=== PATIENT | female | born 1960 | race African-American/Black ===

== ENCOUNTER 2017-01-22 10:51 | Inpatient (IN) | payer OTHER ==
[~2017-01-22] VITALS: Ht 170.2 cm; Wt 64.5 kg
[2017-01-22] MEDS ORDERED: ASPIRIN 81 MG TAB PO STA (10:57)
--- NOTE | 2017-01-22 11:18 | ERA ---
ER Documentation Chief Complaint Date/Time DATE: 01/22/17 TIME: 10:58 Chief Complaint HPI This is a very pleasant 56-year-old female with a known history of end-stage renal disease on hemodialysis every Saturday. The patient indicates that yesterday evening she developed a chest pressure that did not radiate to the neck arm back or jaw. This lasted for several hours but did resolve. She went to her dialysis just prior to arrival and 2 minutes into the dialysis had recurrence of sharp shooting left substernal chest pain that at this time radiated to the left arm. It was 9 out of 10 in intensity. Dialysis was immediately stopped and EMS was called. When EMS arrived they stated that the patient was on 2 L nasal cannula and hypoxic at 70%. She was not complaining of any difficulty breathing. She did have improvement of her oxygen saturation to 94% and placed on a nonrebreather. They administered 162 mg of aspirin as well as sublingual nitroglycerin 3 sprays. The patient stated her pain improved to 7 out of 10 in intensity. Her bindery machine setter is Dr. Holden. ROS All systems reviewed and are negative except as per history of present illness. Medications Home Meds Unable to Obtain Active Prescriptions or Reported Meds Allergies Allergies: Coded Allergies: ibuprofen (Verified Allergy, Unknown, 01/22/17) Physical Exam Vitals Vital Signs Date Time Temp Pulse Resp B/P Pulse Ox O2 Delivery O2 Flow Rate FiO2 01/22/17 12:07 89 23 159/95 92 Mask 8.0 01/22/17 12:01 88 20 95 Non Rebreather Mask 15.0 01/22/17 12:01 15.0 01/22/17 10:56 98.8 88 22 149/86 92 Physical Exam Constitutional:Well-developed. Well-nourished. Patient in mild respiratory distress HEENT:Normocephalic. Atraumatic.Pupils were equal round reactive to light. Moist mucous membranes.No tonsillar exudates. Neck: No nuchal rigidity. No lymphadenopathy. No posterior cervical spine tenderness or step-offs. Respiratory: Not using accessory muscles of respiration. Decreased breath sounds throughout the left lung base. Slight wheeze on the right side. No subcutaneous emphysema. No stridor Cardiovascular: Regular rate regular rhythm.No murmurs. No rubs were appreciated.S1, S2 normal. Distal pulses are palpable 2+ bilaterally. GI: Abdomen was soft. Nontender. Non Distended. No pulsatile abdominal masses or bruits. No rebound. No guarding. Bowel sounds were present and normal. Muscle skeletal: Full range of motion of both the upper and lower extremities bilaterally.Normal muscle tone.No assymetrical calf tenderness or swelling. Skin: No petechia, no purpura. No lesions on the palms or the soles of the feet. No maculopapular rash. Right tunneled chest wall catheter in place clean dry and intact NEURO: Patient was alert, awake, orientated x3.No facial droop. Gait observed and normal with no ataxia.Speech had regular rate and rhythm. No focal neurological deficits. Result Diagram: 01/22/17 1130 01/22/17 1130 Results 24 hrs Laboratory Tests Test 01/22/17 11:30 White Blood Count 7.410^3/ul Red Blood Count 3.2610^6/ul Hemoglobin 9.3g/dl Hematocrit 29.0% Mean Corpuscular Volume 89.0fl Mean Corpuscular Hemoglobin 28.5pg Mean Corpuscular Hemoglobin Concent 32.1g/dl Red Cell Distribution Width 18.0% Platelet Count 66476^3/UL Mean Platelet Volume 9.8fl Neutrophils % 73.5% Lymphocytes % 15.8% Monocytes % 5.0% Eosinophils % 4.7% Basophils % 0.7% Nucleated Red Blood Cells % 0.0/100WBC Neutrophils # 5.510^3/ul Lymphocytes # 1.210^3/ul Monocytes # 0.410^3/ul Eosinophils # 0.410^3/ul Basophils # 0.110^3/ul Nucleated Red Blood Cells # 0.010^3/ul Prothrombin Time 13.7Sec Prothrombin Time Ratio 1.1 INR International Normalized Ratio 1.05 Activated Partial Thromboplast Time > 180.0Sec Sodium Level 139mmol/L Potassium Level 5.0mmol/L Chloride Level 101mmol/L Carbon Dioxide Level 26mmol/L Anion Gap 17 Blood Urea Nitrogen 36mg/dl Creatinine 3.64mg/dl Glucose Level 96mg/dl Calcium Level 9.0mg/dl Total Bilirubin 0.0mg/dl Direct Bilirubin 0.00mg/dl Indirect Bilirubin 0.0mg/dl Aspartate Amino Transf (AST/SGOT) 21IU/L Alanine Aminotransferase (ALT/SGPT) 19IU/L Alkaline Phosphatase 119IU/L B-Type Natriuretic Peptide 071204EX/ML Total Protein 6.6g/dl Albumin 2.7g/dl Globulin 3.90g/dl Albumin/Globulin Ratio 0.69 Current Medications Medications (Trade) Dose Ordered Sig/Kerri Route PRN Reason Start Time Stop Time Status Last Admin Dose Admin Aspirin (Aspirin) 162 mg ONCE STAT PO 01/22/17 10:57 01/22/17 10:59 DC 01/22/17 10:57 Albuterol (Proventil 0.5% (Neb)) 10 mg ONCE STAT INH 01/22/17 11:45 01/22/17 11:47 DC 01/22/17 11:57 Ipratropium [place] (Atrovent 0.02% (Neb)) 1 mg ONCE STAT INH 01/22/17 11:45 01/22/17 11:47 DC 01/22/17 11:57 Morphine Sulfate (morphine) 2 mg ONCE STAT IV 01/22/17 11:46 01/22/17 11:47 DC 01/22/17 12:03 Ondansetron HCl (Zofran Inj) 4 mg ONCE STAT IV 01/22/17 11:46 01/22/17 11:47 DC 01/22/17 12:03 Procedures/MDM The patient presented to the emergency department with chest pain. My clinical evaluation and workup was to distinguish minor causes of chest pain from acute life threatening conditions such as myocardial infarction, pulmonary embolism, aortic dissection, esophageal rupture, cardiac tamponade. The patient was placed on a company laborer and continuous pulse oximetry. IV access established by nursing staff. 12 Lead EKG tracing ordered and reviewed by myself showed: Normal sinus rhythm of 92 bpm and no arrhythmia. [place] interval normal. QRS duration normal. RSR prime pattern in lead V1 V2 with an incomplete right bundle branch block and right ventricular hypertrophy No ST segment elevation No ST segment depression. No changes consistent with acute ischemia. I obtained a 1 view chest radiograph which indicated the following reviewed by both myself and the radiologist: 1. Central vascular congestion and suggested pulmonary edema. Recommend correlation with CHF/fluid overload. 2. Large left pleural effusion with near complete collapse of the left lung and moderate right pleural effusion with adjacent atelectasis. I spoke with Dr. Holden who stated he will kindly admit the patient to the telemetry service. I have placed a call to the radiologist to undergo an emergent thoracentesis under ultrasound guidance given the severity of the patient's symptoms. Blood cultures were obtained. The patient had been given nebulizer treatments of albuterol and Atrovent as well as nitroglycerin. She did receive aspirin already in route by EMS for her chest pain. This did not improve her discomfort and therefore she was given intravenous morphine. I did feel the patient's chest discomfort was more likely related to her pleural effusion versus myocardial infarction however the patient will receive serial 12-lead EKG tracings and cardiac set of enzymes Critical Care: Time: 35 minutes Treatments/Evaluations: Close monitoring and treatment of unstable vital signs, cardiorespiratory, and neurologic status, while maintaining tight balance of fluid, respiratory, and cardiac interventions. Time does not include performing any of the above billable procedures. Departure Diagnosis: Primary Impression: Chest pain Qualified Code: R07.9 - Chest pain, unspecified type Additional Impressions: Pleural effusion on left CHF exacerbation Qualified Code: I50.43 - Acute on chronic combined systolic and diastolic congestive heart failure Condition: Serious LINDA HI Jan 22, 2017 11:15
[2017-01-22 11:36] LABS: ADD SCAN DIFF NO
[2017-01-22] MEDS ORDERED: ALBUTEROL 0.5% (NEB) 2.5 MG/0.5 ML AMP INH STA (11:45)
[2017-01-22] MEDS ORDERED: IPRATROPIUM (NEB) 0.5 MG/2.5 ML AMP INH STA (11:45)
[2017-01-22] MEDS ORDERED: morphine 2 MG INJ IV STA (11:46)
[2017-01-22] MEDS ORDERED: ONDANSETRON 4 MG INJ IV STA ×2 (11:46→14:41)
[2017-01-22 11:49] LABS: BASOPHIL # 0.1 10^3/ul (0.0-0.1); BASOPHILS % 0.7 % (0.0-2.0); EOSINOPHILS # 0.4 10^3/ul (0.0-0.5); EOSINOPHILS % 4.7 % (0.0-7.0); HEMOGLOBIN 9.3 g/dl (12.0-16.0); LYMPHOCYTES # 1.2 10^3/ul (0.8-2.9); LYMPHOCYTES % 15.8 % (15.0-51.0); MEAN CORPUSCULAR HEMOGLOBIN 28.5 pg (29.0-33.0); MEAN CORPUSCULAR HGB CONC 32.1 g/dl (32.0-37.0); MEAN PLATELET VOLUME 9.8 fl (7.4-10.4); MONOCYTE # 0.4 10^3/ul (0.3-0.9); NEUTROPHIL # 5.5 10^3/ul (1.6-7.5); NEUTROPHILS % 73.5 % (39.0-77.0); PLATELET COUNT 294 10^3/UL (140-415); RED BLOOD COUNT 3.26 10^6/ul (4.20-5.40); WHITE BLOOD COUNT 7.4 10^3/ul (4.8-10.8)
[2017-01-22 12:03] LABS: INR 1.05; PROTIME 13.7 Sec (12.2-14.2); PT RATIO 1.1
[2017-01-22 12:06] LABS: ALBUMIN 2.7 g/dl (3.3-4.9); ALBUMIN/GLOBULIN RATIO 0.69; CREATININE 3.64 mg/dl (0.44-1.00); TOTAL PROTEIN 6.6 g/dl (6.1-8.1)
--- NOTE | 2017-01-22 12:11 | RADRPT ---
PROCEDURE: Chest Radiograph. CLINICAL INDICATION: Chest pain TECHNIQUE: Single frontal chest radiograph. COMPARISON: None available FINDINGS: A right chest wall tunneled hemodialysis catheters in place. Heart size is poorly evaluated. There is moderate central vascular congestion. Interstitial opacities are nonspecific but likely represe nt pulmonary edema . There is a large left pleural effusion with near complete collapse of the left lung. There is a moderate right pleural effusion. The bones are intact. IMPRESSION: 1. Central vascular congestion and suggested pulmonary edema. Recommend correlation with CHF/fluid overload. 2. Large left pleural effusion with near complete collapse of the left lung and moderate right pleu ral effusion with adjacent atelectasis. RPTAT: KK .Miki Harrison MD, MD Date Time Electronically viewed and signed by .Miki Harrison MD, MD on 01/22/2017 12:11 .B/
[2017-01-22 12:49] LABS: PARTIAL THROMBOPLASTIN TIME > 180.0 Sec (25.0-35.0)
[2017-01-22] MEDS ORDERED: ONDANSETRON 4 MG INJ IV PRN (13:00)
[2017-01-22] MEDS ORDERED: ACETAMINOPHEN 325 MG TAB PO PRN (13:00)
[2017-01-22] MEDS ORDERED: LIDOCAINE 1% (MPF) 5 ML VIAL ONE (13:57)
--- NOTE | 2017-01-22 14:12 | RADRPT ---
PROCEDURE: Chest Radiograph. CLINICAL INDICATION: Post thoracentesis TECHNIQUE: Single frontal chest radiograph. COMPARISON: Chest radiograph 01/22/2017 FINDINGS: The patient is rotated. Heart size is poorly evaluated. A right chest wall tunneled hemodialysis c atheter remains in place. There is decreased left pleural fluid with persistent small to moderate l eft pleural effusion and adjacent atelectasis. There is no pneumothorax . There is a stable modera te right pleural effusion. The bones are intact. IMPRESSION: 1. Decreased left pleural effusion and improved aeration of the left lung without evidence of pneum othorax post thoracentesis. 2. Otherwise stable radiographic appearance of the chest compared to 11:30 a.m. RPTAT: KK .Miki Harrison MD, MD Date Time Electronically viewed and signed by .Miki Harrison MD, MD on 01/22/2017 14:12 .B/
[2017-01-22] MEDS ORDERED: HYDROmorphONE 1 MG/ML SYG IV STA (14:41)
--- NOTE | 2017-01-22 16:50 | CONS ---
Date/Time of Note Date/Time of Note DATE: 01/22/17 TIME: 16:45 Assessment/Plan Assessment/Plan Chief Complaint/Hosp Course Assessment 1. Chest discomfort concerning for acute coronary syndrome. Serial enzymes and echocardiogram cardiology consult 2. Hypoxemic respiratory failure secondary to volume overload with pleural effusion status post thoracentesis. Await pleural fluid studies. 3. End-stage renal failure on hemodialysis. Continue hemodialysis with volume removal. 4. Essential hypertension Plan Hemodialysis with volume removal Repeat chest x-ray to assess volume status may require repeat thoracentesis Aspiration precautions Cardiac consultation ACS protocol Problems: Consultation Date/Type/Reason Admit Date/Time Date of Consultation: Jan 22, 2017 Type of Consultation: Pulmonary Reason for Consultation Respiratory failure Hx of Present Illness 56-year-old lady with a history of end-stage renal failure on hemodialysis presents with several day history of increasing orthopnea PND in addition she presented with central chest discomfort this morning with no radiation no hemoptysis or hematemesis. Chest pain got worse today radiating to left arm and neck with hemodialysis. Hemodialysis. Patient was brought to the emergency room for further evaluation here she required aspirin nitroglycerin chest x-ray demonstrated a large left pleural effusion. She underwent thoracentesis with significant radiographic improvement. Past Medical History End-stage renal failure on hemodialysis Hypertension Social History Smoking Status: Never smoker Exam/Review of Systems Vital Signs Vitals Vital Signs Date Time Temp Pulse Resp B/P Pulse Ox O2 Delivery O2 Flow Rate FiO2 01/22/17 14:55 86 18 151/86 92 Nasal Cannula 5.0 01/22/17 10:56 98.8 Exam GENERAL: Well-nourished well-developed lady comfortable at rest no acute distress VITAL SIGNS: per chart NECK: Supple. No JVD or lymphadenopathy. CARDIAC EXAM: S1, S2. No added sounds or murmurs. CHEST: Diminished air entry bilaterally ABDOMEN: Soft, nontender. No guarding or rebound. EXTREMITIES: No cyanosis, clubbing or edema. NEUROLOGIC: Generalized weakness. No focal deficits. Results Chest x-ray bilateral pleural effusions improved aeration in the left lung following thoracentesis Result Diagram: 01/22/17 1130 01/22/17 1130 Results 24 hrs Laboratory Tests Test 01/22/17 11:30 White Blood Count 7.4 Red Blood Count 3.26 L Hemoglobin 9.3 L Hematocrit 29.0 L Mean Corpuscular Volume 89.0 Mean Corpuscular Hemoglobin 28.5 L Mean Corpuscular Hemoglobin Concent 32.1 Red Cell Distribution Width 18.0 H Platelet Count 294 Mean Platelet Volume 9.8 Neutrophils % 73.5 Lymphocytes % 15.8 Monocytes % 5.0 Eosinophils % 4.7 Basophils % 0.7 Nucleated Red Blood Cells % 0.0 Neutrophils # 5.5 Lymphocytes # 1.2 Monocytes # 0.4 Eosinophils # 0.4 Basophils # 0.1 Nucleated Red Blood Cells # 0.0 Prothrombin Time 13.7 Prothrombin Time Ratio 1.1 INR International Normalized Ratio 1.05 Activated Partial Thromboplast Time > 180.0 *H Sodium Level 139 Potassium Level 5.0 Chloride Level 101 Carbon Dioxide Level 26 Anion Gap 17 H Blood Urea Nitrogen 36 H Creatinine 3.64 H Glucose Level 96 Calcium Level 9.0 Total Bilirubin 0.0 L Direct Bilirubin 0.00 Indirect Bilirubin 0.0 Aspartate Amino Transf (AST/SGOT) 21 Alanine Aminotransferase (ALT/SGPT) 19 Alkaline Phosphatase 119 B-Type Natriuretic Peptide 141368 H Total Protein 6.6 Albumin 2.7 L Globulin 3.90 H Albumin/Globulin Ratio 0.69 ESTEFANI MAXWELL MD, [facility] Jan 22, 2017 16:50
--- NOTE | 2017-01-22 17:06 | RADRPT ---
PROCEDURE: US guided left thoracentesis. CLINICAL INDICATION: Shortness of breath. Left pleural effusion. TECHNIQUE: Prior to the procedure, informed consent was obtained. The risks, benefits, and alternatives were e xplained to the patient or the patient's family, including but not limited to bleeding, infection, p ain, visceral or vascular damage, shock, pneumothorax, chest tube placement, air embolism, and . The patient or the patient's family understood the risks and the alternatives and wished to proce ed with the study. Informed written consent was obtained. A procedural pause was performed. The patient's name, date of , and procedure to be performed were verified. Ultrasound of the left hemithorax was performed in the axial and sagittal planes. A left pleural eff usion is noted. Utilizing ultrasound guidance, optimal location for entry to the pleural cavity was ascertained. The overlying skin was prepped and draped in the usual sterile fashion. Approximately 10 ml of 1% Xylocaine was injected locally for pain control. Using ultrasound guidance, a 5-Uzbek Yueh catheter was introduced into the left pleural space without difficulty. Fluid was aspirated. COMPARISON: None. FINDINGS: Initial ultrasound demonstrates fluid in the left pleural space. Approximately 1.7 liters of serous fluid was aspirated and sent to the laboratory. IMPRESSION: 1. Satisfactory ultrasound-guided left thoracentesis. RPTAT: QQ .Mohamud Nam MD, Date Time Electronically viewed and signed by .Mohamud Nam MD, on 01/22/2017 17:06 .R/
[2017-01-22] MEDS ORDERED: BISACODYL (EC) 5 MG TAB PO PRN (21:00)
[2017-01-22] MEDS ORDERED: NACL 0.9% 3 ML SYG IV SCH (21:00)
[2017-01-22] MEDS ORDERED: ACETAMINOPHEN 650 MG SUPP PR PRN (21:00)
[2017-01-22] MEDS: HYDROmorphONE 1 MG/ML SYG IV PRN (21:03)
--- NOTE | 2017-01-22 22:59 | HP ---
Date/Time of Note Date/Time of Note DATE: 01/22/17 TIME: 22:54 Assessment/Plan VTE Prophylaxis VTE Prophylaxis Intervention: other Lines/Catheters IV Catheter Type (from Nrsg): Saline Lock Assessment/Plan Chief Complaint/Hosp Course esrd pleural effusion anemia r/o ihd ashd plan per cpoe Problems: HPI/ROS Admit Date/Time Admit Date/Time s/p sob and cp w hd hx esrd ROS Constitutional: No chills, No febrile, No nausea ENT: no complaints Respiratory: shortness of breath (+) Cardiovascular: no complaints, No lightheadedness Gastrointestinal: no complaints Genitourinary: no complaints Musculoskeletal: no complaints Skin: no complaints Neurologic: no complaints, other (weakness) Endocrine: no complaints Lymphatic: no complaints Psychological: no complaints PMH/Family/Social Past Medical History Medical History: coronary artery disease, high cholesterol, renal disease Family History Significant Family History: lung disease, renal disease Social History Alcohol Use: none Smoking Status: Never smoker Drug Use: none Exam/Review of Systems Vital Signs Vitals Vital Signs Date Time Temp Pulse Resp B/P Pulse Ox O2 Delivery O2 Flow Rate FiO2 01/22/17 22:29 92 16 139/81 93 Nasal Cannula 5.0 01/22/17 10:56 98.8 Exam Constitutional: alert, oriented Psych: no complaints Head: normocephalic Eyes: nl conjunctiva ENMT: nl external ears & nose Neck: non-tender, supple Respiratory: diminished breath sounds Cardiovascular: regular rate and rhythm Gastrointestinal: nl liver, spleen, non-tender, soft Musculoskeletal: nl extremities to inspection Extremities: normal pulses Neurological: OIL AND G[employer] PRINCIPAL II-XII intact Labs Result Diagram: 01/22/17 1130 01/22/17 1130 Medications Medications Current Medications Hydromorphone HCl (Dilaudid) 1 mg Q4H PRN IV PAIN Last administered on t 21:03; Admin Dose 1 MG; Start 01/22/17 at 19:30 Acetaminophen (Tylenol Tab) 650 mg Q6H PRN PO PAIN LEVEL 1-3 OR FEVER; Start at 21:00 Acetaminophen (Tylenol Supp) 650 mg Q6H PRN [place] PAIN LEVEL 1-3 OR FEVER; Start 01/22/17 at 21:00 Docusate Sodium (Colace) 100 mg Q12H PRN PO CONSTIPATION; Start 01/22/17 at 21: 00 Bisacodyl (Dulcolax) 5 mg DAILY PRN PO CONSTIPATION; Start 01/22/17 at 21:00 Pantoprazole (Protonix Tab) 40 mg DAILY@06 PO ; Start 01/23/17 at 06:00 Enoxaparin Sodium (Lovenox) 30 mg DAILY SC ; Start 01/23/17 at 09:00 SHAN ARRINGTON MD Jan 22, 2017 22:59
[2017-01-22] MEDS ORDERED: ALBUTEROL/IPRATROPIUM (NEB) 3 ML AMP HHN PRN (23:00)
[2017-01-23] VITALS (35 sets, daily range): BP systolic 137–185; BP diastolic 57–100; PULSE 86–112; RESP 9–24; Ht 170.2 cm; Wt 64.5 kg
[2017-01-23] MEDS: HYDROmorphONE 1 MG/ML SYG IV PRN ×6 (01:37→22:21)
[2017-01-23 02:48] LABS: AADO2 Arterial 209.4 mmHg (7.0-24.0); Allen Test ACCEPTAB; Arterial COHb 0.3 % (0.0-3.0); Arterial Fraction of Oxyhgb 78.6 % (93.0-99.0); Arterial HCO3 27.8 mmol/L (22.0-26.0); Arterial MetHb 0.3 % (0.0-1.5); Arterial Total Hemglobin 10.5 g/dl (12.0-18.0); MODE MASK - SIMPLE
[2017-01-23] MEDS: PANTOPRAZOLE (EC) 40 MG TAB PO SCH (06:00)
[2017-01-23] MEDS ORDERED: DIPHENHYDRAMINE 50 MG INJ IV ONE (07:30)
[2017-01-23] MEDS: ENOXAPARIN 30 MG/0.3 ML SYG SC SCH (08:50)
--- NOTE | 2017-01-23 09:26 | RADRPT ---
PROCEDURE: XR Chest. CLINICAL INDICATION: Congestive heart failure TECHNIQUE: Single frontal chest x-ray. COMPARISON: 01/22/2017 FINDINGS: There is a right sided tunneled dialysis catheter in place. Hilar vascular congestion with perihila r edema and small bilateral pleural effusions is unchanged. . Bibasilar atelectasis unchanged.. Ca rdiomediastinal silhouette is unchanged.. The osseous structures are intact. There is no evidence o f pneumothorax. IMPRESSION: Right sided tunneled dialysis catheter in place. Hilar congestion, perihilar edema and small bilateral pleural effusions are stable.. RPTAT: EE .Marcus Olivares MD, MD Date Time Electronically viewed and signed by .Marcus Olivares MD, MD on 01/23/2017 09:26 .L/
[2017-01-23 09:48] LABS: Allen Test ACCEPTAB; Arterial Base Excess 10.2 mmol/L (-3.0-3); Arterial COHb 0.3 % (0.0-3.0); Arterial Fraction of Oxyhgb 92.6 % (93.0-99.0); Arterial HCO3 35.6 mmol/L (22.0-26.0); Arterial MetHb 0.3 % (0.0-1.5); Arterial Total Hemglobin 10.8 g/dl (12.0-18.0); MODE MASK - NRB
--- NOTE | 2017-01-23 11:11 | CONS ---
Date/Time of Note Date/Time of Note DATE: 01/23/17 TIME: 11:09 Consult Date/Type/Reason Admit Date/Time Jan 22, 2017 at 12:58 Initial Consult Date 01/22/17 Type of Consultation: Pulmonary Subjective Patient awake alert and oriented this morning on nonrebreather O2, status post hemodialysis. Objective Vital Signs Date Time Temp Pulse Resp B/P Pulse Ox O2 Delivery O2 Flow Rate FiO2 01/23/17 11:00 95 9 150/88 100 Non Rebreather 15.0 01/23/17 07:00 97.8 Intake and Output 01/22/17 01/22/17 01/23/17 15:00 23:00 07:00 Intake Total 300 ml Output Total 4000 ml Balance -3700 ml Exam GENERAL: Chronically ill-appearing lady comfortable at rest no acute distress VITAL SIGNS: per chart NECK: Supple. No JVD or lymphadenopathy. CARDIAC EXAM: S1, S2. No added sounds or murmurs. CHEST: Diminished air entry bilaterally ABDOMEN: Soft, nontender. No guarding or rebound. EXTREMITIES: No cyanosis, clubbing or edema. NEUROLOGIC: Generalized weakness. No focal deficits. Results/Medications Result Diagram: 01/22/17 1130 01/22/17 1130 Results 24 hrs Chest x-ray demonstrates pulmonary edema Laboratory Tests Test 01/22/17 11:30 01/23/17 02:19 01/23/17 08:00 White Blood Count 7.4 Red Blood Count 3.26 L Hemoglobin 9.3 L Hematocrit 29.0 L Mean Corpuscular Volume 89.0 Mean Corpuscular Hemoglobin 28.5 L Mean Corpuscular Hemoglobin Concent 32.1 Red Cell Distribution Width 18.0 H Platelet Count 294 Mean Platelet Volume 9.8 Neutrophils % 73.5 Lymphocytes % 15.8 Monocytes % 5.0 Eosinophils % 4.7 Basophils % 0.7 Nucleated Red Blood Cells % 0.0 Neutrophils # 5.5 Lymphocytes # 1.2 Monocytes # 0.4 Eosinophils # 0.4 Basophils # 0.1 Nucleated Red Blood Cells # 0.0 Prothrombin Time 13.7 Prothrombin Time Ratio 1.1 INR International Normalized Ratio 1.05 Activated Partial Thromboplast Time > 180.0 *H Sodium Level 139 Potassium Level 5.0 Chloride Level 101 Carbon Dioxide Level 26 Anion Gap 17 H Blood Urea Nitrogen 36 H Creatinine 3.64 H Glucose Level 96 Calcium Level 9.0 Total Bilirubin 0.0 L Direct Bilirubin 0.00 Indirect Bilirubin 0.0 Aspartate Amino Transf (AST/SGOT) 21 Alanine Aminotransferase (ALT/SGPT) 19 Alkaline Phosphatase 119 B-Type Natriuretic Peptide 315012 H Total Protein 6.6 Albumin 2.7 L Globulin 3.90 H Albumin/Globulin Ratio 0.69 Blood Gas Specimen Source Blood arterial Blood arterial Arterial Blood Date Drawn 01/23/2017 2:40:02 AM 01/23/2017 9:35:05 AM Arterial Blood pH (Temp corrected) 7.316 L 7.453 H Arterial Blood pCO2 (Temp correct) 55.8 H 52.0 H Arterial Blood pO2 (Temp corrected) 48.0 *L 65.0 L Arterial Blood HCO3 27.8 H 35.6 H Arterial Blood Base Excess 1.0 10.2 H Arterial Blood Oxygen Saturation 79.1 L 93.2 L Cristóbal Test ACCEPTAB ACCEPTAB Arterial Blood Gas Puncture Site UAL Right Radial Arterial Blood Carboxyhemoglobin 0.3 0.3 Arterial Blood Methemoglobin 0.3 0.3 Blood Gas A-a O2 Differential 209.4 H 596.0 H Oxyhemoglobin Percent 78.6 L 92.6 L Total Hemoglobin 10.5 L 10.8 L Blood Gas Temperature 37.0 37.0 Blood Gas Modality MASK - SIMPLE MASK - NRB FiO2 45.0 100.0 Blood Gas Critical Value Read Back ROHIT DE LA CRUZ Blood Gas Notified Whom LIZETH JLD Blood Gas Notified Time 01/23/2017 2:46:10 AM 01/23/2017 9:47:51 AM Medications Current Medications Hydromorphone HCl (Dilaudid) 1 mg Q4H PRN IV PAIN Last administered on t 09:50; Admin Dose 1 MG; Start 01/22/17 at 19:30 Acetaminophen (Tylenol Tab) 650 mg Q6H PRN PO PAIN LEVEL 1-3 OR FEVER; Start at 21:00 Acetaminophen (Tylenol Supp) 650 mg Q6H PRN [place] PAIN LEVEL 1-3 OR FEVER; Start 01/22/17 at 21:00 Docusate Sodium (Colace) 100 mg Q12H PRN PO CONSTIPATION; Start 01/22/17 at 21: 00 Bisacodyl (Dulcolax) 5 mg DAILY PRN PO CONSTIPATION; Start 01/22/17 at 21:00 Pantoprazole (Protonix Tab) 40 mg DAILY@06 PO ; Start 01/23/17 at 06:00 Enoxaparin Sodium (Lovenox) 30 mg DAILY SC ; Start 01/23/17 at 09:00 Assessment/Plan Chief Complaint/Hosp Course Assessment 1. Chest discomfort concerning for acute coronary syndrome. Continue cardiac recommendations 2. Hypoxemic respiratory failure secondary to volume overload with pleural effusion status post thoracentesis. Await pleural fluid studies. 3. End-stage renal failure on hemodialysis. Continue hemodialysis with volume removal. 4. Essential hypertension Plan Hemodialysis with volume removal, may require daily hemodialysis with several days Repeat chest x-ray shows no pleural effusions but ongoing interstitial edema Aspiration precautions Cardiac recommendations regarding chest pain. May require cardiac cath. Critical care time 40 minutes. Problems: ESTEFANI MAXWELL MD, [facility] Jan 23, 2017 11:10
--- NOTE | 2017-01-23 22:37 | PN ---
Date/Time of Note Date/Time of Note DATE: 01/23/17 TIME: 22:36 Assessment/Plan VTE Prophylaxis VTE Prophylaxis Intervention: other Lines/Catheters IV Catheter Type (from Nrsg): Central Line Central line still needed: Yes Urinary Cath still in place: No Reason Cath still needed: other (indicate) Assessment/Plan Chief Complaint/Hosp Course esrd pleural effusion anemia r/o ihd ashd plan per pulmonary hd Problems: Subjective 24 Hr Interval Summary Respiratory: shortness of breath (+) Cardiovascular: no complaints Exam/Review of Systems Vital Signs Vitals Vital Signs Date Time Temp Pulse Resp B/P Pulse Ox O2 Delivery O2 Flow Rate FiO2 01/23/17 21:00 103 14 174/99 92 High Flow 01/23/17 20:00 98.4 01/23/17 19:30 80 01/23/17 12:00 15.0 Intake and Output 01/22/17 01/22/17 01/23/17 15:00 23:00 07:00 Intake Total 300 ml Output Total 4000 ml Balance -3700 ml Exam Respiratory: diminished breath sounds Cardiovascular: regular rate and rhythm Gastrointestinal: soft Results Result Diagram: 01/22/17 1130 01/22/17 1130 Results 24 hrs Laboratory Tests Test 01/23/17 02:19 01/23/17 08:00 Blood Gas Specimen Source Blood arterial Blood arterial Arterial Blood Date Drawn 01/23/2017 2:40:02 AM 01/23/2017 9:35:05 AM Arterial Blood pH (Temp corrected) 7.316 L 7.453 H Arterial Blood pCO2 (Temp correct) 55.8 H 52.0 H Arterial Blood pO2 (Temp corrected) 48.0 *L 65.0 L Arterial Blood HCO3 27.8 H 35.6 H Arterial Blood Base Excess 1.0 10.2 H Arterial Blood Oxygen Saturation 79.1 L 93.2 L Cristóbal Test ACCEPTAB ACCEPTAB Arterial Blood Gas Puncture Site UAL Right Radial Arterial Blood Carboxyhemoglobin 0.3 0.3 Arterial Blood Methemoglobin 0.3 0.3 Blood Gas A-a O2 Differential 209.4 H 596.0 H Oxyhemoglobin Percent 78.6 L 92.6 L Total Hemoglobin 10.5 L 10.8 L Blood Gas Temperature 37.0 37.0 Blood Gas Modality MASK - SIMPLE MASK - NRB FiO2 45.0 100.0 Blood Gas Critical Value Read Back RN DE LA CRUZ Blood Gas Notified Whom LIZETH JLD Blood Gas Notified Time 01/23/2017 2:46:10 AM 01/23/2017 9:47:51 AM Medications Medications Current Medications Hydromorphone HCl (Dilaudid) 1 mg Q4H PRN IV PAIN Last administered on t 22:21; Admin Dose 1 MG; Start 01/22/17 at 19:30 Acetaminophen (Tylenol Tab) 650 mg Q6H PRN PO PAIN LEVEL 1-3 OR FEVER; Start at 21:00 Acetaminophen (Tylenol Supp) 650 mg Q6H PRN [place] PAIN LEVEL 1-3 OR FEVER; Start 01/22/17 at 21:00 Docusate Sodium (Colace) 100 mg Q12H PRN PO CONSTIPATION; Start 01/22/17 at 21: 00 Bisacodyl (Dulcolax) 5 mg DAILY PRN PO CONSTIPATION; Start 01/22/17 at 21:00 Pantoprazole (Protonix Tab) 40 mg DAILY@06 PO ; Start 01/23/17 at 06:00 Enoxaparin Sodium (Lovenox) 30 mg DAILY SC ; Start 01/23/17 at 09:00 SHAN ARRINGTON MD Jan 23, 2017 22:37
[2017-01-24] VITALS (23 sets, daily range): BP systolic 121–185; BP diastolic 73–120; PULSE 88–108; RESP 9–22
[2017-01-24] MEDS: HYDROmorphONE 1 MG/ML SYG IV PRN ×6 (02:17→20:48)
[2017-01-24 05:25] LABS: ADD SCAN DIFF NO
[2017-01-24 05:37] LABS: BASOPHILS % 0.5 % (0.0-2.0); EOSINOPHILS # 0.3 10^3/ul (0.0-0.5); EOSINOPHILS % 4.4 % (0.0-7.0); HEMATOCRIT 29.6 % (37.0-47.0); HEMOGLOBIN 9.2 g/dl (12.0-16.0); LYMPHOCYTES # 0.9 10^3/ul (0.8-2.9); LYMPHOCYTES % 15.2 % (15.0-51.0); MEAN CORPUSCULAR HEMOGLOBIN 27.9 pg (29.0-33.0); MEAN CORPUSCULAR HGB CONC 31.1 g/dl (32.0-37.0); MEAN CORPUSCULAR VOLUME 89.7 fl (82.0-101.0); MEAN PLATELET VOLUME 10.2 fl (7.4-10.4); MONOCYTE # 0.5 10^3/ul (0.3-0.9); MONOCYTES % 8.5 % (0.0-11.0); NEUTROPHIL # 4.4 10^3/ul (1.6-7.5); NEUTROPHILS % 71.1 % (39.0-77.0); PLATELET COUNT 250 10^3/UL (140-415); RED CELL DISTRIBUTION WIDTH 17.5 % (11.5-14.5); WHITE BLOOD COUNT 6.1 10^3/ul (4.8-10.8)
[2017-01-24] MEDS: PANTOPRAZOLE (EC) 40 MG TAB PO SCH (05:53)
[2017-01-24 06:02] LABS: CALCIUM 7.5 mg/dl (8.4-10.2); CREATININE 3.43 mg/dl (0.44-1.00); MAGNESIUM 2.2 mg/dl (1.7-2.5); PHOSPHORUS 4.8 mg/dl (2.5-4.9); POTASSIUM 3.9 mmol/L (3.5-5.1)
[2017-01-24] MEDS: ENOXAPARIN 30 MG/0.3 ML SYG SC SCH (08:13)
--- NOTE | 2017-01-24 10:44 | CONS ---
Date/Time of Note Date/Time of Note DATE: 01/24/17 TIME: 10:42 Consult Date/Type/Reason Admit Date/Time Jan 22, 2017 at 12:58 Initial Consult Date 01/22/17 Type of Consultation: Pulmonary Subjective Still on high flow O2, somewhat better today. Continues at 15 L and 60% FiO2. Awake alert and oriented. Objective Vital Signs Date Time Temp Pulse Resp B/P Pulse Ox O2 Delivery O2 Flow Rate FiO2 01/24/17 10:00 102 15 167/96 92 High Flow 01/24/17 04:30 98.4 01/24/17 04:28 60 01/23/17 12:00 15.0 Intake and Output 01/23/17 01/23/17 01/24/17 15:00 23:00 07:00 Intake Total 320 ml 400 ml 100 ml Output Total 0 ml 0 ml Balance 320 ml 400 ml 100 ml Exam GENERAL: Chronically ill-appearing lady comfortable at rest no acute distress VITAL SIGNS: per chart NECK: Supple. No JVD or lymphadenopathy. CARDIAC EXAM: S1, S2. No added sounds or murmurs. CHEST: Diminished air entry bilaterally ABDOMEN: Soft, nontender. No guarding or rebound. EXTREMITIES: No cyanosis, clubbing or edema. NEUROLOGIC: Generalized weakness. No focal deficits. Results/Medications Result Diagram: 01/24/17 0505 01/24/17 0505 Results 24 hrs Chest x-ray Extensive bilateral infiltrates and effusions Laboratory Tests Test 01/24/17 05:05 01/24/17 05:08 White Blood Count 6.1 Red Blood Count 3.30 L Hemoglobin 9.2 L Hematocrit 29.6 L Mean Corpuscular Volume 89.7 Mean Corpuscular Hemoglobin 27.9 L Mean Corpuscular Hemoglobin Concent 31.1 L Red Cell Distribution Width 17.5 H Platelet Count 250 Mean Platelet Volume 10.2 Neutrophils % 71.1 Lymphocytes % 15.2 Monocytes % 8.5 Eosinophils % 4.4 Basophils % 0.5 Nucleated Red Blood Cells % 0.0 Neutrophils # 4.4 Lymphocytes # 0.9 Monocytes # 0.5 Eosinophils # 0.3 Basophils # 0.0 Nucleated Red Blood Cells # 0.0 Sodium Level 137 Potassium Level 3.9 Chloride Level 94 L Carbon Dioxide Level 32 H Anion Gap 15 Blood Urea Nitrogen 27 H Creatinine 3.43 H Glucose Level 87 Calcium Level 7.5 L Phosphorus Level 4.8 Magnesium Level 2.2 Bedside Glucose 164 Medications Current Medications Hydromorphone HCl (Dilaudid) 1 mg Q4H PRN IV PAIN Last administered on 09:58; Admin Dose 1 MG; Start 01/22/17 at 19:30 Acetaminophen (Tylenol Tab) 650 mg Q6H PRN PO PAIN LEVEL 1-3 OR FEVER; Start at 21:00 Acetaminophen (Tylenol Supp) 650 mg Q6H PRN [place] PAIN LEVEL 1-3 OR FEVER; Start 01/22/17 at 21:00 Docusate Sodium (Colace) 100 mg Q12H PRN PO CONSTIPATION; Start 01/22/17 at 21: 00 Bisacodyl (Dulcolax) 5 mg DAILY PRN PO CONSTIPATION; Start 01/22/17 at 21:00 Pantoprazole (Protonix Tab) 40 mg DAILY@06 PO Last administered on 01/24/17 05 :53; Admin Dose 40 MG; Start 01/23/17 at 06:00 Enoxaparin Sodium (Lovenox) 30 mg DAILY SC ; Start 01/23/17 at 09:00 Assessment/Plan Chief Complaint/Hosp Course Assessment 1. Chest discomfort concerning for acute coronary syndrome. Continue cardiac recommendations 2. Hypoxemic respiratory failure secondary to volume overload with pleural effusion status post thoracentesis. Will need repeat thoracentesis will order left lumbar this time. 3. End-stage renal failure on hemodialysis. Continue hemodialysis with volume removal. 4. Essential hypertension Plan Hemodialysis with volume removal, may require daily hemodialysis with several days Repeat chest x-ray shows no pleural effusions but ongoing interstitial edema left lung thoracentesis Aspiration precautions Cardiac recommendations regarding chest pain. May require cardiac cath when stable. Critical care time 40 minutes. Problems: ESTEFANI MAXWELL MD, [facility] Jan 24, 2017 10:43
--- NOTE | 2017-01-24 10:45 | RADRPT ---
PROCEDURE: XR Chest. CLINICAL INDICATION: There is heart failure. Pneumonia. TECHNIQUE: Single frontal chest x-ray. COMPARISON: 01/23/2017 FINDINGS: There is a right sided tunneled dialysis catheter in place unchanged. . Cardiomegaly with hilar con gestion, perihilar edema and pleural effusions slightly worsened consistent with increasing congesti ve heart failure.. .. The osseous structures are intact. IMPRESSION: Cardiomegaly with increased hilar congestion, perihilar edema and small bilateral pleural effusions consistent with increasing congestive heart failure. May Right sided tunneled dialysis catheter in place.. RPTAT: RR .Marcus Olivares MD, MD Date Time Electronically viewed and signed by .Marcus Olivares MD, on 01/24/2017 10:45 .L/
[2017-01-24] MEDS: hydrALAzine 20 MG INJ IV PRN (13:05)
[2017-01-24] MEDS: METOPROLOL 25 MG TAB PO SCH (20:33)
[2017-01-24] MEDS: BENAZEPRIL 10 MG TAB PO SCH (20:33)
--- NOTE | 2017-01-24 20:55 | RADRPT ---
Echocardiogram Report Patient Name: SABRINA JARRETT Gender: Female Date: 1960 Study Date: 24-Jan-2017 [place]: Jessica Penaloza BRANDO Location: [facility] Ref. Physician: HUA LAUREN Quality: Good Procedures: Transthoracic echocardiogram with complete 2D, M-Mode, and doppler examination. Indications: Congestive Heart Failure. 2D/M Mode Doppler Measurement Value Normal Ranges Measurement Value Normal Ranges LVIDd 2D 4.1 3.5 - 5.6 cm AV Peak Xiang 1.5 m/sec LVIDs 2D 2.4 2.1 - 4.1 cm AV Peak PG 9.0 mmHg FS 2D 41.6 % AI Peak PG 70.0 mmHg LVPWd 2D 1.2 0.6 - 1.1 cm AI Peak Xiang 4.2 m/sec IVSd 2D 1.3 0.6 - 1.1 cm AI PHT 554.0 msec IVS/LVPW 2D 1.1 LVOT Peak Xiang 1.2 m/sec AoR Diam 2D 3.0 2.0 - 3.7 cm LVOT Peak PG 6.0 mmHg LA/Ao 2D 1 0 - 1 MV E Peak Xiang 0.7 m/sec EDV 2D 66.9 cm3 MV A Peak Xiang 0.9 m/sec ESV 2D 13.3 cm3 MV E/A 0.8 LA Dimen 2D 3.3 2.3 - 4.0 cm MV Decel Time 116 msec MV E/A 0.8 TR Peak Xiang 3.3 m/sec TR Peak PG 43.0 mmHg RVSP 58.0 mmHg Findings Left Ventricle: Lower limits of normal systolic function. Normal left ventricular cavity size. Mild concentric left ventricular hypertrophy. Ejection fraction is visually estimated at 50 %. Tissue Doppler/Mitral Doppler indices are consistent with impaired relaxation (Stage I diastolic dysfunction). Right Ventricle: Mild enlargement of right ventricle. Mild right ventricular hypokinesis. Left Atrium: The left atrium is normal in size. Right Atrium: The right atrium is normal in size. Linear artifact in right atrium suggestive of catheter, pacer lead, or ICD lead. Mitral Valve: Mitral valve leaflets appear mildly thickened. Mild mitral annular calcification. Mild mitral valve regurgitation. Aortic Valve: Aortic cusps appear mildly calcified. Trace to mild aortic valve regurgitation. Tricuspid Valve: Normal appearance of the tricuspid valve. Estimated peak PA systolic pressure 58 mmHg. There is mild to moderate tricuspid regurgitation. Pulmonic Valve: Normal pulmonic valve appearance. Pericardium: Normal pericardium with no significant pericardial effusion. Pleural effusion seen. Aorta: Normal aortic root. IVC: Dilated IVC without respiratory collapse consistent with elevated right atrial pressure. Conclusions 1.Lower limits of normal systolic function. Normal left ventricular cavity size. Mild concentric left ventricular hypertrophy. Ejection fraction is visually estimated at 50 %. Tissue Doppler/Mitral Doppler indices are consistent with impaired relaxation (Stage I diastolic dysfunction). 2.Mild enlargement of right ventricle. Mild right ventricular hypokinesis. 3.The right atrium is normal in size. Linear artifact in right atrium suggestive of catheter, pacer lead, or ICD lead. 4.Mitral valve leaflets appear mildly thickened. Mild mitral annular calcification. Trace mitral regurgitation. 5.Aortic cusps appear mildly calcified. Trace to mild aortic valve regurgitation. 6.Normal appearance of the tricuspid valve. Estimated peak PA systolic pressure 58 mmHg. There is mild to moderate tricuspid regurgitation. Electronically Signed By: Hua Lauren 24-Jan-2017 20:54:34 -0700 Patient Name: SABRINA JARRETT Study Date: 24-Jan-2017 [id number]
[2017-01-24 21:16] LABS: CREATINE KINASE 51 IU/L (23-200)
[2017-01-24 21:28] LABS: CK-MB 1.96 ng/ml (0.0-2.4)
[2017-01-24 21:30] LABS: TROPONIN-I < 0.012 ng/ml (0.00-0.12)
--- NOTE | 2017-01-24 22:52 | PN ---
Date/Time of Note Date/Time of Note DATE: 01/24/17 TIME: 22:50 Assessment/Plan VTE Prophylaxis VTE Prophylaxis Intervention: other Lines/Catheters IV [facility]from [facility] Saline Lock Urinary Cath still in place: No Assessment/Plan Chief Complaint/Hosp Course esrd pleural effusion anemia r/o ihd ashd plan per pulmonary hd Problems: Subjective 24 Hr Interval Summary Respiratory: shortness of breath (BETTER) Cardiovascular: no complaints Gastrointestinal: no complaints Genitourinary: no complaints Exam/Review of Systems Vital Signs Vitals Vital Signs Date Time Temp Pulse Resp B/P Pulse Ox O2 Delivery O2 Flow Rate FiO2 01/24/17 21:20 96 50 01/24/17 21:01 95 01/24/17 20:00 98.0 20 151/92 01/24/17 19:00 High Flow 01/23/17 12:00 15.0 Intake and Output 01/23/17 01/23/17 01/24/17 15:00 23:00 07:00 Intake Total 320 ml 400 ml 100 ml Output Total 0 ml 0 ml Balance 320 ml 400 ml 100 ml Exam Respiratory: clear to auscultation Cardiovascular: regular rate and rhythm Gastrointestinal: soft Results Result Diagram: 01/24/17 0505 01/24/17 0505 Results 24 hrs Laboratory Tests Test 01/24/17 05:05 01/24/17 05:08 01/24/17 20:30 White Blood Count 6.1 Red Blood Count 3.30 L Hemoglobin 9.2 L Hematocrit 29.6 L Mean Corpuscular Volume 89.7 Mean Corpuscular Hemoglobin 27.9 L Mean Corpuscular Hemoglobin Concent 31.1 L Red Cell Distribution Width 17.5 H Platelet Count 250 Mean Platelet Volume 10.2 Neutrophils % 71.1 Lymphocytes % 15.2 Monocytes % 8.5 Eosinophils % 4.4 Basophils % 0.5 Nucleated Red Blood Cells % 0.0 Neutrophils # 4.4 Lymphocytes # 0.9 Monocytes # 0.5 Eosinophils # 0.3 Basophils # 0.0 Nucleated Red Blood Cells # 0.0 Sodium Level 137 Potassium Level 3.9 Chloride Level 94 L Carbon Dioxide Level 32 H Anion Gap 15 Blood Urea Nitrogen 27 H Creatinine 3.43 H Glucose Level 87 Calcium Level 7.5 L Phosphorus Level 4.8 Magnesium Level 2.2 Bedside Glucose 164 Creatine Kinase 51 Creatine Kinase Index 3.8 Creatinine Kinase MB (Mass) 1.96 Troponin I < 0.012 Medications Medications Current Medications Hydromorphone HCl (Dilaudid) 1 mg Q4H PRN IV PAIN Last administered on 20:48; Admin Dose 1 MG; Start 01/22/17 at 19:30 Acetaminophen (Tylenol Tab) 650 mg Q6H PRN PO PAIN LEVEL 1-3 OR FEVER; Start at 21:00 Acetaminophen (Tylenol Supp) 650 mg Q6H PRN [place] PAIN LEVEL 1-3 OR FEVER; Start 01/22/17 at 21:00 Docusate Sodium (Colace) 100 mg Q12H PRN PO CONSTIPATION; Start 01/22/17 at 21: 00 Bisacodyl (Dulcolax) 5 mg DAILY PRN PO CONSTIPATION; Start 01/22/17 at 21:00 Pantoprazole (Protonix Tab) 40 mg DAILY@06 PO Last administered on 01/24/17 05 :53; Admin Dose 40 MG; Start 01/23/17 at 06:00 Enoxaparin Sodium (Lovenox) 30 mg DAILY SC ; Start 01/23/17 at 09:00 Hydralazine HCl (Apresoline) 10 mg Q6 PRN IV sbp >160 Last administered on 01/24 13:05; Admin Dose 10 MG; Start 01/24/17 at 12:00 Metoprolol Tartrate (Lopressor) 25 mg BID PO Last administered on 01/24/17 20: 33; Admin Dose 25 MG; Start 01/24/17 at 21:00 Benazepril HCl (Lotensin) 10 mg BID PO Last administered on 01/24/17 20:33; Admin Dose 10 MG; Start 01/24/17 at 21:00 SHAN ARRINGTON MD Jan 24, 2017 22:51
--- NOTE | 2017-01-24 22:57 | PN ---
Date/Time of Note Date/Time of Note DATE: 01/24/17 TIME: 22:56 Assessment/Plan VTE Prophylaxis VTE Prophylaxis Intervention: other Lines/Catheters IV [facility]from [facility] Saline Lock Urinary Cath still in place: No Assessment/Plan Chief Complaint/Hosp Course esrd pleural effusion anemia r/o ihd ashd plan per pulmonary hd Problems: Subjective 24 Hr Interval Summary ENT: no complaints Respiratory: no complaints Cardiovascular: no complaints Gastrointestinal: no complaints Exam/Review of Systems Vital Signs Vitals Vital Signs Date Time Temp Pulse Resp B/P Pulse Ox O2 Delivery O2 Flow Rate FiO2 01/24/17 21:20 96 50 01/24/17 21:01 95 01/24/17 20:00 98.0 20 151/92 01/24/17 19:00 High Flow 01/23/17 12:00 15.0 Intake and Output 01/23/17 01/23/17 01/24/17 15:00 23:00 07:00 Intake Total 320 ml 400 ml 100 ml Output Total 0 ml 0 ml Balance 320 ml 400 ml 100 ml Results Result Diagram: 01/24/17 0505 01/24/17 0505 Results 24 hrs Laboratory Tests Test 01/24/17 05:05 01/24/17 05:08 01/24/17 20:30 White Blood Count 6.1 Red Blood Count 3.30 L Hemoglobin 9.2 L Hematocrit 29.6 L Mean Corpuscular Volume 89.7 Mean Corpuscular Hemoglobin 27.9 L Mean Corpuscular Hemoglobin Concent 31.1 L Red Cell Distribution Width 17.5 H Platelet Count 250 Mean Platelet Volume 10.2 Neutrophils % 71.1 Lymphocytes % 15.2 Monocytes % 8.5 Eosinophils % 4.4 Basophils % 0.5 Nucleated Red Blood Cells % 0.0 Neutrophils # 4.4 Lymphocytes # 0.9 Monocytes # 0.5 Eosinophils # 0.3 Basophils # 0.0 Nucleated Red Blood Cells # 0.0 Sodium Level 137 Potassium Level 3.9 Chloride Level 94 L Carbon Dioxide Level 32 H Anion Gap 15 Blood Urea Nitrogen 27 H Creatinine 3.43 H Glucose Level 87 Calcium Level 7.5 L Phosphorus Level 4.8 Magnesium Level 2.2 Bedside Glucose 164 Creatine Kinase 51 Creatine Kinase Index 3.8 Creatinine Kinase MB (Mass) 1.96 Troponin I < 0.012 Medications Medications Current Medications Hydromorphone HCl (Dilaudid) 1 mg Q4H PRN IV PAIN Last administered on 20:48; Admin Dose 1 MG; Start 01/22/17 at 19:30 Acetaminophen (Tylenol Tab) 650 mg Q6H PRN PO PAIN LEVEL 1-3 OR FEVER; Start at 21:00 Acetaminophen (Tylenol Supp) 650 mg Q6H PRN [place] PAIN LEVEL 1-3 OR FEVER; Start 01/22/17 at 21:00 Docusate Sodium (Colace) 100 mg Q12H PRN PO CONSTIPATION; Start 01/22/17 at 21: 00 Bisacodyl (Dulcolax) 5 mg DAILY PRN PO CONSTIPATION; Start 01/22/17 at 21:00 Pantoprazole (Protonix Tab) 40 mg DAILY@06 PO Last administered on 01/24/17 05 :53; Admin Dose 40 MG; Start 01/23/17 at 06:00 Enoxaparin Sodium (Lovenox) 30 mg DAILY SC ; Start 01/23/17 at 09:00 Hydralazine HCl (Apresoline) 10 mg Q6 PRN IV sbp >160 Last administered on 01/24 13:05; Admin Dose 10 MG; Start 01/24/17 at 12:00 Metoprolol Tartrate (Lopressor) 25 mg BID PO Last administered on 01/24/17 20: 33; Admin Dose 25 MG; Start 01/24/17 at 21:00 Benazepril HCl (Lotensin) 10 mg BID PO Last administered on 01/24/17 20:33; Admin Dose 10 MG; Start 01/24/17 at 21:00 SHAN ARRINGTON MD Jan 24, 2017 22:57
[2017-01-25] VITALS (20 sets, daily range): BP systolic 118–168; BP diastolic 8–94; PULSE 76–103; RESP 15–20
[2017-01-25] MEDS: hydrALAzine 20 MG INJ IV PRN (00:27)
[2017-01-25] MEDS: HYDROmorphONE 1 MG/ML SYG IV PRN ×6 (00:27→20:10)
[2017-01-25 01:50] LABS: CREATINE KINASE 57 IU/L (23-200)
[2017-01-25 02:05] LABS: CK-MB 1.98 ng/ml (0.0-2.4)
[2017-01-25 02:07] LABS: TROPONIN-I < 0.012 ng/ml (0.00-0.12)
[2017-01-25] MEDS: PANTOPRAZOLE (EC) 40 MG TAB PO SCH (06:24)
[2017-01-25 07:26] LABS: ADD SCAN DIFF NO
[2017-01-25 07:31] LABS: BASOPHILS % 0.4 % (0.0-2.0); EOSINOPHILS # 0.3 10^3/ul (0.0-0.5); EOSINOPHILS % 4.9 % (0.0-7.0); HEMATOCRIT 28.9 % (37.0-47.0); HEMOGLOBIN 9.2 g/dl (12.0-16.0); LYMPHOCYTES # 0.8 10^3/ul (0.8-2.9); LYMPHOCYTES % 16.2 % (15.0-51.0); MEAN CORPUSCULAR HEMOGLOBIN 28.2 pg (29.0-33.0); MEAN CORPUSCULAR HGB CONC 31.8 g/dl (32.0-37.0); MEAN CORPUSCULAR VOLUME 88.7 fl (82.0-101.0); MEAN PLATELET VOLUME 9.8 fl (7.4-10.4); MONOCYTE # 0.5 10^3/ul (0.3-0.9); MONOCYTES % 8.8 % (0.0-11.0); NEUTROPHIL # 3.6 10^3/ul (1.6-7.5); NEUTROPHILS % 69.5 % (39.0-77.0); PLATELET COUNT 289 10^3/UL (140-415); RED BLOOD COUNT 3.26 10^6/ul (4.20-5.40); RED CELL DISTRIBUTION WIDTH 17.2 % (11.5-14.5); WHITE BLOOD COUNT 5.1 10^3/ul (4.8-10.8)
[2017-01-25 07:52] LABS: AADO2 Arterial 241.2 mmHg (7.0-24.0); Allen Test ACCEPTAB; Arterial Base Excess 6.2 mmol/L (-3.0-3); Arterial COHb 0.3 % (0.0-3.0); Arterial Fraction of Oxyhgb 89.7 % (93.0-99.0); Arterial HCO3 31.4 mmol/L (22.0-26.0); Arterial MetHb 0.3 % (0.0-1.5); Arterial Total Hemglobin 10.2 g/dl (12.0-18.0); MODE HFNC
[2017-01-25 08:00] LABS: CALCIUM 7.9 mg/dl (8.4-10.2); CHOL/HDL RATIO 2.8 RATIO; CREATININE 3.94 mg/dl (0.44-1.00); MAGNESIUM 2.2 mg/dl (1.7-2.5); PHOSPHORUS 5.6 mg/dl (2.5-4.9); POTASSIUM 4.5 mmol/L (3.5-5.1)
[2017-01-25] MEDS: METOPROLOL 25 MG TAB PO SCH (08:04)
[2017-01-25] MEDS: BENAZEPRIL 10 MG TAB PO SCH ×2 (08:04→20:09)
[2017-01-25] MEDS: ENOXAPARIN 30 MG/0.3 ML SYG SC SCH (08:04)
[2017-01-25 08:14] LABS: CREATINE KINASE 52 IU/L (23-200)
[2017-01-25 08:25] LABS: CK-MB 1.92 ng/ml (0.0-2.4)
[2017-01-25 08:28] LABS: TROPONIN-I < 0.012 ng/ml (0.00-0.12)
--- NOTE | 2017-01-25 11:43 | PN ---
Date/Time of Note Date/Time of Note DATE: 01/25/17 TIME: 11:42 Assessment/Plan VTE Prophylaxis VTE Prophylaxis Intervention: SCD's Lines/Catheters IV C[facility]ter Type (from [facility]): Peripheral IV Urinary Cath still in place: No Assessment/Plan Chief Complaint/Hosp Course 1. esrd 2. pleural effusion 3. anemia 4. r/o ihd 5. ashd 6. Hypertension Problems: Assessment/Plan 1. Better HTN control 2. Continue HD Subjective 24 Hr Interval Summary Constitutional: no complaints Cardiovascular: no complaints Exam/Review of Systems Vital Signs Vitals Vital Signs Date Time Temp Pulse Resp B/P Pulse Ox O2 Delivery O2 Flow Rate FiO2 01/25/17 08:33 83 01/25/17 08:13 97 50 01/25/17 07:27 97.5 18 168/94 01/24/17 20:00 Nasal Cannula 01/23/17 12:00 15.0 Intake and Output 01/24/17 01/24/17 01/25/17 15:00 23:00 07:00 Intake Total 320 ml 200 ml 240 ml Output Total 0 ml 0 ml 0 ml Balance 320 ml 200 ml 240 ml Exam Head: normocephalic Eyes: nl conjunctiva Respiratory: diminished breath sounds Cardiovascular: regular rate and rhythm Results Result Diagram: 01/25/17 0659 01/25/17 0656 Results 24 hrs Laboratory Tests Test 01/24/17 20:30 01/25/17 01:01 01/25/17 06:56 01/25/17 06:59 Creatine Kinase 51 57 52 Creatine Kinase Index 3.8 3.5 3.7 Creatinine Kinase MB (Mass) 1.96 1.98 1.92 Troponin I < 0.012 < 0.012 < 0.012 Sodium Level 135 Potassium Level 4.5 Chloride Level 90 L Carbon Dioxide Level 31 Anion Gap 19 H Blood Urea Nitrogen 35 H Creatinine 3.94 H Glucose Level 88 Calcium Level 7.9 L Phosphorus Level 5.6 H Magnesium Level 2.2 Triglycerides Level 111 Cholesterol Level 163 LDL Cholesterol, Calculated 84 HDL Cholesterol 57 Cholesterol/HDL Ratio 2.8 White Blood Count 5.1 Red Blood Count 3.26 L Hemoglobin 9.2 L Hematocrit 28.9 L Mean Corpuscular Volume 88.7 Mean Corpuscular Hemoglobin 28.2 L Mean Corpuscular Hemoglobin Concent 31.8 L Red Cell Distribution Width 17.2 H Platelet Count 289 Mean Platelet Volume 9.8 Neutrophils % 69.5 Lymphocytes % 16.2 Monocytes % 8.8 Eosinophils % 4.9 Basophils % 0.4 Neutrophils # 3.6 Lymphocytes # 0.8 Monocytes # 0.5 Eosinophils # 0.3 Basophils # 0.0 Nucleated Red Blood Cells # 0.0 Test 01/25/17 07:00 Blood Gas Specimen Source Blood arterial Arterial Blood Date Drawn 01/25/2017 7:40:37 AM Arterial Blood pH (Temp corrected) 7.427 Arterial Blood pCO2 (Temp correct) 48.8 H Arterial Blood pO2 (Temp corrected) 60.4 L Arterial Blood HCO3 31.4 H Arterial Blood Base Excess 6.2 H Arterial Blood Oxygen Saturation 90.2 L Cristóbal Test ACCEPTAB Arterial Blood Gas Puncture Site Right Radial Arterial Blood Carboxyhemoglobin 0.3 Arterial Blood Methemoglobin 0.3 Blood Gas A-a O2 Differential 241.2 H Oxyhemoglobin Percent 89.7 L Total Hemoglobin 10.2 L Blood Gas Temperature 37.0 Blood Gas Modality HFNC FiO2 50.0 Blood Gas Notified Whom JLD Blood Gas Notified Time 01/25/2017 7:52:13 AM Medications Medications Current Medications Hydromorphone HCl (Dilaudid) 1 mg Q4H PRN IV PAIN Last administered on 08:01; Admin Dose 1 MG; Start 01/22/17 at 19:30 Acetaminophen (Tylenol Tab) 650 mg Q6H PRN PO PAIN LEVEL 1-3 OR FEVER; Start at 21:00 Acetaminophen (Tylenol Supp) 650 mg Q6H PRN [place] PAIN LEVEL 1-3 OR FEVER; Start 01/22/17 at 21:00 Docusate Sodium (Colace) 100 mg Q12H PRN PO CONSTIPATION; Start 01/22/17 at 21: 00 Bisacodyl (Dulcolax) 5 mg DAILY PRN PO CONSTIPATION; Start 01/22/17 at 21:00 Pantoprazole (Protonix Tab) 40 mg DAILY@06 PO Last administered on 01/25/17 06 :24; Admin Dose 40 MG; Start 01/23/17 at 06:00 Enoxaparin Sodium (Lovenox) 30 mg DAILY SC ; Start 01/23/17 at 09:00 Hydralazine HCl (Apresoline) 10 mg Q6 PRN IV sbp >160 Last administered on 01/25 00:27; Admin Dose 10 MG; Start 01/24/17 at 12:00 Metoprolol Tartrate (Lopressor) 25 mg BID PO Last administered on 01/24/17 20: 33; Admin Dose 25 MG; Start 01/24/17 at 21:00 Benazepril HCl (Lotensin) 10 mg BID PO Last administered on 01/24/17 20:33; Admin Dose 10 MG; Start 01/24/17 at 21:00 LUIS LOPEZ Jan 25, 2017 11:43
--- NOTE | 2017-01-25 14:25 | RADRPT ---
PROCEDURE: XR Chest. CLINICAL INDICATION: pna chf TECHNIQUE: PA and Lateral views of the chest were obtained. COMPARISON: Chest x-ray 01/24/2070 FINDINGS: Right-sided dialysis catheter is stable position. The cardiac silhouette remains enlarged. There is decreased pulmonary vascular congestion and decreased interstitial edema as compared to vipin or study. There is slightly improved aeration at the right lung base. Residual opacity at the right lung base represent small partially layering pleural effusion, atelectasis, and / or consolidation. A small moderate left pleural effusion persists. No pneumothorax is identified. There are degenerate changes of the visualized spine. IMPRESSION: 1. Cardiomegaly with interval decrease in pulmonary vascular congestion and interstitial edema as co mpared to prior study. 2. Interval slight improvement in aeration of the right lung base with residual hilar possibly repr esenting small partially layering pleural effusion, atelectasis, and/or consolidation. 3. Stable small moderate left pleural effusion with adjacent atelectasis. RPTAT: PP Physician Jed Date Time Electronically viewed and signed by Physician Jed on 01/25/2017 14:24 STEPH/
--- NOTE | 2017-01-25 15:55 | CONS ---
Date/Time of Note Date/Time of Note DATE: 01/25/17 TIME: 15:48 Assessment/Plan Assessment/Plan Chief Complaint/Hosp Course IMP: 1. CHF-diastolic acute on chronic 2. Chest pain 3.HTN 4.[place] 5.ESRD on HD 6. Pleural effusion Recc: -Tele -serial ecg's -Continue benazepril/BB -Thoracentesis as patient hemanth comply -HD for volume removal Problems: Consultation Date/Type/Reason Admit Date/Time Jan 22, 2017 at 12:58 Initial Consult Date 01/22/17 Type of Consultation: cardiology Reason for Consultation CHF/HTN Referring Provider: SHAN ARRINGTON MD Exam/Review of Systems Vital Signs Vitals Vital Signs Date Time Temp Pulse Resp B/P Pulse Ox O2 Delivery O2 Flow Rate FiO2 01/25/17 14:18 96 50 01/25/17 12:28 98.0 83 18 153/78 01/24/17 20:00 Nasal Cannula 01/23/17 12:00 15.0 Intake and Output 01/24/17 01/24/17 01/25/17 15:00 23:00 07:00 Intake Total 320 ml 200 ml 240 ml Output Total 0 ml 0 ml 0 ml Balance 320 ml 200 ml 240 ml Exam Review of Systems: CONSTITUTIONAL: No fevers, chills. PULMONARY: No sob CARDIOVASCULAR: No chest pain/palpitations GASTROINTESTINAL: No nausea/vomiting. GENITOURINARY: No hematuria/dysuria. MUSCULOSKELETAL: No myagias/arthalgias. PSYCHIATRIC: The patient denies depression. NEUROLOGIC: lethargic Constitutional: alert Psych: no complaints Head: normocephalic ENMT: mucosa pink and moist Neck: jvd (9 cm water), supple Respiratory: diminished breath sounds Cardiovascular: regular rate and rhythm Gastrointestinal: non-tender, soft Musculoskeletal: muscle tone (normal) Extremities: edema Neurological: other (none) Results Result Diagram: 01/25/17 0659 01/25/17 0656 Results 24 hrs Laboratory Tests Test 01/24/17 20:30 01/25/17 01:01 01/25/17 06:56 01/25/17 06:59 Creatine Kinase 51 57 52 Creatine Kinase Index 3.8 3.5 3.7 Creatinine Kinase MB (Mass) 1.96 1.98 1.92 Troponin I < 0.012 < 0.012 < 0.012 Sodium Level 135 Potassium Level 4.5 Chloride Level 90 L Carbon Dioxide Level 31 Anion Gap 19 H Blood Urea Nitrogen 35 H Creatinine 3.94 H Glucose Level 88 Calcium Level 7.9 L Phosphorus Level 5.6 H Magnesium Level 2.2 Triglycerides Level 111 Cholesterol Level 163 LDL Cholesterol, Calculated 84 HDL Cholesterol 57 Cholesterol/HDL Ratio 2.8 White Blood Count 5.1 Red Blood Count 3.26 L Hemoglobin 9.2 L Hematocrit 28.9 L Mean Corpuscular Volume 88.7 Mean Corpuscular Hemoglobin 28.2 L Mean Corpuscular Hemoglobin Concent 31.8 L Red Cell Distribution Width 17.2 H Platelet Count 289 Mean Platelet Volume 9.8 Neutrophils % 69.5 Lymphocytes % 16.2 Monocytes % 8.8 Eosinophils % 4.9 Basophils % 0.4 Neutrophils # 3.6 Lymphocytes # 0.8 Monocytes # 0.5 Eosinophils # 0.3 Basophils # 0.0 Nucleated Red Blood Cells # 0.0 Test 01/25/17 07:00 Blood Gas Specimen Source Blood arterial Arterial Blood Date Drawn 01/25/2017 7:40:37 AM Arterial Blood pH (Temp corrected) 7.427 Arterial Blood pCO2 (Temp correct) 48.8 H Arterial Blood pO2 (Temp corrected) 60.4 L Arterial Blood HCO3 31.4 H Arterial Blood Base Excess 6.2 H Arterial Blood Oxygen Saturation 90.2 L Cristóbal Test ACCEPTAB Arterial Blood Gas Puncture Site Right Radial Arterial Blood Carboxyhemoglobin 0.3 Arterial Blood Methemoglobin 0.3 Blood Gas A-a O2 Differential 241.2 H Oxyhemoglobin Percent 89.7 L Total Hemoglobin 10.2 L Blood Gas Temperature 37.0 Blood Gas Modality HFNC FiO2 50.0 Blood Gas Notified Whom JLD Blood Gas Notified Time 01/25/2017 7:52:13 AM Medications Medications Current Medications Hydromorphone HCl (Dilaudid) 1 mg Q4H PRN IV PAIN Last administered on t 15:45; Admin Dose 1 MG; Start 01/22/17 at 19:30 Acetaminophen (Tylenol Tab) 650 mg Q6H PRN PO PAIN LEVEL 1-3 OR FEVER; Start at 21:00 Acetaminophen (Tylenol Supp) 650 mg Q6H PRN [place] PAIN LEVEL 1-3 OR FEVER; Start 01/22/17 at 21:00 Docusate Sodium (Colace) 100 mg Q12H PRN PO CONSTIPATION; Start 01/22/17 at 21: 00 Bisacodyl (Dulcolax) 5 mg DAILY PRN PO CONSTIPATION; Start 01/22/17 at 21:00 Pantoprazole (Protonix Tab) 40 mg DAILY@06 PO Last administered on 01/25/17 06 :24; Admin Dose 40 MG; Start 01/23/17 at 06:00 Enoxaparin Sodium (Lovenox) 30 mg DAILY SC ; Start 01/23/17 at 09:00 Hydralazine HCl (Apresoline) 10 mg Q6 PRN IV sbp >160 Last administered on 01/25 00:27; Admin Dose 10 MG; Start 01/24/17 at 12:00 Benazepril HCl (Lotensin) 10 mg BID PO Last administered on 01/24/17 20:33; Admin Dose 10 MG; Start 01/24/17 at 21:00 Metoprolol Tartrate (Lopressor) 50 mg BID PO ; Start 01/25/17 at 21:00 HUA SANTIAGO Jan 25, 2017 15:55
[2017-01-25] MEDS ORDERED: HYDROmorphONE 1 MG/ML SYG IV STA (17:15)
--- NOTE | 2017-01-25 17:34 | CONS ---
Date/Time of Note Date/Time of Note DATE: 01/25/17 TIME: 17:33 Consult Date/Type/Reason Admit Date/Time Jan 22, 2017 at 12:58 Initial Consult Date 01/22/17 Type of Consultation: cardiology Ordering Provider: SHAN ARRINGTON MD Subjective Patient continues high flow O2 now at 50% Objective Vital Signs Date Time Temp Pulse Resp B/P Pulse Ox O2 Delivery O2 Flow Rate FiO2 01/25/17 17:10 97 50 01/25/17 16:52 92 01/25/17 15:54 98.0 18 119/54 01/24/17 20:00 Nasal Cannula 01/23/17 12:00 15.0 Intake and Output 01/24/17 01/24/17 01/25/17 14:59 22:59 06:59 Intake Total 320 ml 200 ml 240 ml Output Total 0 ml 0 ml 0 ml Balance 320 ml 200 ml 240 ml Exam GENERAL: Elderly lady comfortable at rest no acute distress VITAL SIGNS: per chart NECK: Supple. No JVD or lymphadenopathy. CARDIAC EXAM: S1, S2. No added sounds or murmurs. CHEST: Diminished air entry bilaterally ABDOMEN: Soft, nontender. No guarding or rebound. EXTREMITIES: No cyanosis, clubbing or edema. NEUROLOGIC: Generalized weakness. No focal deficits. Results/Medications Result Diagram: 01/25/17 0659 01/25/17 0656 Results 24 hrs Chest x-ray IMPRESSION: 1. Cardiomegaly with interval decrease in pulmonary vascular congestion and interstitial edema as compared to prior study. 2. Interval slight improvement in aeration of the right lung base with residual hilar possibly representing small partially layering pleural effusion, atelectasis, and/or consolidation. 3. Stable small moderate left pleural effusion with adjacent atelectasis. Laboratory Tests Test 01/24/17 20:30 01/25/17 01:01 01/25/17 06:56 01/25/17 06:59 Creatine Kinase 51 57 52 Creatine Kinase Index 3.8 3.5 3.7 Creatinine Kinase MB (Mass) 1.96 1.98 1.92 Troponin I < 0.012 < 0.012 < 0.012 Sodium Level 135 Potassium Level 4.5 Chloride Level 90 L Carbon Dioxide Level 31 Anion Gap 19 H Blood Urea Nitrogen 35 H Creatinine 3.94 H Glucose Level 88 Calcium Level 7.9 L Phosphorus Level 5.6 H Magnesium Level 2.2 Triglycerides Level 111 Cholesterol Level 163 LDL Cholesterol, Calculated 84 HDL Cholesterol 57 Cholesterol/HDL Ratio 2.8 White Blood Count 5.1 Red Blood Count 3.26 L Hemoglobin 9.2 L Hematocrit 28.9 L Mean Corpuscular Volume 88.7 Mean Corpuscular Hemoglobin 28.2 L Mean Corpuscular Hemoglobin Concent 31.8 L Red Cell Distribution Width 17.2 H Platelet Count 289 Mean Platelet Volume 9.8 Neutrophils % 69.5 Lymphocytes % 16.2 Monocytes % 8.8 Eosinophils % 4.9 Basophils % 0.4 Neutrophils # 3.6 Lymphocytes # 0.8 Monocytes # 0.5 Eosinophils # 0.3 Basophils # 0.0 Nucleated Red Blood Cells # 0.0 Test 01/25/17 07:00 Blood Gas Specimen Source Blood arterial Arterial Blood Date Drawn 01/25/2017 7:40:37 AM Arterial Blood pH (Temp corrected) 7.427 Arterial Blood pCO2 (Temp correct) 48.8 H Arterial Blood pO2 (Temp corrected) 60.4 L Arterial Blood HCO3 31.4 H Arterial Blood Base Excess 6.2 H Arterial Blood Oxygen Saturation 90.2 L Cristóbal Test ACCEPTAB Arterial Blood Gas Puncture Site Right Radial Arterial Blood Carboxyhemoglobin 0.3 Arterial Blood Methemoglobin 0.3 Blood Gas A-a O2 Differential 241.2 H Oxyhemoglobin Percent 89.7 L Total Hemoglobin 10.2 L Blood Gas Temperature 37.0 Blood Gas Modality HFNC FiO2 50.0 Blood Gas Notified Whom JLD Blood Gas Notified Time 01/25/2017 7:52:13 AM Medications Current Medications Hydromorphone HCl (Dilaudid) 1 mg Q4H PRN IV PAIN Last administered on t 15:45; Admin Dose 1 MG; Start 01/22/17 at 19:30 Acetaminophen (Tylenol Tab) 650 mg Q6H PRN PO PAIN LEVEL 1-3 OR FEVER; Start at 21:00 Acetaminophen (Tylenol Supp) 650 mg Q6H PRN [place] PAIN LEVEL 1-3 OR FEVER; Start 01/22/17 at 21:00 Docusate Sodium (Colace) 100 mg Q12H PRN PO CONSTIPATION; Start 01/22/17 at 21: 00 Bisacodyl (Dulcolax) 5 mg DAILY PRN PO CONSTIPATION; Start 01/22/17 at 21:00 Pantoprazole (Protonix Tab) 40 mg DAILY@06 PO Last administered on 01/25/17 06 :24; Admin Dose 40 MG; Start 01/23/17 at 06:00 Enoxaparin Sodium (Lovenox) 30 mg DAILY SC ; Start 01/23/17 at 09:00 Hydralazine HCl (Apresoline) 10 mg Q6 PRN IV sbp >160 Last administered on 01/25 00:27; Admin Dose 10 MG; Start 01/24/17 at 12:00 Benazepril HCl (Lotensin) 10 mg BID PO Last administered on 01/24/17 20:33; Admin Dose 10 MG; Start 01/24/17 at 21:00 Metoprolol Tartrate (Lopressor) 50 mg BID PO ; Start 01/25/17 at 21:00 Assessment/Plan Chief Complaint/Hosp Course Assessment 1. Chest discomfort concerning for acute coronary syndrome. Continue cardiac recommendations 2. Hypoxemic respiratory failure secondary to volume overload with pleural effusion status post thoracentesis. Will need repeat thoracentesis will order left lumbar this time. 3. End-stage renal failure on hemodialysis. Continue hemodialysis with volume removal. 4. Essential hypertension Plan Hemodialysis with volume removal, Repeat chest x-ray shows small left pleural effusion I would hold off on thoracentesis for now Aspiration precautions Cardiac recommendations regarding chest pain. Problems: ESTEFANI MAXWELL MD, [facility] Jan 25, 2017 17:34
--- NOTE | 2017-01-25 19:07 | RADRPT ---
Vent Rate: 82 bpm RR Interval: 0 msec SC Interval: 154 msec QRS Duration: 100 msec QT Interval: 416 msec QTC Interval: 486 msec P-R-T [place]: 62 - 0 - 43 degrees Normal sinus rhythm Indeterminate axis T wave abnormality, consider anterior ischemia Prolonged QT Abnormal ECG Electronically Signed By: Jaylon Lauren [id number]
[2017-01-25] MEDS: METOPROLOL 50 MG TAB PO SCH (20:09)
[2017-01-26] VITALS (13 sets, daily range): BP systolic 127–162; BP diastolic 56–89; PULSE 75–86; RESP 16–19
[2017-01-26] MEDS: HYDROmorphONE 1 MG/ML SYG IV PRN ×6 (00:09→21:14)
[2017-01-26] MEDS: PANTOPRAZOLE (EC) 40 MG TAB PO SCH (05:17)
[2017-01-26] MEDS: DOCUSATE SODIUM 100 MG CAP PO PRN ×2 (05:26→20:39)
[2017-01-26 07:33] LABS: BASOPHILS % 0.8 % (0.0-2.0); EOSINOPHILS # 0.2 10^3/ul (0.0-0.5); EOSINOPHILS % 3.7 % (0.0-7.0); HEMOGLOBIN 9.4 g/dl (12.0-16.0); LYMPHOCYTES # 0.7 10^3/ul (0.8-2.9); MEAN CORPUSCULAR HGB CONC 31.3 g/dl (32.0-37.0); MEAN CORPUSCULAR VOLUME 89.3 fl (82.0-101.0); MEAN PLATELET VOLUME 10.3 fl (7.4-10.4); MONOCYTE # 0.5 10^3/ul (0.3-0.9); MONOCYTES % 9.3 % (0.0-11.0); NEUTROPHIL # 3.5 10^3/ul (1.6-7.5); PLATELET COUNT 315 10^3/UL (140-415); RED BLOOD COUNT 3.36 10^6/ul (4.20-5.40); RED CELL DISTRIBUTION WIDTH 17.2 % (11.5-14.5); WHITE BLOOD COUNT 4.9 10^3/ul (4.8-10.8)
[2017-01-26 07:56] LABS: CALCIUM 7.6 mg/dl (8.4-10.2); CREATININE 3.24 mg/dl (0.44-1.00); POTASSIUM 4.1 mmol/L (3.5-5.1)
[2017-01-26] MEDS: BENAZEPRIL 10 MG TAB PO SCH ×2 (09:18→20:37)
[2017-01-26] MEDS: METOPROLOL 50 MG TAB PO SCH ×2 (09:18→20:36)
[2017-01-26] MEDS: ENOXAPARIN 30 MG/0.3 ML SYG SC SCH (09:42)
--- NOTE | 2017-01-26 11:12 | CONS ---
Date/Time of Note Date/Time of Note DATE: 01/26/17 TIME: 11:11 Assessment/Plan Assessment/Plan Additional Assessment/Plan Assessment recommendations; 1. Patient admitted with pulmonary edema and bilateral pleural effusions with clinical improvement. 2. End-stage renal disease, on hemodialysis. 3. Hypoxemia with interval improvement. Still maintained on high flow nasal cannula. 4. History of hypertension. Continue current treatment. Patient responding well to current treatment regimen. Consultation Date/Type/Reason Admit Date/Time Jan 22, 2017 at 12:58 Initial Consult Date 01/22/17 Type of Consultation: Pulmonary Referring Provider: SHAN ARRINGTON MD 24 HR Interval Summary Free Text/Dictation Patient condition is stable. Still complains of mild shortness of breath off and on. Denies any chest pain, wheezing, sputum production. General exam; middle-aged woman, awake alert currently in no distress. Exam/Review of Systems Vital Signs Vitals Vital Signs Date Time Temp Pulse Resp B/P Pulse Ox O2 Delivery O2 Flow Rate FiO2 01/26/17 10:59 98.2 88 16 140/81 97 01/26/17 05:28 30 01/25/17 20:00 Nasal Cannula 01/23/17 12:00 15.0 Intake and Output 01/25/17 01/25/17 01/26/17 15:00 23:00 07:00 Intake Total 1020 ml 400 ml Output Total 4300 ml Balance -3280 ml 400 ml Exam HEENT exam; supple neck, positive JVD. No lymphadenopathy. Midline trachea. No thyromegaly. Patient is edentulous and wears dentures. Chest exam; diminished breath on lung bases bilaterally. Upper lobes are clear to auscultation. S1-S2 audible, no murmurs. Regular rhythm. Abdomen exam; soft, nontender. No organomegaly. Bowel sounds audible. Extremity exam; no peripheral edema. No clubbing. Pulses 1+ bilaterally. 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 Results Result Diagram: 01/26/17 0623 01/26/17 0623 Results 24 hrs Laboratory Tests Test 01/26/17 06:23 White Blood Count 4.9 Red Blood Count 3.36 L Hemoglobin 9.4 L Hematocrit 30.0 L Mean Corpuscular Volume 89.3 Mean Corpuscular Hemoglobin 28.0 L Mean Corpuscular Hemoglobin Concent 31.3 L Red Cell Distribution Width 17.2 H Platelet Count 315 Mean Platelet Volume 10.3 Neutrophils % 71.0 Lymphocytes % 15.0 Monocytes % 9.3 Eosinophils % 3.7 Basophils % 0.8 Nucleated Red Blood Cells % 0.0 Neutrophils # 3.5 Lymphocytes # 0.7 L Monocytes # 0.5 Eosinophils # 0.2 Basophils # 0.0 Nucleated Red Blood Cells # 0.0 Sodium Level 135 Potassium Level 4.1 Chloride Level 94 L Carbon Dioxide Level 30 Anion Gap 15 Blood Urea Nitrogen 19 # Creatinine 3.24 H Glucose Level 93 Calcium Level 7.6 L Medications Medications Current Medications Hydromorphone HCl (Dilaudid) 1 mg Q4H PRN IV PAIN Last administered on 09:45; Admin Dose 1 MG; Start 01/22/17 at 19:30 Acetaminophen (Tylenol Tab) 650 mg Q6H PRN PO PAIN LEVEL 1-3 OR FEVER; Start at 21:00 Acetaminophen (Tylenol Supp) 650 mg Q6H PRN [place] PAIN LEVEL 1-3 OR FEVER; Start 01/22/17 at 21:00 Docusate Sodium (Colace) 100 mg Q12H PRN PO CONSTIPATION Last administered on 05:26; Admin Dose 100 MG; Start 01/22/17 at 21:00 Bisacodyl (Dulcolax) 5 mg DAILY PRN PO CONSTIPATION; Start 01/22/17 at 21:00 Pantoprazole (Protonix Tab) 40 mg DAILY@06 PO Last administered on 01/26/17 05 :17; Admin Dose 40 MG; Start 01/23/17 at 06:00 Enoxaparin Sodium (Lovenox) 30 mg DAILY SC Last administered on 01/26/17 09:42 ; Admin Dose 30 MG; Start 01/23/17 at 09:00 Hydralazine HCl (Apresoline) 10 mg Q6 PRN IV sbp >160 Last administered on 01/25 00:27; Admin Dose 10 MG; Start 01/24/17 at 12:00 Benazepril HCl (Lotensin) 10 mg BID PO Last administered on 01/26/17 09:18; Admin Dose 10 MG; Start 01/24/17 at 21:00 Metoprolol Tartrate (Lopressor) 50 mg BID PO Last administered on 01/26/17 09: 18; Admin Dose 50 MG; Start 01/25/17 at 21:00 KAYE CASSIDY Jan 26, 2017 11:12
--- NOTE | 2017-01-26 12:54 | PN ---
Date/Time of Note Date/Time of Note DATE: 01/26/17 TIME: 12:53 Assessment/Plan VTE Prophylaxis VTE Prophylaxis Intervention: SCD's Lines/Catheters IV [facility] Saline Lock Urinary Cath still in place: No Assessment/Plan Chief Complaint/Hosp Course 1. esrd 2. pleural effusion 3. anemia 4. r/o ihd 5. ashd 6. Hypertension Problems: Assessment/Plan 1. continue HD Subjective 24 Hr Interval Summary Constitutional: improved, no complaints Musculoskeletal: back pain Exam/Review of Systems Vital Signs Vitals Vital Signs Date Time Temp Pulse Resp B/P Pulse Ox O2 Delivery O2 Flow Rate FiO2 01/26/17 12:36 85 01/26/17 11:01 Nasal Cannula 01/26/17 10:59 98.2 16 140/81 97 01/26/17 05:28 30 01/23/17 12:00 15.0 Intake and Output 01/25/17 01/25/17 01/26/17 15:00 23:00 07:00 Intake Total 1020 ml 400 ml Output Total 4300 ml Balance -3280 ml 400 ml Exam Constitutional: alert, oriented Respiratory: diminished breath sounds Cardiovascular: regular rate and rhythm Gastrointestinal: soft Results Result Diagram: 01/26/17 0623 01/26/17 0623 Results 24 hrs Laboratory Tests Test 01/26/17 06:23 White Blood Count 4.9 Red Blood Count 3.36 L Hemoglobin 9.4 L Hematocrit 30.0 L Mean Corpuscular Volume 89.3 Mean Corpuscular Hemoglobin 28.0 L Mean Corpuscular Hemoglobin Concent 31.3 L Red Cell Distribution Width 17.2 H Platelet Count 315 Mean Platelet Volume 10.3 Neutrophils % 71.0 Lymphocytes % 15.0 Monocytes % 9.3 Eosinophils % 3.7 Basophils % 0.8 Nucleated Red Blood Cells % 0.0 Neutrophils # 3.5 Lymphocytes # 0.7 L Monocytes # 0.5 Eosinophils # 0.2 Basophils # 0.0 Nucleated Red Blood Cells # 0.0 Sodium Level 135 Potassium Level 4.1 Chloride Level 94 L Carbon Dioxide Level 30 Anion Gap 15 Blood Urea Nitrogen 19 # Creatinine 3.24 H Glucose Level 93 Calcium Level 7.6 L Medications Medications Current Medications Hydromorphone HCl (Dilaudid) 1 mg Q4H PRN IV PAIN Last administered on t 09:45; Admin Dose 1 MG; Start 01/22/17 at 19:30 Acetaminophen (Tylenol Tab) 650 mg Q6H PRN PO PAIN LEVEL 1-3 OR FEVER; Start at 21:00 Acetaminophen (Tylenol Supp) 650 mg Q6H PRN [place] PAIN LEVEL 1-3 OR FEVER; Start 01/22/17 at 21:00 Docusate Sodium (Colace) 100 mg Q12H PRN PO CONSTIPATION Last administered on 05:26; Admin Dose 100 MG; Start 01/22/17 at 21:00 Bisacodyl (Dulcolax) 5 mg DAILY PRN PO CONSTIPATION; Start 01/22/17 at 21:00 Pantoprazole (Protonix Tab) 40 mg DAILY@06 PO Last administered on 01/26/17 05 :17; Admin Dose 40 MG; Start 01/23/17 at 06:00 Enoxaparin Sodium (Lovenox) 30 mg DAILY SC Last administered on 01/26/17 09:42 ; Admin Dose 30 MG; Start 01/23/17 at 09:00 Hydralazine HCl (Apresoline) 10 mg Q6 PRN IV sbp >160 Last administered on 01/25 00:27; Admin Dose 10 MG; Start 01/24/17 at 12:00 Benazepril HCl (Lotensin) 10 mg BID PO Last administered on 01/26/17 09:18; Admin Dose 10 MG; Start 01/24/17 at 21:00 Metoprolol Tartrate (Lopressor) 50 mg BID PO Last administered on 01/26/17 09: 18; Admin Dose 50 MG; Start 01/25/17 at 21:00 LUIS LOPEZ Jan 26, 2017 12:54
--- NOTE | 2017-01-26 17:19 | CONS ---
Date/Time of Note Date/Time of Note DATE: 01/26/17 TIME: 17:16 Assessment/Plan Assessment/Plan Additional Assessment/Plan Atypical Chest pain CHF HTN ESRD on HD Pleural effusion Heart failure clinically compensated Continue benazepril Continue metoprolol HD for volume removal Continue GI and DVT Prophylaxis Consultation Date/Type/Reason Admit Date/Time Jan 22, 2017 at 12:58 Constitutional: improved, no complaints ENT: no complaints Respiratory: no complaints Cardiovascular: no complaints Gastrointestinal: no complaints Genitourinary: no complaints Musculoskeletal: back pain Skin: no complaints Neurologic: no complaints, other (weakness) Lymphatic: no complaints Psychological: no complaints Past Medical History Medical History: coronary artery disease, high cholesterol, renal disease Social History Alcohol Use: none Smoking Status: Never smoker Drug Use: none Exam/Review of Systems Vital Signs Vitals Vital Signs Date Time Temp Pulse Resp B/P Pulse Ox O2 Delivery O2 Flow Rate FiO2 01/26/17 16:37 84 01/26/17 15:12 98.2 16 137/82 96 01/26/17 14:50 30 01/26/17 11:01 Nasal Cannula 01/23/17 12:00 15.0 Intake and Output 01/25/17 01/25/17 01/26/17 15:00 23:00 07:00 Intake Total 1020 ml 400 ml Output Total 4300 ml Balance -3280 ml 400 ml Exam Head: atraumatic, normocephalic Neck: non-tender, supple Respiratory: clear to auscultation Cardiovascular: regular rate and rhythm Gastrointestinal: nl liver, spleen, non-tender, soft Extremities: normal pulses Results Result Diagram: 01/26/17 0623 01/26/17 0623 Results 24 hrs Laboratory Tests Test 01/26/17 06:23 White Blood Count 4.9 Red Blood Count 3.36 L Hemoglobin 9.4 L Hematocrit 30.0 L Mean Corpuscular Volume 89.3 Mean Corpuscular Hemoglobin 28.0 L Mean Corpuscular Hemoglobin Concent 31.3 L Red Cell Distribution Width 17.2 H Platelet Count 315 Mean Platelet Volume 10.3 Neutrophils % 71.0 Lymphocytes % 15.0 Monocytes % 9.3 Eosinophils % 3.7 Basophils % 0.8 Nucleated Red Blood Cells % 0.0 Neutrophils # 3.5 Lymphocytes # 0.7 L Monocytes # 0.5 Eosinophils # 0.2 Basophils # 0.0 Nucleated Red Blood Cells # 0.0 Sodium Level 135 Potassium Level 4.1 Chloride Level 94 L Carbon Dioxide Level 30 Anion Gap 15 Blood Urea Nitrogen 19 # Creatinine 3.24 H Glucose Level 93 Calcium Level 7.6 L Medications Medications Current Medications Hydromorphone HCl (Dilaudid) 1 mg Q4H PRN IV PAIN Last administered on 17:10; Admin Dose 1 MG; Start 01/22/17 at 19:30 Acetaminophen (Tylenol Tab) 650 mg Q6H PRN PO PAIN LEVEL 1-3 OR FEVER; Start at 21:00 Acetaminophen (Tylenol Supp) 650 mg Q6H PRN [place] PAIN LEVEL 1-3 OR FEVER; Start 01/22/17 at 21:00 Docusate Sodium (Colace) 100 mg Q12H PRN PO CONSTIPATION Last administered on 05:26; Admin Dose 100 MG; Start 01/22/17 at 21:00 Bisacodyl (Dulcolax) 5 mg DAILY PRN PO CONSTIPATION; Start 01/22/17 at 21:00 Pantoprazole (Protonix Tab) 40 mg DAILY@06 PO Last administered on 01/26/17 05 :17; Admin Dose 40 MG; Start 01/23/17 at 06:00 Enoxaparin Sodium (Lovenox) 30 mg DAILY SC Last administered on 01/26/17 09:42 ; Admin Dose 30 MG; Start 01/23/17 at 09:00 Hydralazine HCl (Apresoline) 10 mg Q6 PRN IV sbp >160 Last administered on 01/25 00:27; Admin Dose 10 MG; Start 01/24/17 at 12:00 Benazepril HCl (Lotensin) 10 mg BID PO Last administered on 01/26/17 09:18; Admin Dose 10 MG; Start 01/24/17 at 21:00 Metoprolol Tartrate (Lopressor) 50 mg BID PO Last administered on 01/26/17 09: 18; Admin Dose 50 MG; Start 01/25/17 at 21:00 FANNY REYNOLDS M.D. Jan 26, 2017 17:18
[2017-01-26] MEDS ORDERED: LIDOCAINE 1% (MPF) 5 ML VIAL ONE (18:55)
--- NOTE | 2017-01-26 19:00 | RADRPT ---
PROCEDURE: US guided left thoracentesis. CLINICAL INDICATION: Shortness of breath. Left pleural effusion. TECHNIQUE: Prior to the procedure, informed consent was obtained. The risks, benefits, and alternatives were e xplained to the patient or the patient's family, including but not limited to bleeding, infection, p ain, visceral or vascular damage, shock, pneumothorax, chest tube placement, air embolism, and . The patient or the patient's family understood the risks and the alternatives and wished to proce ed with the study. Informed written consent was obtained. A procedural pause was performed. The patient's name, date of , and procedure to be performed were verified. Ultrasound of the left hemithorax was performed in the axial and sagittal planes. A left pleural eff usion is noted. Utilizing ultrasound guidance, optimal location for entry to the pleural cavity was ascertained. The overlying skin was prepped and draped in the usual sterile fashion. Approximately 10 ml of 1% Xylocaine was injected locally for pain control. Using ultrasound guidance, a 5-[place] Yueh catheter was introduced into the left pleural space without difficulty. Fluid was aspirated. COMPARISON: 01/22/2017. FINDINGS: Initial ultrasound demonstrates fluid in the left pleural space. The fluid has multiple loculations . Approximately 0.425 liters of serous fluid was aspirated and sent to the laboratory. IMPRESSION: 1. Satisfactory ultrasound-guided left thoracentesis. 2. Multiloculated left pleural effusion. RPTAT: QQ .Mohamud Nam MD, Date Time Electronically viewed and signed by .Mohamud Nam MD, on 01/26/2017 19:00 .R/
--- NOTE | 2017-01-26 19:06 | RADRPT ---
PROCEDURE: XR Chest. CLINICAL INDICATION: Shortness of breath. Post left thoracentesis. TECHNIQUE: Single frontal view. COMPARISON: 01/25/2017. FINDINGS: The tunneled right internal jugular vein dialysis catheter remains in satisfactory position. There are small bilateral pleural effusions, improved. Atelectasis at the lung bases is also improved. The heart size is normal. There is no pneumothorax. IMPRESSION: 1. Smaller bilateral pleural effusions and improved appearance of the lung bases. 2. No pneumothorax following left thoracentesis. RPTAT: QQ .Mohamud Nam MD, MD Date Time Electronically viewed and signed by .Mohamud Nam MD, MD on 01/26/2017 19:05 .R/
[2017-01-27] VITALS (21 sets, daily range): BP systolic 98–175; BP diastolic 56–102; PULSE 74–92; RESP 16–20
[2017-01-27 02:32] LABS: FLUID GLUCOSE 96 mg/dl; FLUID TYPE PLEURAL FLUID
[2017-01-27 02:58] LABS: FLD CLARITY HAZY; FLD COLOR RED; FLD TYPE PLEURAL; FLD WBC 1471 /cmm
[2017-01-27 02:59] LABS: FLD MN% 91.6 %; FLD PMN% 8.4 %; FLD RBC 18000 /uL
[2017-01-27 03:00] LABS: FLD MN % (M) 69 %; FLD OTHER CELLS 17 %; FLD PMN % (M) 14 %
[2017-01-27 03:51] LABS: FLUID TOTAL PROTEIN 3.4 g/dl; FLUID TYPE THORACENTESIS FLUID
[2017-01-27] MEDS: hydrALAzine 20 MG INJ IV PRN (04:04)
[2017-01-27] MEDS: HYDROmorphONE 1 MG/ML SYG IV PRN ×6 (04:04→23:29)
[2017-01-27] MEDS: PANTOPRAZOLE (EC) 40 MG TAB PO SCH (05:03)
[2017-01-27 07:06] LABS: BASOPHILS % 0.7 % (0.0-2.0); EOSINOPHILS # 0.3 10^3/ul (0.0-0.5); EOSINOPHILS % 4.7 % (0.0-7.0); HEMATOCRIT 27.2 % (37.0-47.0); HEMOGLOBIN 8.6 g/dl (12.0-16.0); LYMPHOCYTES # 0.7 10^3/ul (0.8-2.9); LYMPHOCYTES % 12.6 % (15.0-51.0); MEAN CORPUSCULAR HEMOGLOBIN 27.5 pg (29.0-33.0); MEAN CORPUSCULAR HGB CONC 31.6 g/dl (32.0-37.0); MEAN CORPUSCULAR VOLUME 86.9 fl (82.0-101.0); MEAN PLATELET VOLUME 9.7 fl (7.4-10.4); MONOCYTE # 0.7 10^3/ul (0.3-0.9); MONOCYTES % 11.6 % (0.0-11.0); PLATELET COUNT 313 10^3/UL (140-415); RED BLOOD COUNT 3.13 10^6/ul (4.20-5.40); RED CELL DISTRIBUTION WIDTH 16.8 % (11.5-14.5); WHITE BLOOD COUNT 5.7 10^3/ul (4.8-10.8)
[2017-01-27 07:38] LABS: CALCIUM 7.3 mg/dl (8.4-10.2); CREATININE 3.78 mg/dl (0.44-1.00); POTASSIUM 4.5 mmol/L (3.5-5.1)
[2017-01-27] MEDS: BENAZEPRIL 10 MG TAB PO SCH ×2 (09:02→20:43)
[2017-01-27] MEDS: METOPROLOL 50 MG TAB PO SCH ×2 (09:04→20:43)
[2017-01-27] MEDS: ENOXAPARIN 30 MG/0.3 ML SYG SC SCH (09:08)
[2017-01-27] MEDS ORDERED: HEPARIN 1000 UNITS/ML 10 ML INJ CATHETER ONE (12:00)
--- NOTE | 2017-01-27 12:26 | PN ---
Date/Time of Note Date/Time of Note DATE: 01/27/17 TIME: 12:25 Assessment/Plan VTE Prophylaxis VTE Prophylaxis Intervention: SCD's Lines/Catheters IV Catheter Type (from [facility]): [place] [facility] Urinary Cath still in place: No Assessment/Plan Chief Complaint/Hosp Course 1. esrd 2. pleural effusion 3. anemia 4. r/o ihd 5. ashd 6. Hypertension, controlled 7. Hyponatremia Problems: Assessment/Plan 1. continue HD Subjective 24 Hr Interval Summary Constitutional: no complaints Exam/Review of Systems Vital Signs Vitals Vital Signs Date Time Temp Pulse Resp B/P Pulse Ox O2 Delivery O2 Flow Rate FiO2 01/27/17 12:23 80 01/27/17 11:22 98.2 16 117/71 100 01/27/17 08:01 Nasal Cannula 01/27/17 05:00 30 01/23/17 12:00 15.0 Intake and Output 01/26/17 01/26/17 01/27/17 15:00 23:00 07:00 Intake Total 720 ml 390 ml Output Total 2 ml Balance 718 ml 390 ml Exam Constitutional: alert, oriented ENMT: nl external ears & nose Neck: supple Respiratory: diminished breath sounds Results Result Diagram: 01/27/17 0640 01/27/17 0640 Results 24 hrs Laboratory Tests Test 01/26/17 18:20 01/27/17 06:40 Body Fluid Type PLEURAL FLUID Body Fluid Volume 450.0 Body Fluid Color RED Body Fluid Appearance HAZY Body Fluid WBC 1471 Body Fluid RBC (Auto) 79302 Body Fluid Polynuclear WBCs 14 Body Fluid Polynuclear WBCs (%) 8.4 Body Fluid Mononuclear WBCs 69 Body Fluid Mononuclear Cells % Auto 91.6 Body Fluid Other Cells 17 Body Fluid Glucose 96 Body Fluid Total Protein 3.4 Body Fluid Lactate Dehydrogenase White Blood Count 5.7 Red Blood Count 3.13 L Hemoglobin 8.6 L Hematocrit 27.2 L Mean Corpuscular Volume 86.9 Mean Corpuscular Hemoglobin 27.5 L Mean Corpuscular Hemoglobin Concent 31.6 L Red Cell Distribution Width 16.8 H Platelet Count 313 Mean Platelet Volume 9.7 Neutrophils % 70.0 Lymphocytes % 12.6 L Monocytes % 11.6 H Eosinophils % 4.7 Basophils % 0.7 Nucleated Red Blood Cells % 0.0 Neutrophils # 4.0 Lymphocytes # 0.7 L Monocytes # 0.7 Eosinophils # 0.3 Basophils # 0.0 Nucleated Red Blood Cells # 0.0 Sodium Level 129 L Potassium Level 4.5 Chloride Level 89 L Carbon Dioxide Level 27 Anion Gap 18 H Blood Urea Nitrogen 30 #H Creatinine 3.78 H Glucose Level 101 Calcium Level 7.3 L Medications Medications Current Medications Hydromorphone HCl (Dilaudid) 1 mg Q4H PRN IV PAIN Last administered on 09:10; Admin Dose 1 MG; Start 01/22/17 at 19:30 Acetaminophen (Tylenol Tab) 650 mg Q6H PRN PO PAIN LEVEL 1-3 OR FEVER; Start at 21:00 Acetaminophen (Tylenol Supp) 650 mg Q6H PRN [place] PAIN LEVEL 1-3 OR FEVER; Start 01/22/17 at 21:00 Docusate Sodium (Colace) 100 mg Q12H PRN PO CONSTIPATION Last administered on 20:39; Admin Dose 100 MG; Start 01/22/17 at 21:00 Bisacodyl (Dulcolax) 5 mg DAILY PRN PO CONSTIPATION; Start 01/22/17 at 21:00 Pantoprazole (Protonix Tab) 40 mg DAILY@06 PO Last administered on 01/27/17 05 :03; Admin Dose 40 MG; Start 01/23/17 at 06:00 Enoxaparin Sodium (Lovenox) 30 mg DAILY SC Last administered on 01/27/17 09:08 ; Admin Dose 30 MG; Start 01/23/17 at 09:00 Hydralazine HCl (Apresoline) 10 mg Q6 PRN IV sbp >160 Last administered on 01/27 04:04; Admin Dose 10 MG; Start 01/24/17 at 12:00 Benazepril HCl (Lotensin) 10 mg BID PO Last administered on 01/27/17 09:02; Admin Dose 10 MG; Start 01/24/17 at 21:00 Metoprolol Tartrate (Lopressor) 50 mg BID PO Last administered on 01/27/17 09: 04; Admin Dose 50 MG; Start 01/25/17 at 21:00 LUIS LOPEZ Jan 27, 2017 12:26
--- NOTE | 2017-01-27 15:21 | CONS ---
Date/Time of Note Date/Time of Note DATE: 01/27/17 TIME: 15:20 Assessment/Plan Assessment/Plan Additional Assessment/Plan Atypical Chest pain CHF HTN ESRD on HD Pleural effusion Heart failure clinically compensated Continue benazepril Continue metoprolol HD as scheduled Continue GI and DVT Prophylaxis Consultation Date/Type/Reason Admit Date/Time Jan 22, 2017 at 12:58 Initial Consult Date 01/22/17 Type of Consultation: Pulmonary Referring Provider: SHAN ARRINGTON MD Exam/Review of Systems Vital Signs Vitals Vital Signs Date Time Temp Pulse Resp B/P Pulse Ox O2 Delivery O2 Flow Rate FiO2 01/27/17 15:04 98.2 80 16 105/61 97 01/27/17 08:01 Nasal Cannula 01/27/17 05:00 30 01/23/17 12:00 15.0 Intake and Output 01/26/17 01/26/17 01/27/17 15:00 23:00 07:00 Intake Total 720 ml 390 ml Output Total 2 ml Balance 718 ml 390 ml Exam Head: atraumatic, normocephalic Neck: non-tender, supple Respiratory: clear to auscultation Cardiovascular: regular rate and rhythm Gastrointestinal: nl liver, spleen, non-tender, soft Extremities: normal pulses Results Result Diagram: 01/27/17 0640 01/27/17 0640 Results 24 hrs Laboratory Tests Test 01/26/17 18:20 01/27/17 06:40 Body Fluid Type PLEURAL FLUID Body Fluid Volume 450.0 Body Fluid Color RED Body Fluid Appearance HAZY Body Fluid WBC 1471 Body Fluid RBC (Auto) 49537 Body Fluid Polynuclear WBCs 14 Body Fluid Polynuclear WBCs (%) 8.4 Body Fluid Mononuclear WBCs 69 Body Fluid Mononuclear Cells % Auto 91.6 Body Fluid Other Cells 17 Body Fluid Glucose 96 Body Fluid Total Protein 3.4 Body Fluid Lactate Dehydrogenase White Blood Count 5.7 Red Blood Count 3.13 L Hemoglobin 8.6 L Hematocrit 27.2 L Mean Corpuscular Volume 86.9 Mean Corpuscular Hemoglobin 27.5 L Mean Corpuscular Hemoglobin Concent 31.6 L Red Cell Distribution Width 16.8 H Platelet Count 313 Mean Platelet Volume 9.7 Neutrophils % 70.0 Lymphocytes % 12.6 L Monocytes % 11.6 H Eosinophils % 4.7 Basophils % 0.7 Nucleated Red Blood Cells % 0.0 Neutrophils # 4.0 Lymphocytes # 0.7 L Monocytes # 0.7 Eosinophils # 0.3 Basophils # 0.0 Nucleated Red Blood Cells # 0.0 Sodium Level 129 L Potassium Level 4.5 Chloride Level 89 L Carbon Dioxide Level 27 Anion Gap 18 H Blood Urea Nitrogen 30 #H Creatinine 3.78 H Glucose Level 101 Calcium Level 7.3 L Medications Medications Current Medications Hydromorphone HCl (Dilaudid) 1 mg Q4H PRN IV PAIN Last administered on 13:47; Admin Dose 1 MG; Start 01/22/17 at 19:30 Acetaminophen (Tylenol Tab) 650 mg Q6H PRN PO PAIN LEVEL 1-3 OR FEVER; Start at 21:00 Acetaminophen (Tylenol Supp) 650 mg Q6H PRN [place] PAIN LEVEL 1-3 OR FEVER; Start 01/22/17 at 21:00 Docusate Sodium (Colace) 100 mg Q12H PRN PO CONSTIPATION Last administered on 20:39; Admin Dose 100 MG; Start 01/22/17 at 21:00 Bisacodyl (Dulcolax) 5 mg DAILY PRN PO CONSTIPATION; Start 01/22/17 at 21:00 Pantoprazole (Protonix Tab) 40 mg DAILY@06 PO Last administered on 01/27/17 05 :03; Admin Dose 40 MG; Start 01/23/17 at 06:00 Enoxaparin Sodium (Lovenox) 30 mg DAILY SC Last administered on 01/27/17 09:08 ; Admin Dose 30 MG; Start 01/23/17 at 09:00 Hydralazine HCl (Apresoline) 10 mg Q6 PRN IV sbp >160 Last administered on 01/27 04:04; Admin Dose 10 MG; Start 01/24/17 at 12:00 Benazepril HCl (Lotensin) 10 mg BID PO Last administered on 01/27/17 09:02; Admin Dose 10 MG; Start 01/24/17 at 21:00 Metoprolol Tartrate (Lopressor) 50 mg BID PO Last administered on 01/27/17 09: 04; Admin Dose 50 MG; Start 01/25/17 at 21:00 FANNY REYNOLDS M.D. Jan 27, 2017 15:21
--- NOTE | 2017-01-27 16:54 | RADRPT ---
PROCEDURE: XR Abdomen. CLINICAL INDICATION: Abdominal pain TECHNIQUE: Two views of the abdomen are available for review. COMPARISON: CT abdomen and pelvis 01/12/2017 from [facility]. FINDINGS: There is a nonspecific, nonobstructive bowel gas pattern. Scattered stool is seen throughout the le ft colon. Scattered areas of relative increased density are seen along the left colon, which likely reflect diverticula. On the prior CT, contrast material is seen within multiple diverticula, which to correspond to the is abnormality seen on the plain film. These extend into the left pelvis. There is no gross evidence of free air on this supine radiograph. Multiple phleboliths are identifi ed. No definite renal calculi are seen on this plain film radiograph. Mild degenerative changes of the lumbar spine are evident. Left lower lobe consolidation and pleural fluid is evident but incom pletely evaluated. IMPRESSION: 1. No evidence of bowel obstruction. 2. There are numerous scattered diverticula of the descending and sigmoid colon. Many of these dive rticula contain hyperdense material, likely related to prior barium studies. RPTAT: HJAH .Alexia Lyles MD, MD Date Time Electronically viewed and signed by .Alexia Lyles MD, MD on 01/27/2017 16:54 .H/
[2017-01-27] MEDS: ACETAMINOPHEN 325 MG TAB PO PRN ×2 (17:38→21:21)
[2017-01-27] MEDS ORDERED: LOPERAMIDE 2 MG CAP PO ONE (21:30)
[2017-01-27] MEDS: ZOLPIDEM 5 MG TAB PO PRN (23:17)
[2017-01-28] VITALS (11 sets, daily range): BP systolic 127–205; BP diastolic 78–114; PULSE 76–90; RESP 16–20
[2017-01-28] MEDS: HYDROmorphONE 1 MG/ML SYG IV PRN ×4 (03:06→16:36)
[2017-01-28] MEDS: PANTOPRAZOLE (EC) 40 MG TAB PO SCH (05:33)
[2017-01-28] MEDS: METOPROLOL 50 MG TAB PO SCH (08:14)
[2017-01-28] MEDS: BENAZEPRIL 10 MG TAB PO SCH (08:14)
[2017-01-28 08:17] LABS: BASOPHILS % 0.4 % (0.0-2.0); EOSINOPHILS # 0.3 10^3/ul (0.0-0.5); EOSINOPHILS % 5.6 % (0.0-7.0); HEMATOCRIT 28.1 % (37.0-47.0); LYMPHOCYTES # 0.7 10^3/ul (0.8-2.9); LYMPHOCYTES % 14.6 % (15.0-51.0); MEAN CORPUSCULAR HEMOGLOBIN 28.2 pg (29.0-33.0); MEAN CORPUSCULAR VOLUME 88.1 fl (82.0-101.0); MEAN PLATELET VOLUME 9.8 fl (7.4-10.4); MONOCYTE # 0.6 10^3/ul (0.3-0.9); MONOCYTES % 12.2 % (0.0-11.0); NEUTROPHIL # 3.4 10^3/ul (1.6-7.5); PLATELET COUNT 327 10^3/UL (140-415); RED BLOOD COUNT 3.19 10^6/ul (4.20-5.40); RED CELL DISTRIBUTION WIDTH 16.5 % (11.5-14.5)
[2017-01-28] MEDS: ENOXAPARIN 30 MG/0.3 ML SYG SC SCH (08:26)
[2017-01-28 08:36] LABS: CALCIUM 7.7 mg/dl (8.4-10.2); CREATININE 3.33 mg/dl (0.44-1.00); POTASSIUM 3.8 mmol/L (3.5-5.1)
--- NOTE | 2017-01-28 12:23 | CONS ---
Date/Time of Note Date/Time of Note DATE: 01/28/17 TIME: 12:21 Assessment/Plan Assessment/Plan Chief Complaint/Hosp Course IMP: 1. CHF-diastolic acute on chronic 2. Chest pain 3.HTN 4.[place] 5.ESRD on HD 6. Pleural effusion s/p thoracentesis Recc: -Tele -serial ecg's -Continue benazepril/BB -HD for volume removal Problems: Consultation Date/Type/Reason Admit Date/Time Jan 22, 2017 at 12:58 Initial Consult Date 01/22/17 Type of Consultation: cardiology Reason for Consultation CHF Referring Provider: SHAN ARRINGTON MD Exam/Review of Systems Vital Signs Vitals Vital Signs Date Time Temp Pulse Resp B/P Pulse Ox O2 Delivery O2 Flow Rate FiO2 01/28/17 12:17 82 01/28/17 11:32 99 4.0 01/28/17 11:02 98.5 16 165/91 01/28/17 09:20 30 01/28/17 07:50 Nasal Cannula Intake and Output 01/27/17 01/27/17 01/28/17 15:00 23:00 07:00 Intake Total 400 ml 820 ml 240 ml Output Total 2900 ml Balance -2500 ml 820 ml 240 ml Exam Review of Systems: CONSTITUTIONAL: No fevers, chills. PULMONARY: No sob CARDIOVASCULAR: No chest pain/palpitations GASTROINTESTINAL: c/o abd pain GENITOURINARY: No hematuria/dysuria. MUSCULOSKELETAL: No myagias/arthalgias. PSYCHIATRIC: The patient denies depression. NEUROLOGIC: No weakness Constitutional: alert Psych: no complaints Head: normocephalic ENMT: mucosa pink and moist Neck: jvd (9 cm water), supple Respiratory: diminished breath sounds (at bases/B) Cardiovascular: regular rate and rhythm Gastrointestinal: soft, tender Extremities: edema (none) Neurological: other (No focal deficits) Results Result Diagram: 01/28/1728 01/28/1728 Results 24 hrs Laboratory Tests Test 01/28/17 07:28 White Blood Count 5.0 Red Blood Count 3.19 L Hemoglobin 9.0 L Hematocrit 28.1 L Mean Corpuscular Volume 88.1 Mean Corpuscular Hemoglobin 28.2 L Mean Corpuscular Hemoglobin Concent 32.0 Red Cell Distribution Width 16.5 H Platelet Count 327 Mean Platelet Volume 9.8 Neutrophils % 67.0 Lymphocytes % 14.6 L Monocytes % 12.2 H Eosinophils % 5.6 Basophils % 0.4 Nucleated Red Blood Cells % 0.0 Neutrophils # 3.4 Lymphocytes # 0.7 L Monocytes # 0.6 Eosinophils # 0.3 Basophils # 0.0 Nucleated Red Blood Cells # 0.0 Sodium Level 137 Potassium Level 3.8 Chloride Level 99 # Carbon Dioxide Level 30 Anion Gap 12 Blood Urea Nitrogen 22 H Creatinine 3.33 H Glucose Level 144 # Calcium Level 7.7 L Medications Medications Current Medications Hydromorphone HCl (Dilaudid) 1 mg Q4H PRN IV PAIN Last administered on 12:12; Admin Dose 1 MG; Start 01/22/17 at 19:30 Acetaminophen (Tylenol Tab) 650 mg Q6H PRN PO PAIN LEVEL 1-3 OR FEVER Last administered on 01/27/17 21:21; Admin Dose 650 MG; Start 01/22/17 at 21:00 Acetaminophen (Tylenol Supp) 650 mg Q6H PRN [place] PAIN LEVEL 1-3 OR FEVER; Start 01/22/17 at 21:00 Docusate Sodium (Colace) 100 mg Q12H PRN PO CONSTIPATION Last administered on 20:39; Admin Dose 100 MG; Start 01/22/17 at 21:00 Bisacodyl (Dulcolax) 5 mg DAILY PRN PO CONSTIPATION; Start 01/22/17 at 21:00 Pantoprazole (Protonix Tab) 40 mg DAILY@06 PO Last administered on 01/28/17 05 :33; Admin Dose 40 MG; Start 01/23/17 at 06:00 Enoxaparin Sodium (Lovenox) 30 mg DAILY SC Last administered on 01/28/17 08:26 ; Admin Dose 30 MG; Start 01/23/17 at 09:00 Hydralazine HCl (Apresoline) 10 mg Q6 PRN IV sbp >160 Last administered on 01/27 04:04; Admin Dose 10 MG; Start 01/24/17 at 12:00 Benazepril HCl (Lotensin) 10 mg BID PO Last administered on 01/28/17 08:14; Admin Dose 10 MG; Start 01/24/17 at 21:00 Metoprolol Tartrate (Lopressor) 50 mg BID PO Last administered on 01/28/17 08: 14; Admin Dose 50 MG; Start 01/25/17 at 21:00 Zolpidem Tartrate (Ambien) 5 mg HS PRN PO INSOMNIA Last administered on 23:17; Admin Dose 5 MG; Start 01/27/17 at 23:30 Hydromorphone HCl (Dilaudid) 2 mg Q4H PRN PO PAIN; Start 01/28/17 at 12:30 HUA SANTIAGO Jan 28, 2017 12:23
[2017-01-28] MEDS ORDERED: HYDROmorphONE 4 MG TAB PO PRN (12:30)
--- NOTE | 2017-01-28 15:37 | CONS ---
Date/Time of Note Date/Time of Note DATE: 01/28/17 TIME: 15:37 Consult Date/Type/Reason Admit Date/Time Jan 22, 2017 at 12:58 Initial Consult Date 01/22/17 Type of Consultation: cardiology Ordering Provider: SHAN ARRINGTON MD Objective Vital Signs Date Time Temp Pulse Resp B/P Pulse Ox O2 Delivery O2 Flow Rate FiO2 01/28/17 12:17 82 01/28/17 11:32 99 4.0 01/28/17 11:02 98.5 16 165/91 01/28/17 09:20 30 01/28/17 07:50 Nasal Cannula Intake and Output 01/27/17 01/27/17 01/28/17 15:00 23:00 07:00 Intake Total 400 ml 820 ml 240 ml Output Total 2900 ml Balance -2500 ml 820 ml 240 ml Results/Medications Result Diagram: 01/28/1728 01/28/17 0728 Results 24 hrs Laboratory Tests Test 01/28/17 07:28 White Blood Count 5.0 Red Blood Count 3.19 L Hemoglobin 9.0 L Hematocrit 28.1 L Mean Corpuscular Volume 88.1 Mean Corpuscular Hemoglobin 28.2 L Mean Corpuscular Hemoglobin Concent 32.0 Red Cell Distribution Width 16.5 H Platelet Count 327 Mean Platelet Volume 9.8 Neutrophils % 67.0 Lymphocytes % 14.6 L Monocytes % 12.2 H Eosinophils % 5.6 Basophils % 0.4 Nucleated Red Blood Cells % 0.0 Neutrophils # 3.4 Lymphocytes # 0.7 L Monocytes # 0.6 Eosinophils # 0.3 Basophils # 0.0 Nucleated Red Blood Cells # 0.0 Sodium Level 137 Potassium Level 3.8 Chloride Level 99 # Carbon Dioxide Level 30 Anion Gap 12 Blood Urea Nitrogen 22 H Creatinine 3.33 H Glucose Level 144 # Calcium Level 7.7 L Medications Current Medications Hydromorphone HCl (Dilaudid) 1 mg Q4H PRN IV PAIN Last administered on 12:12; Admin Dose 1 MG; Start 01/22/17 at 19:30 Acetaminophen (Tylenol Tab) 650 mg Q6H PRN PO PAIN LEVEL 1-3 OR FEVER Last administered on 01/27/17 21:21; Admin Dose 650 MG; Start 01/22/17 at 21:00 Acetaminophen (Tylenol Supp) 650 mg Q6H PRN [place] PAIN LEVEL 1-3 OR FEVER; Start 01/22/17 at 21:00 Docusate Sodium (Colace) 100 mg Q12H PRN PO CONSTIPATION Last administered on 20:39; Admin Dose 100 MG; Start 01/22/17 at 21:00 Bisacodyl (Dulcolax) 5 mg DAILY PRN PO CONSTIPATION; Start 01/22/17 at 21:00 Pantoprazole (Protonix Tab) 40 mg DAILY@06 PO Last administered on 01/28/17 05 :33; Admin Dose 40 MG; Start 01/23/17 at 06:00 Enoxaparin Sodium (Lovenox) 30 mg DAILY SC Last administered on 01/28/17 08:26 ; Admin Dose 30 MG; Start 01/23/17 at 09:00 Hydralazine HCl (Apresoline) 10 mg Q6 PRN IV sbp >160 Last administered on 01/27 04:04; Admin Dose 10 MG; Start 01/24/17 at 12:00 Benazepril HCl (Lotensin) 10 mg BID PO Last administered on 01/28/17 08:14; Admin Dose 10 MG; Start 01/24/17 at 21:00 Metoprolol Tartrate (Lopressor) 50 mg BID PO Last administered on 01/28/17 08: 14; Admin Dose 50 MG; Start 01/25/17 at 21:00 Zolpidem Tartrate (Ambien) 5 mg HS PRN PO INSOMNIA Last administered on 23:17; Admin Dose 5 MG; Start 01/27/17 at 23:30 Hydromorphone HCl (Dilaudid) 2 mg Q4H PRN PO PAIN; Start 01/28/17 at 12:30 Assessment/Plan Chief Complaint/Hosp Course Patient doing okay this morning awake alert and oriented. Continues high flow O2 at 10 L/min and 30% FiO2. Denies any chest pain or shortness of breath. On examination GENERAL: VITAL SIGNS: per chart NECK: Supple. No JVD or lymphadenopathy. CARDIAC EXAM: S1, S2. No added sounds or murmurs. CHEST: clear bilaterally, No added sounds, rales or wheezes ABDOMEN: Soft, nontender. No guarding or rebound. EXTREMITIES: No cyanosis, clubbing or edema. NEUROLOGIC: Generalized weakness. No focal deficits. Labs white count 5.0 hemoglobin 9.0 platelets of 327 BUN 22 creatinine 3.33 Chest x-ray IMPRESSION: 1. Smaller bilateral pleural effusions and improved appearance of the lung bases. 2. No pneumothorax following left thoracentesis. Assessment 1. Acute coronary syndrome. 2. Hypoxemic respiratory failure secondary to volume overload status post thoracentesis. 3. End-stage renal failure on hemodialysis. 4. Essential hypertension Recommendations 1. Continue hemodialysis with volume removal 2. Decrease FiO2 placed on nasal cannula 3. Continue physical therapy encourage out of bed 4. Continue cardiac recommendations re-ACS Problems: ESTEFANI MAXWELL [facility], [facility] Jan 28, 2017 15:37
[2017-01-28] MEDS: hydrALAzine 20 MG INJ IV PRN (16:42)
[2017-01-28] MEDS: HYDROmorphONE 2 MG TAB PO PRN (18:56)
--- NOTE | 2017-01-28 19:12 | PN ---
Date/Time of Note Date/Time of Note DATE: 01/28/17 TIME: 19:11 Assessment/Plan VTE Prophylaxis VTE Prophylaxis Intervention: other Lines/Catheters IV Catheter Type (from Nrsg): Peripheral IV Urinary Cath still in place: No Assessment/Plan Chief Complaint/Hosp Course esrd pleural effusion anemia ABD PAIN HTN ashd plan per GI hd PAIN MEDS Problems: Subjective 24 Hr Interval Summary Subjective hx not possible: other (ABD PAIN DR JAY CALLED) Exam/Review of Systems Vital Signs Vitals Vital Signs Date Time Temp Pulse Resp B/P Pulse Ox O2 Delivery O2 Flow Rate FiO2 01/28/17 18:26 4.0 01/28/17 16:31 79 01/28/17 16:31 98.2 16 205/114 97 01/28/17 09:20 30 01/28/17 07:50 Nasal Cannula Intake and Output 01/27/17 01/27/17 01/28/17 15:00 23:00 07:00 Intake Total 400 ml 820 ml 240 ml Output Total 2900 ml Balance -2500 ml 820 ml 240 ml Exam Respiratory: clear to auscultation Cardiovascular: regular rate and rhythm Gastrointestinal: bowel sounds (+), soft Results Result Diagram: 01/28/17 0728 01/28/17 0728 Results 24 hrs Laboratory Tests Test 01/28/17 07:28 White Blood Count 5.0 Red Blood Count 3.19 L Hemoglobin 9.0 L Hematocrit 28.1 L Mean Corpuscular Volume 88.1 Mean Corpuscular Hemoglobin 28.2 L Mean Corpuscular Hemoglobin Concent 32.0 Red Cell Distribution Width 16.5 H Platelet Count 327 Mean Platelet Volume 9.8 Neutrophils % 67.0 Lymphocytes % 14.6 L Monocytes % 12.2 H Eosinophils % 5.6 Basophils % 0.4 Nucleated Red Blood Cells % 0.0 Neutrophils # 3.4 Lymphocytes # 0.7 L Monocytes # 0.6 Eosinophils # 0.3 Basophils # 0.0 Nucleated Red Blood Cells # 0.0 Sodium Level 137 Potassium Level 3.8 Chloride Level 99 # Carbon Dioxide Level 30 Anion Gap 12 Blood Urea Nitrogen 22 H Creatinine 3.33 H Glucose Level 144 # Calcium Level 7.7 L Medications Medications Current Medications Hydromorphone HCl (Dilaudid) 1 mg Q4H PRN IV PAIN Last administered on t 16:36; Admin Dose 1 MG; Start 7/18/17 at 19:30 Acetaminophen (Tylenol Tab) 650 mg Q6H PRN PO PAIN LEVEL 1-3 OR FEVER Last administered on 01/27/17 21:21; Admin Dose 650 MG; Start 01/22/17 at 21:00 Acetaminophen (Tylenol Supp) 650 mg Q6H PRN [place] PAIN LEVEL 1-3 OR FEVER; Start 01/22/17 at 21:00 Docusate Sodium (Colace) 100 mg Q12H PRN PO CONSTIPATION Last administered on 20:39; Admin Dose 100 MG; Start 01/22/17 at 21:00 Bisacodyl (Dulcolax) 5 mg DAILY PRN PO CONSTIPATION; Start 01/22/17 at 21:00 Pantoprazole (Protonix Tab) 40 mg DAILY@06 PO Last administered on 01/28/17 05 :33; Admin Dose 40 MG; Start 01/23/17 at 06:00 Enoxaparin Sodium (Lovenox) 30 mg DAILY SC Last administered on 01/28/17 08:26 ; Admin Dose 30 MG; Start 01/23/17 at 09:00 Hydralazine HCl (Apresoline) 10 mg Q6 PRN IV sbp >160 Last administered on 01/28 16:42; Admin Dose 10 MG; Start 01/24/17 at 12:00 Benazepril HCl (Lotensin) 10 mg BID PO Last administered on 01/28/17 08:14; Admin Dose 10 MG; Start 01/24/17 at 21:00 Metoprolol Tartrate (Lopressor) 50 mg BID PO Last administered on 01/28/17 08: 14; Admin Dose 50 MG; Start 01/25/17 at 21:00 Zolpidem Tartrate (Ambien) 5 mg HS PRN PO INSOMNIA Last administered on 23:17; Admin Dose 5 MG; Start 01/27/17 at 23:30 Hydromorphone HCl (Dilaudid) 2 mg Q4H PRN PO PAIN Last administered on 18:56; Admin Dose 2 MG; Start 01/28/17 at 12:30 SHAN ARRINGTON MD Jan 28, 2017 19:12
[2017-01-28] MEDS ORDERED: BARIUM SULF 2% 450 ML BTL (BERRY SMOOTHIE) PO ONE ×2 (19:30→20:00)
[2017-01-29] VITALS (20 sets, daily range): BP systolic 116–177; BP diastolic 68–99; PULSE 67–86; RESP 16–20
[2017-01-29] MEDS: ACETAMINOPHEN 325 MG TAB PO PRN (01:41)
[2017-01-29] MEDS: BENAZEPRIL 10 MG TAB PO SCH ×3 (01:46→21:11)
[2017-01-29] MEDS: METOPROLOL 50 MG TAB PO SCH ×3 (01:48→21:09)
[2017-01-29] MEDS: HYDROmorphONE 1 MG/ML SYG IV PRN ×4 (01:49→17:44)
[2017-01-29] MEDS: HYDROmorphONE 2 MG TAB PO PRN ×3 (04:12→21:07)
[2017-01-29] MEDS: PANTOPRAZOLE (EC) 40 MG TAB PO SCH (05:03)
[2017-01-29 07:53] LABS: BASOPHILS % 0.6 % (0.0-2.0); EOSINOPHILS # 0.3 10^3/ul (0.0-0.5); EOSINOPHILS % 5.8 % (0.0-7.0); HEMATOCRIT 28.7 % (37.0-47.0); HEMOGLOBIN 9.1 g/dl (12.0-16.0); LYMPHOCYTES # 0.8 10^3/ul (0.8-2.9); LYMPHOCYTES % 16.1 % (15.0-51.0); MEAN CORPUSCULAR HEMOGLOBIN 27.8 pg (29.0-33.0); MEAN CORPUSCULAR HGB CONC 31.7 g/dl (32.0-37.0); MEAN CORPUSCULAR VOLUME 87.8 fl (82.0-101.0); MEAN PLATELET VOLUME 9.8 fl (7.4-10.4); MONOCYTE # 0.5 10^3/ul (0.3-0.9); NEUTROPHIL # 3.5 10^3/ul (1.6-7.5); NEUTROPHILS % 67.3 % (39.0-77.0); PLATELET COUNT 353 10^3/UL (140-415); RED BLOOD COUNT 3.27 10^6/ul (4.20-5.40); RED CELL DISTRIBUTION WIDTH 16.5 % (11.5-14.5); WHITE BLOOD COUNT 5.2 10^3/ul (4.8-10.8)
[2017-01-29] MEDS: ENOXAPARIN 30 MG/0.3 ML SYG SC SCH (08:25)
[2017-01-29 08:33] LABS: ALBUMIN 2.6 g/dl (3.3-4.9); ALBUMIN/GLOBULIN RATIO 0.74; CALCIUM 8.1 mg/dl (8.4-10.2); CREATININE 4.09 mg/dl (0.44-1.00); POTASSIUM 4.1 mmol/L (3.5-5.1); TOTAL PROTEIN 6.1 g/dl (6.1-8.1)
--- NOTE | 2017-01-29 11:33 | CONS ---
Date/Time of Note Date/Time of Note DATE: 01/29/17 TIME: 11:32 Consult Date/Type/Reason Admit Date/Time Jan 22, 2017 at 12:58 Initial Consult Date 01/22/17 Type of Consultation: cardiology Ordering Provider: SHAN ARRINGTON MD Objective Vital Signs Date Time Temp Pulse Resp B/P Pulse Ox O2 Delivery O2 Flow Rate FiO2 01/29/17 11:25 98.3 72 18 177/94 100 01/29/17 06:25 4.0 01/29/17 01:00 Nasal Cannula 01/28/17 09:20 30 Intake and Output 01/28/17 01/28/17 01/29/17 14:59 22:59 06:59 Intake Total 1080 ml 300 ml Balance 1080 ml 300 ml Results/Medications Result Diagram: 01/29/17 0642 01/29/17 0642 Results 24 hrs Laboratory Tests Test 01/29/17 06:42 White Blood Count 5.2 Red Blood Count 3.27 L Hemoglobin 9.1 L Hematocrit 28.7 L Mean Corpuscular Volume 87.8 Mean Corpuscular Hemoglobin 27.8 L Mean Corpuscular Hemoglobin Concent 31.7 L Red Cell Distribution Width 16.5 H Platelet Count 353 Mean Platelet Volume 9.8 Neutrophils % 67.3 Lymphocytes % 16.1 Monocytes % 10.0 Eosinophils % 5.8 Basophils % 0.6 Nucleated Red Blood Cells % 0.0 Neutrophils # 3.5 Lymphocytes # 0.8 Monocytes # 0.5 Eosinophils # 0.3 Basophils # 0.0 Nucleated Red Blood Cells # 0.0 Sodium Level 133 L Potassium Level 4.1 Chloride Level 96 L Carbon Dioxide Level 27 Anion Gap 14 Blood Urea Nitrogen 24 H Creatinine 4.09 H Glucose Level 103 # Calcium Level 8.1 L Total Bilirubin 0.0 L Direct Bilirubin 0.00 Indirect Bilirubin 0.0 Aspartate Amino Transf (AST/SGOT) 15 Alanine Aminotransferase (ALT/SGPT) 20 Alkaline Phosphatase 100 Total Protein 6.1 Albumin 2.6 L Globulin 3.50 H Albumin/Globulin Ratio 0.74 Medications Current Medications Hydromorphone HCl (Dilaudid) 1 mg Q4H PRN IV PAIN Last administered on t 08:09; Admin Dose 1 MG; Start 01/22/17 at 19:30 Acetaminophen (Tylenol Tab) 650 mg Q6H PRN PO PAIN LEVEL 1-3 OR FEVER Last administered on 01/29/17 01:41; Admin Dose 650 MG; Start 01/22/17 at 21:00 Acetaminophen (Tylenol Supp) 650 mg Q6H PRN [place] PAIN LEVEL 1-3 OR FEVER; Start 01/22/17 at 21:00 Docusate Sodium (Colace) 100 mg Q12H PRN PO CONSTIPATION Last administered on 20:39; Admin Dose 100 MG; Start 01/22/17 at 21:00 Bisacodyl (Dulcolax) 5 mg DAILY PRN PO CONSTIPATION; Start 01/22/17 at 21:00 Pantoprazole (Protonix Tab) 40 mg DAILY@06 PO Last administered on 01/28/17 05 :33; Admin Dose 40 MG; Start 01/23/17 at 06:00 Enoxaparin Sodium (Lovenox) 30 mg DAILY SC Last administered on 01/29/17 08:25 ; Admin Dose 30 MG; Start 01/23/17 at 09:00 Hydralazine HCl (Apresoline) 10 mg Q6 PRN IV sbp >160 Last administered on 01/28 16:42; Admin Dose 10 MG; Start 01/24/17 at 12:00 Benazepril HCl (Lotensin) 10 mg BID PO Last administered on 01/29/17 01:46; Admin Dose 10 MG; Start 01/24/17 at 21:00 Metoprolol Tartrate (Lopressor) 50 mg BID PO Last administered on 01/29/17 01: 48; Admin Dose 50 MG; Start 01/25/17 at 21:00 Zolpidem Tartrate (Ambien) 5 mg HS PRN PO INSOMNIA Last administered on 23:17; Admin Dose 5 MG; Start 01/27/17 at 23:30 Hydromorphone HCl (Dilaudid) 2 mg Q4H PRN PO PAIN Last administered on 04:12; Admin Dose 2 MG; Start 01/28/17 at 12:30 Assessment/Plan Chief Complaint/Hosp Course Comfortable this morning. Off high flow O2 on 6 L nasal cannula. On examination GENERAL: VITAL SIGNS: per chart NECK: Supple. No JVD or lymphadenopathy. CARDIAC EXAM: S1, S2. No added sounds or murmurs. CHEST: clear bilaterally, No added sounds, rales or wheezes ABDOMEN: Soft, nontender. No guarding or rebound. EXTREMITIES: No cyanosis, clubbing or edema. NEUROLOGIC: Generalized weakness. No focal deficits. Labs noted. Chest x-ray IMPRESSION: 1. Smaller bilateral pleural effusions and improved appearance of the lung bases. 2. No pneumothorax following left thoracentesis. Assessment 1. Acute coronary syndrome. 2. Hypoxemic respiratory failure secondary to volume overload status post thoracentesis. 3. End-stage renal failure on hemodialysis. 4. Essential hypertension Recommendations 1. Continue hemodialysis with volume removal 2. Decrease FiO2 placed on nasal cannula 3. Continue physical therapy encourage out of bed PT evaluation. 4. Continue cardiac recommendations re-ACS Problems: ESTEFANI MAXWELL MD, [facility] Jan 29, 2017 11:33
--- NOTE | 2017-01-29 15:30 | CONS ---
Date/Time of Note Date/Time of Note DATE: 01/29/17 TIME: 15:27 Assessment/Plan Assessment/Plan Chief Complaint/Hosp Course IMP: 1. CHF-diastolic acute on chronic 2. Chest pain-negative trop x 3. NO onging chest pain 3.HTN 4.[place] 5.ESRD on HD 6. Pleural effusion s/p thoracentesis Recc: -Tele -serial ecg's -Continue benazepril/BB which were held today -HD for volume removal Problems: Consultation Date/Type/Reason Admit Date/Time Jan 22, 2017 at 12:58 Initial Consult Date 01/22/17 Type of Consultation: cardiology Reason for Consultation CHF Referring Provider: SHAN ARRINGTON MD Exam/Review of Systems Vital Signs Vitals Vital Signs Date Time Temp Pulse Resp B/P Pulse Ox O2 Delivery O2 Flow Rate FiO2 01/29/17 13:03 72 01/29/17 11:25 98.3 18 177/94 100 01/29/17 06:25 4.0 01/29/17 01:00 Nasal Cannula 01/28/17 09:20 30 Intake and Output 01/28/17 01/28/17 01/29/17 15:00 23:00 07:00 Intake Total 1080 ml 300 ml Balance 1080 ml 300 ml Exam Review of Systems: CONSTITUTIONAL: No fevers, chills. PULMONARY: No sob CARDIOVASCULAR: No chest pain/palpitations GASTROINTESTINAL: No nausea/vomiting. GENITOURINARY: No hematuria/dysuria. MUSCULOSKELETAL: No myagias/arthalgias. PSYCHIATRIC: The patient denies depression. NEUROLOGIC: No weakness Constitutional: alert Psych: no complaints Head: normocephalic ENMT: mucosa pink and moist Neck: jvd (9 cm water), supple Respiratory: diminished breath sounds Cardiovascular: regular rate and rhythm Gastrointestinal: soft Musculoskeletal: muscle tone Extremities: edema (none) Neurological: other (no focal defiocits) Results Result Diagram: 01/29/17 0642 01/29/17 0642 Results 24 hrs Laboratory Tests Test 01/29/17 06:42 White Blood Count 5.2 Red Blood Count 3.27 L Hemoglobin 9.1 L Hematocrit 28.7 L Mean Corpuscular Volume 87.8 Mean Corpuscular Hemoglobin 27.8 L Mean Corpuscular Hemoglobin Concent 31.7 L Red Cell Distribution Width 16.5 H Platelet Count 353 Mean Platelet Volume 9.8 Neutrophils % 67.3 Lymphocytes % 16.1 Monocytes % 10.0 Eosinophils % 5.8 Basophils % 0.6 Nucleated Red Blood Cells % 0.0 Neutrophils # 3.5 Lymphocytes # 0.8 Monocytes # 0.5 Eosinophils # 0.3 Basophils # 0.0 Nucleated Red Blood Cells # 0.0 Sodium Level 133 L Potassium Level 4.1 Chloride Level 96 L Carbon Dioxide Level 27 Anion Gap 14 Blood Urea Nitrogen 24 H Creatinine 4.09 H Glucose Level 103 # Calcium Level 8.1 L Total Bilirubin 0.0 L Direct Bilirubin 0.00 Indirect Bilirubin 0.0 Aspartate Amino Transf (AST/SGOT) 15 Alanine Aminotransferase (ALT/SGPT) 20 Alkaline Phosphatase 100 Total Protein 6.1 Albumin 2.6 L Globulin 3.50 H Albumin/Globulin Ratio 0.74 Medications Medications Current Medications Hydromorphone HCl (Dilaudid) 1 mg Q4H PRN IV PAIN Last administered on 12:44; Admin Dose 1 MG; Start 01/22/17 at 19:30 Acetaminophen (Tylenol Tab) 650 mg Q6H PRN PO PAIN LEVEL 1-3 OR FEVER Last administered on 01/29/17 01:41; Admin Dose 650 MG; Start 01/22/17 at 21:00 Acetaminophen (Tylenol Supp) 650 mg Q6H PRN [place] PAIN LEVEL 1-3 OR FEVER; Start 01/22/17 at 21:00 Docusate Sodium (Colace) 100 mg Q12H PRN PO CONSTIPATION Last administered on 20:39; Admin Dose 100 MG; Start 01/22/17 at 21:00 Bisacodyl (Dulcolax) 5 mg DAILY PRN PO CONSTIPATION; Start 01/22/17 at 21:00 Pantoprazole (Protonix Tab) 40 mg DAILY@06 PO Last administered on 01/28/17 05 :33; Admin Dose 40 MG; Start 01/23/17 at 06:00 Enoxaparin Sodium (Lovenox) 30 mg DAILY SC Last administered on 01/29/17 08:25 ; Admin Dose 30 MG; Start 01/23/17 at 09:00 Hydralazine HCl (Apresoline) 10 mg Q6 PRN IV sbp >160 Last administered on 01/28 16:42; Admin Dose 10 MG; Start 01/24/17 at 12:00 Benazepril HCl (Lotensin) 10 mg BID PO Last administered on 01/29/17 01:46; Admin Dose 10 MG; Start 01/24/17 at 21:00 Metoprolol Tartrate (Lopressor) 50 mg BID PO Last administered on 01/29/17 01: 48; Admin Dose 50 MG; Start 01/25/17 at 21:00 Zolpidem Tartrate (Ambien) 5 mg HS PRN PO INSOMNIA Last administered on 23:17; Admin Dose 5 MG; Start 01/27/17 at 23:30 Hydromorphone HCl (Dilaudid) 2 mg Q4H PRN PO PAIN Last administered on 14:33; Admin Dose 2 MG; Start 01/28/17 at 12:30 HUA SANTIAGO Jan 29, 2017 15:30
[2017-01-29] MEDS ORDERED: hydrALAzine 20 MG INJ IV PRN (16:00)
--- NOTE | 2017-01-29 16:05 | RADRPT ---
PROCEDURE: CT Abdomen and Pelvis without contrast. CLINICAL INDICATION: Abdominal pain and pleural effusion. TECHNIQUE: Multiple contiguous axial CT images of the abdomen and pelvis were obtained without the administration of intravenous contrast. Oral contrast was administered. Coronal and sagittal recons tructions were also performed. CTDIvol (mGy): 5.18; Total Exam DLP (mGy-cm): 312.16. One or more of the following dose reduction techniques were utilized: - Automated exposure control. - Adjustment of the mA and/or kV according to patient size. - Use of iterative reconstruction technique. COMPARISON: Abdominal x-ray 01/27/2017. FINDINGS: Limited imaging of the lower thorax demonstrates mild cardiac enlargement with small bilateral pleur al effusions. Emphysematous changes are seen within the aerated portions of the lungs. Atelectasis throughout the left lower lobe is present. This is seen to a lesser degree within the right lower l obe. A small irregular nodule measuring 9-10 mm is observed within the right lower lobe. The liver and spleen are homogeneous in density. The gallbladder, pancreas and adrenal glands are u nremarkable. The kidneys are symmetric in size. There are no nephroureteral stones. There is no hydronephrosis o r abnormal perinephric inflammation. The abdominal aorta is normal in caliber. Atherosclerotic calcification is present. There is no per iaortic / retroperitoneal lymphadenopathy. The stomach and small intestines are unremarkable. Diffuse diverticulosis is observed. The appendi x is not visualized. There are no focal inflammatory changes of the mesentery. There is no mesente farrah lymphadenopathy. There is no ascites. The bladder, uterus and adnexa are unremarkable. There is no free pelvic fluid. There is no pelvic sidewall or inguinal lymphadenopathy. Degenerative changes of the lower lumbar spine are observed. Mild diffuse subcutaneous edema is obs erved. IMPRESSION: Cardiomegaly with small bilateral pleural effusions. Atelectasis throughout the left lower lobe. This is seen to a lesser degree within the right lower lobe. Emphysematous changes of the aerated portions of the lungs. A small irregular nodule is seen within the right lower lobe. This nodule is not seen on prior cross-sectional imaging and may have been o bscured by atelectasis and pleural effusion, which are present on many of the past examinations. Rec ommend follow up with dedicated CT chest in 3-6 months. Diffuse diverticulosis. No evidence of diverticulitis. RPTAT: HLST .Ceci Waller MD, Date Time Electronically viewed and signed by .Ceci Waller MD, on 01/29/2017 16:05 .T/
[2017-01-29] MEDS: DIPHENHYDRAMINE 25 MG CAP PO PRN (17:43)
--- NOTE | 2017-01-29 17:59 | PDOCDIS ---
Discharge Instructions CONDITION Patient Condition: Stable HOME CARE INSTRUCTIONS: Special Diet: renal ACTIVITY: Activity Restrictions: Slowly Increase Activity FOLLOW UP/APPOINTMENTS Follow-up Plan F/U PCP AT [facility] SHAN ARRINGTON MD Jan 29, 2017 17:59
--- NOTE | 2017-01-29 18:00 | PDOCDIS ---
Discharge Instructions CONDITION Patient Condition: Stable HOME CARE INSTRUCTIONS: Special Diet: renal ACTIVITY: Activity Restrictions: Slowly Increase Activity FOLLOW UP/APPOINTMENTS Follow-up Plan F/P PCP AT SNF SEE DR ARRINGTON 2 WKSHAN SIDDIQUI MD Jan 29, 2017 18:00
[2017-01-29] MEDS ORDERED: METO-429 PO (18:02)
[2017-01-29] MEDS ORDERED: BENA10TA48 PO (18:02)
[2017-01-29] MEDS ORDERED: DOCU-216 PO (18:02)
[2017-01-29] MEDS ORDERED: IPRA3AMP HHN (18:02)
[2017-01-29] MEDS ORDERED: HYDR2TAB36 PO (18:02)
[2017-01-29] MEDS ORDERED: ENOX30DI8 SC (18:02)
[2017-01-29] MEDS ORDERED: ACET325T40 PO (18:02)
[2017-01-29] MEDS ORDERED: BISA5TAB6 PO (18:02)
[2017-01-29] MEDS ORDERED: PANT40TA4 PO (18:02)
[2017-01-29] MEDS ORDERED: ZOLP5TAB PO (18:02)
--- NOTE | 2017-01-29 18:05 | PN ---
Date/Time of Note Date/Time of Note DATE: 01/29/17 TIME: 18:04 Assessment/Plan VTE Prophylaxis VTE Prophylaxis Intervention: other Lines/Catheters IV Catheter Type (from Nrsg): Peripheral IV Urinary Cath still in place: No Assessment/Plan Chief Complaint/Hosp Course esrd pleural effusion anemia ABD PAIN BETTER HTN ashd plan per GI hd PAIN MEDS\ SNF Problems: Subjective 24 Hr Interval Summary Subjective hx not possible: other (ABD PAIN BETTER) Exam/Review of Systems Vital Signs Vitals Vital Signs Date Time Temp Pulse Resp B/P Pulse Ox O2 Delivery O2 Flow Rate FiO2 01/29/17 17:35 83 01/29/17 15:43 98.5 18 164/96 95 01/29/17 08:15 4.0 01/29/17 01:00 Nasal Cannula 01/28/17 09:20 30 Intake and Output 01/28/17 01/28/17 01/29/17 15:00 23:00 07:00 Intake Total 1080 ml 300 ml Balance 1080 ml 300 ml Exam Neck: supple Respiratory: clear to auscultation Cardiovascular: regular rate and rhythm Gastrointestinal: soft Genitourinary - Female: nl adnexae, nl external genitalia Results Result Diagram: 01/29/17 0642 01/29/17 0642 Results 24 hrs Laboratory Tests Test 01/29/17 06:42 White Blood Count 5.2 Red Blood Count 3.27 L Hemoglobin 9.1 L Hematocrit 28.7 L Mean Corpuscular Volume 87.8 Mean Corpuscular Hemoglobin 27.8 L Mean Corpuscular Hemoglobin Concent 31.7 L Red Cell Distribution Width 16.5 H Platelet Count 353 Mean Platelet Volume 9.8 Neutrophils % 67.3 Lymphocytes % 16.1 Monocytes % 10.0 Eosinophils % 5.8 Basophils % 0.6 Nucleated Red Blood Cells % 0.0 Neutrophils # 3.5 Lymphocytes # 0.8 Monocytes # 0.5 Eosinophils # 0.3 Basophils # 0.0 Nucleated Red Blood Cells # 0.0 Sodium Level 133 L Potassium Level 4.1 Chloride Level 96 L Carbon Dioxide Level 27 Anion Gap 14 Blood Urea Nitrogen 24 H Creatinine 4.09 H Glucose Level 103 # Calcium Level 8.1 L Total Bilirubin 0.0 L Direct Bilirubin 0.00 Indirect Bilirubin 0.0 Aspartate Amino Transf (AST/SGOT) 15 Alanine Aminotransferase (ALT/SGPT) 20 Alkaline Phosphatase 100 Total Protein 6.1 Albumin 2.6 L Globulin 3.50 H Albumin/Globulin Ratio 0.74 Medications Medications Current Medications Hydromorphone HCl (Dilaudid) 1 mg Q4H PRN IV PAIN Last administered on 17:44; Admin Dose 1 MG; Start 01/22/17 at 19:30 Acetaminophen (Tylenol Tab) 650 mg Q6H PRN PO PAIN LEVEL 1-3 OR FEVER Last administered on 01/29/17 01:41; Admin Dose 650 MG; Start 01/22/17 at 21:00 Acetaminophen (Tylenol Supp) 650 mg Q6H PRN [place] PAIN LEVEL 1-3 OR FEVER; Start 01/22/17 at 21:00 Docusate Sodium (Colace) 100 mg Q12H PRN PO CONSTIPATION Last administered on 20:39; Admin Dose 100 MG; Start 01/22/17 at 21:00 Bisacodyl (Dulcolax) 5 mg DAILY PRN PO CONSTIPATION; Start 01/22/17 at 21:00 Pantoprazole (Protonix Tab) 40 mg DAILY@06 PO Last administered on 01/28/17 05 :33; Admin Dose 40 MG; Start 01/23/17 at 06:00 Enoxaparin Sodium (Lovenox) 30 mg DAILY SC Last administered on 01/29/17 08:25 ; Admin Dose 30 MG; Start 01/23/17 at 09:00 Benazepril HCl (Lotensin) 10 mg BID PO Last administered on 01/29/17 01:46; Admin Dose 10 MG; Start 01/24/17 at 21:00 Metoprolol Tartrate (Lopressor) 50 mg BID PO Last administered on 01/29/17 01: 48; Admin Dose 50 MG; Start 01/25/17 at 21:00 Zolpidem Tartrate (Ambien) 5 mg HS PRN PO INSOMNIA Last administered on 23:17; Admin Dose 5 MG; Start 01/27/17 at 23:30 Hydromorphone HCl (Dilaudid) 2 mg Q4H PRN PO PAIN Last administered on 14:33; Admin Dose 2 MG; Start 01/28/17 at 12:30 Hydralazine HCl (Apresoline) 10 mg Q4H PRN IV SBP>170; Start 01/29/17 at 16:00 Diphenhydramine HCl (Benadryl) 25 mg Q6H PRN PO ITCHING Last administered on t 17:43; Admin Dose 25 MG; Start 01/29/17 at 17:30 SHAN ARRINGTON MD Jan 29, 2017 18:05
[2017-01-30] VITALS (12 sets, daily range): BP systolic 124–203; BP diastolic 76–102; PULSE 70–87; RESP 18–20
[2017-01-30] MEDS: HYDROmorphONE 1 MG/ML SYG IV PRN ×3 (00:23→09:21)
[2017-01-30] MEDS: PANTOPRAZOLE (EC) 40 MG TAB PO SCH (05:07)
[2017-01-30] MEDS: DIPHENHYDRAMINE 25 MG CAP PO PRN ×2 (05:10→17:59)
[2017-01-30 07:15] LABS: BASOPHILS % 0.8 % (0.0-2.0); EOSINOPHILS # 0.3 10^3/ul (0.0-0.5); EOSINOPHILS % 5.5 % (0.0-7.0); HEMATOCRIT 27.5 % (37.0-47.0); HEMOGLOBIN 8.6 g/dl (12.0-16.0); LYMPHOCYTES % 18.6 % (15.0-51.0); MEAN CORPUSCULAR HEMOGLOBIN 27.6 pg (29.0-33.0); MEAN CORPUSCULAR HGB CONC 31.3 g/dl (32.0-37.0); MEAN CORPUSCULAR VOLUME 88.1 fl (82.0-101.0); MEAN PLATELET VOLUME 9.3 fl (7.4-10.4); MONOCYTE # 0.5 10^3/ul (0.3-0.9); MONOCYTES % 10.4 % (0.0-11.0); NEUTROPHIL # 3.3 10^3/ul (1.6-7.5); NEUTROPHILS % 64.5 % (39.0-77.0); PLATELET COUNT 323 10^3/UL (140-415); RED BLOOD COUNT 3.12 10^6/ul (4.20-5.40); RED CELL DISTRIBUTION WIDTH 16.9 % (11.5-14.5); WHITE BLOOD COUNT 5.1 10^3/ul (4.8-10.8)
[2017-01-30 07:44] LABS: CALCIUM 7.9 mg/dl (8.4-10.2); CREATININE 3.25 mg/dl (0.44-1.00); MAGNESIUM 2.1 mg/dl (1.7-2.5); PHOSPHORUS 4.2 mg/dl (2.5-4.9)
--- NOTE | 2017-01-30 07:50 | RADRPT ---
PROCEDURE: XR Chest. CLINICAL INDICATION: pna chf TECHNIQUE: Single frontal view of the chest was obtained COMPARISON: Chest x-ray 01/26/2017 FINDINGS: The valve right-sided dialysis catheter remains in adequate position. The cardiac silhouette remains borderline large. There are atherosclerotic calcifications of the aortic arch. There is a small to moderate left pleural effusion, likely not significantly changed in size compare d to prior study of 01/26/2017. There is adjacent air space disease that may represent edema, atele ctasis and / or consolidation. The right lung remains relatively clear. There is slight increase in pulmonary vascular congestion. No pneumothorax is identified. The osseous structures, as visualized, are unremarkable. IMPRESSION: 1. Small moderate left pleural effusion , likely not significantly changed in size compared to prio r study of 01/26/2017. Adjacent left basilar opacities persist and represent edema, atelectasis, an d / or consolidation. 2. Borderline cardiomegaly. 3. Thoracic aortic atherosclerotic disease. RPTAT: PP Physician Jed Date Time Electronically viewed and signed by Physician Jed on 01/30/2017 07:50 STEPH/
[2017-01-30] MEDS: METOPROLOL 50 MG TAB PO SCH ×2 (09:05→21:06)
[2017-01-30] MEDS: BENAZEPRIL 10 MG TAB PO SCH (09:05)
[2017-01-30] MEDS: ENOXAPARIN 30 MG/0.3 ML SYG SC SCH (09:09)
[2017-01-30] MEDS: HYDROmorphONE 2 MG TAB PO PRN ×3 (11:56→21:32)
--- NOTE | 2017-01-30 12:53 | CONS ---
Date/Time of Note Date/Time of Note DATE: 01/30/17 TIME: 12:50 Assessment/Plan Assessment/Plan Chief Complaint/Hosp Course IMP: 1. CHF-diastolic acute on chronic 2. Chest pain-negative trop x 3. NO onging chest pain 3.HTN 4.[place] 5.ESRD on HD 6. Pleural effusion s/p thoracentesis Recc: -Tele -serial ecg's -Continue benazepril switch slight increase/BB which were held today -HD for volume removal -D/'C planning Problems: Consultation Date/Type/Reason Admit Date/Time Jan 22, 2017 at 12:58 Initial Consult Date 01/22/17 Type of Consultation: cardiology Reason for Consultation CHF Referring Provider: SHAN ARRINGTON MD Exam/Review of Systems Vital Signs Vitals Vital Signs Date Time Temp Pulse Resp B/P Pulse Ox O2 Delivery O2 Flow Rate FiO2 01/30/17 12:20 70 01/30/17 11:42 98.1 18 149/82 96 01/29/17 23:30 4.0 01/29/17 21:00 Nasal Cannula 01/28/17 09:20 30 Intake and Output 01/29/17 01/29/17 01/30/17 15:00 23:00 07:00 Intake Total 1050 ml 650 ml Output Total 3300 ml Balance -2250 ml 650 ml Exam Review of Systems: CONSTITUTIONAL: No fevers, chills. PULMONARY: mild sob CARDIOVASCULAR: No chest pain/palpitations GASTROINTESTINAL: No nausea/vomiting. GENITOURINARY: No hematuria/dysuria. MUSCULOSKELETAL: No myagias/arthalgias. PSYCHIATRIC: The patient denies depression. NEUROLOGIC: No weakness Constitutional: alert Psych: no complaints Head: normocephalic Neck: jvd, supple Respiratory: diminished breath sounds Gastrointestinal: non-tender, soft Musculoskeletal: muscle tone Extremities: normal pulses Neurological: other (No focal deficits) Results Result Diagram: 01/30/17 0652 01/30/17 0652 Results 24 hrs Laboratory Tests Test 01/30/17 06:52 White Blood Count 5.1 Red Blood Count 3.12 L Hemoglobin 8.6 L Hematocrit 27.5 L Mean Corpuscular Volume 88.1 Mean Corpuscular Hemoglobin 27.6 L Mean Corpuscular Hemoglobin Concent 31.3 L Red Cell Distribution Width 16.9 H Platelet Count 323 Mean Platelet Volume 9.3 Neutrophils % 64.5 Lymphocytes % 18.6 Monocytes % 10.4 Eosinophils % 5.5 Basophils % 0.8 Nucleated Red Blood Cells % 0.0 Neutrophils # 3.3 Lymphocytes # 1.0 Monocytes # 0.5 Eosinophils # 0.3 Basophils # 0.0 Nucleated Red Blood Cells # 0.0 Sodium Level 136 Potassium Level 4.0 Chloride Level 97 Carbon Dioxide Level 27 Anion Gap 16 Blood Urea Nitrogen 16 Creatinine 3.25 H Glucose Level 93 Calcium Level 7.9 L Phosphorus Level 4.2 Magnesium Level 2.1 Medications Medications Current Medications Hydromorphone HCl (Dilaudid) 1 mg Q4H PRN IV PAIN Last administered on 09:21; Admin Dose 1 MG; Start 01/22/17 at 19:30 Acetaminophen (Tylenol Tab) 650 mg Q6H PRN PO PAIN LEVEL 1-3 OR FEVER Last administered on 01/29/17 01:41; Admin Dose 650 MG; Start 01/22/17 at 21:00 Acetaminophen (Tylenol Supp) 650 mg Q6H PRN [place] PAIN LEVEL 1-3 OR FEVER; Start 01/22/17 at 21:00 Docusate Sodium (Colace) 100 mg Q12H PRN PO CONSTIPATION Last administered on 20:39; Admin Dose 100 MG; Start 01/22/17 at 21:00 Bisacodyl (Dulcolax) 5 mg DAILY PRN PO CONSTIPATION; Start 01/22/17 at 21:00 Pantoprazole (Protonix Tab) 40 mg DAILY@06 PO Last administered on 01/30/17 05 :07; Admin Dose 40 MG; Start 01/23/17 at 06:00 Enoxaparin Sodium (Lovenox) 30 mg DAILY SC Last administered on 01/30/17 09:09 ; Admin Dose 30 MG; Start 01/23/17 at 09:00 Benazepril HCl (Lotensin) 10 mg BID PO Last administered on 01/30/17 09:05; Admin Dose 10 MG; Start 01/24/17 at 21:00 Metoprolol Tartrate (Lopressor) 50 mg BID PO Last administered on 01/30/17 09: 05; Admin Dose 50 MG; Start 01/25/17 at 21:00 Zolpidem Tartrate (Ambien) 5 mg HS PRN PO INSOMNIA Last administered on 23:17; Admin Dose 5 MG; Start 01/27/17 at 23:30 Hydromorphone HCl (Dilaudid) 2 mg Q4H PRN PO PAIN Last administered on 11:56; Admin Dose 2 MG; Start 01/28/17 at 12:30 Hydralazine HCl (Apresoline) 10 mg Q4H PRN IV SBP>170; Start 01/29/17 at 16:00 Diphenhydramine HCl (Benadryl) 25 mg Q6H PRN PO ITCHING Last administered on 05:10; Admin Dose 25 MG; Start 01/29/17 at 17:30 HUA SANTIAGO Jan 30, 2017 12:53
--- NOTE | 2017-01-30 15:17 | CONS ---
Date/Time of Note Date/Time of Note DATE: 01/30/17 TIME: 15:16 Consult Date/Type/Reason Admit Date/Time Jan 22, 2017 at 12:58 Initial Consult Date 01/22/17 Type of Consultation: cardiology Ordering Provider: SHAN ARRINGTON MD Objective Vital Signs Date Time Temp Pulse Resp B/P Pulse Ox O2 Delivery O2 Flow Rate FiO2 01/30/17 14:00 Nasal Cannula 2.0 01/30/17 12:20 70 01/30/17 11:42 98.1 18 149/82 96 01/28/17 09:20 30 Intake and Output 01/29/17 01/29/17 01/30/17 15:00 23:00 07:00 Intake Total 1050 ml 650 ml Output Total 3300 ml Balance -2250 ml 650 ml Results/Medications Result Diagram: 01/30/17 0652 01/30/17 0652 Results 24 hrs Laboratory Tests Test 01/30/17 06:52 White Blood Count 5.1 Red Blood Count 3.12 L Hemoglobin 8.6 L Hematocrit 27.5 L Mean Corpuscular Volume 88.1 Mean Corpuscular Hemoglobin 27.6 L Mean Corpuscular Hemoglobin Concent 31.3 L Red Cell Distribution Width 16.9 H Platelet Count 323 Mean Platelet Volume 9.3 Neutrophils % 64.5 Lymphocytes % 18.6 Monocytes % 10.4 Eosinophils % 5.5 Basophils % 0.8 Nucleated Red Blood Cells % 0.0 Neutrophils # 3.3 Lymphocytes # 1.0 Monocytes # 0.5 Eosinophils # 0.3 Basophils # 0.0 Nucleated Red Blood Cells # 0.0 Sodium Level 136 Potassium Level 4.0 Chloride Level 97 Carbon Dioxide Level 27 Anion Gap 16 Blood Urea Nitrogen 16 Creatinine 3.25 H Glucose Level 93 Calcium Level 7.9 L Phosphorus Level 4.2 Magnesium Level 2.1 Medications Current Medications Hydromorphone HCl (Dilaudid) 1 mg Q4H PRN IV PAIN Last administered on 09:21; Admin Dose 1 MG; Start 01/22/17 at 19:30 Acetaminophen (Tylenol Tab) 650 mg Q6H PRN PO PAIN LEVEL 1-3 OR FEVER Last administered on 01/29/17 01:41; Admin Dose 650 MG; Start 01/22/17 at 21:00 Acetaminophen (Tylenol Supp) 650 mg Q6H PRN [place] PAIN LEVEL 1-3 OR FEVER; Start 01/22/17 at 21:00 Docusate Sodium (Colace) 100 mg Q12H PRN PO CONSTIPATION Last administered on 20:39; Admin Dose 100 MG; Start 01/22/17 at 21:00 Bisacodyl (Dulcolax) 5 mg DAILY PRN PO CONSTIPATION; Start 01/22/17 at 21:00 Pantoprazole (Protonix Tab) 40 mg DAILY@06 PO Last administered on 01/30/17 05 :07; Admin Dose 40 MG; Start 01/23/17 at 06:00 Enoxaparin Sodium (Lovenox) 30 mg DAILY SC Last administered on 01/30/17 09:09 ; Admin Dose 30 MG; Start 01/23/17 at 09:00 Metoprolol Tartrate (Lopressor) 50 mg BID PO Last administered on 01/30/17 09: 05; Admin Dose 50 MG; Start 01/25/17 at 21:00 Zolpidem Tartrate (Ambien) 5 mg HS PRN PO INSOMNIA Last administered on 23:17; Admin Dose 5 MG; Start 01/27/17 at 23:30 Hydromorphone HCl (Dilaudid) 2 mg Q4H PRN PO PAIN Last administered on 11:56; Admin Dose 2 MG; Start 01/28/17 at 12:30 Hydralazine HCl (Apresoline) 10 mg Q4H PRN IV SBP>170; Start 01/29/17 at 16:00 Diphenhydramine HCl (Benadryl) 25 mg Q6H PRN PO ITCHING Last administered on 05:10; Admin Dose 25 MG; Start 01/29/17 at 17:30 Benazepril HCl (Lotensin) 20 mg BID PO ; Start 01/30/17 at 21:00 Assessment/Plan Chief Complaint/Hosp Course Continues to improve down to 2 L nasal cannula On examination GENERAL: VITAL SIGNS: per chart NECK: Supple. No JVD or lymphadenopathy. CARDIAC EXAM: S1, S2. No added sounds or murmurs. CHEST: clear bilaterally, No added sounds, rales or wheezes ABDOMEN: Soft, nontender. No guarding or rebound. EXTREMITIES: No cyanosis, clubbing or edema. NEUROLOGIC: Generalized weakness. No focal deficits. Labs noted. Chest x-ray IMPRESSION: 1. Smaller bilateral pleural effusions and improved appearance of the lung bases. 2. No pneumothorax following left thoracentesis. Assessment 1. Acute coronary syndrome. 2. Hypoxemic respiratory failure secondary to volume overload status post thoracentesis. 3. End-stage renal failure on hemodialysis. 4. Essential hypertension Recommendations 1. Continue hemodialysis with volume removal 2. Decrease FiO2 placed on nasal cannula 3. Continue physical therapy encourage out of bed PT evaluation. 4. Continue cardiac recommendations re-ACS Consider discharge planning. Alternatively consider cristobal or acute rehab. Problems: ESTEFANI MAXWELL MD, [facility] Jan 30, 2017 15:17
--- NOTE | 2017-01-30 18:25 | CONS ---
Date/Time of Note Date/Time of Note DATE: 01/30/17 TIME: 18:22 Assessment/Plan Assessment/Plan Additional Assessment/Plan 1. Abdominal pain much better now 2. Constipation 3. Anemia most probably anemia of chronic disease 4. Pleural effusion 5. End-stage renal disease on dialysis 6. Hypertension 7. Chest pain resolved Plan Amities on a regular basis Avoid [place] Patient needs a colonoscopy as an outpatient Consultation Date/Type/Reason Admit Date/Time Jan 22, 2017 at 12:58 Reason for Consultation Abdominal pain and anemia Hx of Present Illness Patient is a 56-year-old female with a history of hypertension end-stage renal disease admitted for chest pain. Patient was evaluated by the bus inspector. He also had pleural effusion consult was called in for abdominal pain and anemia patient complains of abdominal pain for last few weeks ever since she was started on [place]. She also complains of constipation. Her pain has improved since the [place] was discontinued. No GI bleeding no nausea no vomiting. She has lost a significant weight and never had a colonoscopy. Constitutional: no complaints ENT: no complaints Respiratory: no complaints Cardiovascular: no complaints Gastrointestinal: no complaints Genitourinary: no complaints Musculoskeletal: back pain Skin: no complaints Neurologic: no complaints, other (weakness) Lymphatic: no complaints Psychological: no complaints Past Medical History Medical History: coronary artery disease, high cholesterol, renal disease Social History Alcohol Use: none Smoking Status: Never smoker Drug Use: none Exam/Review of Systems Vital Signs Vitals Vital Signs Date Time Temp Pulse Resp B/P Pulse Ox O2 Delivery O2 Flow Rate FiO2 01/30/17 18:03 4.0 36 01/30/17 14:00 Nasal Cannula 01/30/17 12:20 70 01/30/17 11:42 98.1 18 149/82 96 Intake and Output 01/29/17 01/29/17 01/30/17 15:00 23:00 07:00 Intake Total 1050 ml 650 ml Output Total 3300 ml Balance -2250 ml 650 ml Exam Constitutional: alert, oriented, well developed Psych: nl mood/affect, no complaints Head: atraumatic, normocephalic Eyes: EOMI, PERRL, nl conjunctiva, nl lids, nl sclera ENMT: nl external ears & nose, nl lips & teeth, nl nasal mucosa & septum Neck: non-tender, supple Respiratory: clear to auscultation, normal air movement Cardiovascular: nl pulses, regular rate and rhythm Gastrointestinal: nl liver, spleen, non-tender, soft Musculoskeletal: nl extremities to inspection, nl gait and stance Extremities: normal pulses Neurological: EX[employer] 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[employer]OR II-XII intact, nl mental status, nl speech, nl strength Skin: nl turgor, No rash or lesions Lymph: nl lymph nodes Results Result Diagram: 01/30/17 0652 01/30/17 0652 Results 24 hrs Laboratory Tests Test 01/30/17 06:52 White Blood Count 5.1 Red Blood Count 3.12 L Hemoglobin 8.6 L Hematocrit 27.5 L Mean Corpuscular Volume 88.1 Mean Corpuscular Hemoglobin 27.6 L Mean Corpuscular Hemoglobin Concent 31.3 L Red Cell Distribution Width 16.9 H Platelet Count 323 Mean Platelet Volume 9.3 Neutrophils % 64.5 Lymphocytes % 18.6 Monocytes % 10.4 Eosinophils % 5.5 Basophils % 0.8 Nucleated Red Blood Cells % 0.0 Neutrophils # 3.3 Lymphocytes # 1.0 Monocytes # 0.5 Eosinophils # 0.3 Basophils # 0.0 Nucleated Red Blood Cells # 0.0 Sodium Level 136 Potassium Level 4.0 Chloride Level 97 Carbon Dioxide Level 27 Anion Gap 16 Blood Urea Nitrogen 16 Creatinine 3.25 H Glucose Level 93 Calcium Level 7.9 L Phosphorus Level 4.2 Magnesium Level 2.1 Medications Medications Current Medications Hydromorphone HCl (Dilaudid) 1 mg Q4H PRN IV PAIN Last administered on 09:21; Admin Dose 1 MG; Start 01/22/17 at 19:30 Acetaminophen (Tylenol Tab) 650 mg Q6H PRN PO PAIN LEVEL 1-3 OR FEVER Last administered on 01/29/17 01:41; Admin Dose 650 MG; Start 01/22/17 at 21:00 Acetaminophen (Tylenol Supp) 650 mg Q6H PRN [place] PAIN LEVEL 1-3 OR FEVER; Start 01/22/17 at 21:00 Docusate Sodium (Colace) 100 mg Q12H PRN PO CONSTIPATION Last administered on 20:39; Admin Dose 100 MG; Start 01/22/17 at 21:00 Bisacodyl (Dulcolax) 5 mg DAILY PRN PO CONSTIPATION; Start 01/22/17 at 21:00 Pantoprazole (Protonix Tab) 40 mg DAILY@06 PO Last administered on 01/30/17 05 :07; Admin Dose 40 MG; Start 01/23/17 at 06:00 Enoxaparin Sodium (Lovenox) 30 mg DAILY SC Last administered on 01/30/17 09:09 ; Admin Dose 30 MG; Start 01/23/17 at 09:00 Metoprolol Tartrate (Lopressor) 50 mg BID PO Last administered on 01/30/17 09: 05; Admin Dose 50 MG; Start 01/25/17 at 21:00 Zolpidem Tartrate (Ambien) 5 mg HS PRN PO INSOMNIA Last administered on 23:17; Admin Dose 5 MG; Start 01/27/17 at 23:30 Hydromorphone HCl (Dilaudid) 2 mg Q4H PRN PO PAIN Last administered on 17:59; Admin Dose 2 MG; Start 01/28/17 at 12:30 Hydralazine HCl (Apresoline) 10 mg Q4H PRN IV SBP>170; Start 01/29/17 at 16:00 Diphenhydramine HCl (Benadryl) 25 mg Q6H PRN PO ITCHING Last administered on 17:59; Admin Dose 25 MG; Start 01/29/17 at 17:30 Benazepril HCl (Lotensin) 20 mg BID PO ; Start 01/30/17 at 21:00 ARIANA JAY MD Jan 30, 2017 18:25
[2017-01-30] MEDS: BENAZEPRIL 20 MG TAB PO SCH (19:45)
[2017-01-30] MEDS ORDERED: BENAZEPRIL 20 MG TAB PO SCH (21:00)
[2017-01-30] MEDS: LUBIPROSTONE 24 MCG CAP PO SCH (21:05)
--- NOTE | 2017-01-30 22:26 | PN ---
Date/Time of Note Date/Time of Note DATE: 01/30/17 TIME: 22:25 Assessment/Plan VTE Prophylaxis VTE Prophylaxis Intervention: other Lines/Catheters IV Catheter Type (from Nrsg): Peripheral IV Urinary Cath still in place: No Assessment/Plan Chief Complaint/Hosp Course esrd pleural effusion S/P THORACENTESIS anemia ABD PAIN BETTER HTN [facility] ashd plan per GI hd PAIN MEDS BP MEDS SNF Problems: Subjective 24 Hr Interval Summary Respiratory: no complaints Gastrointestinal: No pain Genitourinary: no complaints Exam/Review of Systems Vital Signs Vitals Vital Signs Date Time Temp Pulse Resp B/P Pulse Ox O2 Delivery O2 Flow Rate FiO2 01/30/17 22:08 194/83 01/30/17 20:37 87 01/30/17 20:00 98.3 19 95 01/30/17 18:03 4.0 36 01/30/17 14:00 Nasal Cannula Intake and Output 01/29/17 01/29/17 01/30/17 15:00 23:00 07:00 Intake Total 1050 ml 650 ml Output Total 3300 ml Balance -2250 ml 650 ml Exam Respiratory: clear to auscultation Cardiovascular: regular rate and rhythm Gastrointestinal: bowel sounds, soft Results Result Diagram: 01/30/17 0652 01/30/17 0652 Results 24 hrs Laboratory Tests Test 01/30/17 06:52 White Blood Count 5.1 Red Blood Count 3.12 L Hemoglobin 8.6 L Hematocrit 27.5 L Mean Corpuscular Volume 88.1 Mean Corpuscular Hemoglobin 27.6 L Mean Corpuscular Hemoglobin Concent 31.3 L Red Cell Distribution Width 16.9 H Platelet Count 323 Mean Platelet Volume 9.3 Neutrophils % 64.5 Lymphocytes % 18.6 Monocytes % 10.4 Eosinophils % 5.5 Basophils % 0.8 Nucleated Red Blood Cells % 0.0 Neutrophils # 3.3 Lymphocytes # 1.0 Monocytes # 0.5 Eosinophils # 0.3 Basophils # 0.0 Nucleated Red Blood Cells # 0.0 Sodium Level 136 Potassium Level 4.0 Chloride Level 97 Carbon Dioxide Level 27 Anion Gap 16 Blood Urea Nitrogen 16 Creatinine 3.25 H Glucose Level 93 Calcium Level 7.9 L Phosphorus Level 4.2 Magnesium Level 2.1 Medications Medications Current Medications Hydromorphone HCl (Dilaudid) 1 mg Q4H PRN IV PAIN Last administered on 09:21; Admin Dose 1 MG; Start 01/22/17 at 19:30 Acetaminophen (Tylenol Tab) 650 mg Q6H PRN PO PAIN LEVEL 1-3 OR FEVER Last administered on 01/29/17 01:41; Admin Dose 650 MG; Start 01/22/17 at 21:00 Acetaminophen (Tylenol Supp) 650 mg Q6H PRN [place] PAIN LEVEL 1-3 OR FEVER; Start 01/22/17 at 21:00 Docusate Sodium (Colace) 100 mg Q12H PRN PO CONSTIPATION Last administered on 20:39; Admin Dose 100 MG; Start 01/22/17 at 21:00 Bisacodyl (Dulcolax) 5 mg DAILY PRN PO CONSTIPATION; Start 01/22/17 at 21:00 Pantoprazole (Protonix Tab) 40 mg DAILY@06 PO Last administered on 01/30/17 05 :07; Admin Dose 40 MG; Start 01/23/17 at 06:00 Enoxaparin Sodium (Lovenox) 30 mg DAILY SC Last administered on 01/30/17 09:09 ; Admin Dose 30 MG; Start 01/23/17 at 09:00 Metoprolol Tartrate (Lopressor) 50 mg BID PO Last administered on 01/30/17 21: 06; Admin Dose 50 MG; Start 01/25/17 at 21:00 Zolpidem Tartrate (Ambien) 5 mg HS PRN PO INSOMNIA Last administered on 23:17; Admin Dose 5 MG; Start 01/27/17 at 23:30 Hydromorphone HCl (Dilaudid) 2 mg Q4H PRN PO PAIN Last administered on 21:32; Admin Dose 2 MG; Start 01/28/17 at 12:30 Hydralazine HCl (Apresoline) 10 mg Q4H PRN IV SBP>170; Start 01/29/17 at 16:00 Diphenhydramine HCl (Benadryl) 25 mg Q6H PRN PO ITCHING Last administered on 17:59; Admin Dose 25 MG; Start 01/29/17 at 17:30 Lubiprostone (Amitiza) 24 mcg BID PO Last administered on 01/30/17 21:05; Admin Dose 24 MCG; Start 01/30/17 at 21:00 Benazepril HCl (Lotensin) 20 mg BID PO Last administered on 01/30/17 19:45; Admin Dose 20 MG; Start 01/30/17 at 19:45 SHAN ARRINGTON MD Jan 30, 2017 22:26
[2017-01-30] MEDS: ZOLPIDEM 5 MG TAB PO PRN (23:08)
[2017-01-31] VITALS (18 sets, daily range): BP systolic 103–191; BP diastolic 53–100; PULSE 77–89; RESP 18–19
[2017-01-31] MEDS: PANTOPRAZOLE (EC) 40 MG TAB PO SCH (05:49)
[2017-01-31] MEDS: LUBIPROSTONE 24 MCG CAP PO SCH (10:22)
[2017-01-31] MEDS: HYDROmorphONE 1 MG/ML SYG IV PRN ×2 (10:27→14:46)
[2017-01-31] MEDS: ENOXAPARIN 30 MG/0.3 ML SYG SC SCH (10:34)
--- NOTE | 2017-01-31 11:17 | CONS ---
Date/Time of Note Date/Time of Note DATE: 01/31/17 TIME: 11:16 Consult Date/Type/Reason Admit Date/Time Jan 22, 2017 at 12:58 Initial Consult Date 01/22/17 Type of Consultation: Pulmonary Ordering Provider: SHAN ARRINGTON MD Subjective Slow recovery remains stable Objective Vital Signs Date Time Temp Pulse Resp B/P Pulse Ox O2 Delivery O2 Flow Rate FiO2 01/31/17 08:12 83 01/31/17 07:03 98.7 18 156/73 98 01/30/17 23:40 Nasal Cannula 2.0 01/30/17 18:03 36 Intake and Output 01/30/17 01/30/17 01/31/17 15:00 23:00 07:00 Intake Total 400 ml Balance 400 ml Exam GENERAL: Older than age appearing lady comfortable at rest VITAL SIGNS: per chart NECK: Supple. No JVD or lymphadenopathy. CARDIAC EXAM: S1, S2. No added sounds or murmurs. CHEST: Diminished air entry both lung vu. ABDOMEN: Soft, nontender. No guarding or rebound. EXTREMITIES: No cyanosis, clubbing or edema. NEUROLOGIC: Generalized weakness. No focal deficits. Results/Medications Result Diagram: 01/30/1752 01/30/17 0652 Medications Current Medications Hydromorphone HCl (Dilaudid) 1 mg Q4H PRN IV PAIN Last administered on 10:27; Admin Dose 1 MG; Start 01/22/17 at 19:30 Acetaminophen (Tylenol Tab) 650 mg Q6H PRN PO PAIN LEVEL 1-3 OR FEVER Last administered on 01/29/17 01:41; Admin Dose 650 MG; Start 01/22/17 at 21:00 Acetaminophen (Tylenol Supp) 650 mg Q6H PRN [place] PAIN LEVEL 1-3 OR FEVER; Start 01/22/17 at 21:00 Docusate Sodium (Colace) 100 mg Q12H PRN PO CONSTIPATION Last administered on 20:39; Admin Dose 100 MG; Start 01/22/17 at 21:00 Bisacodyl (Dulcolax) 5 mg DAILY PRN PO CONSTIPATION; Start 01/22/17 at 21:00 Pantoprazole (Protonix Tab) 40 mg DAILY@06 PO Last administered on 01/31/17 05 :49; Admin Dose 40 MG; Start 01/23/17 at 06:00 Enoxaparin Sodium (Lovenox) 30 mg DAILY SC Last administered on 01/31/17 10:34 ; Admin Dose 30 MG; Start 01/23/17 at 09:00 Metoprolol Tartrate (Lopressor) 50 mg BID PO Last administered on 01/30/17 21: 06; Admin Dose 50 MG; Start 01/25/17 at 21:00 Zolpidem Tartrate (Ambien) 5 mg HS PRN PO INSOMNIA Last administered on 23:08; Admin Dose 5 MG; Start 01/27/17 at 23:30 Hydromorphone HCl (Dilaudid) 2 mg Q4H PRN PO PAIN Last administered on 21:32; Admin Dose 2 MG; Start 01/28/17 at 12:30 Hydralazine HCl (Apresoline) 10 mg Q4H PRN IV SBP>170 Last administered on 01/31 04:40; Admin Dose 10 MG; Start 01/29/17 at 16:00 Diphenhydramine HCl (Benadryl) 25 mg Q6H PRN PO ITCHING Last administered on 17:59; Admin Dose 25 MG; Start 01/29/17 at 17:30 Lubiprostone (Amitiza) 24 mcg BID PO Last administered on 01/31/17 10:22; Admin Dose 24 MCG; Start 01/30/17 at 21:00 Benazepril HCl (Lotensin) 20 mg BID PO Last administered on 01/30/17 19:45; Admin Dose 20 MG; Start 01/30/17 at 19:45 Clonidine (Catapres) 0.1 mg TID PO Last administered on 01/30/17 23:05; Admin Dose 0.1 MG; Start 01/30/17 at 22:43 Assessment/Plan Chief Complaint/Hosp Course Remains stable this morning. On examination GENERAL: VITAL SIGNS: per chart NECK: Supple. No JVD or lymphadenopathy. CARDIAC EXAM: S1, S2. No added sounds or murmurs. CHEST: clear bilaterally, No added sounds, rales or wheezes ABDOMEN: Soft, nontender. No guarding or rebound. EXTREMITIES: No cyanosis, clubbing or edema. NEUROLOGIC: Generalized weakness. No focal deficits. Labs noted. Chest x-ray IMPRESSION: 1. Smaller bilateral pleural effusions and improved appearance of the lung bases. 2. No pneumothorax following left thoracentesis. Assessment 1. Acute coronary syndrome. 2. Hypoxemic respiratory failure secondary to volume overload status post thoracentesis. 3. End-stage renal failure on hemodialysis. 4. Essential hypertension Recommendations 1. Continue hemodialysis with volume removal 2. Decrease FiO2 placed on nasal cannula 3. Continue physical therapy encourage out of bed PT evaluation. 4. Continue cardiac recommendations re-ACS Discharge planning okay from pulmonary standpoint will likely need supplemental O2. Problems: ESTEFANI MAXWELL MD, [facility] Jan 31, 2017 11:17
--- NOTE | 2017-01-31 13:09 | CONS ---
Date/Time of Note Date/Time of Note DATE: 01/31/17 TIME: 13:08 Assessment/Plan Assessment/Plan Chief Complaint/Hosp Course IMP: 1. CHF-diastolic acute on chronic 2. Chest pain-negative trop x 3. NO onging chest pain 3.HTN 4.[place]achy[place] 5.ESRD on HD 6. Pleural effusion s/p thoracentesis Recc: -Tele -serial ecg's -Continue benazepril switch slight increase/BB which were held today -HD for volume removal -D/'C planning/SNF placement Problems: Consultation Date/Type/Reason Admit Date/Time Jan 22, 2017 at 12:58 Initial Consult Date 01/22/17 Type of Consultation: cardiology Reason for Consultation CHF Referring Provider: SHAN ARRINGTON MD Exam/Review of Systems Vital Signs Vitals Vital Signs Date Time Temp Pulse Resp B/P Pulse Ox O2 Delivery O2 Flow Rate FiO2 01/31/17 12:13 86 01/31/17 11:41 97.8 18 130/80 96 01/30/17 23:40 Nasal Cannula 2.0 01/30/17 18:03 36 Intake and Output 01/30/17 01/30/17 01/31/17 15:00 23:00 07:00 Intake Total 400 ml Balance 400 ml Exam Review of Systems: CONSTITUTIONAL: No fevers, chills. PULMONARY: No sob CARDIOVASCULAR: No chest pain/palpitations GASTROINTESTINAL: No nausea/vomiting. GENITOURINARY: No hematuria/dysuria. MUSCULOSKELETAL: No myagias/arthalgias. PSYCHIATRIC: The patient denies depression. NEUROLOGIC: No weakness Constitutional: alert Psych: no complaints Head: normocephalic ENMT: mucosa pink and moist Neck: jvd (9 cm water), supple Respiratory: diminished breath sounds Cardiovascular: regular rate and rhythm Gastrointestinal: non-tender, soft Musculoskeletal: muscle tone (normal) Extremities: edema (none) Neurological: other (No focal deficits) Results Result Diagram: 01/30/1752 01/30/1752 Medications Medications Current Medications Hydromorphone HCl (Dilaudid) 1 mg Q4H PRN IV PAIN Last administered on t 10:27; Admin Dose 1 MG; Start 01/22/17 at 19:30 Acetaminophen (Tylenol Tab) 650 mg Q6H PRN PO PAIN LEVEL 1-3 OR FEVER Last administered on 01/29/17 01:41; Admin Dose 650 MG; Start 01/22/17 at 21:00 Acetaminophen (Tylenol Supp) 650 mg Q6H PRN [place] PAIN LEVEL 1-3 OR FEVER; Start 01/22/17 at 21:00 Docusate Sodium (Colace) 100 mg Q12H PRN PO CONSTIPATION Last administered on 20:39; Admin Dose 100 MG; Start 01/22/17 at 21:00 Bisacodyl (Dulcolax) 5 mg DAILY PRN PO CONSTIPATION; Start 01/22/17 at 21:00 Pantoprazole (Protonix Tab) 40 mg DAILY@06 PO Last administered on 01/31/17 05 :49; Admin Dose 40 MG; Start 01/23/17 at 06:00 Enoxaparin Sodium (Lovenox) 30 mg DAILY SC Last administered on 01/31/17 10:34 ; Admin Dose 30 MG; Start 01/23/17 at 09:00 Metoprolol Tartrate (Lopressor) 50 mg BID PO Last administered on 01/30/17 21: 06; Admin Dose 50 MG; Start 01/25/17 at 21:00 Zolpidem Tartrate (Ambien) 5 mg HS PRN PO INSOMNIA Last administered on 23:08; Admin Dose 5 MG; Start 01/27/17 at 23:30 Hydromorphone HCl (Dilaudid) 2 mg Q4H PRN PO PAIN Last administered on 21:32; Admin Dose 2 MG; Start 01/28/17 at 12:30 Hydralazine HCl (Apresoline) 10 mg Q4H PRN IV SBP>170 Last administered on 01/31 04:40; Admin Dose 10 MG; Start 01/29/17 at 16:00 Diphenhydramine HCl (Benadryl) 25 mg Q6H PRN PO ITCHING Last administered on 17:59; Admin Dose 25 MG; Start 01/29/17 at 17:30 Lubiprostone (Amitiza) 24 mcg BID PO Last administered on 01/31/17 10:22; Admin Dose 24 MCG; Start 01/30/17 at 21:00 Benazepril HCl (Lotensin) 20 mg BID PO Last administered on 01/30/17 19:45; Admin Dose 20 MG; Start 01/30/17 at 19:45 Clonidine (Catapres) 0.1 mg TID PO Last administered on 01/30/17 23:05; Admin Dose 0.1 MG; Start 01/30/17 at 22:43 HUA SANTIAGO Jan 31, 2017 13:09
--- NOTE | 2017-02-03 07:46 | CONS ---
DATE OF ADMISSION: 01/22/2017 DATE OF CONSULTATION: 01/24/2017 REASON FOR CONSULTATION: Reported chest pain, assess for acute coronary syndrome, as well as shortness of breath/congestive heart failure. HISTORY OF PRESENT ILLNESS: Ms. Noyola is a 56-year-old female with a history of coronary artery disease, high cholesterol, renal disease, anemia, who presented with shortness of breath and reported chest pain, although the patient denies chest pain to me at this time. Upon arrival in the emergency department, temperature of 98.2, blood pressure 148/86, pulse 90, respiratory rate 14, satting 95 percent. Patient's labs reveal a white blood cell count of 7.4, hemoglobin 9.3, platelet count 294. Sodium 139, potassium 5.0, creatinine 3.34, BUN 36. BNP of 103,000. AST of 21, ALT 19. INR of 1.0. Patient underwent a chest x-ray, which revealed central vascular congestion to suggest pulmonary edema, large left pleural effusion with near complete collapse of the left lung and moderate right pleural effusion. Patient subsequently underwent a thoracentesis, minus 1.7 L from the left side with a follow-up chest x-ray revealing decreased left pleural effusion, improved aeration of the left lung without evidence of pneumothorax. Patient's electrocardiogram reveals normal sinus rhythm and a rate of 92 with right superior axis deviation, anteroseptal Q's, and anterolateral biphasic 2 abnormalities. Patient subsequently admitted to the ICU where she remains at this time. PAST MEDICAL HISTORY: As above in HPI. MEDICATION: Currently in the hospital: Lovenox 30 mg subcu daily, Protonix 40 mg IV daily, p.r.n. Tylenol, p.r.n. Colace, p.r.n. Dulcolax, p.r.n. Dilaudid, hydralazine 10 IV push q.6. ALLERGIES: IBUPROFEN. SOCIAL HISTORY: No tobacco, EtOH, or illicit drug use. FAMILY HISTORY: No history of sudden cardiac or early CAD. REVIEW OF SYSTEMS: As above in HPI. CONSTITUTIONAL: No fevers, chills. RESPIRATORY: Shortness of breath. CARDIOVASCULAR: No current chest pain. GASTROINTESTINAL: No vomiting. GENITOURINARY: End-stage renal disease. PSYCHIATRIC: No documented psych history. NEUROLOGIC: No documented history of CVA. ENDOCRINE: No documented history of thyroid disease or diabetes mellitus. PHYSICAL EXAMINATION: VITAL SIGNS: Temperature of 98, blood pressure 168/104, pulse 100, respiratory rate 16, satting 94 percent. GENERAL: Patient is alert, awake, no acute distress. NECK: JVP approximately 9 cm of water. LUNGS: Decreased breath sounds at the bases bilaterally. CARDIAC: Tachycardic, regular rhythm. Normal S1. Increased S2. 1/6 systolic murmur. Nondisplaced PMI. ABDOMEN: Positive bowel sounds. Soft. EXTREMITIES: No edema. 1+ pulses bilaterally posterior tibial. LABORATORY: As above in HPI with most recently from today. Sodium 137, potassium 4.9, creatinine 3.4, BUN of 27. White blood cell count 6.1, hemoglobin 9.2, platelet count of 250. ABG revealing a pH of 7.453, a PaO2 of 65, a pCO2 of 52. IMAGING STUDIES: As above in [facility] with a chest x-ray from today revealing cardiomegaly with increased hilar congestion, perihilar edema and small bilateral pleural effusions. IMPRESSION: 1. Congestive heart failure exacerbation, question systolic versus diastolic, likely acute on chronic. 2. Reported chest pain, currently resolved. 3. Shortness of breath, likely secondary to #1. 4. Hypertension, uncontrolled. 5. Tachycardic consistent with sinus tachycardia by EKG and tele. 6. End-stage renal disease, on hemodialysis. 7. Anemia. RECOMMENDATIONS: 1. At this time, would maintain patient on telemetry monitoring to follow rhythm and rates more closely. 2. Would continue to check serial EKGs to assess for any significant ongoing changes with EKG in the morning. EKG for any complaint of chest pain or change in rhythm. 3. Complete a rule out for myocardial infarction to ensure that the patient's EKG abnormalities are chronic in nature and not due to any recent acute coronary syndrome, such as acute myocardial infarction and lets send troponin q.6 x3 along with CK and CK-MB due to lack of adequate cardiac troponin secondary to renal failure. 4. We will initiate patient on antihypertensives with beta german and TATIANA inhibitor at this time. 5. Check a 2D echo to further assess patient's ejection fraction, wall motion or any major valve abnormalities. 6. Hemodialysis for volume removal. 7. Continue bronchodilator therapy. Thank you for allowing me to take part in the care of this patient. I will continue to follow very closely with you. Further recommendations will be made as the patient progresses though her inpatient hospital course. Dictated By: Nicki Mcdaniels /shawn/chucky /Document#: [id number] CC: Anuj Holden MD;*End*
== END 2017-01-31 18:29 | DRG 291 ==
LOC: E/R 10:51 → MS3 12:58 → ICU 01-23 00:03 → TEL 01-24 19:19
PROVIDERS: ADMIT Internal Medicine Nephrology; ATTEND Internal Medicine Nephrology
PROC: 0W9B3ZZ Drainage of Left Pleural Cavity, Percutaneous Approach (ICD-10-PCS; principal; 2017-01-22)
PROC: 5A1D60Z (ICD-10-PCS; 2017-01-23)
PROC: 0W9B3ZZ Drainage of Left Pleural Cavity, Percutaneous Approach (ICD-10-PCS; 2017-01-26)
DX: I13.2 Hypertensive heart and chronic kidney disease with heart failure and with stage 5 chronic kidney disease, or end stage renal disease (principal); I50.43 Acute on chronic combined systolic (congestive) and diastolic (congestive) heart failure; J96.91 Respiratory failure, unspecified with hypoxia; N18.6 End stage renal disease; J90 Pleural effusion, not elsewhere classified; Z99.2 Dependence on renal dialysis; D64.9 Anemia, unspecified; K59.00 Constipation, unspecified
CPT/HCPCS: 32555; 36415; 36600; 71010; 74000; 74176; 80048; 80053; 80061; 82550; 82553; 82803; 82945; 82962; 83615; 83690; 83735; 83880; 84100; 84157; 84484; 85025; 85610; 85730; 87040; 87045; 87070; 87075; 87081; 88104; 88305; 89051; 90935; 93005; 93306; 94644; 96374; 96375; 96376; 97110; 97116; 97163; 97530; J0360; J1170; J1200; J1644; J1650; J2270; J2405

== ENCOUNTER 2017-04-13 12:03 | Inpatient (IN) | payer OTHER ==
[~2017-04-13] VITALS: Ht 170.2 cm; Wt 58.8 kg
[~2017-04-13 12:03] MED LIST: ACET325T40 PO; BENA10TA48 PO; BISA5TAB6 PO; DOCU-216 PO; ENOX30DI8 SC; HYDR2TAB36 PO; IPRA3AMP HHN; METO-429 PO; PANT40TA4 PO; ZOLP5TAB PO
[2017-04-13] MEDS ORDERED: morphine 4 MG/ML VIAL IV STA (12:05)
[2017-04-13] MEDS ORDERED: ONDANSETRON 4 MG INJ IV STA (12:05)
[2017-04-13] MEDS ORDERED: SOD CHLORIDE 0.9% 250 ML IV STA (12:05)
[2017-04-13 12:42] LABS: BASOPHILS % 0.3 % (0.0-2.0); HEMATOCRIT 41.9 % (37.0-47.0); HEMOGLOBIN 12.9 g/dl (12.0-16.0); LYMPHOCYTES # 0.8 10^3/ul (0.8-2.9); MEAN CORPUSCULAR HEMOGLOBIN 26.6 pg (29.0-33.0); MEAN CORPUSCULAR HGB CONC 30.8 g/dl (32.0-37.0); MEAN CORPUSCULAR VOLUME 86.4 fl (82.0-101.0); MEAN PLATELET VOLUME 9.6 fl (7.4-10.4); MONOCYTE # 0.7 10^3/ul (0.3-0.9); MONOCYTES % 6.1 % (0.0-11.0); NEUTROPHIL # 9.4 10^3/ul (1.6-7.5); NEUTROPHILS % 86.4 % (39.0-77.0); PLATELET COUNT 287 10^3/UL (140-415); RED BLOOD COUNT 4.85 10^6/ul (4.20-5.40); RED CELL DISTRIBUTION WIDTH 18.6 % (11.5-14.5); WHITE BLOOD COUNT 10.9 10^3/ul (4.8-10.8)
[2017-04-13] MEDS ORDERED: BENA5TAB2 PO (12:59)
[2017-04-13] MEDS ORDERED: HYDR2TAB3 PO (13:00)
[2017-04-13] MEDS ORDERED: LABETALOL HCL 20MG INJ IV ONE ×2 (13:00→14:00)
[2017-04-13] MEDS ORDERED: METO5TAB58 PO (13:01)
--- NOTE | 2017-04-13 13:01 | ERA ---
ER Documentation Chief Complaint Date/Time DATE: 04/13/17 TIME: 12:57 Chief Complaint bibr co general weakness and body pain after 1 hour of dialysis HPI This is a 56-year-old female history of end-stage renal disease on dialysis who presents with multiple complaints including generalized body pain, abdominal pain during dialysis. The patient completed 1 hour. She notes several days of abdominal discomfort and nonbloody nonbilious emesis with 1-2 episodes of loose stool. However during dialysis this was worse. She also is describing chest pain that is pressure-like and nonradiating. She denies any headache. ROS All systems reviewed and are negative except as per history of present illness. Medications Home Meds Active Scripts Docusate Sodium (Dok) 100 Mg Capsule, 100 MG PO Q12H Y for CONSTIPATION for 14 Days, CAP Prov:SHAN ARRINGTON MD 01/29/17 Bisacodyl* (Bisacodyl*) 5 Mg Tablet.dr, 5 MG PO DAILY Y for CONSTIPATION for 28 Days Prov:SHAN ARRINGTON MD 01/29/17 Acetaminophen (MAPAP) 325 Mg Tablet, 650 MG PO Q6H Y for PAIN LEVEL 1-3 OR FEVER for 28 Days, TAB Prov:SHAN ARRINGTON MD 01/29/17 Ipratropium-Albuterol (Ipratropium-Albuterol) 0.5-3 Mg/3 Ml Ampul.neb, 3 ML HHN Q6H RESP THERAPY Y for SHORTNESS OF BREATH for 7 Days Prov:SHAN ARRINGTON MD 01/29/17 Reported Medications Fe Fumarate/John/FA/Bcomp,C (Nephron FA Tablet) 1 Each Tablet, 1 EACH PO DAILY, TAB 04/13/17 Calcium Carbonate ([id number]) 500 Mg Tablet, 500 MG PO DAILY, TAB 04/13/17 Mineral Oil* (Fleet* Mineral Oil Enema) 133 Ml Oil, 133 ML OK DAILY Y for CONSTIPATION, ENEMA 04/13/17 Magnesium Hydroxide* (Milk Of Magnesia*) 400 Mg/5 Ml Oral.susp, 30 ML PO Q24H Y for CONSTIPATION, ML 04/13/17 Albuterol Sulfate* (Albuterol Sulfate* Neb) 0.083%-3 Ml Neb, 2.5 MG NEB DAILY Y for WHEEZING AND SOB, #30 VIAL 04/13/17 Hydrocodone/Acetaminophen (Bird In Hand 5-325 Tablet) 1 Each Tablet, 1 EACH PO DAILY Y for SEVERE PAIN LEVEL 7-10, TAB 04/13/17 Cranberry Extract (Cranberry) 500 Mg Tablet, 500 MG PO DAILY, TAB 04/13/17 Pantoprazole* (Protonix*) 40 Mg Tablet.dr, 40 MG PO BID, TAB 04/13/17 Clonidine Hcl* (Clonidine Hcl*) 0.1 Mg Tab, 0.1 MG PO Q8, TAB 04/13/17 Hydralazine Hcl* (Hydralazine Hcl*) 25 Mg Tab, 25 MG PO Q8, #90 TAB 04/13/17 Diphenhydramine Hcl* (Benadryl*) 25 Mg Cap, 25 MG PO DAILY Y for ITCHING, CAP 04/13/17 Lubiprostone* (Amitiza*) 24 Mcg Capsule, 24 MCG PO BID, #60 CAP 04/13/17 Metoclopramide* (Reglan*) 5 Mg Tablet, 5 MG PO Q6H Y for NAUSEA AND OR VOMITING , TAB 04/13/17 Hydromorphone Hcl* (Hydromorphone Hcl*) 2 Mg Tablet, 2 MG PO Q6 Y for PAIN, TAB 04/13/17 Benazepril Hcl* (Benazepril Hcl*) 5 Mg Tablet, 5 MG PO BID, #60 TAB 04/13/17 Discontinued Scripts Pantoprazole* (Pantoprazole*) 40 Mg Tablet.dr, 40 MG PO DAILY@06 for 28 Days Prov:SHAN ARRINGTON MD 01/29/17 Zolpidem Tartrate (Ambien Eliseo) 5 Mg Tablet, 5 MG PO HS Y for INSOMNIA for 28 Days, TAB Prov:SHAN ARRINGTON MD 01/29/17 Hydromorphone Hcl* (Dilaudid*) 2 Mg Tablet, 2 MG PO Q4H Y for PAIN for 28 Days, TAB Prov:SHAN ARRINGTON MD 01/29/17 Metoprolol Tartrate* (Lopressor*) 50 Mg Tab, 50 MG PO BID for 28 Days, TAB Prov:SHAN ARRINGTON MD 01/29/17 Benazepril Hcl* (Benazepril Hcl*) 10 Mg Tablet, 10 MG PO BID for 30 Days, TAB Prov:SHAN ARRINGTON MD 01/29/17 Enoxaparin Sodium (Enoxaparin Sodium) 30 Mg/0.3 Ml Syringe, 30 MG SC DAILY for 10 Days Prov:SHAN ARRINGTON MD 01/29/17 Allergies Allergies: Coded Allergies: ibuprofen (Verified Allergy, Unknown, 01/22/17) PMhx/Soc History of Surgery: Yes (L ARM FISTULA, ABD PAIN) Anesthesia Reaction: No Hx Neurological Disorder: No Hx Respiratory Disorders: Yes (PLEURAL EFFUSION) Hx Cardiac Disorders: Yes (CAD, HLD) Hx Psychiatric Problems: No Hx Miscellaneous Medical Probl: Yes (ESRD,pleural effusion,anemia,ASHD) Hx Alcohol Use: No Hx Substance Use: No Hx Tobacco Use: No FmHx Family History: No diabetes Physical Exam Vitals Vital Signs Date Time Temp Pulse Resp B/P Pulse Ox O2 Delivery O2 Flow Rate FiO2 04/13/17 12:50 109 15 215/123 99 Nasal Cannula 04/13/17 12:06 97.8 113 18 189/102 96 Physical Exam General: Cachectic, dry heaving Head: Normocephalic, atraumatic. Eyes: Pupils equally reactive, EOM intact ENT: Slightly dry mucous membranes Neck: Supple, no lymphadenopathy Respiratory: Lungs clear bilaterally, no distress Cardiovascular: RRR, no murmurs, rubs, or gallops Abdominal: Soft, mild diffuse tenderness without rebound or guarding : Deferred MSK: No edema, no unilateral swelling, 5/5 strength Neurologic: Alert and oriented, moving all extremities, normal speech, no focal weakness, no cerebellar signs Skin: No rash Psych: Normal mood Result Diagram: 04/13/17 1230 04/13/17 1230 Results 24 hrs Laboratory Tests Test 04/13/17 12:30 White Blood Count 10.910^3/ul Red Blood Count 4.8510^6/ul Hemoglobin 12.9g/dl Hematocrit 41.9% Mean Corpuscular Volume 86.4fl Mean Corpuscular Hemoglobin 26.6pg Mean Corpuscular Hemoglobin Concent 30.8g/dl Red Cell Distribution Width 18.6% Platelet Count 36415^3/UL Mean Platelet Volume 9.6fl Neutrophils % 86.4% Lymphocytes % 7.0% Monocytes % 6.1% Eosinophils % 0.0% Basophils % 0.3% Nucleated Red Blood Cells % 0.0/100WBC Neutrophils # 9.410^3/ul Lymphocytes # 0.810^3/ul Monocytes # 0.710^3/ul Eosinophils # 0.010^3/ul Basophils # 0.010^3/ul Nucleated Red Blood Cells # 0.010^3/ul Prothrombin Time 17.8Sec Prothrombin Time Ratio 1.4 INR International Normalized Ratio 1.46 Activated Partial Thromboplast Time 199.5Sec Sodium Level 138mmol/L Potassium Level 3.6mmol/L Chloride Level 100mmol/L Carbon Dioxide Level 27mmol/L Anion Gap 15 Blood Urea Nitrogen 8mg/dl Creatinine 2.40mg/dl Glucose Level 86mg/dl Calcium Level 9.2mg/dl Total Bilirubin 0.3mg/dl Direct Bilirubin 0.00mg/dl Indirect Bilirubin 0.3mg/dl Aspartate Amino Transf (AST/SGOT) 18IU/L Alanine Aminotransferase (ALT/SGPT) 15IU/L Alkaline Phosphatase 303IU/L Troponin I < 0.012ng/ml Total Protein 7.9g/dl Albumin 3.0g/dl Globulin 4.90g/dl Albumin/Globulin Ratio 0.61 Lipase 86U/L Current Medications Medications (Trade) Dose Ordered Sig/Kerri Route PRN Reason Start Time Stop Time Status Last Admin Dose Admin Sodium Chloride (NS) 250 ml @ 250 mls/hr Q1H STAT IV 04/13/17 12:05 04/13/17 13:04 DC 04/13/17 12:27 Morphine Sulfate (morphine) 4 mg ONCE STAT IV 04/13/17 12:05 04/13/17 12:07 DC 04/13/17 12:27 Ondansetron HCl (Zofran Inj) 4 mg ONCE STAT IV 04/13/17 12:05 04/13/17 12:07 DC 04/13/17 12:27 Labetalol HCl (Labetalol) 10 mg ONCE ONCE IV 04/13/17 13:00 04/13/17 13:01 DC 04/13/17 12:56 Ondansetron HCl (Zofran Inj) 4 mg ER BRIDGE PRN IV NAUSEA AND/OR VOMITING 04/13/17 14:00 04/14/17 13:59 Acetaminophen (Tylenol Tab) 650 mg ER BRIDGE PRN PO MILD PAIN/FEVER 04/13/17 14:00 04/14/17 13:59 Aspirin (Aspirin) 162 mg ONCE ONCE PO 04/13/17 14:00 04/13/17 14:01 Labetalol HCl (Labetalol) 10 mg ONCE ONCE IV 04/13/17 14:00 04/13/17 14:01 Procedures/MDM EKG, MONITORS, & DIAGNOSTIC IMAGING: EKG: I reviewed and interpreted a 12-lead EKG. Rhythm: Normal sinus rhythm Ectopy: None Intervals: No abnormalities ST segments: No elevations or depressions T waves: No contiguous inversions Chest x-ray: I reviewed and interpreted a 1 view of the chest Mediastinum: No enlargement Cardiac silhouette: No cardiomegaly Airspace: Interstitial process consistent with pulmonary edema Bones: No evidence of fracture CT abdomen and pelvis IMPRESSION: Increased bilateral pleural effusions, small ascites, and diffuse anasarca. Remainder of examination is unchanged in comparison to 01/29/2017. RPTAT: EE LAB INTERPRETATION: No significant leukocytosis, negative troponin MEDICAL DECISION MAKING: The patient presents with multiple complaints including chest pain, nausea vomiting, abdominal pain. This was exacerbated with dialysis but has been present for approximately 24 hours. An extremely broad differential exists given the patient's age and complex medical history. The patient will benefit from cardiac evaluation, CT imaging of the abdomen and pelvis to rule out obstruction or acute intra-abdominal process. Inpatient hospitalization is almost certainly necessary. ER COURSE: Patient given pain control medication, anti-emetics. Additionally, the patient is significantly hypertensive and was given 10 mg of IV labetalol. The patient did require repeat dose of labetalol. Given the complex nature of her presentation inpatient hospitalization to rule out ACS would be appropriate. I kept the patient and/or family informed of laboratory and diagnostic imaging results throughout the emergency room course. DISPOSITION PLAN: Telemetry admission for chest pain CONSULTATION: Accepting care team and consultations: I discussed the current laboratory data, diagnostic imaging and emergency care provided. Admitting team: Dr. Brenna Arrington Admitting team indication: Insurance directed Departure Diagnosis: Primary Impression: End stage renal disease on dialysis Additional Impressions: Hypertensive urgency Chest pain Qualified Code: R07.9 - Chest pain, unspecified type Abdominal pain Qualified Code: R10.84 - Generalized abdominal pain Nausea and vomiting Qualified Code: R11.2 - Non-intractable vomiting with nausea, unspecified vomiting type Condition: Stable SANDOVAL JACINTO MD Apr 13, 2017 13:01
[2017-04-13 13:02] LABS: INR 1.46; PROTIME 17.8 Sec (12.2-14.2); PT RATIO 1.4
[2017-04-13] MEDS ORDERED: LUBI24CA7 PO (13:02)
[2017-04-13] MEDS ORDERED: BEN25 PO (13:03)
[2017-04-13] MEDS ORDERED: HYDR-3671 PO (13:03)
[2017-04-13] MEDS ORDERED: CLON-379 PO (13:04)
[2017-04-13] MEDS ORDERED: CRAN500T2 PO (13:05)
[2017-04-13] MEDS ORDERED: PANT40TA3 PO (13:05)
[2017-04-13] MEDS ORDERED: HYDR-906 PO (13:06)
[2017-04-13] MEDS ORDERED: ALBU2.5V3 NEB (13:06)
[2017-04-13 13:07] LABS: ALANINE AMINOTRANSFERASE 15 IU/L (13-69); ALBUMIN/GLOBULIN RATIO 0.61; ALKALINE PHOSPHATASE 303 IU/L (42-121); ANION GAP 15 (8-16); ASPARTATE AMINO TRANSFERASE 18 IU/L (15-46); BILIRUBIN,INDIRECT 0.3 mg/dl (0-1.1); BILIRUBIN,TOTAL 0.3 mg/dl (0.2-1.3); BLOOD UREA NITROGEN 8 mg/dl (7-20); CALCIUM 9.2 mg/dl (8.4-10.2); CARBON DIOXIDE 27 mmol/L (21-31); CHLORIDE 100 mmol/L (97-110); GLUCOSE 86 mg/dl (70-220); POTASSIUM 3.6 mmol/L (3.5-5.1); SODIUM 138 mmol/L (135-144); TOTAL PROTEIN 7.9 g/dl (6.1-8.1)
[2017-04-13] MEDS ORDERED: MAGN400O4 PO (13:07)
[2017-04-13] MEDS ORDERED: MINE133E23 PR (13:08)
[2017-04-13 13:09] LABS: PARTIAL THROMBOPLASTIN TIME 199.5 Sec (25.0-35.0)
--- NOTE | 2017-04-13 13:15 | RADRPT ---
PROCEDURE: XR Chest. CLINICAL INDICATION: Abdominal pain. TECHNIQUE: Single frontal view of the chest was obtained. COMPARISON: Chest x-ray 01/30/2017 06:36 a.m. FINDINGS: The right-sided dialysis catheter remains in stable position with its distal end at the level of the right atrium. There are degenerative osteophytes in the thoracic spine. The heart is enlarged. Th e cardiomediastinal silhouette and hilar structures are normal. The pulmonary vasculature is increas ed.. There is a left-sided aorta. There are perihilar and basilar mixed interstitial and alveolar i nfiltrates. There are bilateral pleural effusions. IMPRESSION: 1. Cardiomegaly with perihilar and basilar mixed interstitial and alveolar infiltrates associated wi th bilateral pleural effusions. Fluid overload or CHF might present this fashion. The pulmonary infi ltrates have worsened when compared to 01/30/2017. 2. Stable positioning of the right-sided dialysis catheter. RPTAT:AAJJ Physician Rafael Date Time Electronically viewed and signed by Physician Rafael on 04/13/2017 13:15 DAYAN/
[2017-04-13] MEDS ORDERED: CALC500T91 PO (13:24)
[2017-04-13] MEDS ORDERED: FE F1TAB7 PO (13:24)
[2017-04-13 13:27] LABS: TROPONIN-I < 0.012 ng/ml (0.00-0.12)
--- NOTE | 2017-04-13 13:28 | RADRPT ---
PROCEDURE: CT Abdomen and Pelvis without contrast. CLINICAL INDICATION: Abdominal Pain TECHNIQUE: Routine abdominopelvic CT was performed without intravenous contrast and reformatted in the axial, coronal, sagittal planes. Radiation dose: CTDIvol (mGy) = 11.5; total DLP(mGy-cm) = 619 One or more of the following radiation dose techniques were used: -Automated exposure control. -Adjust of the mA and/or kV according to patient size. -Use of iterative reconstruction technique. COMPARISON: CT 01/29/2017 FINDINGS: Limited imaging of the lower thorax demonstrates mild cardiac enlargement with increased right great er left bilateral pleural effusions with associated atelectasis and/or consolidation. There is significant increase in diffuse anasarca. The liver and spleen are homogeneous in density. The gallbladder, pancreas and adrenal glands are un remarkable. The kidneys are symmetric in size. There are no nephroureteral stones. There is no hydronephrosis or abnormal perinephric inflammation. The abdominal aorta is normal in caliber. Atherosclerotic calcification is present. There is no lilian aortic / retroperitoneal lymphadenopathy. The stomach and small intestines are unremarkable. Diffuse diverticulosis is observed. The appendix is not visualized. There are no focal inflammatory changes of the mesentery. There is no mesenteric lymphadenopathy. There is increased inflammation in the pelvis without ascites. The bladder, uterus and adnexa are unremarkable. There is small free pelvic fluid. There is no pelvi c sidewall or inguinal lymphadenopathy. Degenerative changes of the lower lumbar spine are observed. IMPRESSION: Increased bilateral pleural effusions, small ascites, and diffuse anasarca. Remainder of examination is unchanged in comparison to 01/29/2017. RPTAT: EE .Wil Camacho MD, MD Date Time Electronically viewed and signed by .Wil Camacho MD, MD on 04/13/2017 13:27 .C/
[2017-04-13] MEDS ORDERED: ASPIRIN 81 MG TAB PO ONE (14:00)
[2017-04-13] MEDS ORDERED: ONDANSETRON 4 MG INJ IV PRN (14:00)
[2017-04-13] MEDS ORDERED: ACETAMINOPHEN 325 MG TAB PO PRN ×2 (14:00→18:00)
[2017-04-13 16:00] VITALS: TEMP 98.3
[2017-04-13 17:00] VITALS: BP 207/105; PULSE 97; RESP 18
[2017-04-13] MEDS: hydrALAzine 20 MG INJ IV PRN (17:24)
[2017-04-13] MEDS ORDERED: HYDROmorphONE 1 MG/ML SYG IV PRN (17:30)
[2017-04-13 17:45] VITALS: Ht 170.2 cm; Wt 58.8 kg
[2017-04-13] MEDS ORDERED: MAGNESIUM HYDROXIDE 30ML CUP PO PRN (18:00)
[2017-04-13] MEDS ORDERED: HYDROmorphONE 4 MG TAB PO PRN (18:00)
[2017-04-13] MEDS ORDERED: ALBUTEROL 0.083% (NEB) 2.5 MG/3 ML AMP NEB PRN (18:00)
[2017-04-13] MEDS ORDERED: ALBUTEROL/IPRATROPIUM (NEB) 3 ML AMP HHN PRN ×2 (18:00→18:30)
[2017-04-13] MEDS ORDERED: DEXTROSE 5%-0.45% NACL 1,000 ML IV SCH (18:00)
[2017-04-13] MEDS ORDERED: MINERAL OIL 133 ML ENEMA PR PRN (18:00)
[2017-04-13] MEDS ORDERED: DOCUSATE SODIUM 100 MG CAP PO PRN (18:00)
--- NOTE | 2017-04-13 18:02 | QN ---
Documentation Comment [id number] SHAN ARRINGTON MD Apr 13, 2017 18:02
[2017-04-13] MEDS: SUCRALFATE 1 GM TAB PO SCH (18:29)
[2017-04-13 20:01] VITALS: PULSE 110
[2017-04-13 20:03] VITALS: BP 172/90; RESP 20
[2017-04-13] MEDS: ONDANSETRON 4 MG INJ IV PRN (20:10)
[2017-04-13] MEDS: DIPHENHYDRAMINE 25 MG CAP PO PRN (20:15)
[2017-04-13] MEDS: LISINOPRIL 20 MG TAB PO SCH (20:15)
[2017-04-13] MEDS: LUBIPROSTONE 24 MCG CAP PO SCH (20:16)
[2017-04-13] MEDS: METOPROLOL 100 MG TAB PO SCH (20:17)
[2017-04-13] MEDS: METOCLOPRAMIDE 5 MG TAB PO PRN (21:29)
[2017-04-13] MEDS: HYDROmorphONE 1 MG/ML SYG IV PRN (21:38)
[2017-04-14] VITALS (19 sets, daily range): BP systolic 122–178; BP diastolic 61–88; PULSE 80–110; RESP 16–20
[2017-04-14] MEDS: hydrALAzine 20 MG INJ IV PRN (00:18)
[2017-04-14] MEDS ORDERED: GUAIFENESIN/CODEINE 5ML CUP PO PRN (01:00)
[2017-04-14] MEDS: HYDROmorphONE 1 MG/ML SYG IV PRN ×4 (02:30→22:19)
[2017-04-14] MEDS: ONDANSETRON 4 MG INJ IV PRN ×3 (02:31→17:41)
[2017-04-14] MEDS ORDERED: PANTOPRAZOLE 40 MG INJ IV SCH (06:00)
[2017-04-14] MEDS: METOPROLOL 100 MG TAB PO SCH ×2 (09:00→22:18)
[2017-04-14] MEDS: LISINOPRIL 20 MG TAB PO SCH (09:00)
[2017-04-14] MEDS: ASPIRIN 81 MG TAB PO SCH (09:28)
[2017-04-14] MEDS: LUBIPROSTONE 24 MCG CAP PO SCH ×2 (09:28→22:18)
[2017-04-14] MEDS: CALCIUM CARBONATE 1.25 GM TAB PO SCH (09:28)
[2017-04-14] MEDS: SUCRALFATE 1 GM TAB PO SCH ×3 (09:28→17:29)
[2017-04-14 12:26] LABS: ABNORMAL IP MESSAGE 1; BASOPHILS % 0.1 % (0.0-2.0); HEMATOCRIT 35.6 % (37.0-47.0); HEMOGLOBIN 11.1 g/dl (12.0-16.0); LYMPHOCYTES # 0.3 10^3/ul (0.8-2.9); LYMPHOCYTES % 2.4 % (15.0-51.0); MEAN CORPUSCULAR HEMOGLOBIN 28.2 pg (29.0-33.0); MEAN CORPUSCULAR HGB CONC 31.2 g/dl (32.0-37.0); MEAN CORPUSCULAR VOLUME 90.4 fl (82.0-101.0); MEAN PLATELET VOLUME 9.4 fl (7.4-10.4); MONOCYTES % 6.9 % (0.0-11.0); NEUTROPHIL # 12.9 10^3/ul (1.6-7.5); NEUTROPHILS % 90.3 % (39.0-77.0); PLATELET COUNT 209 10^3/UL (140-415); RED BLOOD COUNT 3.94 10^6/ul (4.20-5.40); RED CELL DISTRIBUTION WIDTH 18.5 % (11.5-14.5); WHITE BLOOD COUNT 14.3 10^3/ul (4.8-10.8)
[2017-04-14 12:32] LABS: POSITIVE DIFF @See below
[2017-04-14 12:46] LABS: ALBUMIN 2.3 g/dl (3.3-4.9); ALBUMIN/GLOBULIN RATIO 0.63; BILIRUBIN,INDIRECT 0.1 mg/dl (0-1.1); BILIRUBIN,TOTAL 0.1 mg/dl (0.2-1.3); CALCIUM 7.9 mg/dl (8.4-10.2); CREATININE 2.32 mg/dl (0.44-1.00); POTASSIUM 3.5 mmol/L (3.5-5.1); TOTAL PROTEIN 5.9 g/dl (6.1-8.1)
--- NOTE | 2017-04-14 13:06 | PN ---
Date/Time of Note Date/Time of Note DATE: 04/14/17 TIME: 13:04 Assessment/Plan VTE Prophylaxis VTE Prophylaxis Intervention: anti-embolic stocking Lines/Catheters IV Catheter Type (from Nrsg): permacath Central line still needed: Yes Urinary Cath still in place: No Assessment/Plan Chief Complaint/Hosp Course 1. End stage renal disease on dialysis 2.Hypertensive urgency 3. Chest pain 4. Abdominal pain 5. bloody vomiting 5. CHF diastolic with radiological evidence: "Cardiomegaly with perihilar and basilar mixed interstitial and alveolar infiltrates associated with bilateral pleural effusions. Fluid overload or CHF might present this fashion. The pulmonary infiltrates have worsened when compared to 01/30/2017." 6. Bilateral pleural effusions, 7. Small ascites 8. Anasarca. 9. Sepsis 10. Anemia 11. Hypoalbuminemia Problems: Assessment/Plan 1. continue HD 2. continue Breathing treatment 3. US thoracentesis 4. start a/b 5. Dr Whyte for melena 6. Dr Lauren for CHF management, dr Dyson covers today, called Subjective 24 Hr Interval Summary Constitutional: requiring O2 Respiratory: shortness of breath Cardiovascular: chest pain Gastrointestinal: blood Skin: bruising Neurologic: no complaints Exam/Review of Systems Vital Signs Vitals Vital Signs Date Time Temp Pulse Resp B/P Pulse Ox O2 Delivery O2 Flow Rate FiO2 04/14/17 12:04 98.1 85 19 135/68 97 04/14/17 08:00 Nasal Cannula 2.0 Intake and Output 04/13/17 04/13/17 04/14/17 15:00 23:00 07:00 Intake Total 500 ml Output Total 3500 ml Balance -3000 ml Exam Constitutional: alert, oriented Eyes: nl conjunctiva ENMT: nl external ears & nose Neck: supple Respiratory: congested cough, crackles/rales, diminished breath sounds Cardiovascular: regular rate and rhythm Gastrointestinal: soft Neurological: DATA [employer] II-XII intact Results Result Diagram: 04/14/17 1215 04/14/17 1215 Results 24 hrs Laboratory Tests Test 04/14/17 01:22 04/14/17 12:15 Troponin I 0.024 < 0.012 White Blood Count 14.3 #H Red Blood Count 3.94 L Hemoglobin 11.1 L Hematocrit 35.6 L Mean Corpuscular Volume 90.4 Mean Corpuscular Hemoglobin 28.2 L Mean Corpuscular Hemoglobin Concent 31.2 L Red Cell Distribution Width 18.5 H Platelet Count 209 # Mean Platelet Volume 9.4 Neutrophils % 90.3 H Lymphocytes % 2.4 L Monocytes % 6.9 Eosinophils % 0.0 Basophils % 0.1 Nucleated Red Blood Cells % 0.0 Neutrophils # 12.9 H Lymphocytes # 0.3 L Monocytes # 1.0 H Eosinophils # 0.0 Basophils # 0.0 Nucleated Red Blood Cells # 0.0 Sodium Level 141 Potassium Level 3.5 Chloride Level 108 Carbon Dioxide Level 28 Anion Gap 9 # Blood Urea Nitrogen 8 Creatinine 2.32 H Glucose Level 206 # Calcium Level 7.9 L Total Bilirubin 0.1 L Direct Bilirubin 0.00 Indirect Bilirubin 0.1 Aspartate Amino Transf (AST/SGOT) 12 L Alanine Aminotransferase (ALT/SGPT) 21 Alkaline Phosphatase 208 H Total Protein 5.9 #L Albumin 2.3 L Globulin 3.60 H Albumin/Globulin Ratio 0.63 Medications Medications Current Medications Hydralazine HCl (Apresoline) 10 mg Q4H PRN IV HTN Last administered on 00:18; Admin Dose 10 MG; Start 04/13/17 at 17:30 Hydromorphone HCl (Dilaudid) 0.5 mg Q4H PRN IV PAIN Last administered on 09:36; Admin Dose 0.5 MG; Start 04/13/17 at 21:30 Pantoprazole (Protonix Iv) 40 mg DAILY@06 IV Last administered on 04/14/17 05: 49; Admin Dose 40 MG; Start 04/14/17 at 06:00 Ondansetron HCl 4 mg 4 mg Q4H PRN IV NAUSEA AND/OR VOMITING Last administered on 04/14/17 10:20; Admin Dose 4 MG; Start 04/13/17 at 18:00 Dextrose/Sodium Chloride (D5-1/2ns) 1,000 ml @ 30 mls/hr Q24H IV Last administered on 04/13/17 18:29; Admin Dose 30 MLS/HR; Start 04/13/17 at 18:00 Acetaminophen (Tylenol Tab) 650 mg Q6H PRN PO PAIN LEVEL 1-3 OR FEVER; Start 04/13/17 at 18:00 Albuterol (Proventil 0.083% (Neb)) 2.5 mg DAILY PRN NEB WHEEZING AND SOB; Start 04/13/17 at 18:00 Bisacodyl (Dulcolax) 5 mg DAILY PRN PO CONSTIPATION; Start 04/13/17 at 18:00 Calcium Carbonate (Oyster Shell Calcium) 1.25 gm DAILY PO Last administered on 04/14/17 09:28; Admin Dose 1.25 GM; Start 04/14/17 at 09:00 Clonidine (Catapres) 0.1 mg Q8 PO Last administered on 04/14/17 05:49; Admin Dose 0.1 MG; Start 04/13/17 at 22:00 Diphenhydramine HCl (Benadryl) 25 mg DAILY PRN PO ITCHING Last administered on 04/13/17 20:15; Admin Dose 25 MG; Start 04/13/17 at 18:00 Docusate Sodium (Colace) 100 mg Q12H PRN PO CONSTIPATION; Start 04/13/17 at 18: 00 Hydralazine HCl (Apresoline) 25 mg Q8 PO Last administered on 04/14/17 05:50; Admin Dose 25 MG; Start 04/13/17 at 22:00 Hydromorphone HCl (Dilaudid) 2 mg Q6 PRN PO PAIN; Start 04/13/17 at 18:00 Lubiprostone (Amitiza) 24 mcg BID PO Last administered on 04/14/17 09:28; Admin Dose 24 MCG; Start 04/13/17 at 21:00 Magnesium Hydroxide (Milk Of Mag) 30 ml Q24H PRN PO CONSTIPATION; Start at 18:00 Metoclopramide HCl (Reglan) 5 mg Q6H PRN PO NAUSEA AND/OR VOMITING Last administered on 04/13/17 21:29; Admin Dose 5 MG; Start 04/13/17 at 18:00 Mineral Oil (Fleet Mineral Oil Enema) 133 ml DAILY PRN [place] CONSTIPATION; Start 04/13/17 at 18:00 Aspirin (Aspirin) 81 mg DAILY PO Last administered on 04/14/17 09:28; Admin Dose 81 MG; Start 04/14/17 at 09:00 Lisinopril (Zestril) 40 mg DAILY PO Last administered on 04/13/17 20:15; Admin Dose 40 MG; Start 04/13/17 at 19:00 Metoprolol Tartrate (Lopressor) 100 mg BID PO Last administered on 04/13/17 20 :17; Admin Dose 100 MG; Start 04/13/17 at 21:00 Guaifenesin/ Codeine Phosphate (Robitussin Ac Liquid Cup) 5 ml BID PRN PO COUGH Last administered on 04/14/17 01:09; Admin Dose 5 ML; Start 04/14/17 at 01:00 LUIS LOPEZ Apr 14, 2017 13:05
[2017-04-14] MEDS ORDERED: PHYTONADIONE 10 MG/ML INJ SC ONE (14:00)
--- NOTE | 2017-04-14 14:46 | RADRPT ---
Echocardiogram Report Patient Name: SABRINA JARRETT Gender: Female Date: 1960 Study Date: 14-Apr-2017 Whiskey Filterer: Jay Jay Manzanares [facility] Location: [id number] Ref. Physician: REUBEN REYNOLDS Quality: Adequate Procedures: Transthoracic echocardiogram with complete 2D, M-Mode, and doppler examination. Indications: Congestive Heart Failure. 2D/M Mode Doppler Measurement Value Normal Ranges Measurement Value Normal Ranges LVIDd 2D 4.4 3.5 - 5.6 cm AV Peak Xiang 1.5 m/sec LVIDs 2D 2.8 2.1 - 4.1 cm AV Peak PG 9.0 mmHg FS 2D 34.9 % LVOT Peak Xiang 1.2 m/sec LVPWd 2D 1.3 0.6 - 1.1 cm LVOT Peak PG 5.0 mmHg IVSd 2D 1.3 0.6 - 1.1 cm MV E Peak Xiang 0.9 m/sec IVS/LVPW 2D 1.0 MV A Peak Xiang 0.8 m/sec AoR Diam 2D 2.4 2.0 - 3.7 cm MV E/A 1.1 LA/Ao 2D 1 0 - 1 MV Decel Time 141 msec EDV 2D 84.0 cm3 MV E/A 1.1 ESV 2D 23.1 cm3 TR Peak Xiang 2.5 m/sec LA Dimen 2D 3.3 2.3 - 4.0 cm TR Peak PG 24.0 mmHg RVSP 32.0 mmHg Findings Left Ventricle: Normal left ventricular systolic function. Normal left ventricular cavity size. Mild concentric left ventricular hypertrophy. Ejection fraction is visually estimated at 65 %. Tissue Doppler/Mitral Doppler indices are consistent with impaired relaxation (Stage I diastolic dysfunction). Right Ventricle: Normal right ventricular systolic function. Mild enlargement of right ventricle. Left Atrium: The left atrium is normal in size. Right Atrium: The right atrium is normal in size. Mitral Valve: Mild mitral leaflet calcification. Mild mitral annular calcification. Trace mitral regurgitation. Aortic Valve: Aortic sclerosis without stenosis. Mild aortic valve regurgitation. Tricuspid Valve: Normal appearance of the tricuspid valve. Estimated peak PA systolic pressure 32 mmHg. There is mild tricuspid regurgitation. Pulmonic Valve: Normal pulmonic valve appearance. There is mild pulmonic regurgitation. Pericardium: Normal pericardium with no significant pericardial effusion. Left pleural effusion seen. Aorta: Normal aortic root. IVC: Normal size and no respiratory collapse consistent with elevated right atrial pressure. Conclusions 1.Normal left ventricular systolic function. Normal left ventricular cavity size. Mild concentric left ventricular hypertrophy. Ejection fraction is visually estimated at 65 %. Tissue Doppler/Mitral Doppler indices are consistent with impaired relaxation (Stage I diastolic dysfunction). 2.Normal right ventricular systolic function. Mild enlargement of right ventricle. 3.The right atrium is normal in size. Thre is a catheter far deep in the right atrium almost near the tricuspid valve. 4.Mild mitral leaflet calcification. Mild mitral annular calcification. Trace mitral regurgitation. 5.Aortic sclerosis without stenosis. Mild aortic valve regurgitation. 6.Normal appearance of the tricuspid valve. Estimated peak PA systolic pressure 32 mmHg. There is mild tricuspid regurgitation. 7.Normal pericardium with no significant pericardial effusion. Left pleural effusion seen. Electronically Signed By: Reuben Reynolds 14-Apr-2017 14:44:59 -0700 Patient Name: SABRINA JARRETT Study Date: 14-Apr-2017 [id number]
--- NOTE | 2017-04-14 15:27 | CONS ---
Date/Time of Note Date/Time of Note DATE: 04/14/17 TIME: 15:22 Assessment/Plan Assessment/Plan Additional Assessment/Plan Atypical chest pain Hypertensive emergency resolved CHF Pleural effusion Hypertension ESRD on HD scheduled for thoracentesis Continue Metoprolol and Lisinopril Continue Hydralazine and clonidine Continue Antibiotics Consultation Date/Type/Reason Admit Date/Time Apr 13, 2017 at 13:36 Initial Consult Date Exam/Review of Systems Vital Signs Vitals Vital Signs Date Time Temp Pulse Resp B/P Pulse Ox O2 Delivery O2 Flow Rate FiO2 04/14/17 12:15 93 04/14/17 12:04 98.1 19 135/68 97 04/14/17 08:00 Nasal Cannula 2.0 Intake and Output 04/13/17 04/13/17 04/14/17 15:00 23:00 07:00 Intake Total 500 ml Output Total 3500 ml Balance -3000 ml Exam Constitutional: alert, oriented Head: atraumatic, normocephalic Neck: non-tender, supple Respiratory: diminished breath sounds Cardiovascular: regular rate and rhythm Gastrointestinal: nl liver, spleen, non-tender, soft Extremities: normal pulses Results Result Diagram: 04/14/17 1215 04/14/17 1215 Results 24 hrs Laboratory Tests Test 04/14/17 01:22 04/14/17 12:15 Troponin I 0.024 < 0.012 White Blood Count 14.3 #H Red Blood Count 3.94 L Hemoglobin 11.1 L Hematocrit 35.6 L Mean Corpuscular Volume 90.4 Mean Corpuscular Hemoglobin 28.2 L Mean Corpuscular Hemoglobin Concent 31.2 L Red Cell Distribution Width 18.5 H Platelet Count 209 # Mean Platelet Volume 9.4 Neutrophils % 90.3 H Lymphocytes % 2.4 L Monocytes % 6.9 Eosinophils % 0.0 Basophils % 0.1 Nucleated Red Blood Cells % 0.0 Neutrophils # 12.9 H Lymphocytes # 0.3 L Monocytes # 1.0 H Eosinophils # 0.0 Basophils # 0.0 Nucleated Red Blood Cells # 0.0 Sodium Level 141 Potassium Level 3.5 Chloride Level 108 Carbon Dioxide Level 28 Anion Gap 9 # Blood Urea Nitrogen 8 Creatinine 2.32 H Glucose Level 206 # Calcium Level 7.9 L Total Bilirubin 0.1 L Direct Bilirubin 0.00 Indirect Bilirubin 0.1 Aspartate Amino Transf (AST/SGOT) 12 L Alanine Aminotransferase (ALT/SGPT) 21 Alkaline Phosphatase 208 H Total Protein 5.9 #L Albumin 2.3 L Globulin 3.60 H Albumin/Globulin Ratio 0.63 Medications Medications Current Medications Hydralazine HCl (Apresoline) 10 mg Q4H PRN IV HTN Last administered on 00:18; Admin Dose 10 MG; Start 04/13/17 at 17:30 Hydromorphone HCl (Dilaudid) 0.5 mg Q4H PRN IV PAIN Last administered on 14:04; Admin Dose 0.5 MG; Start 04/13/17 at 21:30 Ondansetron HCl (Zofran Inj) 4 mg Q4H PRN IV NAUSEA AND/OR VOMITING Last administered on 04/14/17 10:20; Admin Dose 4 MG; Start 04/13/17 at 18:00 Acetaminophen (Tylenol Tab) 650 mg Q6H PRN PO PAIN LEVEL 1-3 OR FEVER; Start 04/13/17 at 18:00 Albuterol (Proventil 0.083% (Neb)) 2.5 mg DAILY PRN NEB WHEEZING AND SOB; Start 04/13/17 at 18:00 Bisacodyl (Dulcolax) 5 mg DAILY PRN PO CONSTIPATION; Start 04/13/17 at 18:00 Calcium Carbonate (Oyster Shell Calcium) 1.25 gm DAILY PO Last administered on 04/14/17 09:28; Admin Dose 1.25 GM; Start 04/14/17 at 09:00 Clonidine (Catapres) 0.1 mg Q8 PO Last administered on 04/14/17 05:49; Admin Dose 0.1 MG; Start 04/13/17 at 22:00 Diphenhydramine HCl (Benadryl) 25 mg DAILY PRN PO ITCHING Last administered on 04/13/17 20:15; Admin Dose 25 MG; Start 04/13/17 at 18:00 Docusate Sodium (Colace) 100 mg Q12H PRN PO CONSTIPATION; Start 04/13/17 at 18: 00 Hydralazine HCl (Apresoline) 25 mg Q8 PO Last administered on 04/14/17 14:11; Admin Dose 25 MG; Start 04/13/17 at 22:00 Hydromorphone HCl (Dilaudid) 2 mg Q6 PRN PO PAIN; Start 04/13/17 at 18:00 Lubiprostone (Amitiza) 24 mcg BID PO Last administered on 04/14/17 09:28; Admin Dose 24 MCG; Start 04/13/17 at 21:00 Magnesium Hydroxide (Milk Of Mag) 30 ml Q24H PRN PO CONSTIPATION; Start at 18:00 Metoclopramide HCl (Reglan) 5 mg Q6H PRN PO NAUSEA AND/OR VOMITING Last administered on 04/13/17 21:29; Admin Dose 5 MG; Start 04/13/17 at 18:00 Mineral Oil (Fleet Mineral Oil Enema) 133 ml DAILY PRN [place] CONSTIPATION; Start 04/13/17 at 18:00 Aspirin (Aspirin) 81 mg DAILY PO Last administered on 04/14/17 09:28; Admin Dose 81 MG; Start 04/14/17 at 09:00 Lisinopril (Zestril) 40 mg DAILY PO Last administered on 04/13/17 20:15; Admin Dose 40 MG; Start 04/13/17 at 19:00 Metoprolol Tartrate (Lopressor) 100 mg BID PO Last administered on 04/13/17 20 :17; Admin Dose 100 MG; Start 04/13/17 at 21:00 Guaifenesin/ Codeine Phosphate (Robitussin Ac Liquid Cup) 5 ml BID PRN PO COUGH Last administered on 04/14/17 01:09; Admin Dose 5 ML; Start 04/14/17 at 01:00 Pantoprazole 40 mg 40 mg BID@06,18 IV ; Start 04/14/17 at 18:00 Ceftriaxone Sodium (Rocephin) 50 ml @ 100 mls/hr Q24H IVPB ; Start 04/14/17 at 15:00 FANNY REYNOLDS M.D. Apr 14, 2017 15:27
[2017-04-14] MEDS ORDERED: LIDOCAINE 1% (MDV) 20 ML INJ ONE ×2 (16:01)
--- NOTE | 2017-04-14 16:50 | RADRPT ---
PROCEDURE: XR Chest. CLINICAL INDICATION: Post thoracentesis TECHNIQUE: Anterior chest x-ray. COMPARISON: 04/13/2017 FINDINGS: There is interval reduction in right pleural effusion. Small left pleural effusion, unchanged. Right dual lumen dialysis catheter, unchanged. Mild consolidation left lung base, unchanged. There is no evidence of pneumothorax. The cardiomediastinal silhouette is unremarkable. The soft tissues are normal. Osseous structures are unremarkable. IMPRESSION: 1. Post thoracentesis with decrease in right pleural effusion and without evidence of pneumothorax. 2. Small left pleural effusion, unchanged. 3. Bibasilar compressive atelectasis, improved on the right and unchanged on the left. RPTAT: QQ .Sanjeev Fierro MD, MD Date Time Electronically viewed and signed by .Sanjeev Feirro MD, on 04/14/2017 16:49 .M/
[2017-04-14 16:52] LABS: FLD MN% 54.2 %; FLD PMN% 45.8 %; FLD RBC 1 /uL; FLD WBC 227 /cmm
--- NOTE | 2017-04-14 17:03 | RADRPT ---
PROCEDURE: Ultrasound guided thoracentesis CLINICAL INDICATION: Pleural effusion TECHNIQUE: Multiple sonographic images were obtained through the patient's chest. A site in the wilner marie's right lower chest was selected and marked ink pen. The area was prepped and draped in the u sual sterile fashion. The skin and subcutaneous tissues were anesthetized with 15 cc of 1% lidocain e. A a 6-Bulgarian 10 cm long thoracentesis needle was advanced into the pleural space and the introduc er was connected to a vacuum drainage system. A total of 650 cc of clear yellow fluid was drained. The patient tolerated the procedure well. The specimen was sent for laboratory evaluation. COMPARISON: Radiograph dated 04/13/2017 FINDINGS: Anechoic fluid visualized in the chest cavity on ultrasound. IMPRESSION: 1. Successful ultrasound-guided thoracentesis without immediate complication. RPTAT: QQ .Sanjeev Fierro MD, Date Time Electronically viewed and signed by .Snajeev Fierro MD, on 04/14/2017 17:03 .M/
[2017-04-14 17:05] LABS: FLUID GLUCOSE 182 mg/dl
[2017-04-14 17:06] LABS: FLUID TOTAL PROTEIN < 2.0 g/dl; FLUID TYPE PLEURAL FLUID
[2017-04-14 17:23] LABS: FLD CLARITY SLIGHTLY CLOUDY; FLD COLOR YELLOW; FLD TYPE PLEURAL
[2017-04-14] MEDS: PANTOPRAZOLE 40 MG INJ IV SCH (17:29)
[2017-04-14] MEDS: CEFTRIAXONE 1 GM/50 ML (PMX) 50 ML IVPB SCH (17:29)
[2017-04-15] VITALS (14 sets, daily range): BP systolic 103–215; BP diastolic 57–98; PULSE 69–80; RESP 16–19
[2017-04-15] MEDS: PANTOPRAZOLE 40 MG INJ IV SCH ×2 (05:10→17:54)
[2017-04-15] MEDS: HYDROmorphONE 1 MG/ML SYG IV PRN ×4 (05:11→20:22)
--- NOTE | 2017-04-15 07:40 | HP ---
DATE OF ADMISSION: 04/13/2017 HISTORY OF PRESENT ILLNESS: The patient is a 56-year-old female who has a history of hypoxic respiratory failure, history of thoracentesis, history of anemia, history of blood transfusion, history of hypertension, history of ESRD, history of COPD, history of chronic pain, presented to this hospital from the dialysis center with complaints of short of breath, abdominal pain, poor p.o. intake. The patient has also leukocytosis, mild. Denies any fevers, chills or rigors. Also was complaining of chest pain, body ache, abdominal pain. The patient's EKG shows sinus tachycardia. LABORATORY DATA: Sodium 130, potassium 3.6. The patient had a CT scan of the abdomen that shows increasing bilateral pleural effusions, small ascites, diffuse anasarca. The patient has cardiomegaly with perihilar and basilar interstitial bilateral infiltrate. The patient is being admitted for further management. PAST MEDICAL HISTORY: ESRD, hypertension, history of anasarca, thoracentesis, anemia, weakness, bedridden state due to weakness. ALLERGY HISTORY: IBUPROFEN. SOCIAL HISTORY: Negative. FAMILY HISTORY: Negative. MEDICATION HISTORY: Patient is on: 1. Albuterol. 2. Benazepril. 3. Bisacodyl. 4. Calcium carbonate. 5. Clonidine. 6. Cranberry. 7. Diphenhydramine. 8. po iron. 9. Hydralazine. 10. Hydrocodone. 11. Amitiza. 12. Magnesium oxide. 13. Reglan. 14. Mineral oil. 15. Protonix. REVIEW OF SYSTEMS: HEENT: Unremarkable. RESPIRATORY: No shortness of breath. CARDIOVASCULAR: Complaining of earlier chest pain. ABDOMEN: Abdominal pain. EXTREMITIES: On and off edema. CENTRAL NERVOUS SYSTEM: Unremarkable. Generalized weakness. PHYSICAL EXAMINATION: GENERAL: The patient is awake, alert. VITAL SIGNS: Pulse 57, blood pressure 111/53, pulse 113_ 96./50 HEAD: Atraumatic, normocephalic. Pupils equal, reactive. NECK: Supple. LUNGS: Clear anteriorly. CARDIOVASCULAR: S1, S2 normal. Systolic murmur noted. ABDOMEN: Soft. Bowel sounds present. No palpable mass. EXTREMITIES: No cyanosis, clubbing. Edema positive. CENTRAL NERVOUS SYSTEM: The patient is awake, alert, no focal deficit. SKIN: The patient has surgical scar on the abdominal area noted. LABORATORY DATA: As mentioned above. IMPRESSION: 1. Chest pain. r/o infarction. 2. Abdominal pain. 3. Ascites. 4. Endstage renal disease. 5. Uncontrolled hypertension. 6. Leukocytosis. PLAN: Get this patient's renal diet. Continue IV fluid as tolerated. Cardiology consultation. Troponin will be sent. Home medications will be reviewed and continued. Dictated By: SHAN ANDREWS/TAMMY Conf#: [id number] DID#: [id number] MTDD
--- NOTE | 2017-04-15 07:52 | CONS ---
DATE OF ADMISSION: 04/13/2017 DATE OF CONSULTATION: 04/13/2017 Thank you, Dr. Anuj Holden, for involving me in consulting your patient. REASON FOR CONSULTATION: Chest pain. HISTORY OF PRESENT ILLNESS: The patient is a 56-year-old female who comes in with 3 day history of chest pain, abdominal pain. She also comes in with shortness of breath but denies any dizziness or syncope, denies orthopnea, PND. Denies palpitation. She complains of abdominal pain, nausea, vomit ing and fevers. PAST MEDICAL HISTORY: Significant for hypertension, diabetes, dyslipidemia, end-stage renal diseas e on hemodialysis. SOCIAL HISTORY: No smoking, alcohol, or recreational drugs. ALLERGIES: IBUPROFEN. CURRENT MEDICATIONS: 1. Amitiza. 2. Calcium carbonate. 3. Aspirin. 4. Protonix. 5. Carafate. 6. Clonidine. 7. Hydralazine. REVIEW OF SYSTEMS: Unremarkable except as mentioned in the HPI. PHYSICAL EXAMINATION: VITAL SIGNS: Temperature 98.3, heart rate of 100, blood pressure 169/____, 92 mmHg breathing at 20 and saturating 98% on room air. GENERAL: Patient awake, alert, oriented, no apparent distress. NECK: No JVD or carotid bruit. CARDIOVASCULAR: Tachycardic. No murmur, rub or gallop. LUNGS: Clear to auscultation. ABDOMEN: Tender, bowel sounds are present. EXTREMITIES: No pedal edema. DIAGNOSTIC DATA: A 12-lead EKG shows sinus tachycardia with a ventricular rate of 109 beats per min [place] with normal MT, normal QRS and prolonged QT intervals with nonspecific ST-T wave changes with pr emature ventricular contractions. Chest x-ray shows cardiomegaly with perihilar interstitial alveolar infiltrates with bilateral pleur al effusion and congestion. Abdominal and pelvic CT shows increase in bilateral pleural effusions, small ascites and diffuse anasarca. LABORATORY DATA: WBC 10.9, hemoglobin 12.9, hematocrit 41.9 with a platelet of 287. Sodium 138, po tassium 3.6, chloride 100, CO2 of 27, BUN 8, creatinine 2.4. ASSESSMENT AND PLAN: A 56-year-old female with: 1. Atypical chest pain. 2. Acute exacerbation of congestive heart failure. 3. Bilateral pleural effusion. 4. Pneumonia. 5. Hypertension. 6. Diabetes. 7. Dyslipidemia. 8. End-stage renal disease on hemodialysis. 9. Abnormal electrocardiogram with sinus tachycardia and incomplete right bundle branch block with PVCs. The patient is currently tachycardic, hypertensive. RECOMMENDATIONS: 1. Started on metoprolol 100 mg b.i.d. 2. Trend troponins, BMP, TSH. 3. Continue clonidine and hydralazine. 4. Started on lisinopril. 5. Chest ultrasound and thoracentesis if indicated. 6. Echocardiogram to assess for systolic function and to rule out for pulmonary arterial hypertensi on. 7. Recommend GI consult. Dictated By: FANNY REYNOLDS MD SR/NTS Conf#: [id number] DID#: [id number]
[2017-04-15] MEDS: SUCRALFATE 1 GM TAB PO SCH ×3 (08:55→17:54)
[2017-04-15] MEDS: LUBIPROSTONE 24 MCG CAP PO SCH ×2 (08:55→20:21)
[2017-04-15] MEDS: CALCIUM CARBONATE 1.25 GM TAB PO SCH (08:55)
[2017-04-15] MEDS: ASPIRIN 81 MG TAB PO SCH (08:55)
[2017-04-15] MEDS: METOPROLOL 100 MG TAB PO SCH ×2 (09:00→20:22)
[2017-04-15] MEDS: LISINOPRIL 20 MG TAB PO SCH (09:01)
[2017-04-15 09:31] LABS: CALCIUM 7.9 mg/dl (8.4-10.2); CREATININE 3.05 mg/dl (0.44-1.00); POTASSIUM 4.1 mmol/L (3.5-5.1)
--- NOTE | 2017-04-15 11:15 | CONS ---
DATE OF ADMISSION: 04/13/2017 DATE OF CONSULTATION: TYPE OF CONSULTATION: Gastrointestinal consultation follow up. HISTORY OF PRESENT ILLNESS: A 56-year-old female with end-stage renal disease, on dialysis; complai ns of body ache, abdominal pain confined to the epigastric area, nausea and vomiting. The patient al so had 1 to 2 episodes of loose bowel movements. No gross GI bleeding, no weight loss. She also co mplains of atypical chest pain. No fever, no chills. 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 REVIEW OF SYSTEM: Negative. HOME MEDICATIONS: All reviewed. ALLERGIES: IBUPROFEN. PAST MEDICAL HISTORY: Left arm fistula, pleural effusion, coronary artery disease, end-stage renal disease. FAMILY HISTORY: Nothing significant. PHYSICAL EXAMINATION: GENERAL: Alert, awake, not in distress, just did a thoracocentesis. ABDOMEN: Benign. LUNGS: Clear. EXTREMITIES: No edema. CENTRAL NERVOUS SYSTEM: Grossly within normal limits. LABORATORY DATA: Hematocrit is 35, stable. Creatinine is 2.3, alkaline phosphatase is elevated to 8. BNP is very high at 175,000. CT of the abdomen and pelvis shows pleural effusion, small ascites and anasarca. IMPRESSION: 1. Epigastric pain associated with nausea. 2. Atypical chest pain. 3. End-stage renal disease, on dialysis. 4. Pleural effusion, status post thoracocentesis. 5. Ascites. 6. Anasarca. 7. Anemia. 8. Hypoalbuminemia. PLAN: To continue present care. We have reviewed the 2D echo. The patient's EF was good, it was 65 %. There was no aortic stenosis. We will proceed with EGD. Discussed with the patient and has agr eed for the procedure. Dictated By: ARIANA FULLER/TAMMY Conf#: [id number] DID#: [id number]
[2017-04-15 11:38] LABS: BASOPHILS % 0.3 % (0.0-2.0); EOSINOPHILS % 0.1 % (0.0-7.0); HEMATOCRIT 30.5 % (37.0-47.0); HEMOGLOBIN 9.5 g/dl (12.0-16.0); LYMPHOCYTES # 0.7 10^3/ul (0.8-2.9); LYMPHOCYTES % 9.4 % (15.0-51.0); MEAN CORPUSCULAR HEMOGLOBIN 28.5 pg (29.0-33.0); MEAN CORPUSCULAR HGB CONC 31.1 g/dl (32.0-37.0); MEAN CORPUSCULAR VOLUME 91.6 fl (82.0-101.0); MEAN PLATELET VOLUME 9.5 fl (7.4-10.4); MONOCYTE # 0.7 10^3/ul (0.3-0.9); MONOCYTES % 8.9 % (0.0-11.0); NEUTROPHIL # 6.2 10^3/ul (1.6-7.5); PLATELET COUNT 176 10^3/UL (140-415); RED BLOOD COUNT 3.33 10^6/ul (4.20-5.40); RED CELL DISTRIBUTION WIDTH 18.1 % (11.5-14.5); WHITE BLOOD COUNT 7.6 10^3/ul (4.8-10.8)
[2017-04-15] MEDS: CEFTRIAXONE 1 GM/50 ML (PMX) 50 ML IVPB SCH (16:00)
--- NOTE | 2017-04-15 16:46 | CONS ---
Date/Time of Note Date/Time of Note DATE: 04/15/17 TIME: 16:46 Assessment/Plan Assessment/Plan Additional Assessment/Plan IMPRESSION: 1. Epigastric pain associated with nausea. 2. Atypical chest pain. 3. End-stage renal disease, on dialysis. 4. Pleural effusion, status post thoracocentesis. 5. Ascites. 6. Anasarca. 7. Anemia. 8. Hypoalbuminemia. PLAN: To continue present care. We have reviewed the 2D echo. The patient's EF was good, it was 65%. There was no aortic stenosis. We will proceed with EGD. Discussed with the patient and has agreed for the procedure. Patient is scheduled for EGD tomorrow Consultation Date/Type/Reason Admit Date/Time Apr 13, 2017 at 13:36 Initial Consult Date 24 HR Interval Summary Free Text/Dictation Nausea and epigastric pain Exam/Review of Systems Vital Signs Vitals Vital Signs Date Time Temp Pulse Resp B/P Pulse Ox O2 Delivery O2 Flow Rate FiO2 04/15/17 15:59 97.5 70 17 104/57 98 04/15/17 08:00 Nasal Cannula 2.0 Intake and Output 04/14/17 04/14/17 04/15/17 15:00 23:00 07:00 Intake Total 630 ml 300 ml Balance 630 ml 300 ml Exam Constitutional: alert, oriented, well developed Psych: nl mood/affect, no complaints Head: atraumatic, normocephalic Eyes: EOMI, PERRL, nl conjunctiva, nl lids, nl sclera ENMT: nl external ears & nose, nl lips & teeth, nl nasal mucosa & septum Neck: non-tender, supple Respiratory: clear to auscultation, normal air movement Cardiovascular: nl pulses, regular rate and rhythm Gastrointestinal: nl liver, spleen, non-tender, soft Musculoskeletal: nl extremities to inspection, nl gait and stance Extremities: normal pulses 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, nl mental status, nl speech, nl strength Skin: nl turgor, No rash or lesions Lymph: nl lymph nodes Results Result Diagram: 04/15/17 1114 04/15/17 0828 Results 24 hrs Laboratory Tests Test 04/14/17 19:13 04/15/17 08:28 04/15/17 11:14 Troponin I < 0.012 Sodium Level 138 Potassium Level 4.1 Chloride Level 108 Carbon Dioxide Level 27 Anion Gap 7 L Blood Urea Nitrogen 12 Creatinine 3.05 H Glucose Level 133 # Calcium Level 7.9 L White Blood Count 7.6 # Red Blood Count 3.33 L Hemoglobin 9.5 L Hematocrit 30.5 L Mean Corpuscular Volume 91.6 Mean Corpuscular Hemoglobin 28.5 L Mean Corpuscular Hemoglobin Concent 31.1 L Red Cell Distribution Width 18.1 H Platelet Count 176 Mean Platelet Volume 9.5 Neutrophils % 81.0 H Lymphocytes % 9.4 L Monocytes % 8.9 Eosinophils % 0.1 Basophils % 0.3 Nucleated Red Blood Cells % 0.0 Neutrophils # 6.2 Lymphocytes # 0.7 L Monocytes # 0.7 Eosinophils # 0.0 Basophils # 0.0 Nucleated Red Blood Cells # 0.0 Medications Medications Current Medications Hydralazine HCl (Apresoline) 10 mg Q4H PRN IV HTN Last administered on 00:18; Admin Dose 10 MG; Start 04/13/17 at 17:30 Hydromorphone HCl (Dilaudid) 0.5 mg Q4H PRN IV PAIN Last administered on 14:20; Admin Dose 0.5 MG; Start 04/13/17 at 21:30 Ondansetron HCl (Zofran Inj) 4 mg Q4H PRN IV NAUSEA AND/OR VOMITING Last administered on 04/14/17 17:41; Admin Dose 4 MG; Start 04/13/17 at 18:00 Acetaminophen (Tylenol Tab) 650 mg Q6H PRN PO PAIN LEVEL 1-3 OR FEVER; Start 04/13/17 at 18:00 Albuterol (Proventil 0.083% (Neb)) 2.5 mg DAILY PRN NEB WHEEZING AND SOB; Start 04/13/17 at 18:00 Bisacodyl (Dulcolax) 5 mg DAILY PRN PO CONSTIPATION; Start 04/13/17 at 18:00 Calcium Carbonate (Oyster Shell Calcium) 1.25 gm DAILY PO Last administered on 04/15/17 08:55; Admin Dose 1.25 GM; Start 04/14/17 at 09:00 Clonidine (Catapres) 0.1 mg Q8 PO Last administered on 04/15/17 15:59; Admin Dose 0.1 MG; Start 04/13/17 at 22:00 Diphenhydramine HCl (Benadryl) 25 mg DAILY PRN PO ITCHING Last administered on 04/13/17 20:15; Admin Dose 25 MG; Start 04/13/17 at 18:00 Docusate Sodium (Colace) 100 mg Q12H PRN PO CONSTIPATION; Start 04/13/17 at 18: 00 Hydralazine HCl (Apresoline) 25 mg Q8 PO Last administered on 04/15/17 14:20; Admin Dose 25 MG; Start 04/13/17 at 22:00 Hydromorphone HCl (Dilaudid) 2 mg Q6 PRN PO PAIN; Start 04/13/17 at 18:00 Lubiprostone (Amitiza) 24 mcg BID PO Last administered on 04/15/17 08:55; Admin Dose 24 MCG; Start 04/13/17 at 21:00 Magnesium Hydroxide (Milk Of Mag) 30 ml Q24H PRN PO CONSTIPATION; Start at 18:00 Metoclopramide HCl (Reglan) 5 mg Q6H PRN PO NAUSEA AND/OR VOMITING Last administered on 04/13/17 21:29; Admin Dose 5 MG; Start 04/13/17 at 18:00 Mineral Oil (Fleet Mineral Oil Enema) 133 ml DAILY PRN [place] CONSTIPATION; Start 04/13/17 at 18:00 Aspirin (Aspirin) 81 mg DAILY PO Last administered on 04/15/17 08:55; Admin Dose 81 MG; Start 04/14/17 at 09:00 Lisinopril (Zestril) 40 mg DAILY PO Last administered on 04/15/17 09:01; Admin Dose 40 MG; Start 04/13/17 at 19:00 Metoprolol Tartrate (Lopressor) 100 mg BID PO Last administered on 04/15/17 09 :00; Admin Dose 100 MG; Start 04/13/17 at 21:00 Guaifenesin/ Codeine Phosphate (Robitussin Ac Liquid Cup) 5 ml BID PRN PO COUGH Last administered on 04/14/17 01:09; Admin Dose 5 ML; Start 04/14/17 at 01:00 Pantoprazole 40 mg 40 mg BID@06,18 IV Last administered on 10/9/17at 05:10; Admin Dose 40 MG; Start 04/14/17 at 18:00 Ceftriaxone Sodium (Rocephin) 50 ml @ 100 mls/hr Q24H IVPB Last administered on 04/15/17t 16:00; Admin Dose 100 MLS/HR; Start 04/14/17 at 15:00 ARIANA JAY MD Apr 15, 2017 16:46
--- NOTE | 2017-04-15 20:41 | CONS ---
Date/Time of Note Date/Time of Note DATE: 04/15/17 TIME: 20:36 Assessment/Plan Assessment/Plan Chief Complaint/Hosp Course ASSESSMENT AND PLAN: A 56-year-old female with: 1. Atypical chest pain.-with swallowing. Negative trop x 3/NL EF by echo tis admit 2. Acute exacerbation of congestive heart failure. 3. Bilateral pleural effusion. 4. Pneumonia. 5. Hypertension-well controlled 6. Diabetes. 7. Dyslipidemia. 8. End-stage renal disease on hemodialysis. 9. Abnormal electrocardiogram with sinus tachycardia and incomplete right bundle branch block with PVCs. 10. Abd pain Recc: -Tele -continue hydralazine/zestril/metoprolol/clonidine -Continue asa -HD for volume removal -Continue abx's and f/u cx data -pain control -Pnding endoscopy Problems: Consultation Date/Type/Reason Admit Date/Time Apr 13, 2017 at 13:36 Initial Consult Date 04/13/2017 Type of Consultation: cardiology Reason for Consultation chest pain Referring Provider: SHAN ARRINGTON Exam/Review of Systems Vital Signs Vitals Vital Signs Date Time Temp Pulse Resp B/P Pulse Ox O2 Delivery O2 Flow Rate FiO2 04/15/17 20:03 71 04/15/17 19:46 98.2 19 134/76 100 04/15/17 08:00 Nasal Cannula 2.0 Intake and Output 04/14/17 04/14/17 04/15/17 15:00 23:00 07:00 Intake Total 630 ml 300 ml Balance 630 ml 300 ml Exam Review of Systems: CONSTITUTIONAL: No fevers, chills. PULMONARY: No sob CARDIOVASCULAR: C/O chest pain with swallowing GASTROINTESTINAL: c/o abd pain GENITOURINARY: No hematuria/dysuria. MUSCULOSKELETAL: No myagias/arthalgias. PSYCHIATRIC: The patient denies depression. NEUROLOGIC: No weakness Constitutional: alert Psych: no complaints Head: normocephalic ENMT: mucosa pink and moist Neck: jvd (8-9 cm water), supple Respiratory: clear to auscultation Cardiovascular: regular rate and rhythm Gastrointestinal: non-tender (generalized), soft Musculoskeletal: muscle weakness (generalized) Extremities: edema (none) Neurological: other (No focal deficits) Results Result Diagram: 04/15/17 1114 04/15/17 0828 Results 24 hrs Laboratory Tests Test 04/15/17 08:28 04/15/17 11:14 Sodium Level 138 Potassium Level 4.1 Chloride Level 108 Carbon Dioxide Level 27 Anion Gap 7 L Blood Urea Nitrogen 12 Creatinine 3.05 H Glucose Level 133 # Calcium Level 7.9 L White Blood Count 7.6 # Red Blood Count 3.33 L Hemoglobin 9.5 L Hematocrit 30.5 L Mean Corpuscular Volume 91.6 Mean Corpuscular Hemoglobin 28.5 L Mean Corpuscular Hemoglobin Concent 31.1 L Red Cell Distribution Width 18.1 H Platelet Count 176 Mean Platelet Volume 9.5 Neutrophils % 81.0 H Lymphocytes % 9.4 L Monocytes % 8.9 Eosinophils % 0.1 Basophils % 0.3 Nucleated Red Blood Cells % 0.0 Neutrophils # 6.2 Lymphocytes # 0.7 L Monocytes # 0.7 Eosinophils # 0.0 Basophils # 0.0 Nucleated Red Blood Cells # 0.0 Medications Medications Current Medications Hydralazine HCl (Apresoline) 10 mg Q4H PRN IV HTN Last administered on 00:18; Admin Dose 10 MG; Start 04/13/17 at 17:30 Hydromorphone HCl (Dilaudid) 0.5 mg Q4H PRN IV PAIN Last administered on 20:22; Admin Dose 0.5 MG; Start 04/13/17 at 21:30 Ondansetron HCl (Zofran Inj) 4 mg Q4H PRN IV NAUSEA AND/OR VOMITING Last administered on 04/14/17 17:41; Admin Dose 4 MG; Start 04/13/17 at 18:00 Acetaminophen (Tylenol Tab) 650 mg Q6H PRN PO PAIN LEVEL 1-3 OR FEVER; Start 04/13/17 at 18:00 Albuterol (Proventil 0.083% (Neb)) 2.5 mg DAILY PRN NEB WHEEZING AND SOB; Start 04/13/17 at 18:00 Bisacodyl (Dulcolax) 5 mg DAILY PRN PO CONSTIPATION; Start 04/13/17 at 18:00 Calcium Carbonate (Oyster Shell Calcium) 1.25 gm DAILY PO Last administered on 04/15/17 08:55; Admin Dose 1.25 GM; Start 04/14/17 at 09:00 Clonidine (Catapres) 0.1 mg Q8 PO Last administered on 04/15/17 20:21; Admin Dose 0.1 MG; Start 04/13/17 at 22:00 Diphenhydramine HCl (Benadryl) 25 mg DAILY PRN PO ITCHING Last administered on 04/13/17 20:15; Admin Dose 25 MG; Start 04/13/17 at 18:00 Docusate Sodium (Colace) 100 mg Q12H PRN PO CONSTIPATION; Start 04/13/17 at 18: 00 Hydralazine HCl (Apresoline) 25 mg Q8 PO Last administered on 04/15/17 20:21; Admin Dose 25 MG; Start 04/13/17 at 22:00 Hydromorphone HCl (Dilaudid) 2 mg Q6 PRN PO PAIN; Start 04/13/17 at 18:00 Lubiprostone (Amitiza) 24 mcg BID PO Last administered on 04/15/17 20:21; Admin Dose 24 MCG; Start 04/13/17 at 21:00 Magnesium Hydroxide (Milk Of Mag) 30 ml Q24H PRN PO CONSTIPATION; Start at 18:00 Metoclopramide HCl (Reglan) 5 mg Q6H PRN PO NAUSEA AND/OR VOMITING Last administered on 04/13/17 21:29; Admin Dose 5 MG; Start 04/13/17 at 18:00 Mineral Oil (Fleet Mineral Oil Enema) 133 ml DAILY PRN [place] CONSTIPATION; Start 04/13/17 at 18:00 Aspirin (Aspirin) 81 mg DAILY PO Last administered on 04/15/17 08:55; Admin Dose 81 MG; Start 04/14/17 at 09:00 Lisinopril (Zestril) 40 mg DAILY PO Last administered on 04/15/17 09:01; Admin Dose 40 MG; Start 04/13/17 at 19:00 Metoprolol Tartrate (Lopressor) 100 mg BID PO Last administered on 04/15/17 20 :22; Admin Dose 100 MG; Start 04/13/17 at 21:00 Guaifenesin/ Codeine Phosphate (Robitussin Ac Liquid Cup) 5 ml BID PRN PO COUGH Last administered on 04/14/17 01:09; Admin Dose 5 ML; Start 04/14/17 at 01:00 Pantoprazole 40 mg 40 mg BID@06,18 IV Last administered on 04/15/17 17:54; Admin Dose 40 MG; Start 04/14/17 at 18:00 Ceftriaxone Sodium (Rocephin) 50 ml @ 100 mls/hr Q24H IVPB Last administered on 04/15/17 16:00; Admin Dose 100 MLS/HR; Start 04/14/17 at 15:00 HUA SANTIAGO Apr 15, 2017 20:41
--- NOTE | 2017-04-15 20:48 | PN ---
Date/Time of Note Date/Time of Note DATE: 04/15/17 TIME: 20:47 Assessment/Plan VTE Prophylaxis VTE Prophylaxis Intervention: other Lines/Catheters IV Catheter Type (from Nrsg): Permacath Urinary Cath still in place: No Assessment/Plan Chief Complaint/Hosp Course ESRD HTN ABD PAIN PLEURAL EFFUSION PUL EDEMA PLAN PER GI HD Problems: Subjective 24 Hr Interval Summary Cardiovascular: no complaints Gastrointestinal: pain (+) Exam/Review of Systems Vital Signs Vitals Vital Signs Date Time Temp Pulse Resp B/P Pulse Ox O2 Delivery O2 Flow Rate FiO2 04/15/17 20:03 71 04/15/17 19:46 98.2 19 134/76 100 04/15/17 08:00 Nasal Cannula 2.0 Intake and Output 04/14/17 04/14/17 04/15/17 15:00 23:00 07:00 Intake Total 630 ml 300 ml Balance 630 ml 300 ml Exam Neck: supple Respiratory: diminished breath sounds Cardiovascular: regular rate and rhythm Gastrointestinal: bowel sounds (+), nl liver, spleen, non-tender, soft Extremities: No edema Results Result Diagram: 04/15/17 1114 04/15/17 0828 Results 24 hrs Laboratory Tests Test 04/15/17 08:28 04/15/17 11:14 Sodium Level 138 Potassium Level 4.1 Chloride Level 108 Carbon Dioxide Level 27 Anion Gap 7 L Blood Urea Nitrogen 12 Creatinine 3.05 H Glucose Level 133 # Calcium Level 7.9 L White Blood Count 7.6 # Red Blood Count 3.33 L Hemoglobin 9.5 L Hematocrit 30.5 L Mean Corpuscular Volume 91.6 Mean Corpuscular Hemoglobin 28.5 L Mean Corpuscular Hemoglobin Concent 31.1 L Red Cell Distribution Width 18.1 H Platelet Count 176 Mean Platelet Volume 9.5 Neutrophils % 81.0 H Lymphocytes % 9.4 L Monocytes % 8.9 Eosinophils % 0.1 Basophils % 0.3 Nucleated Red Blood Cells % 0.0 Neutrophils # 6.2 Lymphocytes # 0.7 L Monocytes # 0.7 Eosinophils # 0.0 Basophils # 0.0 Nucleated Red Blood Cells # 0.0 Medications Medications Current Medications Hydralazine HCl (Apresoline) 10 mg Q4H PRN IV HTN Last administered on t 00:18; Admin Dose 10 MG; Start 04/13/17 at 17:30 Hydromorphone HCl (Dilaudid) 0.5 mg Q4H PRN IV PAIN Last administered on 20:22; Admin Dose 0.5 MG; Start 04/13/17 at 21:30 Ondansetron HCl (Zofran Inj) 4 mg Q4H PRN IV NAUSEA AND/OR VOMITING Last administered on 04/14/17 17:41; Admin Dose 4 MG; Start 04/13/17 at 18:00 Acetaminophen (Tylenol Tab) 650 mg Q6H PRN PO PAIN LEVEL 1-3 OR FEVER; Start 04/13/17 at 18:00 Albuterol (Proventil 0.083% (Neb)) 2.5 mg DAILY PRN NEB WHEEZING AND SOB; Start 04/13/17 at 18:00 Bisacodyl (Dulcolax) 5 mg DAILY PRN PO CONSTIPATION; Start 04/13/17 at 18:00 Calcium Carbonate (Oyster Shell Calcium) 1.25 gm DAILY PO Last administered on 04/15/17 08:55; Admin Dose 1.25 GM; Start 04/14/17 at 09:00 Clonidine (Catapres) 0.1 mg Q8 PO Last administered on 04/15/17 20:21; Admin Dose 0.1 MG; Start 04/13/17 at 22:00 Diphenhydramine HCl (Benadryl) 25 mg DAILY PRN PO ITCHING Last administered on 04/13/17 20:15; Admin Dose 25 MG; Start 04/13/17 at 18:00 Docusate Sodium (Colace) 100 mg Q12H PRN PO CONSTIPATION; Start 04/13/17 at 18: 00 Hydralazine HCl (Apresoline) 25 mg Q8 PO Last administered on 04/15/17 20:21; Admin Dose 25 MG; Start 04/13/17 at 22:00 Hydromorphone HCl (Dilaudid) 2 mg Q6 PRN PO PAIN; Start 04/13/17 at 18:00 Lubiprostone (Amitiza) 24 mcg BID PO Last administered on 04/15/17 20:21; Admin Dose 24 MCG; Start 04/13/17 at 21:00 Magnesium Hydroxide (Milk Of Mag) 30 ml Q24H PRN PO CONSTIPATION; Start at 18:00 Metoclopramide HCl (Reglan) 5 mg Q6H PRN PO NAUSEA AND/OR VOMITING Last administered on 04/13/17 21:29; Admin Dose 5 MG; Start 04/13/17 at 18:00 Mineral Oil (Fleet Mineral Oil Enema) 133 ml DAILY PRN [place] CONSTIPATION; Start 04/13/17 at 18:00 Aspirin (Aspirin) 81 mg DAILY PO Last administered on 04/15/17 08:55; Admin Dose 81 MG; Start 04/14/17 at 09:00 Lisinopril (Zestril) 40 mg DAILY PO Last administered on 04/15/17 09:01; Admin Dose 40 MG; Start 04/13/17 at 19:00 Metoprolol Tartrate (Lopressor) 100 mg BID PO Last administered on 04/15/17 20 :22; Admin Dose 100 MG; Start 04/13/17 at 21:00 Guaifenesin/ Codeine Phosphate (Robitussin Ac Liquid Cup) 5 ml BID PRN PO COUGH Last administered on 04/14/17 01:09; Admin Dose 5 ML; Start 04/14/17 at 01:00 Pantoprazole 40 mg 40 mg BID@06,18 IV Last administered on 04/15/17 17:54; Admin Dose 40 MG; Start 04/14/17 at 18:00 Ceftriaxone Sodium (Rocephin) 50 ml @ 100 mls/hr Q24H IVPB Last administered on 04/15/17 16:00; Admin Dose 100 MLS/HR; Start 04/14/17 at 15:00 SHAN ARRINGTON MD Apr 15, 2017 20:48
[2017-04-16] VITALS (29 sets, daily range): BP systolic 100–126; BP diastolic 53–82; PULSE 62–171; RESP 12–24
[2017-04-16] MEDS: HYDROmorphONE 1 MG/ML SYG IV PRN ×4 (01:02→17:37)
[2017-04-16] MEDS: PANTOPRAZOLE 40 MG INJ IV SCH ×2 (06:06→17:38)
[2017-04-16] MEDS: SUCRALFATE 1 GM TAB PO SCH ×3 (07:30→17:38)
[2017-04-16] MEDS ORDERED: PROPOFOL 40 ML ONE (09:34)
[2017-04-16] MEDS ORDERED: LIDOCAINE 100 MG SYRINGE ONE (09:34)
[2017-04-16] MEDS ORDERED: FENTAnyl 50 MCG/ML VIAL ONE (09:35)
--- NOTE | 2017-04-16 09:51 | OPPN ---
Date/Time of Note Date/Time of Note DATE: 04/16/17 TIME: 09:49 Proc Note GI Procedure Date 04/16/17 Pre-procedure Diagnosis Sick pain nausea vomiting anemia and weight loss Post-procedure Diagnosis Extensive esophageal ulceration Gastroparesis Procedure Performed: Endoscopy Surgeon see signature line Hot Dip Plating Supervisor none Anesthesia Type: MAC Tourniquet Time none EBL none Transfusion required none Biopsy 1: 2 duodenal biopsy, 3 gastric biopsy Grafts/Implants none Tubes/Drains none Complication(s) none Pt Condition post procedure: stable Disposition: PACU Indications: persistent vomiting Operative\Procedure Findings EGD with a biopsy Procedure Description See dictated report ARIANA JAY MD Apr 16, 2017 09:51
--- NOTE | 2017-04-16 10:25 | CONS ---
Date/Time of Note Date/Time of Note DATE: 04/16/17 TIME: 10:24 Assessment/Plan Assessment/Plan Additional Assessment/Plan In GI lab, will follow post procedure Consultation Date/Type/Reason Admit Date/Time Apr 13, 2017 at 13:36 Initial Consult Date Type of Consultation: cardiology Referring Provider: SHAN ARRINGTON MD Exam/Review of Systems Vital Signs Vitals Vital Signs Date Time Temp Pulse Resp B/P Pulse Ox O2 Delivery O2 Flow Rate FiO2 04/16/17 10: 66 12 119/70 99 Room Air 04/16/17 10:05 98.0 2.0 Intake and Output 04/15/17 04/15/17 04/16/17 15:00 23:00 07:00 Intake Total 950 ml 300 ml Balance 950 ml 300 ml Results Result Diagram: 04/15/17 1114 04/15/17 0828 Results 24 hrs Laboratory Tests Test 04/15/17 11:14 White Blood Count 7.6 # Red Blood Count 3.33 L Hemoglobin 9.5 L Hematocrit 30.5 L Mean Corpuscular Volume 91.6 Mean Corpuscular Hemoglobin 28.5 L Mean Corpuscular Hemoglobin Concent 31.1 L Red Cell Distribution Width 18.1 H Platelet Count 176 Mean Platelet Volume 9.5 Neutrophils % 81.0 H Lymphocytes % 9.4 L Monocytes % 8.9 Eosinophils % 0.1 Basophils % 0.3 Nucleated Red Blood Cells % 0.0 Neutrophils # 6.2 Lymphocytes # 0.7 L Monocytes # 0.7 Eosinophils # 0.0 Basophils # 0.0 Nucleated Red Blood Cells # 0.0 Medications Medications Current Medications Hydralazine HCl (Apresoline) 10 mg Q4H PRN IV HTN Last administered on 00:18; Admin Dose 10 MG; Start 04/13/17 at 17:30 Hydromorphone HCl (Dilaudid) 0.5 mg Q4H PRN IV PAIN Last administered on 08:25; Admin Dose 0.5 MG; Start 04/13/17 at 21:30 Ondansetron HCl (Zofran Inj) 4 mg Q4H PRN IV NAUSEA AND/OR VOMITING Last administered on 04/14/17 17:41; Admin Dose 4 MG; Start 04/13/17 at 18:00 Acetaminophen (Tylenol Tab) 650 mg Q6H PRN PO PAIN LEVEL 1-3 OR FEVER; Start 04/13/17 at 18:00 Albuterol (Proventil 0.083% (Neb)) 2.5 mg DAILY PRN NEB WHEEZING AND SOB; Start 04/13/17 at 18:00 Bisacodyl (Dulcolax) 5 mg DAILY PRN PO CONSTIPATION; Start 04/13/17 at 18:00 Calcium Carbonate (Oyster Shell Calcium) 1.25 gm DAILY PO Last administered on 04/15/17 08:55; Admin Dose 1.25 GM; Start 04/14/17 at 09:00 Clonidine (Catapres) 0.1 mg Q8 PO Last administered on 04/16/17 06:07; Admin Dose 0.1 MG; Start 04/13/17 at 22:00 Diphenhydramine HCl (Benadryl) 25 mg DAILY PRN PO ITCHING Last administered on 04/13/17 20:15; Admin Dose 25 MG; Start 04/13/17 at 18:00 Docusate Sodium (Colace) 100 mg Q12H PRN PO CONSTIPATION; Start 04/13/17 at 18: 00 Hydralazine HCl (Apresoline) 25 mg Q8 PO Last administered on 04/16/17 06:07 ; Admin Dose 25 MG; Start 04/13/17 at 22:00 Hydromorphone HCl (Dilaudid) 2 mg Q6 PRN PO PAIN; Start 04/13/17 at 18:00 Lubiprostone (Amitiza) 24 mcg BID PO Last administered on 04/15/17 20:21; Admin Dose 24 MCG; Start 04/13/17 at 21:00 Magnesium Hydroxide (Milk Of Mag) 30 ml Q24H PRN PO CONSTIPATION; Start at 18:00 Metoclopramide HCl (Reglan) 5 mg Q6H PRN PO NAUSEA AND/OR VOMITING Last administered on 04/13/17 21:29; Admin Dose 5 MG; Start 04/13/17 at 18:00 Mineral Oil (Fleet Mineral Oil Enema) 133 ml DAILY PRN [place] CONSTIPATION; Start 04/13/17 at 18:00 Aspirin (Aspirin) 81 mg DAILY PO Last administered on 04/15/17 08:55; Admin Dose 81 MG; Start 04/14/17 at 09:00 Lisinopril (Zestril) 40 mg DAILY PO Last administered on 04/15/17 09:01; Admin Dose 40 MG; Start 04/13/17 at 19:00 Metoprolol Tartrate (Lopressor) 100 mg BID PO Last administered on 04/15/17 20 :22; Admin Dose 100 MG; Start 04/13/17 at 21:00 Guaifenesin/ Codeine Phosphate (Robitussin Ac Liquid Cup) 5 ml BID PRN PO COUGH Last administered on 04/14/17 01:09; Admin Dose 5 ML; Start 04/14/17 at 01:00 Pantoprazole 40 mg 40 mg BID@06,18 IV Last administered on 04/16/17 06:06; Admin Dose 40 MG; Start 04/14/17 at 18:00 Ceftriaxone Sodium (Rocephin) 50 ml @ 100 mls/hr Q24H IVPB Last administered on 04/15/17 16:00; Admin Dose 100 MLS/HR; Start 04/14/17 at 15:00 Metoclopramide HCl (Reglan) 5 mg Q6 IV ; Start 04/16/17 at 12:00 ISELA HORN MD Apr 16, 2017 10:25
[2017-04-16] MEDS ORDERED: OXYCODONE/ACETAMINOPHEN (5/325) 1 TAB PO PRN (11:00)
[2017-04-16] MEDS ORDERED: FENTAnyl 25 MCG IV PRN (11:00)
[2017-04-16] MEDS: METOCLOPRAMIDE 10 MG INJ IV SCH ×3 (11:24→23:47)
[2017-04-16] MEDS: ASPIRIN 81 MG TAB PO SCH (11:25)
[2017-04-16] MEDS: METOPROLOL 100 MG TAB PO SCH ×2 (11:26→21:00)
[2017-04-16] MEDS: LUBIPROSTONE 24 MCG CAP PO SCH ×2 (11:26→21:00)
[2017-04-16] MEDS: LISINOPRIL 20 MG TAB PO SCH (11:27)
[2017-04-16] MEDS: CALCIUM CARBONATE 1.25 GM TAB PO SCH (11:27)
[2017-04-16] MEDS: DIPHENHYDRAMINE 25 MG CAP PO PRN (12:48)
[2017-04-16] MEDS: CEFTRIAXONE 1 GM/50 ML (PMX) 50 ML IVPB SCH (15:40)
[2017-04-16] MEDS: METOCLOPRAMIDE 5 MG TAB PO PRN (17:38)
--- NOTE | 2017-04-16 18:34 | PN ---
Date/Time of Note Date/Time of Note DATE: 04/16/17 TIME: 18:34 Assessment/Plan VTE Prophylaxis VTE Prophylaxis Intervention: other Lines/Catheters IV Catheter Type (from Nrsg): Saline Lock Urinary Cath still in place: No Assessment/Plan Chief Complaint/Hosp Course ESRD HTN ABD PAIN PLEURAL EFFUSION S/P THORACENTESIS S/P EGD PUD PUL EDEMA PLAN PER GI HD Problems: Subjective 24 Hr Interval Summary Subjective hx not possible: other (S/P EGD PUD) Exam/Review of Systems Vital Signs Vitals Vital Signs Date Time Temp Pulse Resp B/P Pulse Ox O2 Delivery O2 Flow Rate FiO2 04/16/17 16:15 98 2.0 04/16/17 16:11 73 04/16/17 15:41 98.0 18 109/63 04/16/17 11:34 Room Air Intake and Output 04/15/17 04/15/17 04/16/17 15:00 23:00 07:00 Intake Total 950 ml 300 ml Balance 950 ml 300 ml Exam Neck: supple Respiratory: clear to auscultation Cardiovascular: regular rate and rhythm Gastrointestinal: soft Musculoskeletal: nl extremities to inspection Extremities: normal pulses Results Result Diagram: 04/15/17 1114 04/15/17 0828 Medications Medications Current Medications Hydralazine HCl (Apresoline) 10 mg Q4H PRN IV HTN Last administered on 00:18; Admin Dose 10 MG; Start 04/13/17 at 17:30 Hydromorphone HCl (Dilaudid) 0.5 mg Q4H PRN IV PAIN Last administered on 17:37; Admin Dose 0.5 MG; Start 04/13/17 at 21:30 Ondansetron HCl (Zofran Inj) 4 mg Q4H PRN IV NAUSEA AND/OR VOMITING Last administered on 04/14/17 17:41; Admin Dose 4 MG; Start 04/13/17 at 18:00 Acetaminophen (Tylenol Tab) 650 mg Q6H PRN PO PAIN LEVEL 1-3 OR FEVER; Start 04/13/17 at 18:00 Albuterol (Proventil 0.083% (Neb)) 2.5 mg DAILY PRN NEB WHEEZING AND SOB; Start 04/13/17 at 18:00 Bisacodyl (Dulcolax) 5 mg DAILY PRN PO CONSTIPATION; Start 04/13/17 at 18:00 Calcium Carbonate (Oyster Shell Calcium) 1.25 gm DAILY PO Last administered on 04/16/17 11:27; Admin Dose 1.25 GM; Start 04/14/17 at 09:00 Clonidine (Catapres) 0.1 mg Q8 PO Last administered on 04/16/17 06:07; Admin Dose 0.1 MG; Start 04/13/17 at 22:00 Diphenhydramine HCl (Benadryl) 25 mg DAILY PRN PO ITCHING Last administered on 04/16/17 12:48; Admin Dose 25 MG; Start 04/13/17 at 18:00 Docusate Sodium (Colace) 100 mg Q12H PRN PO CONSTIPATION; Start 04/13/17 at 18: 00 Hydralazine HCl (Apresoline) 25 mg Q8 PO Last administered on 04/16/17 06:07 ; Admin Dose 25 MG; Start 04/13/17 at 22:00 Hydromorphone HCl (Dilaudid) 2 mg Q6 PRN PO PAIN; Start 04/13/17 at 18:00 Lubiprostone (Amitiza) 24 mcg BID PO Last administered on 04/16/17 11:26; Admin Dose 24 MCG; Start 04/13/17 at 21:00 Magnesium Hydroxide (Milk Of Mag) 30 ml Q24H PRN PO CONSTIPATION; Start at 18:00 Metoclopramide HCl (Reglan) 5 mg Q6H PRN PO NAUSEA AND/OR VOMITING Last administered on 04/16/17 17:38; Admin Dose 5 MG; Start 04/13/17 at 18:00 Mineral Oil (Fleet Mineral Oil Enema) 133 ml DAILY PRN [place] CONSTIPATION; Start 04/13/17 at 18:00 Aspirin (Aspirin) 81 mg DAILY PO Last administered on 04/16/17 11:25; Admin Dose 81 MG; Start 04/14/17 at 09:00 Lisinopril (Zestril) 40 mg DAILY PO Last administered on 04/16/17 11:27; Admin Dose 40 MG; Start 04/13/17 at 19:00 Metoprolol Tartrate (Lopressor) 100 mg BID PO Last administered on 04/16/17 11:26; Admin Dose 100 MG; Start 04/13/17 at 21:00 Guaifenesin/ Codeine Phosphate (Robitussin Ac Liquid Cup) 5 ml BID PRN PO COUGH Last administered on 04/14/17 01:09; Admin Dose 5 ML; Start 04/14/17 at 01:00 Pantoprazole 40 mg 40 mg BID@06,18 IV Last administered on 04/16/17 17:38; Admin Dose 40 MG; Start 04/14/17 at 18:00 Ceftriaxone Sodium (Rocephin) 50 ml @ 100 mls/hr Q24H IVPB Last administered on 04/16/17 15:40; Admin Dose 100 MLS/HR; Start 04/14/17 at 15:00 Metoclopramide HCl (Reglan) 5 mg Q6 IV Last administered on 04/16/17 17:38; Admin Dose 5 MG; Start 04/16/17 at 12:00 SHAN ARRINGTON MD Apr 16, 2017 18:34
[2017-04-16 23:25] LABS: CALCIUM 8.1 mg/dl (8.4-10.2); CREATININE 3.17 mg/dl (0.44-1.00); MAGNESIUM 2.2 mg/dl (1.7-2.5); POTASSIUM 3.1 mmol/L (3.5-5.1)
[2017-04-17] VITALS (15 sets, daily range): BP systolic 83–128; BP diastolic 44–78; PULSE 72–78; RESP 18–20
[2017-04-17] MEDS ORDERED: POTASSIUM CHLORIDE 50 ML IVPB ONE
--- NOTE | 2017-04-17 04:47 | GILP ---
DATE OF PROCEDURE: PROCEDURE: EGD with biopsy. INDICATION: A 56-year-old female on dialysis complains of epigastric pain, nausea, vomiting and sig nificant weight loss. The patient is also anemic. The purpose of this procedure is to evaluate the upper GI tract and find out the cause of her symptoms. The risk of the procedure, related and unre lated complications, anesthetic risks, alternatives discussed and informed consent was obtained. DESCRIPTION OF PROCEDURE: The patient was brought to the GI lab, sedated by after obtaini ng sedation, scope was passed with much ease into esophagus which showed extensive esophageal ulcera tion involving the entire length of the distal third and mid portion of the esophagus. Stomach muco sa revealed chronic gastritis. The patient also had gastroparesis. Duodenum, first and second part showed flattening of the villi. Biopsies obtained from the bulb to rule out celiac disease. Scope was retroverted in the stomach. Undigested food particle was identified in the fundal area. Scope was straightened out and removed with good patient tolerance. IMPRESSION 1. Extensive circumferential esophageal ulceration involving the distal and the mid portion of the esophagus, [place] class D. 2. Gastroparesis. 3. Chronic gastritis. 4. Rule out celiac disease. 5. Ampulla was normal. PLAN: At this point is to review the histopathology, continue Protonix 40 mg b.i.d. We will add Re glan to the present regimen. Dictated By: ARIANA FULLER/NTS Conf#: [id number] DID#: [id number] CC: MARGA MARIE MD;*EndCC*
[2017-04-17] MEDS: METOCLOPRAMIDE 10 MG INJ IV SCH ×3 (06:17→17:52)
[2017-04-17] MEDS: PANTOPRAZOLE 40 MG INJ IV SCH ×2 (06:17→17:51)
[2017-04-17] MEDS: SUCRALFATE 1 GM TAB PO SCH ×3 (08:19→17:52)
[2017-04-17] MEDS: CALCIUM CARBONATE 1.25 GM TAB PO SCH (08:21)
[2017-04-17] MEDS: ASPIRIN 81 MG TAB PO SCH (08:21)
[2017-04-17] MEDS: LUBIPROSTONE 24 MCG CAP PO SCH ×2 (08:21→21:39)
[2017-04-17] MEDS: LISINOPRIL 20 MG TAB PO SCH (08:23)
[2017-04-17] MEDS: METOPROLOL 100 MG TAB PO SCH ×2 (08:24→21:40)
[2017-04-17] MEDS: HYDROmorphONE 1 MG/ML SYG IV PRN ×3 (12:25→21:45)
[2017-04-17] MEDS ORDERED: POTASSIUM CHLORIDE 20 MEQ in SOD CHLORIDE 0.9% 100 ML IVPB ONE (13:00)
[2017-04-17] MEDS: CEFTRIAXONE 1 GM/50 ML (PMX) 50 ML IVPB SCH (14:16)
--- NOTE | 2017-04-17 17:39 | CONS ---
Date/Time of Note Date/Time of Note DATE: 04/17/17 TIME: 17:38 Assessment/Plan Assessment/Plan Additional Assessment/Plan IMPRESSION: 1. Epigastric pain associated with nausea. 2. Atypical chest pain. 3. End-stage renal disease, on dialysis. 4. Pleural effusion, status post thoracocentesis. 5. Ascites. 6. Anasarca. 7. Anemia. 8. Hypoalbuminemia 9. Extensive esophageal ulceration Plan Continue double dose of PPI for a few weeks Carafate suspension Reglan on a needed basis Consultation Date/Type/Reason Admit Date/Time Apr 13, 2017 at 13:36 Type of Consultation: cardiology Referring Provider: SHAN ARRINGTON MD 24 HR Interval Summary Constitutional: improved Exam/Review of Systems Vital Signs Vitals Vital Signs Date Time Temp Pulse Resp B/P Pulse Ox O2 Delivery O2 Flow Rate FiO2 04/17/17 16:10 73 04/17/17 15:57 97.9 20 128/78 97 04/17/17 09:00 Nasal Cannula 04/16/17 20:00 2.0 Intake and Output 04/16/17 04/16/17 04/17/17 15:00 23:00 07:00 Intake Total 500 ml 950 ml 300 ml Output Total 3000 ml 0 ml Balance -2500 ml 950 ml 300 ml Exam Constitutional: alert, oriented, well developed Psych: nl mood/affect, no complaints Head: atraumatic, normocephalic Eyes: EOMI, PERRL, nl conjunctiva, nl lids, nl sclera ENMT: nl external ears & nose, nl lips & teeth, nl nasal mucosa & septum Neck: non-tender, supple Respiratory: clear to auscultation, normal air movement Cardiovascular: nl pulses, regular rate and rhythm Gastrointestinal: nl liver, spleen, non-tender, soft Musculoskeletal: nl extremities to inspection, nl gait and stance Extremities: normal pulses 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, nl mental status, nl speech, nl strength Skin: nl turgor, No rash or lesions Lymph: nl lymph nodes Results Result Diagram: 04/15/17 1114 04/16/17 0547 Results 24 hrs Laboratory Tests Test 04/16/17 22:39 Sodium Level 134 L Potassium Level 3.1 L Chloride Level 103 Carbon Dioxide Level 28 Anion Gap 6 L Blood Urea Nitrogen 13 Creatinine 3.17 H Glucose Level 200 Calcium Level 8.1 L Magnesium Level 2.2 Medications Medications Current Medications Hydralazine HCl (Apresoline) 10 mg Q4H PRN IV HTN Last administered on 00:18; Admin Dose 10 MG; Start 04/13/17 at 17:30 Hydromorphone HCl (Dilaudid) 0.5 mg Q4H PRN IV PAIN Last administered on 12:25; Admin Dose 0.5 MG; Start 04/13/17 at 21:30 Ondansetron HCl (Zofran Inj) 4 mg Q4H PRN IV NAUSEA AND/OR VOMITING Last administered on 04/14/17 17:41; Admin Dose 4 MG; Start 04/13/17 at 18:00 Acetaminophen (Tylenol Tab) 650 mg Q6H PRN PO PAIN LEVEL 1-3 OR FEVER; Start 04/13/17 at 18:00 Albuterol (Proventil 0.083% (Neb)) 2.5 mg DAILY PRN NEB WHEEZING AND SOB; Start 04/13/17 at 18:00 Bisacodyl (Dulcolax) 5 mg DAILY PRN PO CONSTIPATION; Start 04/13/17 at 18:00 Calcium Carbonate (Oyster Shell Calcium) 1.25 gm DAILY PO Last administered on 04/17/17 08:21; Admin Dose 1.25 GM; Start 04/14/17 at 09:00 Clonidine (Catapres) 0.1 mg Q8 PO Last administered on 04/17/17 14:16; Admin Dose 0.1 MG; Start 04/13/17 at 22:00 Diphenhydramine HCl (Benadryl) 25 mg DAILY PRN PO ITCHING Last administered on 04/16/17 12:48; Admin Dose 25 MG; Start 04/13/17 at 18:00 Docusate Sodium (Colace) 100 mg Q12H PRN PO CONSTIPATION; Start 04/13/17 at 18: 00 Hydralazine HCl (Apresoline) 25 mg Q8 PO Last administered on 04/17/17 14:17 ; Admin Dose 25 MG; Start 04/13/17 at 22:00 Hydromorphone HCl (Dilaudid) 2 mg Q6 PRN PO PAIN; Start 04/13/17 at 18:00 Lubiprostone (Amitiza) 24 mcg BID PO Last administered on 04/17/17 08:21; Admin Dose 24 MCG; Start 04/13/17 at 21:00 Magnesium Hydroxide (Milk Of Mag) 30 ml Q24H PRN PO CONSTIPATION; Start at 18:00 Metoclopramide HCl (Reglan) 5 mg Q6H PRN PO NAUSEA AND/OR VOMITING Last administered on 04/16/17 17:38; Admin Dose 5 MG; Start 04/13/17 at 18:00 Mineral Oil (Fleet Mineral Oil Enema) 133 ml DAILY PRN [place] CONSTIPATION; Start 04/13/17 at 18:00 Aspirin (Aspirin) 81 mg DAILY PO Last administered on 04/17/17 08:21; Admin Dose 81 MG; Start 04/14/17 at 09:00 Lisinopril (Zestril) 40 mg DAILY PO Last administered on 04/17/17 08:23; Admin Dose 40 MG; Start 04/13/17 at 19:00 Metoprolol Tartrate (Lopressor) 100 mg BID PO Last administered on 04/17/17 08:24; Admin Dose 100 MG; Start 04/13/17 at 21:00 Guaifenesin/ Codeine Phosphate (Robitussin Ac Liquid Cup) 5 ml BID PRN PO COUGH Last administered on 04/14/17 01:09; Admin Dose 5 ML; Start 04/14/17 at 01:00 Pantoprazole 40 mg 40 mg BID@06,18 IV Last administered on 04/17/17 06:17; Admin Dose 40 MG; Start 04/14/17 at 18:00 Ceftriaxone Sodium (Rocephin) 50 ml @ 100 mls/hr Q24H IVPB Last administered on 04/17/17 14:16; Admin Dose 100 MLS/HR; Start 04/14/17 at 15:00 Metoclopramide HCl (Reglan) 5 mg Q6 IV Last administered on 04/17/17 12:24; Admin Dose 5 MG; Start 04/16/17 at 12:00 Tramadol HCl (Ultram) 50 mg Q6H PRN PO PAIN; Start 04/16/17 at 22:30 ARIANA JAY MD Apr 17, 2017 17:39
--- NOTE | 2017-04-17 18:38 | CONS ---
Date/Time of Note Date/Time of Note DATE: 04/17/17 TIME: 18:36 Assessment/Plan Assessment/Plan Chief Complaint/Hosp Course ASSESSMENT AND PLAN: A 56-year-old female with: 1. Atypical chest pain.-with swallowing. Negative trop x 3/NL EF by echo tis admit 2. Acute exacerbation of congestive heart failure. 3. Bilateral pleural effusion. 4. Pneumonia. 5. Hypertension-well controlled 6. Diabetes. 7. Dyslipidemia. 8. End-stage renal disease on hemodialysis. 9. Abnormal electrocardiogram with sinus tachycardia and incomplete right bundle branch block with PVCs. 10. Abd pain- now s/p endoscopy revealinhg esophgeal ulceration Recc: -Tele -continue hydralazine/zestril/metoprolol/clonidine -Hold asa given esophageal ulcer -HD for volume removal -Continue abx's and f/u cx data -pain control -Continue PPI Problems: Consultation Date/Type/Reason Admit Date/Time Apr 13, 2017 at 13:36 Initial Consult Date 04/13/2017 Type of Consultation: cardiology Reason for Consultation chest pain Referring Provider: SHAN ARRINGTON MD Exam/Review of Systems Vital Signs Vitals Vital Signs Date Time Temp Pulse Resp B/P Pulse Ox O2 Delivery O2 Flow Rate FiO2 04/17/17 16:10 73 04/17/17 15:57 97.9 20 128/78 97 04/17/17 09:00 Nasal Cannula 04/16/17 20:00 2.0 Intake and Output 04/16/17 04/16/17 04/17/17 14:59 22:59 06:59 Intake Total 500 ml 950 ml 300 ml Output Total 3000 ml 0 ml Balance -2500 ml 950 ml 300 ml Exam Review of Systems: CONSTITUTIONAL: No fevers, chills. PULMONARY: No sob CARDIOVASCULAR: No chest pain/palpitations GASTROINTESTINAL: No nausea/vomiting. GENITOURINARY: No hematuria/dysuria. MUSCULOSKELETAL: No myagias/arthalgias. PSYCHIATRIC: The patient denies depression. NEUROLOGIC: No weakness Constitutional: alert Psych: no complaints Head: normocephalic ENMT: mucosa pink and moist Neck: jvd (9 cm water), supple Respiratory: diminished breath sounds (at bases/B) Cardiovascular: regular rate and rhythm Gastrointestinal: non-tender, soft Musculoskeletal: muscle tone (normal) Extremities: edema (none) Neurological: other (No focal deficits) Results Result Diagram: 04/15/17 1114 04/16/17 2239 Results 24 hrs Laboratory Tests Test 04/16/17 22:39 Sodium Level 134 L Potassium Level 3.1 L Chloride Level 103 Carbon Dioxide Level 28 Anion Gap 6 L Blood Urea Nitrogen 13 Creatinine 3.17 H Glucose Level 200 Calcium Level 8.1 L Magnesium Level 2.2 Medications Medications Current Medications Hydralazine HCl (Apresoline) 10 mg Q4H PRN IV HTN Last administered on 00:18; Admin Dose 10 MG; Start 04/13/17 at 17:30 Hydromorphone HCl (Dilaudid) 0.5 mg Q4H PRN IV PAIN Last administered on 17:51; Admin Dose 0.5 MG; Start 04/13/17 at 21:30 Ondansetron HCl (Zofran Inj) 4 mg Q4H PRN IV NAUSEA AND/OR VOMITING Last administered on 04/14/17 17:41; Admin Dose 4 MG; Start 04/13/17 at 18:00 Acetaminophen (Tylenol Tab) 650 mg Q6H PRN PO PAIN LEVEL 1-3 OR FEVER; Start 04/13/17 at 18:00 Albuterol (Proventil 0.083% (Neb)) 2.5 mg DAILY PRN NEB WHEEZING AND SOB; Start 04/13/17 at 18:00 Bisacodyl (Dulcolax) 5 mg DAILY PRN PO CONSTIPATION; Start 04/13/17 at 18:00 Calcium Carbonate (Oyster Shell Calcium) 1.25 gm DAILY PO Last administered on 04/17/17 08:21; Admin Dose 1.25 GM; Start 04/14/17 at 09:00 Clonidine (Catapres) 0.1 mg Q8 PO Last administered on 04/17/17 14:16; Admin Dose 0.1 MG; Start 04/13/17 at 22:00 Diphenhydramine HCl (Benadryl) 25 mg DAILY PRN PO ITCHING Last administered on 04/16/17 12:48; Admin Dose 25 MG; Start 04/13/17 at 18:00 Docusate Sodium (Colace) 100 mg Q12H PRN PO CONSTIPATION; Start 10/7/17 at 18: 00 Hydralazine HCl (Apresoline) 25 mg Q8 PO Last administered on 04/17/17 14:17 ; Admin Dose 25 MG; Start 04/13/17 at 22:00 Hydromorphone HCl (Dilaudid) 2 mg Q6 PRN PO PAIN; Start 04/13/17 at 18:00 Lubiprostone (Amitiza) 24 mcg BID PO Last administered on 04/17/17 08:21; Admin Dose 24 MCG; Start 04/13/17 at 21:00 Magnesium Hydroxide (Milk Of Mag) 30 ml Q24H PRN PO CONSTIPATION; Start at 18:00 Metoclopramide HCl (Reglan) 5 mg Q6H PRN PO NAUSEA AND/OR VOMITING Last administered on 04/16/17 17:38; Admin Dose 5 MG; Start 04/13/17 at 18:00 Mineral Oil (Fleet Mineral Oil Enema) 133 ml DAILY PRN [place] CONSTIPATION; Start 04/13/17 at 18:00 Aspirin (Aspirin) 81 mg DAILY PO Last administered on 04/17/17 08:21; Admin Dose 81 MG; Start 04/14/17 at 09:00 Lisinopril (Zestril) 40 mg DAILY PO Last administered on 04/17/17 08:23; Admin Dose 40 MG; Start 04/13/17 at 19:00 Metoprolol Tartrate (Lopressor) 100 mg BID PO Last administered on 04/17/17 08:24; Admin Dose 100 MG; Start 04/13/17 at 21:00 Guaifenesin/ Codeine Phosphate (Robitussin Ac Liquid Cup) 5 ml BID PRN PO COUGH Last administered on 04/14/17 01:09; Admin Dose 5 ML; Start 04/14/17 at 01:00 Pantoprazole 40 mg 40 mg BID@06,18 IV Last administered on 04/17/17 17:51; Admin Dose 40 MG; Start 04/14/17 at 18:00 Ceftriaxone Sodium (Rocephin) 50 ml @ 100 mls/hr Q24H IVPB Last administered on 04/17/17 14:16; Admin Dose 100 MLS/HR; Start 04/14/17 at 15:00 Metoclopramide HCl (Reglan) 5 mg Q6 IV Last administered on 10/11/17at 17:52; Admin Dose 5 MG; Start 04/16/17 at 12:00 Tramadol HCl (Ultram) 50 mg Q6H PRN PO PAIN; Start 04/16/17 at 22:30 HUA SANTIAGO Apr 17, 2017 18:38
--- NOTE | 2017-04-17 20:53 | PN ---
Date/Time of Note Date/Time of Note DATE: 04/17/17 TIME: 20:52 Assessment/Plan VTE Prophylaxis VTE Prophylaxis Intervention: other Lines/Catheters IV Catheter Type (from Nrsg): Permacath Urinary Cath still in place: No Assessment/Plan Chief Complaint/Hosp Course ESRD HTN ABD PAIN PLEURAL EFFUSION S/P THORACENTESIS S/P EGD PUD PUL EDEMA HYPOKALEMIA PLAN PER GI HD LABS Problems: Subjective 24 Hr Interval Summary Respiratory: shortness of breath (BETTER) Cardiovascular: no complaints Gastrointestinal: decreased appetite Exam/Review of Systems Vital Signs Vitals Vital Signs Date Time Temp Pulse Resp B/P Pulse Ox O2 Delivery O2 Flow Rate FiO2 04/17/17 20:00 75 04/17/17 19:16 97.6 19 101/63 95 04/17/17 09:00 Nasal Cannula 04/16/17 20:00 2.0 Intake and Output 04/16/17 04/16/17 04/17/17 15:00 23:00 07:00 Intake Total 500 ml 950 ml 300 ml Output Total 3000 ml 0 ml Balance -2500 ml 950 ml 300 ml Exam Neck: supple Respiratory: diminished breath sounds Cardiovascular: regular rate and rhythm Gastrointestinal: bowel sounds, soft Extremities: No edema Results Result Diagram: 04/15/17 1114 04/16/17 5299 Results 24 hrs Laboratory Tests Test 04/16/17 22:39 Sodium Level 134 L Potassium Level 3.1 L Chloride Level 103 Carbon Dioxide Level 28 Anion Gap 6 L Blood Urea Nitrogen 13 Creatinine 3.17 H Glucose Level 200 Calcium Level 8.1 L Magnesium Level 2.2 Medications Medications Current Medications Hydralazine HCl (Apresoline) 10 mg Q4H PRN IV HTN Last administered on 00:18; Admin Dose 10 MG; Start 04/13/17 at 17:30 Hydromorphone HCl (Dilaudid) 0.5 mg Q4H PRN IV PAIN Last administered on 17:51; Admin Dose 0.5 MG; Start 04/13/17 at 21:30 Ondansetron HCl (Zofran Inj) 4 mg Q4H PRN IV NAUSEA AND/OR VOMITING Last administered on 04/14/17 17:41; Admin Dose 4 MG; Start 04/13/17 at 18:00 Acetaminophen (Tylenol Tab) 650 mg Q6H PRN PO PAIN LEVEL 1-3 OR FEVER; Start 04/13/17 at 18:00 Albuterol (Proventil 0.083% (Neb)) 2.5 mg DAILY PRN NEB WHEEZING AND SOB; Start 04/13/17 at 18:00 Bisacodyl (Dulcolax) 5 mg DAILY PRN PO CONSTIPATION; Start 04/13/17 at 18:00 Calcium Carbonate (Oyster Shell Calcium) 1.25 gm DAILY PO Last administered on 04/17/17 08:21; Admin Dose 1.25 GM; Start 04/14/17 at 09:00 Clonidine (Catapres) 0.1 mg Q8 PO Last administered on 04/17/17 14:16; Admin Dose 0.1 MG; Start 04/13/17 at 22:00 Diphenhydramine HCl (Benadryl) 25 mg DAILY PRN PO ITCHING Last administered on 04/16/17 12:48; Admin Dose 25 MG; Start 04/13/17 at 18:00 Docusate Sodium (Colace) 100 mg Q12H PRN PO CONSTIPATION; Start 04/13/17 at 18: 00 Hydralazine HCl (Apresoline) 25 mg Q8 PO Last administered on 04/17/17 14:17 ; Admin Dose 25 MG; Start 04/13/17 at 22:00 Hydromorphone HCl (Dilaudid) 2 mg Q6 PRN PO PAIN; Start 04/13/17 at 18:00 Lubiprostone (Amitiza) 24 mcg BID PO Last administered on 04/17/17 08:21; Admin Dose 24 MCG; Start 04/13/17 at 21:00 Magnesium Hydroxide (Milk Of Mag) 30 ml Q24H PRN PO CONSTIPATION; Start at 18:00 Metoclopramide HCl (Reglan) 5 mg Q6H PRN PO NAUSEA AND/OR VOMITING Last administered on 04/16/17 17:38; Admin Dose 5 MG; Start 04/13/17 at 18:00 Mineral Oil (Fleet Mineral Oil Enema) 133 ml DAILY PRN [place] CONSTIPATION; Start 04/13/17 at 18:00 Aspirin (Aspirin) 81 mg DAILY PO Last administered on 04/17/17 08:21; Admin Dose 81 MG; Start 04/14/17 at 09:00; Status Future Hold Lisinopril (Zestril) 40 mg DAILY PO Last administered on 04/17/17 08:23; Admin Dose 40 MG; Start 04/13/17 at 19:00 Metoprolol Tartrate (Lopressor) 100 mg BID PO Last administered on 04/17/17 08:24; Admin Dose 100 MG; Start 04/13/17 at 21:00 Guaifenesin/ Codeine Phosphate 5 ml 5 ml BID PRN PO COUGH Last administered on 04/14/17 01:09; Admin Dose 5 ML; Start 04/14/17 at 01:00 Ceftriaxone Sodium (Rocephin) 50 ml @ 100 mls/hr Q24H IVPB Last administered on 04/17/17 14:16; Admin Dose 100 MLS/HR; Start 04/14/17 at 15:00 Metoclopramide HCl (Reglan) 5 mg Q6 IV Last administered on 04/17/17 17:52; Admin Dose 5 MG; Start 04/16/17 at 12:00 Tramadol HCl (Ultram) 50 mg Q6H PRN PO PAIN; Start 04/16/17 at 22:30 Pantoprazole (Protonix Tab) 40 mg BID@06,18 PO ; Start 04/18/17 at 06:00 SHAN ARRINGTON MD Apr 17, 2017 20:53
[2017-04-18] VITALS (17 sets, daily range): BP systolic 108–151; BP diastolic 62–80; PULSE 71–81; RESP 19–20
[2017-04-18] MEDS: METOCLOPRAMIDE 10 MG INJ IV SCH ×5 (01:03→21:22)
[2017-04-18] MEDS: HYDROmorphONE 1 MG/ML SYG IV PRN ×3 (01:05→10:25)
[2017-04-18] MEDS: PANTOPRAZOLE (EC) 40 MG TAB PO SCH ×2 (05:33→17:16)
[2017-04-18] MEDS: CALCIUM CARBONATE 1.25 GM TAB PO SCH (08:51)
[2017-04-18] MEDS: LUBIPROSTONE 24 MCG CAP PO SCH ×2 (08:51→21:12)
[2017-04-18] MEDS: SUCRALFATE 1 GM TAB PO SCH ×3 (08:51→17:16)
[2017-04-18] MEDS: LISINOPRIL 20 MG TAB PO SCH (08:51)
[2017-04-18] MEDS: METOPROLOL 100 MG TAB PO SCH (08:51)
[2017-04-18] MEDS: DIPHENHYDRAMINE 25 MG CAP PO PRN (08:56)
[2017-04-18 09:12] LABS: ALBUMIN 1.7 g/dl (3.3-4.9); ALBUMIN/GLOBULIN RATIO 0.54; CREATININE 3.76 mg/dl (0.44-1.00); POTASSIUM 3.3 mmol/L (3.5-5.1); TOTAL PROTEIN 4.8 g/dl (6.1-8.1)
--- NOTE | 2017-04-18 10:20 | CONS ---
Date/Time of Note Date/Time of Note DATE: 04/18/17 TIME: 10:19 Assessment/Plan Assessment/Plan Additional Assessment/Plan IMPRESSION: 1. Epigastric pain associated with nausea. 2. Atypical chest pain. 3. End-stage renal disease, on dialysis. 4. Pleural effusion, status post thoracocentesis. 5. Ascites. 6. Anasarca. 7. Anemia. 8. Hypoalbuminemia. 9. Extensive esophageal ulceration, negative for celiac sprue and H. pylori infection Plan Continue PPI Continue Carafate and Reglan High-protein diet Reassured the patient Consultation Date/Type/Reason Admit Date/Time Apr 13, 2017 at 13:36 Type of Consultation: cardiology Referring Provider: SHAN ARRINGTON MD 24 HR Interval Summary Free Text/Dictation Patient's complains of heartburn and retrosternal chest discomfort Exam/Review of Systems Vital Signs Vitals Vital Signs Date Time Temp Pulse Resp B/P Pulse Ox O2 Delivery O2 Flow Rate FiO2 04/18/17 08:06 98.2 72 20 147/80 100 04/17/17 09:00 Nasal Cannula 04/16/17 20:00 2.0 Intake and Output 04/17/17 04/17/17 04/18/17 15:00 23:00 07:00 Intake Total 960 ml Balance 960 ml Exam Constitutional: alert, oriented, well developed Psych: nl mood/affect, no complaints Head: atraumatic, normocephalic Eyes: EOMI, PERRL, nl conjunctiva, nl lids, nl sclera ENMT: nl external ears & nose, nl lips & teeth, nl nasal mucosa & septum Neck: non-tender, supple Respiratory: clear to auscultation, normal air movement Cardiovascular: nl pulses, regular rate and rhythm Gastrointestinal: nl liver, spleen, non-tender, soft Musculoskeletal: nl extremities to inspection, nl gait and stance Extremities: normal pulses 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, nl mental status, nl speech, nl strength Skin: nl turgor, No rash or lesions Lymph: nl lymph nodes Results Result Diagram: 04/15/17 1114 04/18/17 0746 Results 24 hrs Laboratory Tests Test 04/18/17 07:46 Sodium Level 133 L Potassium Level 3.3 L Chloride Level 103 Carbon Dioxide Level 30 Anion Gap 3 L Blood Urea Nitrogen 18 Creatinine 3.76 H Glucose Level 123 # Calcium Level 8.0 L Total Bilirubin 0.0 L Direct Bilirubin 0.00 Indirect Bilirubin 0.0 Aspartate Amino Transf (AST/SGOT) 17 Alanine Aminotransferase (ALT/SGPT) 24 Alkaline Phosphatase 134 H Total Protein 4.8 L Albumin 1.7 L Globulin 3.10 Albumin/Globulin Ratio 0.54 Medications Medications Current Medications Hydralazine HCl (Apresoline) 10 mg Q4H PRN IV HTN Last administered on 00:18; Admin Dose 10 MG; Start 04/13/17 at 17:30 Hydromorphone HCl (Dilaudid) 0.5 mg Q4H PRN IV PAIN Last administered on 05:28; Admin Dose 0.5 MG; Start 04/13/17 at 21:30 Ondansetron HCl (Zofran Inj) 4 mg Q4H PRN IV NAUSEA AND/OR VOMITING Last administered on 04/14/17 17:41; Admin Dose 4 MG; Start 04/13/17 at 18:00 Acetaminophen (Tylenol Tab) 650 mg Q6H PRN PO PAIN LEVEL 1-3 OR FEVER; Start 04/13/17 at 18:00 Albuterol (Proventil 0.083% (Neb)) 2.5 mg DAILY PRN NEB WHEEZING AND SOB; Start 04/13/17 at 18:00 Bisacodyl (Dulcolax) 5 mg DAILY PRN PO CONSTIPATION; Start 04/13/17 at 18:00 Calcium Carbonate (Oyster Shell Calcium) 1.25 gm DAILY PO Last administered on 04/18/17 08:51; Admin Dose 1.25 GM; Start 04/14/17 at 09:00 Clonidine (Catapres) 0.1 mg Q8 PO Last administered on 04/18/17 05:34; Admin Dose 0.1 MG; Start 04/13/17 at 22:00 Diphenhydramine HCl (Benadryl) 25 mg DAILY PRN PO ITCHING Last administered on 04/18/17 08:56; Admin Dose 25 MG; Start 04/13/17 at 18:00 Docusate Sodium (Colace) 100 mg Q12H PRN PO CONSTIPATION; Start 04/13/17 at 18: 00 Hydralazine HCl (Apresoline) 25 mg Q8 PO Last administered on 04/18/17 05:33 ; Admin Dose 25 MG; Start 04/13/17 at 22:00 Hydromorphone HCl (Dilaudid) 2 mg Q6 PRN PO PAIN; Start 04/13/17 at 18:00 Lubiprostone (Amitiza) 24 mcg BID PO Last administered on 04/18/17 08:51; Admin Dose 24 MCG; Start 04/13/17 at 21:00 Magnesium Hydroxide (Milk Of Mag) 30 ml Q24H PRN PO CONSTIPATION; Start at 18:00 Metoclopramide HCl (Reglan) 5 mg Q6H PRN PO NAUSEA AND/OR VOMITING Last administered on 04/16/17 17:38; Admin Dose 5 MG; Start 04/13/17 at 18:00 Mineral Oil (Fleet Mineral Oil Enema) 133 ml DAILY PRN [place] CONSTIPATION; Start 04/13/17 at 18:00 Aspirin (Aspirin) 81 mg DAILY PO Last administered on 04/17/17 08:21; Admin Dose 81 MG; Start 04/14/17 at 09:00; Status Future Hold Lisinopril (Zestril) 40 mg DAILY PO Last administered on 04/17/17 08:23; Admin Dose 40 MG; Start 04/13/17 at 19:00 Metoprolol Tartrate (Lopressor) 100 mg BID PO Last administered on 04/17/17 21:40; Admin Dose 100 MG; Start 04/13/17 at 21:00 Guaifenesin/ Codeine Phosphate 5 ml 5 ml BID PRN PO COUGH Last administered on 04/14/17 01:09; Admin Dose 5 ML; Start 04/14/17 at 01:00 Ceftriaxone Sodium (Rocephin) 50 ml @ 100 mls/hr Q24H IVPB Last administered on 04/17/17 14:16; Admin Dose 100 MLS/HR; Start 04/14/17 at 15:00 Metoclopramide HCl (Reglan) 5 mg Q6 IV Last administered on 04/18/17 05:34; Admin Dose 5 MG; Start 04/16/17 at 12:00 Tramadol HCl (Ultram) 50 mg Q6H PRN PO PAIN; Start 04/16/17 at 22:30 Pantoprazole (Protonix Tab) 40 mg BID@06,18 PO Last administered on 04/18/17t 05:33; Admin Dose 40 MG; Start 04/18/17 at 06:00 ARIANA JAY MD Apr 18, 2017 10:20
[2017-04-18] MEDS: HYDROmorphONE 0.5 MG/0.5 ML SYG IV PRN ×3 (14:15→22:28)
[2017-04-18] MEDS: BISACODYL (EC) 5 MG TAB PO PRN (14:15)
[2017-04-18] MEDS: CEFTRIAXONE 1 GM/50 ML (PMX) 50 ML IVPB SCH (14:24)
--- NOTE | 2017-04-18 17:19 | PN ---
Date/Time of Note Date/Time of Note DATE: 04/18/17 TIME: 17:17 Assessment/Plan VTE Prophylaxis VTE Prophylaxis Intervention: other Lines/Catheters IV Catheter Type (from Nrsg): Saline Lock Urinary Cath still in place: No Assessment/Plan Chief Complaint/Hosp Course ESRD HTN ABD PAIN PLEURAL EFFUSION S/P THORACENTESIS S/P EGD PUD PUL EDEMA HYPOKALEMIA PLAN PER GI HD LABS kcl po food Problems: Subjective 24 Hr Interval Summary Subjective hx not possible: other (poor po intake,heart burn+) Exam/Review of Systems Vital Signs Vitals Vital Signs Date Time Temp Pulse Resp B/P Pulse Ox O2 Delivery O2 Flow Rate FiO2 04/18/17 16:00 72 04/18/17 15:47 98.3 20 110/64 99 04/17/17 09:00 Nasal Cannula 04/16/17 20:00 2.0 Intake and Output 04/17/17 04/17/17 04/18/17 15:00 23:00 07:00 Intake Total 960 ml Balance 960 ml Exam Respiratory: diminished breath sounds Cardiovascular: regular rate and rhythm Gastrointestinal: bowel sounds (+), soft Extremities: edema (tr) Results Result Diagram: 04/15/17 1114 04/18/17 0746 Results 24 hrs Laboratory Tests Test 04/18/17 07:46 Sodium Level 133 L Potassium Level 3.3 L Chloride Level 103 Carbon Dioxide Level 30 Anion Gap 3 L Blood Urea Nitrogen 18 Creatinine 3.76 H Glucose Level 123 # Calcium Level 8.0 L Total Bilirubin 0.0 L Direct Bilirubin 0.00 Indirect Bilirubin 0.0 Aspartate Amino Transf (AST/SGOT) 17 Alanine Aminotransferase (ALT/SGPT) 24 Alkaline Phosphatase 134 H Total Protein 4.8 L Albumin 1.7 L Globulin 3.10 Albumin/Globulin Ratio 0.54 Medications Medications Current Medications Hydralazine HCl (Apresoline) 10 mg Q4H PRN IV HTN Last administered on 00:18; Admin Dose 10 MG; Start 04/13/17 at 17:30 Ondansetron HCl (Zofran Inj) 4 mg Q4H PRN IV NAUSEA AND/OR VOMITING Last administered on 04/14/17 17:41; Admin Dose 4 MG; Start 04/13/17 at 18:00 Acetaminophen (Tylenol Tab) 650 mg Q6H PRN PO PAIN LEVEL 1-3 OR FEVER; Start 04/13/17 at 18:00 Albuterol (Proventil 0.083% (Neb)) 2.5 mg DAILY PRN NEB WHEEZING AND SOB; Start 04/13/17 at 18:00 Bisacodyl (Dulcolax) 5 mg DAILY PRN PO CONSTIPATION Last administered on 14:15; Admin Dose 5 MG; Start 04/13/17 at 18:00 Calcium Carbonate (Oyster Shell Calcium) 1.25 gm DAILY PO Last administered on 04/18/17 08:51; Admin Dose 1.25 GM; Start 04/14/17 at 09:00 Clonidine (Catapres) 0.1 mg Q8 PO Last administered on 04/18/17 14:16; Admin Dose 0.1 MG; Start 04/13/17 at 22:00 Diphenhydramine HCl (Benadryl) 25 mg DAILY PRN PO ITCHING Last administered on 04/18/17 08:56; Admin Dose 25 MG; Start 04/13/17 at 18:00 Docusate Sodium (Colace) 100 mg Q12H PRN PO CONSTIPATION; Start 04/13/17 at 18: 00 Hydralazine HCl (Apresoline) 25 mg Q8 PO Last administered on 04/18/17 14:16 ; Admin Dose 25 MG; Start 04/13/17 at 22:00 Hydromorphone HCl (Dilaudid) 2 mg Q6 PRN PO PAIN; Start 04/13/17 at 18:00 Lubiprostone (Amitiza) 24 mcg BID PO Last administered on 04/18/17 08:51; Admin Dose 24 MCG; Start 04/13/17 at 21:00 Magnesium Hydroxide (Milk Of Mag) 30 ml Q24H PRN PO CONSTIPATION Last administered on 04/18/17 14:15; Admin Dose 30 ML; Start 04/13/17 at 18:00 Metoclopramide HCl (Reglan) 5 mg Q6H PRN PO NAUSEA AND/OR VOMITING Last administered on 04/16/17 17:38; Admin Dose 5 MG; Start 04/13/17 at 18:00 Mineral Oil (Fleet Mineral Oil Enema) 133 ml DAILY PRN [place] CONSTIPATION; Start 04/13/17 at 18:00 Aspirin (Aspirin) 81 mg DAILY PO Last administered on 04/17/17 08:21; Admin Dose 81 MG; Start 04/14/17 at 09:00; Status Future Hold Lisinopril (Zestril) 40 mg DAILY PO Last administered on 04/17/17 08:23; Admin Dose 40 MG; Start 04/13/17 at 19:00 Metoprolol Tartrate (Lopressor) 100 mg BID PO Last administered on 04/17/17 21:40; Admin Dose 100 MG; Start 04/13/17 at 21:00 Guaifenesin/ Codeine Phosphate 5 ml 5 ml BID PRN PO COUGH Last administered on 04/14/17 01:09; Admin Dose 5 ML; Start 04/14/17 at 01:00 Ceftriaxone Sodium (Rocephin) 50 ml @ 100 mls/hr Q24H IVPB Last administered on 04/18/17 14:24; Admin Dose 100 MLS/HR; Start 04/14/17 at 15:00 Metoclopramide HCl (Reglan) 5 mg Q6 IV Last administered on 04/18/17 17:15; Admin Dose 5 MG; Start 04/16/17 at 12:00 Tramadol HCl (Ultram) 50 mg Q6H PRN PO PAIN; Start 04/16/17 at 22:30 Pantoprazole (Protonix Tab) 40 mg BID@06,18 PO Last administered on 04/18/17 17:16; Admin Dose 40 MG; Start 04/18/17 at 06:00 Hydromorphone HCl 0.5 mg 0.5 mg Q4H PRN IV PAIN Last administered on 14:15; Admin Dose 0.5 MG; Start 04/18/17 at 11:30 Potassium Chloride/Dextrose (KCl/D5W) 265 ml @ 88.333 mls/ hr ONCE ONCE IVPB ; Start 04/18/17 at 17:30; Stop 04/18/17 at 20:29; Status SHAN DENSON MD Apr 18, 2017 17:19
[2017-04-18] MEDS ORDERED: POTASSIUM CHLORIDE 30 MEQ in DEXTROSE 5% 250 ML IVPB ONE (18:30)
--- NOTE | 2017-04-18 19:01 | CONS ---
Date/Time of Note Date/Time of Note DATE: 04/18/17 TIME: 18:57 Assessment/Plan Assessment/Plan Chief Complaint/Hosp Course ASSESSMENT AND PLAN: A 56-year-old female with: 1. Atypical chest pain.-with swallowing. Negative trop x 3/NL EF by echo tis admit 2. Acute exacerbation of congestive heart failure. 3. Bilateral pleural effusion. 4. Pneumonia. 5. Hypertension-on low side todaywith holding of anti-hypertensives 6. Diabetes. 7. Dyslipidemia. 8. End-stage renal disease on hemodialysis. 9. Abnormal electrocardiogram with sinus tachycardia and incomplete right bundle branch block with PVCs. 10. Abd pain- now s/p endoscopy revealing esophageal ulceration Recc: -Tele -continue hydralazine/zestril/metoprolol as tolerated and decrease dose of clonidine and follow BP clsoely -Hold asa given esophageal ulcer -HD for volume removal -Continue abx's and f/u cx data -pain control -Continue PPI Problems: Consultation Date/Type/Reason Admit Date/Time Apr 13, 2017 at 13:36 Initial Consult Date 04/13/2017 Type of Consultation: cardiology Reason for Consultation Chest pain Referring Provider: SHAN ARRINGTON MD Exam/Review of Systems Vital Signs Vitals Vital Signs Date Time Temp Pulse Resp B/P Pulse Ox O2 Delivery O2 Flow Rate FiO2 04/18/17 16:00 77 04/18/17 15:47 98.3 20 110/64 99 04/17/17 09:00 Nasal Cannula 04/16/17 20:00 2.0 Intake and Output 04/17/17 04/17/17 04/18/17 15:00 23:00 07:00 Intake Total 960 ml Balance 960 ml Exam Review of Systems: CONSTITUTIONAL: No fevers, chills. PULMONARY: No sob CARDIOVASCULAR: No chest pain/palpitations GASTROINTESTINAL: No nausea/vomiting. GENITOURINARY: No hematuria/dysuria. MUSCULOSKELETAL: No myagias/arthalgias. PSYCHIATRIC: The patient denies depression. NEUROLOGIC: No weakness Constitutional: alert Psych: no complaints Head: normocephalic ENMT: mucosa pink and moist Neck: jvd (9 cm water), supple Respiratory: diminished breath sounds (at bases/B) Cardiovascular: regular rate and rhythm Gastrointestinal: non-tender, soft Musculoskeletal: muscle tone (normal) Extremities: edema (none) Neurological: other (No focal deficits) Results Result Diagram: 04/15/17 1114 04/18/17 0746 Results 24 hrs Laboratory Tests Test 04/18/17 07:46 Sodium Level 133 L Potassium Level 3.3 L Chloride Level 103 Carbon Dioxide Level 30 Anion Gap 3 L Blood Urea Nitrogen 18 Creatinine 3.76 H Glucose Level 123 # Calcium Level 8.0 L Total Bilirubin 0.0 L Direct Bilirubin 0.00 Indirect Bilirubin 0.0 Aspartate Amino Transf (AST/SGOT) 17 Alanine Aminotransferase (ALT/SGPT) 24 Alkaline Phosphatase 134 H Total Protein 4.8 L Albumin 1.7 L Globulin 3.10 Albumin/Globulin Ratio 0.54 Medications Medications Current Medications Hydralazine HCl (Apresoline) 10 mg Q4H PRN IV HTN Last administered on 00:18; Admin Dose 10 MG; Start 04/13/17 at 17:30 Ondansetron HCl (Zofran Inj) 4 mg Q4H PRN IV NAUSEA AND/OR VOMITING Last administered on 04/14/17 17:41; Admin Dose 4 MG; Start 04/13/17 at 18:00 Acetaminophen (Tylenol Tab) 650 mg Q6H PRN PO PAIN LEVEL 1-3 OR FEVER; Start 04/13/17 at 18:00 Albuterol (Proventil 0.083% (Neb)) 2.5 mg DAILY PRN NEB WHEEZING AND SOB; Start 04/13/17 at 18:00 Bisacodyl (Dulcolax) 5 mg DAILY PRN PO CONSTIPATION Last administered on 14:15; Admin Dose 5 MG; Start 04/13/17 at 18:00 Calcium Carbonate (Oyster Shell Calcium) 1.25 gm DAILY PO Last administered on 04/18/17 08:51; Admin Dose 1.25 GM; Start 04/14/17 at 09:00 Clonidine (Catapres) 0.1 mg Q8 PO Last administered on 04/18/17 14:16; Admin Dose 0.1 MG; Start 04/13/17 at 22:00 Diphenhydramine HCl (Benadryl) 25 mg DAILY PRN PO ITCHING Last administered on 04/18/17 08:56; Admin Dose 25 MG; Start 04/13/17 at 18:00 Docusate Sodium (Colace) 100 mg Q12H PRN PO CONSTIPATION; Start 04/13/17 at 18: 00 Hydralazine HCl (Apresoline) 25 mg Q8 PO Last administered on 04/18/17 14:16 ; Admin Dose 25 MG; Start 04/13/17 at 22:00 Hydromorphone HCl (Dilaudid) 2 mg Q6 PRN PO PAIN; Start 04/13/17 at 18:00 Lubiprostone (Amitiza) 24 mcg BID PO Last administered on 04/18/17 08:51; Admin Dose 24 MCG; Start 04/13/17 at 21:00 Magnesium Hydroxide (Milk Of Mag) 30 ml Q24H PRN PO CONSTIPATION Last administered on 04/18/17 14:15; Admin Dose 30 ML; Start 04/13/17 at 18:00 Metoclopramide HCl (Reglan) 5 mg Q6H PRN PO NAUSEA AND/OR VOMITING Last administered on 04/16/17 17:38; Admin Dose 5 MG; Start 04/13/17 at 18:00 Mineral Oil (Fleet Mineral Oil Enema) 133 ml DAILY PRN [place] CONSTIPATION; Start 04/13/17 at 18:00 Aspirin (Aspirin) 81 mg DAILY PO Last administered on 04/17/17 08:21; Admin Dose 81 MG; Start 04/14/17 at 09:00; Status Future Hold Lisinopril (Zestril) 40 mg DAILY PO Last administered on 04/17/17 08:23; Admin Dose 40 MG; Start 04/13/17 at 19:00 Metoprolol Tartrate (Lopressor) 100 mg BID PO Last administered on 04/17/17 21:40; Admin Dose 100 MG; Start 04/13/17 at 21:00 Guaifenesin/ Codeine Phosphate 5 ml 5 ml BID PRN PO COUGH Last administered on 04/14/17 01:09; Admin Dose 5 ML; Start 04/14/17 at 01:00 Ceftriaxone Sodium (Rocephin) 50 ml @ 100 mls/hr Q24H IVPB Last administered on 04/18/17 14:24; Admin Dose 100 MLS/HR; Start 04/14/17 at 15:00 Metoclopramide HCl (Reglan) 5 mg Q6 IV Last administered on 04/18/17 17:15; Admin Dose 5 MG; Start 04/16/17 at 12:00 Tramadol HCl (Ultram) 50 mg Q6H PRN PO PAIN; Start 04/16/17 at 22:30 Pantoprazole (Protonix Tab) 40 mg BID@06,18 PO Last administered on 04/18/17 17:16; Admin Dose 40 MG; Start 04/18/17 at 06:00 Hydromorphone HCl 0.5 mg 0.5 mg Q4H PRN IV PAIN Last administered on 18:15; Admin Dose 0.5 MG; Start 04/18/17 at 11:30 Potassium Chloride/Dextrose (KCl/D5W) 265 ml @ 88.333 mls/ hr ONCE ONCE IVPB ; Start 04/18/17 at 18:30; Stop 04/18/17 at 21:29 HUA SANTIAGO Apr 18, 2017 19:01
[2017-04-18] MEDS: METOPROLOL 25 MG TAB PO SCH ×2 (21:00→21:12)
[2017-04-19] VITALS (12 sets, daily range): BP systolic 115–155; BP diastolic 73–91; PULSE 73–77; RESP 18–20
[2017-04-19] MEDS ORDERED: HYDROmorphONE 0.5 MG/0.5 ML SYG IV ONE (01:39)
[2017-04-19] MEDS: PANTOPRAZOLE (EC) 40 MG TAB PO SCH ×2 (06:00→17:17)
[2017-04-19] MEDS: METOCLOPRAMIDE 10 MG INJ IV SCH ×3 (06:32→17:17)
[2017-04-19] MEDS: HYDROmorphONE 0.5 MG/0.5 ML SYG IV PRN ×2 (06:32→10:43)
[2017-04-19] MEDS: LUBIPROSTONE 24 MCG CAP PO SCH ×2 (08:21→22:21)
[2017-04-19] MEDS: METOPROLOL 25 MG TAB PO SCH ×2 (08:21→22:22)
[2017-04-19] MEDS: SUCRALFATE 1 GM TAB PO SCH ×3 (08:21→17:17)
[2017-04-19] MEDS: LISINOPRIL 20 MG TAB PO SCH (08:22)
[2017-04-19] MEDS: CALCIUM CARBONATE 1.25 GM TAB PO SCH (08:22)
[2017-04-19 08:24] LABS: CALCIUM 8.1 mg/dl (8.4-10.2); CREATININE 3.42 mg/dl (0.44-1.00); POTASSIUM 4.8 mmol/L (3.5-5.1)
[2017-04-19] MEDS: CEFTRIAXONE 1 GM/50 ML (PMX) 50 ML IVPB SCH (14:26)
[2017-04-19] MEDS: morphine 2 MG INJ IV PRN ×3 (15:21→22:24)
--- NOTE | 2017-04-19 17:57 | PN ---
Date/Time of Note Date/Time of Note DATE: 04/19/17 TIME: 17:55 Assessment/Plan VTE Prophylaxis VTE Prophylaxis Intervention: other Lines/Catheters IV Catheter Type (from Nrs): PERMA CATH. Urinary Cath still in place: No Assessment/Plan Chief Complaint/Hosp Course ESRD HTN ABD PAIN PLEURAL EFFUSION S/P THORACENTESIS S/P EGD PUD W ULCER SEVERE PUL EDEMA BETTER HYPOKALEMIA PLAN PER GI HD LABS Problems: Subjective 24 Hr Interval Summary Gastrointestinal: other (POOR PO INTAKE) Exam/Review of Systems Vital Signs Vitals Vital Signs Date Time Temp Pulse Resp B/P Pulse Ox O2 Delivery O2 Flow Rate FiO2 04/19/17 16:12 73 04/19/17 15:54 98.1 19 155/91 95 04/17/17 09:00 Nasal Cannula 04/16/17 20:00 2.0 Intake and Output 04/18/17 04/18/17 04/19/17 15:00 23:00 07:00 Intake Total 500 ml 950 ml 350 ml Output Total 3000 ml 0 ml Balance -2500 ml 950 ml 350 ml Exam Neck: supple Respiratory: clear to auscultation Cardiovascular: regular rate and rhythm Musculoskeletal: nl extremities to inspection Extremities: normal pulses Results Result Diagram: 04/15/17 1114 04/19/17 0704 Results 24 hrs Laboratory Tests Test 04/19/17 07:04 Sodium Level 136 Potassium Level 4.8 Chloride Level 105 Carbon Dioxide Level 28 Anion Gap 8 Blood Urea Nitrogen 17 Creatinine 3.42 H Glucose Level 102 Calcium Level 8.1 L Medications Medications Current Medications Hydralazine HCl (Apresoline) 10 mg Q4H PRN IV HTN Last administered on 00:18; Admin Dose 10 MG; Start 04/13/17 at 17:30 Ondansetron HCl (Zofran Inj) 4 mg Q4H PRN IV NAUSEA AND/OR VOMITING Last administered on 04/14/17 17:41; Admin Dose 4 MG; Start 04/13/17 at 18:00 Acetaminophen (Tylenol Tab) 650 mg Q6H PRN PO PAIN LEVEL 1-3 OR FEVER; Start 04/13/17 at 18:00 Albuterol (Proventil 0.083% (Neb)) 2.5 mg DAILY PRN NEB WHEEZING AND SOB; Start 04/13/17 at 18:00 Bisacodyl (Dulcolax) 5 mg DAILY PRN PO CONSTIPATION Last administered on 14:15; Admin Dose 5 MG; Start 04/13/17 at 18:00 Calcium Carbonate (Oyster Shell Calcium) 1.25 gm DAILY PO Last administered on 04/19/17 08:22; Admin Dose 1.25 GM; Start 04/14/17 at 09:00 Diphenhydramine HCl (Benadryl) 25 mg DAILY PRN PO ITCHING Last administered on 04/18/17 08:56; Admin Dose 25 MG; Start 04/13/17 at 18:00 Docusate Sodium (Colace) 100 mg Q12H PRN PO CONSTIPATION; Start 04/13/17 at 18: 00 Hydralazine HCl (Apresoline) 25 mg Q8 PO Last administered on 04/18/17 14:16 ; Admin Dose 25 MG; Start 04/13/17 at 22:00 Lubiprostone (Amitiza) 24 mcg BID PO Last administered on 04/19/17 08:21; Admin Dose 24 MCG; Start 04/13/17 at 21:00 Magnesium Hydroxide (Milk Of Mag) 30 ml Q24H PRN PO CONSTIPATION Last administered on 04/18/17 14:15; Admin Dose 30 ML; Start 04/13/17 at 18:00 Metoclopramide HCl (Reglan) 5 mg Q6H PRN PO NAUSEA AND/OR VOMITING Last administered on 04/16/17 17:38; Admin Dose 5 MG; Start 04/13/17 at 18:00 Mineral Oil (Fleet Mineral Oil Enema) 133 ml DAILY PRN [place] CONSTIPATION; Start 04/13/17 at 18:00 Aspirin (Aspirin) 81 mg DAILY PO Last administered on 04/17/17 08:21; Admin Dose 81 MG; Start 04/14/17 at 09:00; Status Future Hold Lisinopril (Zestril) 40 mg DAILY PO Last administered on 04/19/17 08:22; Admin Dose 40 MG; Start 04/13/17 at 19:00 Guaifenesin/ Codeine Phosphate 5 ml 5 ml BID PRN PO COUGH Last administered on 04/14/17 01:09; Admin Dose 5 ML; Start 04/14/17 at 01:00 Ceftriaxone Sodium (Rocephin) 50 ml @ 100 mls/hr Q24H IVPB Last administered on 04/19/17 14:26; Admin Dose 100 MLS/HR; Start 04/14/17 at 15:00 Metoclopramide HCl (Reglan) 5 mg Q6 IV Last administered on 04/19/17 17:17; Admin Dose 5 MG; Start 04/16/17 at 12:00 Tramadol HCl (Ultram) 50 mg Q6H PRN PO PAIN; Start 04/16/17 at 22:30 Pantoprazole (Protonix Tab) 40 mg BID@06,18 PO Last administered on 04/19/17 17:17; Admin Dose 40 MG; Start 04/18/17 at 06:00 Clonidine (Catapres) 0.1 mg BID PO Last administered on 04/19/17 08:23; Admin Dose 0.1 MG; Start 04/18/17 at 21:00 Metoprolol Tartrate (Lopressor) 75 mg BID PO Last administered on 04/19/17 08 :21; Admin Dose 75 MG; Start 04/18/17 at 21:00 Morphine Sulfate (morphine) 2 mg Q4H PRN IV pain Last administered on 15:21; Admin Dose 2 MG; Start 04/19/17 at 15:30 SHAN ARRINGTON MD Apr 19, 2017 17:57
--- NOTE | 2017-04-19 18:32 | CONS ---
Date/Time of Note Date/Time of Note DATE: 04/19/17 TIME: 18:29 Assessment/Plan Assessment/Plan Chief Complaint/Hosp Course ASSESSMENT AND PLAN: A 56-year-old female with: 1. Atypical chest pain.-with swallowing. Negative trop x 3/NL EF by echo tis admit 2. Acute exacerbation of congestive heart failure. 3. Bilateral pleural effusion. 4. Pneumonia. 5. Hypertension-currently well controlled 6. Diabetes. 7. Dyslipidemia. 8. End-stage renal disease on hemodialysis. 9. Abnormal electrocardiogram with sinus tachycardia and incomplete right bundle branch block with PVCs. 10. Abd pain- now s/p endoscopy revealing esophageal ulceration 11. Constipation Recc: -Tele -continue hydralazine/zestril/metoprolol/clonidine and follow BP today -Hold asa given esophageal ulcer -HD for volume removal -Continue abx's and f/u cx data -pain control -Continue PPI Problems: Consultation Date/Type/Reason Admit Date/Time Apr 13, 2017 at 13:36 Initial Consult Date 04/13/2017 Type of Consultation: cardiology Reason for Consultation chest pain/HTN Referring Provider: SHAN ARRINGTON MD Exam/Review of Systems Vital Signs Vitals Vital Signs Date Time Temp Pulse Resp B/P Pulse Ox O2 Delivery O2 Flow Rate FiO2 04/19/17 16:12 73 04/19/17 15:54 98.1 19 155/91 95 04/17/17 09:00 Nasal Cannula 04/16/17 20:00 2.0 Intake and Output 04/18/17 04/18/17 04/19/17 15:00 23:00 07:00 Intake Total 500 ml 950 ml 350 ml Output Total 3000 ml 0 ml Balance -2500 ml 950 ml 350 ml Exam Review of Systems: CONSTITUTIONAL: No fevers, chills. PULMONARY: No sob CARDIOVASCULAR: No chest pain/palpitations GASTROINTESTINAL: No nausea/vomiting. GENITOURINARY: No hematuria/dysuria. MUSCULOSKELETAL: No myagias/arthalgias. PSYCHIATRIC: The patient denies depression. NEUROLOGIC: No weakness Psych: no complaints Head: normocephalic ENMT: mucosa pink and moist Neck: jvd (9 c m water) Respiratory: diminished breath sounds (at bases/B) Cardiovascular: regular rate and rhythm Gastrointestinal: non-tender, soft Musculoskeletal: muscle tone (normal) Extremities: edema (none) Neurological: lethargic, other (No focal deficits) Results Result Diagram: 04/15/17 1114 04/19/17 0704 Results 24 hrs Laboratory Tests Test 04/19/17 07:04 Sodium Level 136 Potassium Level 4.8 Chloride Level 105 Carbon Dioxide Level 28 Anion Gap 8 Blood Urea Nitrogen 17 Creatinine 3.42 H Glucose Level 102 Calcium Level 8.1 L Medications Medications Current Medications Hydralazine HCl (Apresoline) 10 mg Q4H PRN IV HTN Last administered on 00:18; Admin Dose 10 MG; Start 04/13/17 at 17:30 Ondansetron HCl (Zofran Inj) 4 mg Q4H PRN IV NAUSEA AND/OR VOMITING Last administered on 04/14/17 17:41; Admin Dose 4 MG; Start 04/13/17 at 18:00 Acetaminophen (Tylenol Tab) 650 mg Q6H PRN PO PAIN LEVEL 1-3 OR FEVER; Start 04/13/17 at 18:00 Albuterol (Proventil 0.083% (Neb)) 2.5 mg DAILY PRN NEB WHEEZING AND SOB; Start 04/13/17 at 18:00 Bisacodyl (Dulcolax) 5 mg DAILY PRN PO CONSTIPATION Last administered on 14:15; Admin Dose 5 MG; Start 04/13/17 at 18:00 Calcium Carbonate (Oyster Shell Calcium) 1.25 gm DAILY PO Last administered on 04/19/17 08:22; Admin Dose 1.25 GM; Start 04/14/17 at 09:00 Diphenhydramine HCl (Benadryl) 25 mg DAILY PRN PO ITCHING Last administered on 04/18/17 08:56; Admin Dose 25 MG; Start 04/13/17 at 18:00 Docusate Sodium (Colace) 100 mg Q12H PRN PO CONSTIPATION; Start 04/13/17 at 18: 00 Hydralazine HCl (Apresoline) 25 mg Q8 PO Last administered on 04/18/17 14:16 ; Admin Dose 25 MG; Start 04/13/17 at 22:00 Lubiprostone (Amitiza) 24 mcg BID PO Last administered on 04/19/17 08:21; Admin Dose 24 MCG; Start 04/13/17 at 21:00 Magnesium Hydroxide (Milk Of Mag) 30 ml Q24H PRN PO CONSTIPATION Last administered on 04/18/17 14:15; Admin Dose 30 ML; Start 04/13/17 at 18:00 Metoclopramide HCl (Reglan) 5 mg Q6H PRN PO NAUSEA AND/OR VOMITING Last administered on 04/16/17 17:38; Admin Dose 5 MG; Start 04/13/17 at 18:00 Mineral Oil (Fleet Mineral Oil Enema) 133 ml DAILY PRN [place] CONSTIPATION; Start 04/13/17 at 18:00 Aspirin (Aspirin) 81 mg DAILY PO Last administered on 04/17/17 08:21; Admin Dose 81 MG; Start 04/14/17 at 09:00; Status Future Hold Lisinopril (Zestril) 40 mg DAILY PO Last administered on 04/19/17 08:22; Admin Dose 40 MG; Start 04/13/17 at 19:00 Guaifenesin/ Codeine Phosphate 5 ml 5 ml BID PRN PO COUGH Last administered on 04/14/17 01:09; Admin Dose 5 ML; Start 04/14/17 at 01:00 Ceftriaxone Sodium (Rocephin) 50 ml @ 100 mls/hr Q24H IVPB Last administered on 04/19/17 14:26; Admin Dose 100 MLS/HR; Start 04/14/17 at 15:00 Metoclopramide HCl (Reglan) 5 mg Q6 IV Last administered on 04/19/17 17:17; Admin Dose 5 MG; Start 04/16/17 at 12:00 Tramadol HCl (Ultram) 50 mg Q6H PRN PO PAIN; Start 04/16/17 at 22:30 Pantoprazole (Protonix Tab) 40 mg BID@06,18 PO Last administered on 04/19/17 17:17; Admin Dose 40 MG; Start 04/18/17 at 06:00 Clonidine (Catapres) 0.1 mg BID PO Last administered on 04/19/17 08:23; Admin Dose 0.1 MG; Start 04/18/17 at 21:00 Metoprolol Tartrate (Lopressor) 75 mg BID PO Last administered on 04/19/17 08 :21; Admin Dose 75 MG; Start 04/18/17 at 21:00 Morphine Sulfate (morphine) 2 mg Q4H PRN IV pain Last administered on t 15:21; Admin Dose 2 MG; Start 04/19/17 at 15:30 HUA SANTIAGO Apr 19, 2017 18:32
--- NOTE | 2017-04-19 18:48 | CONS ---
Date/Time of Note Date/Time of Note DATE: 04/19/17 TIME: 18:47 Assessment/Plan Assessment/Plan Additional Assessment/Plan Additional Assessment/Plan IMPRESSION: 1. Epigastric pain associated with nausea. 2. Atypical chest pain. 3. End-stage renal disease, on dialysis. 4. Pleural effusion, status post thoracocentesis. 5. Ascites. 6. Anasarca. 7. Anemia. 8. Hypoalbuminemia. 9. Extensive esophageal ulceration, negative for celiac sprue and H. pylori infection Plan Continue PPI Continue Carafate and Reglan High-protein diet Reassured the patient If p.o. intake is poor we will add Megace to the present regimen Consultation Date/Type/Reason Admit Date/Time Apr 13, 2017 at 13:36 Type of Consultation: cardiology Referring Provider: SHAN ARRINGTON MD 24 HR Interval Summary Free Text/Dictation Appetite is still poor Exam/Review of Systems Vital Signs Vitals Vital Signs Date Time Temp Pulse Resp B/P Pulse Ox O2 Delivery O2 Flow Rate FiO2 04/19/17 16:12 73 04/19/17 15:54 98.1 19 155/91 95 04/17/17 09:00 Nasal Cannula 04/16/17 20:00 2.0 Intake and Output 04/18/17 04/18/17 04/19/17 15:00 23:00 07:00 Intake Total 500 ml 950 ml 350 ml Output Total 3000 ml 0 ml Balance -2500 ml 950 ml 350 ml Exam Constitutional: alert, oriented, well developed Psych: nl mood/affect, no complaints Head: atraumatic, normocephalic Eyes: EOMI, PERRL, nl conjunctiva, nl lids, nl sclera ENMT: nl external ears & nose, nl lips & teeth, nl nasal mucosa & septum Neck: non-tender, supple Respiratory: clear to auscultation, normal air movement Cardiovascular: nl pulses, regular rate and rhythm Gastrointestinal: nl liver, spleen, non-tender, soft Musculoskeletal: nl extremities to inspection, nl gait and stance Extremities: normal pulses Neurological: [employer] PER[employer]ERS II-XII intact, nl mental status, nl speech, nl strength Skin: nl turgor, No rash or lesions Lymph: nl lymph nodes Results Result Diagram: 04/15/17 1114 04/19/17 0704 Results 24 hrs Laboratory Tests Test 04/19/17 07:04 Sodium Level 136 Potassium Level 4.8 Chloride Level 105 Carbon Dioxide Level 28 Anion Gap 8 Blood Urea Nitrogen 17 Creatinine 3.42 H Glucose Level 102 Calcium Level 8.1 L Medications Medications Current Medications Hydralazine HCl (Apresoline) 10 mg Q4H PRN IV HTN Last administered on 00:18; Admin Dose 10 MG; Start 04/13/17 at 17:30 Ondansetron HCl (Zofran Inj) 4 mg Q4H PRN IV NAUSEA AND/OR VOMITING Last administered on 04/14/17 17:41; Admin Dose 4 MG; Start 04/13/17 at 18:00 Acetaminophen (Tylenol Tab) 650 mg Q6H PRN PO PAIN LEVEL 1-3 OR FEVER; Start 04/13/17 at 18:00 Albuterol (Proventil 0.083% (Neb)) 2.5 mg DAILY PRN NEB WHEEZING AND SOB; Start 04/13/17 at 18:00 Bisacodyl (Dulcolax) 5 mg DAILY PRN PO CONSTIPATION Last administered on 14:15; Admin Dose 5 MG; Start 04/13/17 at 18:00 Calcium Carbonate (Oyster Shell Calcium) 1.25 gm DAILY PO Last administered on 04/19/17 08:22; Admin Dose 1.25 GM; Start 04/14/17 at 09:00 Diphenhydramine HCl (Benadryl) 25 mg DAILY PRN PO ITCHING Last administered on 04/18/17 08:56; Admin Dose 25 MG; Start 04/13/17 at 18:00 Docusate Sodium (Colace) 100 mg Q12H PRN PO CONSTIPATION; Start 04/13/17 at 18: 00 Hydralazine HCl (Apresoline) 25 mg Q8 PO Last administered on 04/18/17 14:16 ; Admin Dose 25 MG; Start 04/13/17 at 22:00 Lubiprostone (Amitiza) 24 mcg BID PO Last administered on 04/19/17 08:21; Admin Dose 24 MCG; Start 04/13/17 at 21:00 Magnesium Hydroxide (Milk Of Mag) 30 ml Q24H PRN PO CONSTIPATION Last administered on 04/18/17 14:15; Admin Dose 30 ML; Start 04/13/17 at 18:00 Metoclopramide HCl (Reglan) 5 mg Q6H PRN PO NAUSEA AND/OR VOMITING Last administered on 04/16/17 17:38; Admin Dose 5 MG; Start 04/13/17 at 18:00 Mineral Oil (Fleet Mineral Oil Enema) 133 ml DAILY PRN [place] CONSTIPATION; Start 04/13/17 at 18:00 Aspirin (Aspirin) 81 mg DAILY PO Last administered on 04/17/17 08:21; Admin Dose 81 MG; Start 04/14/17 at 09:00; Status Future Hold Lisinopril (Zestril) 40 mg DAILY PO Last administered on 04/19/17 08:22; Admin Dose 40 MG; Start 04/13/17 at 19:00 Guaifenesin/ Codeine Phosphate 5 ml 5 ml BID PRN PO COUGH Last administered on 04/14/17 01:09; Admin Dose 5 ML; Start 04/14/17 at 01:00 Ceftriaxone Sodium (Rocephin) 50 ml @ 100 mls/hr Q24H IVPB Last administered on 04/19/17 14:26; Admin Dose 100 MLS/HR; Start 04/14/17 at 15:00 Metoclopramide HCl (Reglan) 5 mg Q6 IV Last administered on 04/19/17 17:17; Admin Dose 5 MG; Start 04/16/17 at 12:00 Tramadol HCl (Ultram) 50 mg Q6H PRN PO PAIN; Start 04/16/17 at 22:30 Pantoprazole (Protonix Tab) 40 mg BID@06,18 PO Last administered on 04/19/17 17:17; Admin Dose 40 MG; Start 04/18/17 at 06:00 Clonidine (Catapres) 0.1 mg BID PO Last administered on 04/19/17 08:23; Admin Dose 0.1 MG; Start 04/18/17 at 21:00 Metoprolol Tartrate (Lopressor) 75 mg BID PO Last administered on 04/19/17 08 :21; Admin Dose 75 MG; Start 04/18/17 at 21:00 Morphine Sulfate (morphine) 2 mg Q4H PRN IV pain Last administered on 15:21; Admin Dose 2 MG; Start 04/19/17 at 15:30 ARIANA JAY MD Apr 19, 2017 18:47
[2017-04-19] MEDS: DIPHENHYDRAMINE 25 MG CAP PO PRN (22:23)
[2017-04-20] VITALS (18 sets, daily range): BP systolic 117–158; BP diastolic 62–92; PULSE 69–79; RESP 17–20
[2017-04-20] MEDS: morphine 2 MG INJ IV PRN ×3 (01:56→11:17)
[2017-04-20] MEDS: METOCLOPRAMIDE 10 MG INJ IV SCH ×4 (02:00→17:32)
[2017-04-20] MEDS: PANTOPRAZOLE (EC) 40 MG TAB PO SCH ×2 (06:00→17:33)
[2017-04-20] MEDS: CALCIUM CARBONATE 1.25 GM TAB PO SCH (09:15)
[2017-04-20] MEDS: SUCRALFATE 1 GM TAB PO SCH ×3 (09:15→17:33)
[2017-04-20] MEDS: LUBIPROSTONE 24 MCG CAP PO SCH ×2 (09:16→20:34)
[2017-04-20] MEDS: METOPROLOL 25 MG TAB PO SCH ×2 (09:17→20:35)
[2017-04-20] MEDS: LISINOPRIL 20 MG TAB PO SCH (09:17)
--- NOTE | 2017-04-20 13:36 | CONS ---
Date/Time of Note Date/Time of Note DATE: 04/20/17 TIME: 13:35 Assessment/Plan Assessment/Plan Additional Assessment/Plan 1. Atypical chest pain.-with swallowing. Negative trop x 3/NL EF by echo tis admit - R/O OK. 2. Acute exacerbation of congestive heart failure. 3. Bilateral pleural effusion- pulmonary team follows. 4. Pneumonia. 5. Hypertension-currently well controlled 6. Diabetes. 7. Dyslipidemia. 8. End-stage renal disease on hemodialysis - on HD now. 9. Abnormal electrocardiogram with sinus tachycardia and incomplete right bundle branch block with PVCs. Now in sinus on tele. 10. Abd pain- now s/p endoscopy revealing esophageal ulceration 11. Constipation Consultation Date/Type/Reason Admit Date/Time Apr 13, 2017 at 13:36 Type of Consultation: cardiology Referring Provider: SHAN ARRINGTON MD 24 HR Interval Summary Free Text/Dictation NO acute events - HD now, tolerating well. ROS: No fever, no chills, no nausea, no vomiting, no diarrhea/constipation No recent weight changes No chest pain, no PND, no orthopnea No dizziness, blurred vision No thirst, no heat or cold intolerance Exam/Review of Systems Vital Signs Vitals Vital Signs Date Time Temp Pulse Resp B/P Pulse Ox O2 Delivery O2 Flow Rate FiO2 04/20/17 12:00 71 04/20/17 11:44 98.4 18 152/66 97 04/17/17 09:00 Nasal Cannula 04/16/17 20:00 2.0 Intake and Output 04/19/17 04/19/17 04/20/17 15:00 23:00 07:00 Intake Total 250 ml Balance 250 ml Exam General: WN/WD/NAD, AOx 2-3 HEENT: Unicetric/atraumatic/EOMI (follow commands) NECK: JVD elevated, no thyromegaly Lymph: no lymphadenopathy HEART: regular with no S3, II/ systolic murmur at apex LUNGS: Coarse sounds ABD: soft, NT, ND, +BS : Intact Neuro: non focal SKIN: chronic changes EXT: trace edema Results Result Diagram: 04/19/17 0704 Medications Medications Current Medications Hydralazine HCl (Apresoline) 10 mg Q4H PRN IV HTN Last administered on t 00:18; Admin Dose 10 MG; Start 04/13/17 at 17:30 Ondansetron HCl (Zofran Inj) 4 mg Q4H PRN IV NAUSEA AND/OR VOMITING Last administered on 04/14/17 17:41; Admin Dose 4 MG; Start 04/13/17 at 18:00 Acetaminophen (Tylenol Tab) 650 mg Q6H PRN PO PAIN LEVEL 1-3 OR FEVER; Start 04/13/17 at 18:00 Albuterol (Proventil 0.083% (Neb)) 2.5 mg DAILY PRN NEB WHEEZING AND SOB; Start 04/13/17 at 18:00 Bisacodyl (Dulcolax) 5 mg DAILY PRN PO CONSTIPATION Last administered on 14:15; Admin Dose 5 MG; Start 04/13/17 at 18:00 Calcium Carbonate (Oyster Shell Calcium) 1.25 gm DAILY PO Last administered on 04/20/17 09:15; Admin Dose 1.25 GM; Start 04/14/17 at 09:00 Diphenhydramine HCl (Benadryl) 25 mg DAILY PRN PO ITCHING Last administered on 04/19/17 22:23; Admin Dose 25 MG; Start 04/13/17 at 18:00 Docusate Sodium (Colace) 100 mg Q12H PRN PO CONSTIPATION; Start 04/13/17 at 18: 00 Hydralazine HCl (Apresoline) 25 mg Q8 PO Last administered on 04/19/17 22:22 ; Admin Dose 25 MG; Start 04/13/17 at 22:00 Lubiprostone (Amitiza) 24 mcg BID PO Last administered on 04/20/17 09:16; Admin Dose 24 MCG; Start 04/13/17 at 21:00 Magnesium Hydroxide (Milk Of Mag) 30 ml Q24H PRN PO CONSTIPATION Last administered on 04/18/17 14:15; Admin Dose 30 ML; Start 04/13/17 at 18:00 Metoclopramide HCl (Reglan) 5 mg Q6H PRN PO NAUSEA AND/OR VOMITING Last administered on 04/16/17 17:38; Admin Dose 5 MG; Start 04/13/17 at 18:00 Mineral Oil (Fleet Mineral Oil Enema) 133 ml DAILY PRN [place] CONSTIPATION; Start 04/13/17 at 18:00 Aspirin (Aspirin) 81 mg DAILY PO Last administered on 04/17/17 08:21; Admin Dose 81 MG; Start 04/14/17 at 09:00; Status Future Hold Lisinopril (Zestril) 40 mg DAILY PO Last administered on 04/20/17 09:17; Admin Dose 40 MG; Start 04/13/17 at 19:00 Guaifenesin/ Codeine Phosphate 5 ml 5 ml BID PRN PO COUGH Last administered on 04/14/17 01:09; Admin Dose 5 ML; Start 04/14/17 at 01:00 Ceftriaxone Sodium (Rocephin) 50 ml @ 100 mls/hr Q24H IVPB Last administered on 04/19/17 14:26; Admin Dose 100 MLS/HR; Start 04/14/17 at 15:00 Metoclopramide HCl (Reglan) 5 mg Q6 IV Last administered on 04/20/17 12:27; Admin Dose 5 MG; Start 04/16/17 at 12:00 Tramadol HCl (Ultram) 50 mg Q6H PRN PO PAIN; Start 04/16/17 at 22:30 Pantoprazole (Protonix Tab) 40 mg BID@06,18 PO Last administered on 04/19/17 17:17; Admin Dose 40 MG; Start 04/18/17 at 06:00 Clonidine (Catapres) 0.1 mg BID PO Last administered on 04/19/17 22:23; Admin Dose 0.1 MG; Start 04/18/17 at 21:00 Metoprolol Tartrate (Lopressor) 75 mg BID PO Last administered on 04/20/17 09 :17; Admin Dose 75 MG; Start 04/18/17 at 21:00 Hydromorphone HCl (Dilaudid) 0.5 mg Q4H PRN IV PAIN; Start 04/20/17 at 13:00 Polyethylene Glycol (Miralax) 17 gm DAILY PO ; Start 04/20/17 at 13:00 ISELA HORN MD Apr 20, 2017 13:36
[2017-04-20] MEDS: HYDROmorphONE 0.5 MG/0.5 ML SYG IV PRN ×3 (13:53→22:22)
--- NOTE | 2017-04-20 15:23 | PN ---
Date/Time of Note Date/Time of Note DATE: 04/20/17 TIME: 15:22 Assessment/Plan VTE Prophylaxis VTE Prophylaxis Intervention: other Lines/Catheters IV Catheter Type (from Nrsg): PERM CATH Urinary Cath still in place: No Assessment/Plan Chief Complaint/Hosp Course ESRD HTN ABD PAIN PLEURAL EFFUSION S/P THORACENTESIS S/P EGD PUD W ULCER SEVERE PUL EDEMA BETTER HYPOKALEMIA PLAN PER GI HD LABS PAIN MEDS PPI Problems: Subjective 24 Hr Interval Summary Subjective hx not possible: other (PO INTAKE BETTER) Exam/Review of Systems Vital Signs Vitals Vital Signs Date Time Temp Pulse Resp B/P Pulse Ox O2 Delivery O2 Flow Rate FiO2 04/20/17 14:56 78 04/20/17 13:00 14 04/20/17 11:44 98.4 152/66 97 04/17/17 09:00 Nasal Cannula 04/16/17 20:00 2.0 Intake and Output 04/19/17 04/19/17 04/20/17 15:00 23:00 07:00 Intake Total 250 ml Balance 250 ml Exam ENMT: nl external ears & nose Neck: supple Respiratory: clear to auscultation Cardiovascular: regular rate and rhythm Gastrointestinal: soft Results Result Diagram: 04/19/17 0704 Medications Medications Current Medications Hydralazine HCl (Apresoline) 10 mg Q4H PRN IV HTN Last administered on 00:18; Admin Dose 10 MG; Start 04/13/17 at 17:30 Ondansetron HCl (Zofran Inj) 4 mg Q4H PRN IV NAUSEA AND/OR VOMITING Last administered on 04/14/17 17:41; Admin Dose 4 MG; Start 04/13/17 at 18:00 Acetaminophen (Tylenol Tab) 650 mg Q6H PRN PO PAIN LEVEL 1-3 OR FEVER; Start 04/13/17 at 18:00 Albuterol (Proventil 0.083% (Neb)) 2.5 mg DAILY PRN NEB WHEEZING AND SOB; Start 04/13/17 at 18:00 Bisacodyl (Dulcolax) 5 mg DAILY PRN PO CONSTIPATION Last administered on 14:15; Admin Dose 5 MG; Start 04/13/17 at 18:00 Calcium Carbonate (Oyster Shell Calcium) 1.25 gm DAILY PO Last administered on 04/20/17 09:15; Admin Dose 1.25 GM; Start 04/14/17 at 09:00 Diphenhydramine HCl (Benadryl) 25 mg DAILY PRN PO ITCHING Last administered on 04/19/17 22:23; Admin Dose 25 MG; Start 04/13/17 at 18:00 Docusate Sodium (Colace) 100 mg Q12H PRN PO CONSTIPATION; Start 04/13/17 at 18: 00 Hydralazine HCl (Apresoline) 25 mg Q8 PO Last administered on 04/19/17 22:22 ; Admin Dose 25 MG; Start 04/13/17 at 22:00 Lubiprostone (Amitiza) 24 mcg BID PO Last administered on 04/20/17 09:16; Admin Dose 24 MCG; Start 04/13/17 at 21:00 Magnesium Hydroxide (Milk Of Mag) 30 ml Q24H PRN PO CONSTIPATION Last administered on 04/18/17 14:15; Admin Dose 30 ML; Start 04/13/17 at 18:00 Metoclopramide HCl (Reglan) 5 mg Q6H PRN PO NAUSEA AND/OR VOMITING Last administered on 04/16/17 17:38; Admin Dose 5 MG; Start 04/13/17 at 18:00 Mineral Oil (Fleet Mineral Oil Enema) 133 ml DAILY PRN [place] CONSTIPATION; Start 04/13/17 at 18:00 Aspirin (Aspirin) 81 mg DAILY PO Last administered on 04/17/17 08:21; Admin Dose 81 MG; Start 04/14/17 at 09:00; Status Future Hold Lisinopril (Zestril) 40 mg DAILY PO Last administered on 04/20/17 09:17; Admin Dose 40 MG; Start 04/13/17 at 19:00 Guaifenesin/ Codeine Phosphate 5 ml 5 ml BID PRN PO COUGH Last administered on 04/14/17 01:09; Admin Dose 5 ML; Start 04/14/17 at 01:00 Ceftriaxone Sodium (Rocephin) 50 ml @ 100 mls/hr Q24H IVPB Last administered on 04/19/17 14:26; Admin Dose 100 MLS/HR; Start 04/14/17 at 15:00 Metoclopramide HCl (Reglan) 5 mg Q6 IV Last administered on 04/20/17 12:27; Admin Dose 5 MG; Start 04/16/17 at 12:00 Tramadol HCl (Ultram) 50 mg Q6H PRN PO PAIN; Start 04/16/17 at 22:30 Pantoprazole (Protonix Tab) 40 mg BID@06,18 PO Last administered on 04/19/17 17:17; Admin Dose 40 MG; Start 04/18/17 at 06:00 Clonidine (Catapres) 0.1 mg BID PO Last administered on 04/19/17 22:23; Admin Dose 0.1 MG; Start 04/18/17 at 21:00 Metoprolol Tartrate (Lopressor) 75 mg BID PO Last administered on 04/20/17 09 :17; Admin Dose 75 MG; Start 04/18/17 at 21:00 Hydromorphone HCl (Dilaudid) 0.5 mg Q4H PRN IV PAIN Last administered on 13:53; Admin Dose 0.5 MG; Start 04/20/17 at 13:00 Polyethylene Glycol (Miralax) 17 gm DAILY PO ; Start 04/20/17 at 13:00 SHAN ARRINGTON MD Apr 20, 2017 15:23
[2017-04-20] MEDS: POLYETHYLENE GLYCOL 17 GM PACKET PO SCH (15:37)
--- NOTE | 2017-04-20 16:19 | CONS ---
Date/Time of Note Date/Time of Note DATE: 04/20/17 TIME: 16:18 Assessment/Plan Assessment/Plan Additional Assessment/Plan Additional Assessment/Plan IMPRESSION: 1. Epigastric pain associated with nausea. 2. Atypical chest pain. 3. End-stage renal disease, on dialysis. 4. Pleural effusion, status post thoracocentesis. 5. Ascites. 6. Anasarca. 7. Anemia. 8. Hypoalbuminemia. 9. Extensive esophageal ulceration, negative for celiac sprue and H. pylori infection Plan Continue PPI Continue Carafate and Reglan High-protein diet Reassured the patient If p.o. intake is poor we will add Megace to the present regimen. Patient feels better and eating better. Consultation Date/Type/Reason Admit Date/Time Apr 13, 2017 at 13:36 Type of Consultation: cardiology Referring Provider: SHAN ARRINGTON MD 24 HR Interval Summary Constitutional: improved Exam/Review of Systems Vital Signs Vitals Vital Signs Date Time Temp Pulse Resp B/P Pulse Ox O2 Delivery O2 Flow Rate FiO2 04/20/17 15:27 98.3 71 20 149/92 96 04/17/17 09:00 Nasal Cannula 04/16/17 20:00 2.0 Intake and Output 04/19/17 04/19/17 04/20/17 15:00 23:00 07:00 Intake Total 250 ml Balance 250 ml Exam Constitutional: alert, oriented, well developed Psych: nl mood/affect, no complaints Head: atraumatic, normocephalic Eyes: EOMI, PERRL, nl conjunctiva, nl lids, nl sclera ENMT: nl external ears & nose, nl lips & teeth, nl nasal mucosa & septum Neck: non-tender, supple Respiratory: clear to auscultation, normal air movement Cardiovascular: nl pulses, regular rate and rhythm Gastrointestinal: nl liver, spleen, non-tender, soft Musculoskeletal: nl extremities to inspection, nl gait and stance Extremities: normal pulses Neurological: [employer] II-XII intact, nl mental status, nl speech, nl strength Skin: nl turgor, No rash or lesions Lymph: nl lymph nodes Results Result Diagram: 04/19/17 0704 Medications Medications Current Medications Hydralazine HCl (Apresoline) 10 mg Q4H PRN IV HTN Last administered on 00:18; Admin Dose 10 MG; Start 04/13/17 at 17:30 Ondansetron HCl (Zofran Inj) 4 mg Q4H PRN IV NAUSEA AND/OR VOMITING Last administered on 04/14/17 17:41; Admin Dose 4 MG; Start 04/13/17 at 18:00 Acetaminophen (Tylenol Tab) 650 mg Q6H PRN PO PAIN LEVEL 1-3 OR FEVER; Start 04/13/17 at 18:00 Albuterol (Proventil 0.083% (Neb)) 2.5 mg DAILY PRN NEB WHEEZING AND SOB; Start 04/13/17 at 18:00 Bisacodyl (Dulcolax) 5 mg DAILY PRN PO CONSTIPATION Last administered on 14:15; Admin Dose 5 MG; Start 04/13/17 at 18:00 Calcium Carbonate (Oyster Shell Calcium) 1.25 gm DAILY PO Last administered on 04/20/17 09:15; Admin Dose 1.25 GM; Start 04/14/17 at 09:00 Diphenhydramine HCl (Benadryl) 25 mg DAILY PRN PO ITCHING Last administered on 04/19/17 22:23; Admin Dose 25 MG; Start 04/13/17 at 18:00 Docusate Sodium (Colace) 100 mg Q12H PRN PO CONSTIPATION; Start 04/13/17 at 18: 00 Hydralazine HCl (Apresoline) 25 mg Q8 PO Last administered on 04/20/17 15:37 ; Admin Dose 25 MG; Start 04/13/17 at 22:00 Lubiprostone (Amitiza) 24 mcg BID PO Last administered on 04/20/17 09:16; Admin Dose 24 MCG; Start 04/13/17 at 21:00 Magnesium Hydroxide (Milk Of Mag) 30 ml Q24H PRN PO CONSTIPATION Last administered on 04/18/17 14:15; Admin Dose 30 ML; Start 04/13/17 at 18:00 Metoclopramide HCl (Reglan) 5 mg Q6H PRN PO NAUSEA AND/OR VOMITING Last administered on 04/16/17 17:38; Admin Dose 5 MG; Start 04/13/17 at 18:00 Mineral Oil (Fleet Mineral Oil Enema) 133 ml DAILY PRN [place] CONSTIPATION; Start 04/13/17 at 18:00 Aspirin (Aspirin) 81 mg DAILY PO Last administered on 04/17/17 08:21; Admin Dose 81 MG; Start 04/14/17 at 09:00; Status Future Hold Lisinopril (Zestril) 40 mg DAILY PO Last administered on 04/20/17 09:17; Admin Dose 40 MG; Start 04/13/17 at 19:00 Guaifenesin/ Codeine Phosphate 5 ml 5 ml BID PRN PO COUGH Last administered on 04/14/17 01:09; Admin Dose 5 ML; Start 04/14/17 at 01:00 Ceftriaxone Sodium (Rocephin) 50 ml @ 100 mls/hr Q24H IVPB Last administered on 04/19/17 14:26; Admin Dose 100 MLS/HR; Start 04/14/17 at 15:00 Metoclopramide HCl (Reglan) 5 mg Q6 IV Last administered on 04/20/17 12:27; Admin Dose 5 MG; Start 04/16/17 at 12:00 Tramadol HCl (Ultram) 50 mg Q6H PRN PO PAIN; Start 04/16/17 at 22:30 Pantoprazole (Protonix Tab) 40 mg BID@06,18 PO Last administered on 04/19/17 17:17; Admin Dose 40 MG; Start 04/18/17 at 06:00 Clonidine (Catapres) 0.1 mg BID PO Last administered on 04/19/17 22:23; Admin Dose 0.1 MG; Start 04/18/17 at 21:00 Metoprolol Tartrate (Lopressor) 75 mg BID PO Last administered on 04/20/17 09 :17; Admin Dose 75 MG; Start 04/18/17 at 21:00 Hydromorphone HCl (Dilaudid) 0.5 mg Q4H PRN IV PAIN Last administered on 13:53; Admin Dose 0.5 MG; Start 04/20/17 at 13:00 Polyethylene Glycol (Miralax) 17 gm DAILY PO Last administered on 04/20/17 15 :37; Admin Dose 17 GM; Start 04/20/17 at 13:00 ARIANA JAY MD Apr 20, 2017 16:19
[2017-04-20] MEDS: CEFTRIAXONE 1 GM/50 ML (PMX) 50 ML IVPB SCH (16:33)
[2017-04-20] MEDS: DIPHENHYDRAMINE 25 MG CAP PO PRN ×2 (16:47→22:22)
[2017-04-20] MEDS: traMADol 50 MG TAB PO PRN ×2 (16:47→20:34)
[2017-04-20] MEDS: BISACODYL (EC) 5 MG TAB PO PRN (22:27)
[2017-04-21] VITALS (11 sets, daily range): BP systolic 115–173; BP diastolic 57–84; PULSE 67–73; RESP 17–20
[2017-04-21] MEDS: HYDROmorphONE 0.5 MG/0.5 ML SYG IV PRN ×5 (03:24→22:30)
[2017-04-21] MEDS: METOCLOPRAMIDE 10 MG INJ IV SCH ×4 (06:00→17:10)
[2017-04-21] MEDS: PANTOPRAZOLE (EC) 40 MG TAB PO SCH ×2 (06:00→17:10)
[2017-04-21] MEDS: CALCIUM CARBONATE 1.25 GM TAB PO SCH (08:12)
[2017-04-21] MEDS: SUCRALFATE 1 GM TAB PO SCH ×3 (08:12→17:10)
[2017-04-21] MEDS: LUBIPROSTONE 24 MCG CAP PO SCH ×2 (08:12→20:42)
[2017-04-21] MEDS: LISINOPRIL 20 MG TAB PO SCH (08:15)
[2017-04-21] MEDS: METOPROLOL 25 MG TAB PO SCH ×2 (08:16→20:45)
[2017-04-21] MEDS: POLYETHYLENE GLYCOL 17 GM PACKET PO SCH (08:19)
[2017-04-21] MEDS: DIPHENHYDRAMINE 25 MG CAP PO PRN ×2 (12:18→20:43)
--- NOTE | 2017-04-21 14:03 | CONS ---
Date/Time of Note Date/Time of Note DATE: 04/21/17 TIME: 14:02 Assessment/Plan Assessment/Plan Additional Assessment/Plan 1. Atypical chest pain.-with swallowing. Negative trop x 3/NL EF by echo tis admit - R/O AL. NO CP now. 2. Acute exacerbation of congestive heart failure. 3. Bilateral pleural effusion- pulmonary team follows. 4. Pneumonia- on anti-Bx, con't therapy. 5. Hypertension-currently well controlled 6. Diabetes. 7. Dyslipidemia. 8. End-stage renal disease on hemodialysis - on HD now. 9. Abnormal electrocardiogram with sinus tachycardia and incomplete right bundle branch block with PVCs. Now in sinus on tele. 10. Abd pain- now s/p endoscopy revealing esophageal ulceration 11. Constipation Consultation Date/Type/Reason Admit Date/Time Apr 13, 2017 at 13:36 Type of Consultation: cardiology Referring Provider: SHAN ARRINGTON MD 24 HR Interval Summary Free Text/Dictation NO acute events - BP in good range now. ROS: No fever, no chills, no nausea, no vomiting, no diarrhea/constipation No recent weight changes No chest pain, no PND, no orthopnea No dizziness, blurred vision No thirst, no heat or cold intolerance Exam/Review of Systems Vital Signs Vitals Vital Signs Date Time Temp Pulse Resp B/P Pulse Ox O2 Delivery O2 Flow Rate FiO2 04/21/17 12:29 71 04/21/17 12:05 97.9 17 144/84 99 04/17/17 09:00 Nasal Cannula Intake and Output 04/20/17 04/20/17 04/21/17 15:00 23:00 07:00 Intake Total 400 ml 250 ml Output Total 2700 ml Balance -2300 ml 250 ml Exam General: WN/WD/NAD, AOx 3 HEENT: Unicetric/atraumatic/EOMI (follows commands) NECK: JVD elevated, no thyromegaly Lymph: no lymphadenopathy HEART: regular with no S3, II/ systolic murmur at apex LUNGS: Coarse sounds ABD: soft, NT, ND, +BS : Intact Neuro: non focal SKIN: chronic changes EXT: trace edema Results Result Diagram: 04/19/17 0704 Medications Medications Current Medications Hydralazine HCl (Apresoline) 10 mg Q4H PRN IV HTN Last administered on 00:18; Admin Dose 10 MG; Start 04/13/17 at 17:30 Ondansetron HCl (Zofran Inj) 4 mg Q4H PRN IV NAUSEA AND/OR VOMITING Last administered on 04/14/17 17:41; Admin Dose 4 MG; Start 04/13/17 at 18:00 Acetaminophen (Tylenol Tab) 650 mg Q6H PRN PO PAIN LEVEL 1-3 OR FEVER; Start 04/13/17 at 18:00 Albuterol (Proventil 0.083% (Neb)) 2.5 mg DAILY PRN NEB WHEEZING AND SOB; Start 04/13/17 at 18:00 Bisacodyl (Dulcolax) 5 mg DAILY PRN PO CONSTIPATION Last administered on 22:27; Admin Dose 5 MG; Start 04/13/17 at 18:00 Calcium Carbonate (Oyster Shell Calcium) 1.25 gm DAILY PO Last administered on 04/21/17 08:12; Admin Dose 1.25 GM; Start 04/14/17 at 09:00 Diphenhydramine HCl (Benadryl) 25 mg DAILY PRN PO ITCHING Last administered on 04/21/17 12:18; Admin Dose 25 MG; Start 04/13/17 at 18:00 Docusate Sodium (Colace) 100 mg Q12H PRN PO CONSTIPATION; Start 04/13/17 at 18: 00 Hydralazine HCl (Apresoline) 25 mg Q8 PO Last administered on 04/21/17 13:51 ; Admin Dose 25 MG; Start 04/13/17 at 22:00 Lubiprostone (Amitiza) 24 mcg BID PO Last administered on 04/21/17 08:12; Admin Dose 24 MCG; Start 04/13/17 at 21:00 Magnesium Hydroxide (Milk Of Mag) 30 ml Q24H PRN PO CONSTIPATION Last administered on 04/18/17 14:15; Admin Dose 30 ML; Start 04/13/17 at 18:00 Metoclopramide HCl (Reglan) 5 mg Q6H PRN PO NAUSEA AND/OR VOMITING Last administered on 04/16/17 17:38; Admin Dose 5 MG; Start 04/13/17 at 18:00 Mineral Oil (Fleet Mineral Oil Enema) 133 ml DAILY PRN [place] CONSTIPATION; Start 04/13/17 at 18:00 Aspirin (Aspirin) 81 mg DAILY PO Last administered on 04/17/17 08:21; Admin Dose 81 MG; Start 04/14/17 at 09:00; Status Future Hold Lisinopril (Zestril) 40 mg DAILY PO Last administered on 04/21/17 08:15; Admin Dose 40 MG; Start 04/13/17 at 19:00 Guaifenesin/ Codeine Phosphate 5 ml 5 ml BID PRN PO COUGH Last administered on 04/14/17 01:09; Admin Dose 5 ML; Start 04/14/17 at 01:00 Ceftriaxone Sodium (Rocephin) 50 ml @ 100 mls/hr Q24H IVPB Last administered on 04/20/17 16:33; Admin Dose 100 MLS/HR; Start 04/14/17 at 15:00 Metoclopramide HCl (Reglan) 5 mg Q6 IV Last administered on 04/21/17 11:31; Admin Dose 5 MG; Start 04/16/17 at 12:00 Tramadol HCl (Ultram) 50 mg Q6H PRN PO PAIN Last administered on 04/20/17 20: 34; Admin Dose 50 MG; Start 04/16/17 at 22:30 Pantoprazole (Protonix Tab) 40 mg BID@06,18 PO Last administered on 04/20/17 17:33; Admin Dose 40 MG; Start 04/18/17 at 06:00 Clonidine (Catapres) 0.1 mg BID PO Last administered on 04/21/17 08:19; Admin Dose 0.1 MG; Start 04/18/17 at 21:00 Metoprolol Tartrate (Lopressor) 75 mg BID PO Last administered on 04/21/17 08 :16; Admin Dose 75 MG; Start 04/18/17 at 21:00 Hydromorphone HCl (Dilaudid) 0.5 mg Q4H PRN IV PAIN Last administered on 13:50; Admin Dose 0.5 MG; Start 04/20/17 at 13:00 Polyethylene Glycol (Miralax) 17 gm DAILY PO Last administered on 04/21/17 08 :19; Admin Dose 17 GM; Start 04/20/17 at 13:00 ISELA HORN MD Apr 21, 2017 14:03
[2017-04-21] MEDS: CEFTRIAXONE 1 GM/50 ML (PMX) 50 ML IVPB SCH (15:23)
--- NOTE | 2017-04-21 19:07 | PN ---
Date/Time of Note Date/Time of Note DATE: 04/21/17 TIME: 19:05 Assessment/Plan VTE Prophylaxis VTE Prophylaxis Intervention: other Lines/Catheters IV Catheter Type (from Nrsg): PERM CATH Urinary Cath still in place: No Assessment/Plan Chief Complaint/Hosp Course ESRD HTN ABD PAIN PLEURAL EFFUSION S/P THORACENTESIS S/P EGD PUD W ULCER SEVERE PUL EDEMA BETTER HYPOKALEMIA BETTER PLAN PER GI HD LABS PAIN MEDS PPI SNF SOON Problems: Subjective 24 Hr Interval Summary Subjective hx not possible: other (DYSPHAGIA BETTER) Exam/Review of Systems Vital Signs Vitals Vital Signs Date Time Temp Pulse Resp B/P Pulse Ox O2 Delivery O2 Flow Rate FiO2 04/21/17 16:13 97.6 67 17 173/84 98 04/17/17 09:00 Nasal Cannula Intake and Output 04/20/17 04/20/17 04/21/17 15:00 23:00 07:00 Intake Total 400 ml 250 ml Output Total 2700 ml Balance -2300 ml 250 ml Exam Neck: supple Respiratory: clear to auscultation Cardiovascular: regular rate and rhythm Gastrointestinal: bowel sounds (+), soft Extremities: normal pulses Results Result Diagram: 04/19/17 0704 Medications Medications Current Medications Hydralazine HCl (Apresoline) 10 mg Q4H PRN IV HTN Last administered on 00:18; Admin Dose 10 MG; Start 04/13/17 at 17:30 Ondansetron HCl (Zofran Inj) 4 mg Q4H PRN IV NAUSEA AND/OR VOMITING Last administered on 04/14/17 17:41; Admin Dose 4 MG; Start 04/13/17 at 18:00 Acetaminophen (Tylenol Tab) 650 mg Q6H PRN PO PAIN LEVEL 1-3 OR FEVER; Start 04/13/17 at 18:00 Albuterol (Proventil 0.083% (Neb)) 2.5 mg DAILY PRN NEB WHEEZING AND SOB; Start 04/13/17 at 18:00 Bisacodyl (Dulcolax) 5 mg DAILY PRN PO CONSTIPATION Last administered on 22:27; Admin Dose 5 MG; Start 04/13/17 at 18:00 Calcium Carbonate (Oyster Shell Calcium) 1.25 gm DAILY PO Last administered on 04/21/17 08:12; Admin Dose 1.25 GM; Start 04/14/17 at 09:00 Diphenhydramine HCl (Benadryl) 25 mg DAILY PRN PO ITCHING Last administered on 04/21/17 12:18; Admin Dose 25 MG; Start 04/13/17 at 18:00 Docusate Sodium (Colace) 100 mg Q12H PRN PO CONSTIPATION; Start 04/13/17 at 18: 00 Hydralazine HCl (Apresoline) 25 mg Q8 PO Last administered on 04/21/17 13:51 ; Admin Dose 25 MG; Start 04/13/17 at 22:00 Lubiprostone (Amitiza) 24 mcg BID PO Last administered on 04/21/17 08:12; Admin Dose 24 MCG; Start 04/13/17 at 21:00 Magnesium Hydroxide (Milk Of Mag) 30 ml Q24H PRN PO CONSTIPATION Last administered on 04/18/17 14:15; Admin Dose 30 ML; Start 04/13/17 at 18:00 Metoclopramide HCl (Reglan) 5 mg Q6H PRN PO NAUSEA AND/OR VOMITING Last administered on 04/16/17 17:38; Admin Dose 5 MG; Start 04/13/17 at 18:00 Mineral Oil (Fleet Mineral Oil Enema) 133 ml DAILY PRN [place] CONSTIPATION; Start 04/13/17 at 18:00 Aspirin (Aspirin) 81 mg DAILY PO Last administered on 04/17/17 08:21; Admin Dose 81 MG; Start 04/14/17 at 09:00; Status Future Hold Lisinopril (Zestril) 40 mg DAILY PO Last administered on 04/21/17 08:15; Admin Dose 40 MG; Start 04/13/17 at 19:00 Guaifenesin/ Codeine Phosphate 5 ml 5 ml BID PRN PO COUGH Last administered on 04/14/17 01:09; Admin Dose 5 ML; Start 04/14/17 at 01:00 Ceftriaxone Sodium (Rocephin) 50 ml @ 100 mls/hr Q24H IVPB Last administered on 04/21/17 15:23; Admin Dose 100 MLS/HR; Start 04/14/17 at 15:00 Metoclopramide HCl (Reglan) 5 mg Q6 IV Last administered on 04/21/17 17:10; Admin Dose 5 MG; Start 04/16/17 at 12:00 Tramadol HCl (Ultram) 50 mg Q6H PRN PO PAIN Last administered on 04/20/17 20: 34; Admin Dose 50 MG; Start 04/16/17 at 22:30 Pantoprazole (Protonix Tab) 40 mg BID@,18 PO Last administered on 04/21/17 17:10; Admin Dose 40 MG; Start 04/18/17 at 06:00 Clonidine (Catapres) 0.1 mg BID PO Last administered on 04/21/17 08:19; Admin Dose 0.1 MG; Start 04/18/17 at 21:00 Metoprolol Tartrate (Lopressor) 75 mg BID PO Last administered on 04/21/17 08 :16; Admin Dose 75 MG; Start 04/18/17 at 21:00 Hydromorphone HCl (Dilaudid) 0.5 mg Q4H PRN IV PAIN Last administered on 18:10; Admin Dose 0.5 MG; Start 04/20/17 at 13:00 Polyethylene Glycol (Miralax) 17 gm DAILY PO Last administered on 04/21/17 08 :19; Admin Dose 17 GM; Start 04/20/17 at 13:00 SHAN ARRINGTON MD Apr 21, 2017 19:07
[2017-04-22] VITALS (15 sets, daily range): BP systolic 119–169; BP diastolic 62–90; PULSE 67–74; RESP 17–20
[2017-04-22] MEDS: METOCLOPRAMIDE 10 MG INJ IV SCH ×4 (00:31→17:20)
[2017-04-22] MEDS: HYDROmorphONE 0.5 MG/0.5 ML SYG IV PRN ×5 (02:24→20:58)
[2017-04-22] MEDS: SUCRALFATE 1 GM TAB PO SCH ×3 (06:37→17:19)
[2017-04-22] MEDS: PANTOPRAZOLE (EC) 40 MG TAB PO SCH ×2 (06:37→17:20)
[2017-04-22] MEDS: DIPHENHYDRAMINE 25 MG CAP PO PRN (10:26)
--- NOTE | 2017-04-22 13:12 | CONS ---
Date/Time of Note Date/Time of Note DATE: 04/22/17 TIME: 13:10 Assessment/Plan Assessment/Plan Chief Complaint/Hosp Course ASSESSMENT AND PLAN: A 56-year-old female with: 1. Atypical chest pain.-with swallowing. Negative trop x 3/NL EF by echo tis admit. CP improved/resolved. Likely was due to ulcer 2. Acute exacerbation of congestive heart failure. 3. Bilateral pleural effusion. 4. Pneumonia. 5. Hypertension-currently well controlled 6. Diabetes. 7. Dyslipidemia. 8. End-stage renal disease on hemodialysis. 9. Abnormal electrocardiogram with sinus tachycardia and incomplete right bundle branch block with PVCs. 10. Abd pain- now s/p endoscopy revealing esophageal ulceration 11. Constipation Recc: -Tele -continue hydralazine/zestril/metoprolol/clonidine and follow BP today with possible need for further increase -Hold asa given esophageal ulcer -HD for volume removal -Continue abx's and f/u cx data -pain control -Continue PPI Problems: Consultation Date/Type/Reason Admit Date/Time Apr 13, 2017 at 13:36 Initial Consult Date 04/13/2017 Type of Consultation: cardiology Reason for Consultation HTN Referring Provider: SHAN ARRINGTON MD Exam/Review of Systems Vital Signs Vitals Vital Signs Date Time Temp Pulse Resp B/P Pulse Ox O2 Delivery O2 Flow Rate FiO2 04/22/17 12:08 74 04/22/17 11:45 98.1 17 144/87 94 Intake and Output 04/21/17 04/21/17 04/22/17 15:00 23:00 07:00 Intake Total 1000 ml 200 ml Balance 1000 ml 200 ml Exam Review of Systems: CONSTITUTIONAL: No fevers, chills. PULMONARY: No sob CARDIOVASCULAR: No chest pain/palpitations GASTROINTESTINAL: No nausea/vomiting. GENITOURINARY: No hematuria/dysuria. MUSCULOSKELETAL: No myagias/arthalgias. PSYCHIATRIC: The patient denies depression. NEUROLOGIC: No weakness Constitutional: alert Psych: no complaints Head: normocephalic ENMT: mucosa pink and moist Neck: jvd, supple Respiratory: diminished breath sounds Cardiovascular: regular rate and rhythm Gastrointestinal: non-tender, soft Musculoskeletal: muscle tone (normal) Extremities: edema (none) Neurological: other (No focal deficits) Results Result Diagram: 04/19/17 0704 Medications Medications Current Medications Hydralazine HCl (Apresoline) 10 mg Q4H PRN IV HTN Last administered on 00:18; Admin Dose 10 MG; Start 04/13/17 at 17:30 Ondansetron HCl (Zofran Inj) 4 mg Q4H PRN IV NAUSEA AND/OR VOMITING Last administered on 04/14/17 17:41; Admin Dose 4 MG; Start 04/13/17 at 18:00 Acetaminophen (Tylenol Tab) 650 mg Q6H PRN PO PAIN LEVEL 1-3 OR FEVER; Start 04/13/17 at 18:00 Albuterol (Proventil 0.083% (Neb)) 2.5 mg DAILY PRN NEB WHEEZING AND SOB; Start 04/13/17 at 18:00 Bisacodyl (Dulcolax) 5 mg DAILY PRN PO CONSTIPATION Last administered on 22:27; Admin Dose 5 MG; Start 04/13/17 at 18:00 Calcium Carbonate (Oyster Shell Calcium) 1.25 gm DAILY PO Last administered on 04/21/17 08:12; Admin Dose 1.25 GM; Start 04/14/17 at 09:00 Diphenhydramine HCl (Benadryl) 25 mg DAILY PRN PO ITCHING Last administered on 04/22/17 10:26; Admin Dose 25 MG; Start 04/13/17 at 18:00 Docusate Sodium (Colace) 100 mg Q12H PRN PO CONSTIPATION; Start 04/13/17 at 18: 00 Hydralazine HCl (Apresoline) 25 mg Q8 PO Last administered on 04/22/17 06:38 ; Admin Dose 25 MG; Start 04/13/17 at 22:00 Lubiprostone (Amitiza) 24 mcg BID PO Last administered on 04/21/17 20:42; Admin Dose 24 MCG; Start 04/13/17 at 21:00 Magnesium Hydroxide (Milk Of Mag) 30 ml Q24H PRN PO CONSTIPATION Last administered on 04/18/17 14:15; Admin Dose 30 ML; Start 04/13/17 at 18:00 Metoclopramide HCl (Reglan) 5 mg Q6H PRN PO NAUSEA AND/OR VOMITING Last administered on 04/16/17 17:38; Admin Dose 5 MG; Start 04/13/17 at 18:00 Mineral Oil (Fleet Mineral Oil Enema) 133 ml DAILY PRN [place] CONSTIPATION; Start 04/13/17 at 18:00 Aspirin (Aspirin) 81 mg DAILY PO Last administered on 04/17/17 08:21; Admin Dose 81 MG; Start 04/14/17 at 09:00; Status Future Hold Lisinopril (Zestril) 40 mg DAILY PO Last administered on 04/21/17 08:15; Admin Dose 40 MG; Start 04/13/17 at 19:00 Guaifenesin/ Codeine Phosphate 5 ml 5 ml BID PRN PO COUGH Last administered on 04/14/17 01:09; Admin Dose 5 ML; Start 04/14/17 at 01:00 Ceftriaxone Sodium (Rocephin) 50 ml @ 100 mls/hr Q24H IVPB Last administered on 04/21/17 15:23; Admin Dose 100 MLS/HR; Start 04/14/17 at 15:00 Metoclopramide HCl (Reglan) 5 mg Q6 IV Last administered on 04/22/17 06:38; Admin Dose 5 MG; Start 04/16/17 at 12:00 Tramadol HCl (Ultram) 50 mg Q6H PRN PO PAIN Last administered on 04/20/17 20: 34; Admin Dose 50 MG; Start 04/16/17 at 22:30 Pantoprazole (Protonix Tab) 40 mg BID@06,18 PO Last administered on 04/22/17 06:37; Admin Dose 40 MG; Start 04/18/17 at 06:00 Clonidine (Catapres) 0.1 mg BID PO Last administered on 04/21/17 20:45; Admin Dose 0.1 MG; Start 04/18/17 at 21:00 Metoprolol Tartrate (Lopressor) 75 mg BID PO Last administered on 04/21/17 20 :45; Admin Dose 75 MG; Start 04/18/17 at 21:00 Hydromorphone HCl (Dilaudid) 0.5 mg Q4H PRN IV PAIN Last administered on 10:13; Admin Dose 0.5 MG; Start 04/20/17 at 13:00 Polyethylene Glycol (Miralax) 17 gm DAILY PO Last administered on 04/21/17 08 :19; Admin Dose 17 GM; Start 04/20/17 at 13:00 HUA SANTIAGO Apr 22, 2017 13:12
[2017-04-22] MEDS: METOPROLOL 25 MG TAB PO SCH ×2 (13:47→20:59)
[2017-04-22] MEDS: LISINOPRIL 20 MG TAB PO SCH (13:47)
[2017-04-22] MEDS: CALCIUM CARBONATE 1.25 GM TAB PO SCH (13:47)
[2017-04-22] MEDS: LUBIPROSTONE 24 MCG CAP PO SCH ×2 (13:48→20:58)
[2017-04-22] MEDS: POLYETHYLENE GLYCOL 17 GM PACKET PO SCH (13:48)
[2017-04-22] MEDS: ONDANSETRON 4 MG INJ IV PRN (14:12)
[2017-04-22] MEDS: CEFTRIAXONE 1 GM/50 ML (PMX) 50 ML IVPB SCH (16:02)
--- NOTE | 2017-04-22 18:27 | PN ---
Date/Time of Note Date/Time of Note DATE: 04/22/17 TIME: 18:23 Assessment/Plan VTE Prophylaxis VTE Prophylaxis Intervention: heparin Lines/Catheters IV Catheter Type (from [facility]): PERM CATH Urinary Cath still in place: No Assessment/Plan Chief Complaint/Hosp Course 56 y/o with # Abd pain- now s/p endoscopy revealing esophageal ulceration # Atypical chest pain.-with swallowing. Negative trop x 3/NL EF by echo tis admit. CP improved/resolved. Likely was due to ulcer # Acute exacerbation of congestive heart failure with Bilateral pleural effusion. # Pneumonia. # Hypertension-currently well controlled #. Diabetes. #. Dyslipidemia. # End-stage renal disease on hemodialysis. Recs - Alteplase today - Will do HD tmw - continue hydralazine/zestril/metoprolol/clonidine -Hold asa given esophageal ulcer -Continue PPI Problems: Subjective 24 Hr Interval Summary Free Text/Dictation Could not finish HD today as catheter was clotted Exam/Review of Systems Vital Signs Vitals Vital Signs Date Time Temp Pulse Resp B/P Pulse Ox O2 Delivery O2 Flow Rate FiO2 04/22/17 16:19 98.2 77 17 146/75 90 Intake and Output 04/21/17 04/21/17 04/22/17 15:00 23:00 07:00 Intake Total 1000 ml 200 ml Balance 1000 ml 200 ml Exam Constitutional: alert Psych: no complaints Head: normocephalic ENMT: mucosa pink and moist Neck: jvd, supple Respiratory: diminished breath sounds Cardiovascular: regular rate and rhythm Gastrointestinal: non-tender, soft Musculoskeletal: muscle tone (normal) Extremities: edema (none) Neurological: other (No focal deficits) Results Result Diagram: 04/19/17 0704 Medications Medications Current Medications Hydralazine HCl (Apresoline) 10 mg Q4H PRN IV HTN Last administered on 00:18; Admin Dose 10 MG; Start 04/13/17 at 17:30 Ondansetron HCl (Zofran Inj) 4 mg Q4H PRN IV NAUSEA AND/OR VOMITING Last administered on 04/22/17 14:12; Admin Dose 4 MG; Start 04/13/17 at 18:00 Acetaminophen (Tylenol Tab) 650 mg Q6H PRN PO PAIN LEVEL 1-3 OR FEVER; Start 04/13/17 at 18:00 Albuterol (Proventil 0.083% (Neb)) 2.5 mg DAILY PRN NEB WHEEZING AND SOB; Start 04/13/17 at 18:00 Bisacodyl (Dulcolax) 5 mg DAILY PRN PO CONSTIPATION Last administered on 22:27; Admin Dose 5 MG; Start 04/13/17 at 18:00 Calcium Carbonate (Oyster Shell Calcium) 1.25 gm DAILY PO Last administered on 04/22/17 13:47; Admin Dose 1.25 GM; Start 04/14/17 at 09:00 Diphenhydramine HCl (Benadryl) 25 mg DAILY PRN PO ITCHING Last administered on 04/22/17 10:26; Admin Dose 25 MG; Start 04/13/17 at 18:00 Docusate Sodium (Colace) 100 mg Q12H PRN PO CONSTIPATION; Start 04/13/17 at 18: 00 Lubiprostone (Amitiza) 24 mcg BID PO Last administered on 04/22/17 13:48; Admin Dose 24 MCG; Start 04/13/17 at 21:00 Magnesium Hydroxide (Milk Of Mag) 30 ml Q24H PRN PO CONSTIPATION Last administered on 04/18/17 14:15; Admin Dose 30 ML; Start 04/13/17 at 18:00 Metoclopramide HCl (Reglan) 5 mg Q6H PRN PO NAUSEA AND/OR VOMITING Last administered on 04/16/17 17:38; Admin Dose 5 MG; Start 04/13/17 at 18:00 Mineral Oil (Fleet Mineral Oil Enema) 133 ml DAILY PRN [place] CONSTIPATION; Start 04/13/17 at 18:00 Aspirin (Aspirin) 81 mg DAILY PO Last administered on 04/17/17 08:21; Admin Dose 81 MG; Start 04/14/17 at 09:00; Status Future Hold Lisinopril (Zestril) 40 mg DAILY PO Last administered on 04/22/17 13:47; Admin Dose 40 MG; Start 04/13/17 at 19:00 Guaifenesin/ Codeine Phosphate 5 ml 5 ml BID PRN PO COUGH Last administered on 04/14/17 01:09; Admin Dose 5 ML; Start 04/14/17 at 01:00 Ceftriaxone Sodium (Rocephin) 50 ml @ 100 mls/hr Q24H IVPB Last administered on 04/22/17 16:02; Admin Dose 100 MLS/HR; Start 04/14/17 at 15:00 Metoclopramide HCl (Reglan) 5 mg Q6 IV Last administered on 04/22/17 17:20; Admin Dose 5 MG; Start 04/16/17 at 12:00 Tramadol HCl (Ultram) 50 mg Q6H PRN PO PAIN Last administered on 04/20/17 20: 34; Admin Dose 50 MG; Start 04/16/17 at 22:30 Pantoprazole (Protonix Tab) 40 mg BID@06,18 PO Last administered on 04/22/17 17:20; Admin Dose 40 MG; Start 04/18/17 at 06:00 Clonidine (Catapres) 0.1 mg BID PO Last administered on 04/22/17 13:46; Admin Dose 0.1 MG; Start 04/18/17 at 21:00 Metoprolol Tartrate (Lopressor) 75 mg BID PO Last administered on 04/22/17 13 :47; Admin Dose 75 MG; Start 04/18/17 at 21:00 Hydromorphone HCl (Dilaudid) 0.5 mg Q4H PRN IV PAIN Last administered on 16:14; Admin Dose 0.5 MG; Start 04/20/17 at 13:00 Polyethylene Glycol (Miralax) 17 gm DAILY PO Last administered on 04/22/17 13 :48; Admin Dose 17 GM; Start 04/20/17 at 13:00 Hydralazine HCl (Apresoline) 50 mg Q8 PO Last administered on 04/22/17 13:47 ; Admin Dose 50 MG; Start 04/22/17 at 14:00 Alteplase, Recombinant (Cathflo (Activase)) 2 mg ONCE ONCE CATHETER ; Start at 18:30; Stop 04/22/17 at 18:31 MARCIA RICHARDS MD Apr 22, 2017 18:27
[2017-04-22] MEDS ORDERED: ALTEPLASE (CATHFLO) 2 MG INJ CATHETER ONE (18:30)
[2017-04-22] MEDS ORDERED: DIPHENHYDRAMINE 50 MG INJ IV PRN (18:30)
[2017-04-23] VITALS (16 sets, daily range): BP systolic 117–161; BP diastolic 65–90; PULSE 68–74; RESP 17–20
[2017-04-23] MEDS: HYDROmorphONE 0.5 MG/0.5 ML SYG IV PRN ×4 (01:15→14:16)
[2017-04-23] MEDS: METOCLOPRAMIDE 10 MG INJ IV SCH ×3 (01:20→12:00)
[2017-04-23] MEDS: PANTOPRAZOLE (EC) 40 MG TAB PO SCH (05:41)
[2017-04-23 08:53] LABS: BASOPHILS % 0.9 % (0.0-2.0); EOSINOPHILS # 0.1 10^3/ul (0.0-0.5); EOSINOPHILS % 1.9 % (0.0-7.0); HEMATOCRIT 31.7 % (37.0-47.0); HEMOGLOBIN 10.1 g/dl (12.0-16.0); LYMPHOCYTES # 1.1 10^3/ul (0.8-2.9); LYMPHOCYTES % 25.2 % (15.0-51.0); MEAN CORPUSCULAR HEMOGLOBIN 27.9 pg (29.0-33.0); MEAN CORPUSCULAR HGB CONC 31.9 g/dl (32.0-37.0); MEAN CORPUSCULAR VOLUME 87.6 fl (82.0-101.0); MEAN PLATELET VOLUME 10.9 fl (7.4-10.4); MONOCYTE # 0.6 10^3/ul (0.3-0.9); NEUTROPHIL # 2.5 10^3/ul (1.6-7.5); NEUTROPHILS % 58.8 % (39.0-77.0); PLATELET COUNT 252 10^3/UL (140-415); RED BLOOD COUNT 3.62 10^6/ul (4.20-5.40); RED CELL DISTRIBUTION WIDTH 18.8 % (11.5-14.5); WHITE BLOOD COUNT 4.2 10^3/ul (4.8-10.8)
[2017-04-23 09:19] LABS: ALBUMIN 1.8 g/dl (3.3-4.9); ALBUMIN/GLOBULIN RATIO 0.6; CALCIUM 7.5 mg/dl (8.4-10.2); CREATININE 3.92 mg/dl (0.44-1.00); POTASSIUM 4.2 mmol/L (3.5-5.1); TOTAL PROTEIN 4.8 g/dl (6.1-8.1)
[2017-04-23] MEDS: CALCIUM CARBONATE 1.25 GM TAB PO SCH (09:19)
[2017-04-23] MEDS: SUCRALFATE 1 GM TAB PO SCH ×2 (09:19→13:15)
[2017-04-23] MEDS: DIPHENHYDRAMINE 25 MG CAP PO PRN (09:19)
--- NOTE | 2017-04-23 10:23 | CONS ---
Date/Time of Note Date/Time of Note DATE: 04/23/17 TIME: 10:22 Assessment/Plan Assessment/Plan Additional Assessment/Plan 1. Atypical chest pain.-with swallowing. Negative trop x 3/NL EF by echo tis admit. CP improved/resolved. Likely was due to ulcer - NO CP now 2. Acute exacerbation of congestive heart failure. 3. Bilateral pleural effusion- Rx per primary team. 4. Pneumonia. 5. Hypertension-currently well controlled- HD now; 6. Diabetes. 7. Dyslipidemia. 8. End-stage renal disease on hemodialysis. 9. Abnormal electrocardiogram with sinus tachycardia and incomplete right bundle branch block with PVCs. 10. Abd pain- now s/p endoscopy revealing esophageal ulceration 11. Constipation Consultation Date/Type/Reason Admit Date/Time Apr 13, 2017 at 13:36 Type of Consultation: cardiology Referring Provider: SHAN ARRINGTON MD 24 HR Interval Summary Free Text/Dictation NO acute events - BP stable - HD now. ROS: No fever, no chills, no nausea, no vomiting, no diarrhea/constipation No recent weight changes No chest pain, no PND, no orthopnea No dizziness, blurred vision No thirst, no heat or cold intolerance Exam/Review of Systems Vital Signs Vitals Vital Signs Date Time Temp Pulse Resp B/P Pulse Ox O2 Delivery O2 Flow Rate FiO2 04/23/17 08:00 70 04/23/17 07:57 98.3 17 140/70 92 Intake and Output 04/22/17 04/22/17 04/23/17 15:00 23:00 07:00 Intake Total 500 ml 50 ml Output Total 500 ml Balance 0 ml 50 ml Exam General: WN/WD/NAD, AOx 1-2 HEENT: Unicetric/atraumatic/EOMI (follow commands) NECK: JVD elevated, no thyromegaly Lymph: no lymphadenopathy HEART: regular with no S3, II/ systolic murmur at apex LUNGS: Coarse sounds ABD: soft, NT, ND, +BS : Intact Neuro: non focal SKIN: chronic changes EXT: trace edema Results Result Diagram: 04/23/1780404/23/17804 Results 24 hrs Laboratory Tests Test 04/23/17 08:05 White Blood Count 4.2 #L Red Blood Count 3.62 L Hemoglobin 10.1 L Hematocrit 31.7 L Mean Corpuscular Volume 87.6 Mean Corpuscular Hemoglobin 27.9 L Mean Corpuscular Hemoglobin Concent 31.9 L Red Cell Distribution Width 18.8 H Platelet Count 252 # Mean Platelet Volume 10.9 H Neutrophils % 58.8 Lymphocytes % 25.2 Monocytes % 13.0 H Eosinophils % 1.9 Basophils % 0.9 Nucleated Red Blood Cells % 0.0 Neutrophils # 2.5 Lymphocytes # 1.1 Monocytes # 0.6 Eosinophils # 0.1 Basophils # 0.0 Nucleated Red Blood Cells # 0.0 Sodium Level 135 Potassium Level 4.2 Chloride Level 106 Carbon Dioxide Level 26 Anion Gap 7 L Blood Urea Nitrogen 22 H Creatinine 3.92 H Glucose Level 105 Calcium Level 7.5 L Total Bilirubin 0.0 L Direct Bilirubin 0.00 Indirect Bilirubin 0.0 Aspartate Amino Transf (AST/SGOT) 14 L Alanine Aminotransferase (ALT/SGPT) 23 Alkaline Phosphatase 125 H Total Protein 4.8 L Albumin 1.8 L Globulin 3.00 Albumin/Globulin Ratio 0.60 Medications Medications Current Medications Hydralazine HCl (Apresoline) 10 mg Q4H PRN IV HTN Last administered on 00:18; Admin Dose 10 MG; Start 04/13/17 at 17:30 Ondansetron HCl (Zofran Inj) 4 mg Q4H PRN IV NAUSEA AND/OR VOMITING Last administered on 04/22/17 14:12; Admin Dose 4 MG; Start 04/13/17 at 18:00 Acetaminophen (Tylenol Tab) 650 mg Q6H PRN PO PAIN LEVEL 1-3 OR FEVER; Start 04/13/17 at 18:00 Albuterol (Proventil 0.083% (Neb)) 2.5 mg DAILY PRN NEB WHEEZING AND SOB; Start 04/13/17 at 18:00 Bisacodyl (Dulcolax) 5 mg DAILY PRN PO CONSTIPATION Last administered on 22:27; Admin Dose 5 MG; Start 04/13/17 at 18:00 Calcium Carbonate (Oyster Shell Calcium) 1.25 gm DAILY PO Last administered on 04/23/17 09:19; Admin Dose 1.25 GM; Start 04/14/17 at 09:00 Diphenhydramine HCl (Benadryl) 25 mg DAILY PRN PO ITCHING Last administered on 04/22/17 10:26; Admin Dose 25 MG; Start 04/13/17 at 18:00 Docusate Sodium (Colace) 100 mg Q12H PRN PO CONSTIPATION; Start 04/13/17 at 18: 00 Lubiprostone (Amitiza) 24 mcg BID PO Last administered on 04/22/17 20:58; Admin Dose 24 MCG; Start 04/13/17 at 21:00 Magnesium Hydroxide (Milk Of Mag) 30 ml Q24H PRN PO CONSTIPATION Last administered on 04/18/17 14:15; Admin Dose 30 ML; Start 04/13/17 at 18:00 Metoclopramide HCl (Reglan) 5 mg Q6H PRN PO NAUSEA AND/OR VOMITING Last administered on 04/16/17 17:38; Admin Dose 5 MG; Start 04/13/17 at 18:00 Mineral Oil (Fleet Mineral Oil Enema) 133 ml DAILY PRN [place] CONSTIPATION; Start 04/13/17 at 18:00 Aspirin (Aspirin) 81 mg DAILY PO Last administered on 04/17/17 08:21; Admin Dose 81 MG; Start 04/14/17 at 09:00; Status Future Hold Lisinopril (Zestril) 40 mg DAILY PO Last administered on 04/22/17 13:47; Admin Dose 40 MG; Start 04/13/17 at 19:00 Guaifenesin/ Codeine Phosphate 5 ml 5 ml BID PRN PO COUGH Last administered on 04/14/17 01:09; Admin Dose 5 ML; Start 04/14/17 at 01:00 Ceftriaxone Sodium (Rocephin) 50 ml @ 100 mls/hr Q24H IVPB Last administered on 04/22/17 16:02; Admin Dose 100 MLS/HR; Start 04/14/17 at 15:00 Metoclopramide HCl (Reglan) 5 mg Q6 IV Last administered on 04/23/17 05:41; Admin Dose 5 MG; Start 04/16/17 at 12:00 Tramadol HCl (Ultram) 50 mg Q6H PRN PO PAIN Last administered on 04/20/17 20: 34; Admin Dose 50 MG; Start 04/16/17 at 22:30 Pantoprazole (Protonix Tab) 40 mg BID@06,18 PO Last administered on 04/23/17 05:41; Admin Dose 40 MG; Start 04/18/17 at 06:00 Clonidine (Catapres) 0.1 mg BID PO Last administered on 04/22/17 21:00; Admin Dose 0.1 MG; Start 04/18/17 at 21:00 Metoprolol Tartrate (Lopressor) 75 mg BID PO Last administered on 04/22/17 20 :59; Admin Dose 75 MG; Start 04/18/17 at 21:00 Hydromorphone HCl (Dilaudid) 0.5 mg Q4H PRN IV PAIN Last administered on 10:03; Admin Dose 0.5 MG; Start 04/20/17 at 13:00 Polyethylene Glycol (Miralax) 17 gm DAILY PO Last administered on 04/22/17 13 :48; Admin Dose 17 GM; Start 04/20/17 at 13:00 Hydralazine HCl (Apresoline) 50 mg Q8 PO Last administered on 04/23/17 05:41 ; Admin Dose 50 MG; Start 04/22/17 at 14:00 Diphenhydramine HCl (Benadryl) 25 mg ONCE PRN IV itching Last administered on 18:50; Admin Dose 25 MG; Start 04/22/17 at 18:30 ISELA HORN MD Apr 23, 2017 10:23
[2017-04-23] MEDS: ONDANSETRON 4 MG INJ IV PRN (11:24)
[2017-04-23] MEDS ORDERED: DIPHENHYDRAMINE 50 MG INJ IV ONE (13:00)
--- NOTE | 2017-04-23 13:00 | PDOCDIS ---
Discharge Instructions DIAGNOSIS Discharge Diagnosis Atypical chest pain CHF Oesophageal ulcers CONDITION Patient Condition: Fair HOME CARE INSTRUCTIONS: Special Diet: STEVEN SOFT ACTIVITY: Activity Restrictions: Slowly Increase Activity FOLLOW UP/APPOINTMENTS Follow-up Plan f/u in GI with Dr Whyte in 3-4 weeks f/u PCP in 2 -3 weeks f/u HD at [facility] T/T/S MARCIA RICHARDS MD Apr 23, 2017 13:00
[2017-04-23] MEDS ORDERED: HYDR-3672 PO (13:06)
[2017-04-23] MEDS ORDERED: LISI20TA11 PO (13:06)
[2017-04-23] MEDS ORDERED: SUCR1TAB27 PO (13:06)
[2017-04-23] MEDS ORDERED: METO-448 PO (13:06)
[2017-04-23] MEDS: LUBIPROSTONE 24 MCG CAP PO SCH (13:13)
[2017-04-23] MEDS: METOPROLOL 25 MG TAB PO SCH (13:14)
[2017-04-23] MEDS: LISINOPRIL 20 MG TAB PO SCH (13:15)
[2017-04-23] MEDS: POLYETHYLENE GLYCOL 17 GM PACKET PO SCH (13:16)
[2017-04-23] MEDS: METOCLOPRAMIDE 5 MG TAB PO PRN (13:27)
[2017-04-23] MEDS: CEFTRIAXONE 1 GM/50 ML (PMX) 50 ML IVPB SCH (14:50)
--- NOTE | 2017-04-24 18:21 | DS ---
DATE OF ADMISSION: 04/13/2017 DATE OF DISCHARGE: 04/23/2017 HISTORY OF PRESENT ILLNESS AND HOSPITAL COURSE: This is a 56-year-old female with past medical hist ory of hypoxic respiratory failure, thoracentesis, history of anemia, blood transfusion, hypertensio n, end-stage renal disease on hemodialysis Saturday, and Saturday; history of COPD, chronic pain, presented to the hospital from the dialysis center with complaint of shortness of breath, abdo gabriel pain and poor oral intake. Denied any fevers, chills. On admission, the patient also complai aminta of chest pain. EKG on admission had found sinus tachycardia. Blood pressure was 115/53, pulse . The patient was admitted to unit. The patient had serial troponins that were negative . A cardiology consultation was requested with Dr. Dyson/Dr. Lauren. The patient was continued on metoprolol, lisinopril, hydralazine, clonidine. The patient had a chest x-ray that showed cardi omegaly with perihilar and basilar mixed interstitial and alveolar infiltrates as well with bilatera l pleural effusion fluid overload or CHF. The patient also had a CT of the abdomen and pelvis that showed increase in bilateral pleural effusion, small ascites and diffuse anasarca. The patient had a thoracentesis that was done on 02/14/2017 on the right. Pleural studies were consistent with flui d being transudative in nature. AFB was negative. Fungal cultures preliminarily were negative. Gr am stain was negative. The patient was also complaining of some abdominal pain. The patient was se en by Dr. Whyte for a GI consultation and had extensive esophageal ulceration, gastroparesis. The patient was started on Reglan and also start on Protonix and sucralfate. Postop, patient was doing much better, was advanced diet to soft mechanical and was tolerating it fine. The patient had been followed by Dr. Lauren for cardiology consultation. Aspirin had been held due to esophageal ulcer. HD was continued; however, the day before discharge, the patient started having some difficulties with the PermCath. Alteplase was placed and the catheter was working fine. The patient received fu ll session of dialysis. Currently, the patient is stable to be discharged back to the SNF. FINAL DISCHARGE DIAGNOSES: 1. Atypical chest pain with . Negative for troponin x3. Ejection fraction is 65%. 2. Pleural effusion, status post thoracentesis on the right. Pleural fluid consistent with transud ative in nature. 3. Acute exacerbation of congestive heart failure. 4. Questionable pneumonia. The patient is status post treatment with Rocephin. 5. Hypertension. 6. Diabetes. 7. Dyslipidemia. 8. End-stage renal disease on hemodialysis. 9. Abdominal pain status post endoscopy revealing esophageal ulceration. 10. Constipation. DISCHARGE INSTRUCTIONS: 1. Aspirin will be on hold. 2. Increase medication dose of hydralazine, increase to 50 q.8. 3. Clonidine was changed from 0.1 t.i.d. to 0.1 b.i.d. 4. Lisinopril 40 was added instead of benazepril 5 b.i.d. 5. Reglan 5 mg q.6. 6. Metoprolol 75 b.i.d. 7. Protonix 40 b.i.d. 8. Sucralfate 1 gram p.o. with meals. 9. Continue with the rest of the medications: Albuterol, Atrovent, calcium carbonate. 10. Completed a course of Rocephin and Benadryl. 11. Amitiza 24. 12. Tramadol p.r.n. pain. 13. Cranberry extract. The patient will be followed in the dialysis center at [place] Saturday, and Saturday and a lso will follow up with PCP in 1 to 2 weeks. The patient will also follow up with Dr. Whyte in 2 t o 3 weeks. Dictated By: MARCIA ROSS/TAMMY Conf#: [id number] DID#: [id number] CC: SHAN ARRINGTON MD;*EndCC*
== END 2017-04-23 17:06 | DRG 291 ==
LOC: E/R 12:03 → MS4 13:36
PROVIDERS: ADMIT Internal Medicine Nephrology; ATTEND Internal Medicine Nephrology
PROC: 0W993ZZ Drainage of Right Pleural Cavity, Percutaneous Approach (ICD-10-PCS; 2017-04-14)
PROC: 0DB68ZX Excision of Stomach, Via Natural or Artificial Opening Endoscopic, Diagnostic (ICD-10-PCS; 2017-04-16)
PROC: 0DB98ZX Excision of Duodenum, Via Natural or Artificial Opening Endoscopic, Diagnostic (ICD-10-PCS; principal; 2017-04-16 09:00)
DX: I13.2 Hypertensive heart and chronic kidney disease with heart failure and with stage 5 chronic kidney disease, or end stage renal disease (principal); I50.33 Acute on chronic diastolic (congestive) heart failure; J18.9 Pneumonia, unspecified organism; J90 Pleural effusion, not elsewhere classified; J81.1 Chronic pulmonary edema; N18.6 End stage renal disease; R18.8 Other ascites; E11.22 Type 2 diabetes mellitus with diabetic chronic kidney disease; K22.10 Ulcer of esophagus without bleeding; K31.84 Gastroparesis; K29.50 Unspecified chronic gastritis without bleeding; E88.09 Other disorders of plasma-protein metabolism, not elsewhere classified; E87.6 Hypokalemia; I16.1 Hypertensive emergency; D64.9 Anemia, unspecified; R07.89 Other chest pain; Z99.2 Dependence on renal dialysis
CPT/HCPCS: 36415; 71010; 74176; 76942; 80048; 80053; 82945; 83690; 83735; 83880; 84157; 84484; 85025; 85610; 85730; 87070; 87081; 87102; 87116; 88305; 88312; 89051; 90935; 93005; 93306; 96374; 96375; 96376; 97162; C9113; J0360; J0696; J1170; J1200; J2001; J2270; J2405; J2765; J2997; J3010; J3480; J7040; J7042; J7070

== ENCOUNTER 2017-05-03 14:44 | Inpatient (IN) | payer OTHER ==
[~2017-05-03] VITALS: Ht 170.2 cm; Wt 58.2 kg
[~2017-05-03 14:44] MED LIST changes: +ALBU2.5V3 NEB; +BEN25 PO; -BENA10TA48 PO; +CALC500T91 PO; +CLON-379 PO; +CRAN500T2 PO; -ENOX30DI8 SC; +FE F1TAB7 PO; +HYDR-3672 PO; +HYDR-906 PO; +HYDR2TAB3 PO; -HYDR2TAB36 PO; +LISI20TA11 PO; +LUBI24CA7 PO; +MAGN400O4 PO; -METO-429 PO; +METO-448 PO; +METO5TAB58 PO; +MINE133E23 PR; +PANT40TA3 PO; -PANT40TA4 PO; +SUCR1TAB27 PO; -ZOLP5TAB PO
[2017-05-03] MEDS ORDERED: morphine 4 MG/ML VIAL IV STA (15:38)
[2017-05-03] MEDS ORDERED: ONDANSETRON 4 MG INJ IV STA ×2 (15:38→18:14)
[2017-05-03] MEDS ORDERED: FAMOTIDINE 20 MG INJ IV STA (15:38)
--- NOTE | 2017-05-03 17:40 | RADRPT ---
PROCEDURE: CT Abdomen and Pelvis without contrast. CLINICAL INDICATION: Abdominal and pelvic pain. Vomiting. TECHNIQUE: CT scan of the abdomen and pelvis without contrast was performed. Coronal and sagittal reformatted images were obtained from the axial source images. Images were reviewed on a high-resolu [employer] PACS workstation. Total exam DLP is 325.70 mGy-cm. CTDIvol is 5.89 mGy. One or more of the fo llowing dose reduction techniques were used: Automated exposure control, adjustment of the mA and/or kV according to patient size, use of iterative reconstruction technique. COMPARISON: 04/13/2017. FINDINGS: There are moderate bilateral pleural effusions. There is associated atelectasis at both lung bases p osteriorly. The heart is enlarged. There is no pericardial effusion. A central line is present with the tip in the right atrium. The liver is normal in size and attenuation. There is no focal hepatic lesion. Possible gallstones are present in the gallbladder. There is no evidence of cholecystitis. The bile ducts are normal. The spleen is normal in size. There is no focal splenic lesion. Both adrenals are normal with no enlargement or mass. The pancreas is unremarkable with no mass or evidence of pancreatitis. There is no renal mass or hydronephrosis. There is no renal calculus or ureteral calculus. The abdominal aorta is not dilated. Vascular calcifications are present consistent with atherosclero sis. There is no retroperitoneal lymphadenopathy or mass. There is no pelvic lymphadenopathy or mass. The bladder and distal ureters are normal. The periappendiceal region is unremarkable with no evidence of appendicitis. There is diverticulosis of the colon without evidence of diverticulitis. The bowel and mesentery are otherwise normal. There is no free air. A small amount of free fluid is present in the abdomen and pelvis. There is di ffuse edema of the subcutaneous adipose tissues consistent with anasarca, slightly improved. There are degenerative changes of the spine. There is no fracture or lytic lesion. IMPRESSION: 1. Moderate bilateral pleural effusions. 2. Atelectasis at the lung bases posteriorly. 3. Cardiomegaly. 4. Central line tip in the right atrium. 5. Possible gallstones in the gallbladder. No evidence of cholecystitis. 6. Atherosclerosis. 7. Diverticulosis of the colon without evidence of diverticulitis. 8. Small amount of free fluid in the abdomen and pelvis. 9. Anasarca, slightly improved. 10. Degenerative changes of the spine. RPTAT: QQ .Mohamud Nam MD, Date Time Electronically viewed and signed by .Mohamud Nam MD, on 05/03/2017 17:40 .R/
[2017-05-03] MEDS ORDERED: HYDR-3672 PO (17:48)
[2017-05-03] MEDS ORDERED: LISI40TA9 PO (17:49)
[2017-05-03] MEDS ORDERED: METO-448 PO (17:50)
[2017-05-03] MEDS ORDERED: CRAN1CAP9 PO (17:59)
[2017-05-03] MEDS ORDERED: CEFTRIAXONE 1 GM/50 ML (PMX) 50 ML IVPB ONE (18:00)
[2017-05-03] MEDS ORDERED: morphine 2 MG INJ IV ONE (18:30)
--- NOTE | 2017-05-03 19:13 | ERD ---
ER Documentation Chief Complaint Chief Complaint SENT FROM [facility] C/O VOMITING. HPI This is a 56-year-old female who presents to the emergency room from her [facility] facility for evaluation of nausea, vomiting and abdominal pain. The patient states that she has abdominal pain which she describes as a crampy -like sensation located in the midportion of her abdomen. The patient states that she has had multiple episodes of nonbilious vomiting and denies any diarrhea. She does state that she is a dialysis patient is on dialysis Saturday , , Saturday. She states that she did complete dialysis on and came to the ER today because she kept vomiting. The patient denies any aggravating or relieving factors for her symptoms and came to the ER for evaluation. She denies any chest pain, palpitations or diaphoresis associated with this ROS All systems reviewed and are negative except as per history of present illness. Medications Home Meds Active Scripts Sucralfate (Carafate) 1 Gm Tablet, 1 GM PO AC MEALS for 30 Days, TAB Prov:MARCIA RICHARDS MD 04/23/17 Reported Medications Cranberry Conc/Ascorbic Acid (CRANBERRY CONCENTRATE SOFTGEL) 1 Each Capsule, 1 EACH PO DAILY, CAP 168MG 05/03/17 Metoprolol Tartrate* (Lopressor*) 25 Mg Tab, 75 MG PO BID, #180 TAB HOLD IF SBP<110,HR<60 05/03/17 Lisinopril* (Lisinopril*) 40 Mg Tablet, 40 MG PO DAILY, #30 TAB HOLD IF SBP<110,HR<60 05/03/17 Hydralazine Hcl* (Hydralazine Hcl*) 50 Mg Tab, 50 MG PO Q8, #90 TAB HOLD IDF SBP<110,HR<60 05/03/17 Fe Fumarate/John/FA/Bcomp,C (Nephron FA Tablet) 1 Each Tablet, 1 EACH PO DAILY, TAB 04/13/17 Calcium Carbonate (Wylh-Qny-430) 500 Mg Tablet, 500 MG PO DAILY, TAB 04/13/17 Albuterol Sulfate* (Albuterol Sulfate* Neb) 0.083%-3 Ml Neb, 2.5 MG NEB DAILY Y for WHEEZING AND SOB, #30 VIAL 04/13/17 Hydrocodone/Acetaminophen ([place] 5-325 Tablet) 1 Each Tablet, 1 EACH PO DAILY Y for SEVERE PAIN LEVEL 7-10, TAB 04/13/17 Pantoprazole* (Protonix*) 40 Mg Tablet.dr, 40 MG PO BID, TAB 04/13/17 Clonidine Hcl* (Clonidine Hcl*) 0.1 Mg Tab, 0.1 MG PO Q8, TAB 04/13/17 Diphenhydramine Hcl* (Benadryl*) 25 Mg Cap, 25 MG PO DAILY Y for ITCHING, CAP 04/13/17 Metoclopramide* (Reglan*) 5 Mg Tablet, 5 MG PO Q6H Y for NAUSEA AND OR VOMITING , TAB 04/13/17 Hydromorphone Hcl* (Hydromorphone Hcl*) 2 Mg Tablet, 2 MG PO Q6 Y for PAIN, TAB 04/13/17 Discontinued Reported Medications Mineral Oil* (Fleet* Mineral Oil Enema) 133 Ml Oil, 133 ML [place] DAILY Y for CONSTIPATION, ENEMA 04/13/17 Magnesium Hydroxide* (Milk Of Magnesia*) 400 Mg/5 Ml Oral.susp, 30 ML PO Q24H Y for CONSTIPATION, ML 04/13/17 Cranberry Extract (Cranberry) 500 Mg Tablet, 500 MG PO DAILY, TAB 04/13/17 Lubiprostone* (Amitiza*) 24 Mcg Capsule, 24 MCG PO BID, #60 CAP 04/13/17 Discontinued Scripts Metoprolol Tartrate* (Lopressor*) 25 Mg Tab, 75 MG PO BID for 30 Days, TAB Prov:MARCIA RIHCARDS MD 04/23/17 Lisinopril* (Lisinopril*) 20 Mg Tablet, 40 MG PO DAILY for 30 Days, TAB Prov:MARCIA RICHARDS MD 04/23/17 Hydralazine Hcl* (Apresoline*) 50 Mg Tab, 50 MG PO Q8 for 30 Days, TAB Prov:MARCIA RICHARDS MD 04/23/17 Docusate Sodium (Dok) 100 Mg Capsule, 100 MG PO Q12H Y for CONSTIPATION for 14 Days, CAP Prov:SHAN ARRINGTON MD 01/29/17 Bisacodyl* (Bisacodyl*) 5 Mg Tablet.dr, 5 MG PO DAILY Y for CONSTIPATION for 28 Days Prov:SHAN ARRINGTON MD 01/29/17 Acetaminophen (MAPAP) 325 Mg Tablet, 650 MG PO Q6H Y for PAIN LEVEL 1-3 OR FEVER for 28 Days, TAB Prov:SHAN ARRINGTON MD 01/29/17 Ipratropium-Albuterol (Ipratropium-Albuterol) 0.5-3 Mg/3 Ml Ampul.neb, 3 ML HHN Q6H RESP THERAPY Y for SHORTNESS OF BREATH for 7 Days Prov:SHAN ARRINGTON MD 01/29/17 Allergies Allergies: Coded Allergies: chicken derived (Verified Allergy, Unknown, 05/03/17) ibuprofen (Verified Allergy, Unknown, 05/03/17) PMhx/Soc History of Surgery: Yes (STOMACH SURGERY, LEFT LEG SURGERY) Anesthesia Reaction: No Hx Neurological Disorder: No Hx Respiratory Disorders: Yes (PNEUMONIA) Hx Cardiac Disorders: Yes (HTN, HYPERLIPIDEMIA) Hx Psychiatric Problems: No Hx Miscellaneous Medical Probl: Yes (ESRD) Hx Alcohol Use: No Hx Substance Use: No Hx Tobacco Use: No Smoking Status: Never smoker Physical Exam Vitals Vital Signs Date Time Temp Pulse Resp B/P Pulse Ox O2 Delivery O2 Flow Rate FiO2 05/03/17 15:39 98.9 96 24 191/108 97 Physical Exam INITIAL VITAL SIGNS: Reviewed by me GENERAL: The patient is appearing elderly female, mild distress, vomiting HEENT: Dry mucous membranes pupils equal, round, and reactive to light. EOMI. There is no scleral icterus. NECK: C-spine is soft and supple, there is no meningismus. There is no cervical lymphadenopathy. LUNGS: Clear to auscultation bilaterally. There are no rales, wheezes or rhonchi. HEART: Regular rate and rhythm, no murmurs, clicks, rubs or gallops. ABDOMEN: Gastric tenderness to palpation, negative Oates sign, negative Rovsing sign, negative McBurney point tenderness, no CVAT soft, non-tender, non- distended. There are bowel sounds in all four quadrants. No rebound or guarding. EXTREMITIES: There is no peripheral cyanosis or edema. No focal swelling or erythema. NEUROLOGICAL: The patient moves all four extremities with 5/5 strength. Cranial nerves II - XII are intact. Normal gait. Alert and oriented SKIN: Dialysis catheter and chest wall, there is no apparent rash or petechiae. HEME/LYMPHATIC: There is no evidence of excessive bruising or lymphedema. PSYCHIATRIC: The patient does not appear anxious or depressed. Result Diagram: 05/03/17 1600 05/03/17 1825 Results 24 hrs Laboratory Tests Test 05/03/17 16:00 05/03/17 16:50 05/03/17 18:25 White Blood Count 6.610^3/ul Red Blood Count 5.1910^6/ul Hemoglobin 14.2g/dl Hematocrit 43.5% Mean Corpuscular Volume 83.8fl Mean Corpuscular Hemoglobin 27.4pg Mean Corpuscular Hemoglobin Concent 32.6g/dl Red Cell Distribution Width 18.4% Platelet Count 89893^3/UL Mean Platelet Volume 9.7fl Neutrophils % 76.8% Lymphocytes % 18.2% Monocytes % 4.3% Eosinophils % 0.0% Basophils % 0.5% Nucleated Red Blood Cells % 0.0/100WBC Neutrophils # 5.110^3/ul Lymphocytes # 1.210^3/ul Monocytes # 0.310^3/ul Eosinophils # 0.010^3/ul Basophils # 0.010^3/ul Nucleated Red Blood Cells # 0.010^3/ul Urine Color YELLOW Urine Clarity CLEAR Urine pH 8.0 Urine Specific [place] 1.009 Urine Ketones NEGATIVEmg/dL Urine Nitrite NEGATIVEmg/dL Urine Bilirubin NEGATIVEmg/dL Urine Urobilinogen NEGATIVEmg/dL Urine Leukocyte Esterase 1+Rubina/ul Urine Microscopic RBC 3/HPF Urine Microscopic WBC 25/HPF Urine Bacteria FEW/HPF Urine Hemoglobin NEGATIVEmg/dL Urine Glucose 1+mg/dL Urine Total Protein 2+mg/dl Sodium Level 139mmol/L Potassium Level 3.9mmol/L Chloride Level 105mmol/L Carbon Dioxide Level 27mmol/L Anion Gap 11 Blood Urea Nitrogen 12mg/dl Creatinine 2.38mg/dl Glucose Level 104mg/dl Calcium Level 7.8mg/dl Total Bilirubin 0.2mg/dl Direct Bilirubin 0.00mg/dl Indirect Bilirubin 0.2mg/dl Aspartate Amino Transf (AST/SGOT) 24IU/L Alanine Aminotransferase (ALT/SGPT) 21IU/L Alkaline Phosphatase 219IU/L Total Protein 6.2g/dl Albumin 2.5g/dl Globulin 3.70g/dl Albumin/Globulin Ratio 0.67 Lipase 20U/L Current Medications Medications (Trade) Dose Ordered Sig/Kerri Route PRN Reason Start Time Stop Time Status Last Admin Dose Admin Morphine Sulfate (morphine) 4 mg ONCE STAT IV 05/03/17 15:38 05/03/17 15:39 DC 05/03/17 16:16 Ondansetron HCl (Zofran Inj) 4 mg ONCE STAT IV 05/03/17 15:38 05/03/17 15:39 DC 05/03/17 16:16 Famotidine 20 mg 20 mg ONCE STAT IV 05/03/17 15:38 05/03/17 15:39 DC 05/03/17 16:16 Ceftriaxone Sodium (Rocephin) 50 ml @ 100 mls/hr ONCE ONCE IVPB 05/03/17 18:00 05/03/17 18:29 DC 05/03/17 18:11 Morphine Sulfate (morphine) 2 mg ONCE ONCE IV 05/03/17 18:30 05/03/17 18:31 DC 05/03/17 18:21 Ondansetron HCl (Zofran Inj) 4 mg ONCE STAT IV 05/03/17 18:14 05/03/17 18:15 DC 05/03/17 18:21 Ondansetron HCl (Zofran Inj) 4 mg BRIDGE ORDER PRN IV NAUSEA AND/OR VOMITING 05/03/17 19:30 05/04/17 19:29 Acetaminophen (Tylenol Tab) 650 mg ER BRIDGE PRN PO MILD PAIN/FEVER 05/03/17 19:30 05/04/17 19:29 Al Hydrox/Mg Hydrox/Simethicone (Mag-Al Plus) 30 ml ONCE ONCE PO 05/03/17 19:30 05/03/17 19:31 Procedures/MDM CT abdomen pelvis without:1. Moderate bilateral pleural effusions. 2. Atelectasis at the lung bases posteriorly. 3. Cardiomegaly. 4. Central line tip in the right atrium. 5. Possible gallstones in the gallbladder. No evidence of cholecystitis. 6. Atherosclerosis. 7. Diverticulosis of the colon without evidence of diverticulitis. 8. Small amount of free fluid in the abdomen and pelvis. 9. Anasarca, slightly improved. 10. Degenerative changes of the spine. EKG: Rate/Rhythm: [Normal Sinus Rhythm] QRS, ST, T-waves: T-wave inversions in V1 and V2 Impression: T-wave inversions in V1 and V2 This 14-year-old female presents to the emergency room for evaluation of nausea and vomiting. The patient is denying any chest pain, EKG does not show any ischemia, she does have T-wave inversions in the anterior leads however no diaphoresis and again no complaints of chest pain. The patient was given Zofran and morphine for pain and a CAT scan was obtained which does not show any acute intra-abdominal pathology. After this patient returns her chest that she continued to have pain and was given a second dose of morphine, and Zofran. She her urine does reveal UTI. She was started on Rocephin after urine culture was sent. This patient has no signs of sepsis at this time however given her age, and intractable abdominal discomfort and vomiting she will be placed in for admission. I have contacted the covering physician for Dr. Arrington and have spoken to Dr. richards who agrees to admit this patient. She will be placed on the MedSurg opposite this time. Departure Diagnosis: Primary Impression: Vomiting Additional Impressions: Abdominal pain End stage renal disease Condition: Stable FELISHA CAMERON DO May 03, 2017 19:13
[2017-05-03] MEDS ORDERED: ACETAMINOPHEN 325 MG TAB PO PRN (19:30)
[2017-05-03] MEDS ORDERED: AL HYDROX/MG HYDROX/SIMETH 30 ML CUP PO ONE (19:30)
[2017-05-03] MEDS ORDERED: ONDANSETRON 4 MG INJ IV PRN (19:30)
[2017-05-03] MEDS ORDERED: METOCLOPRAMIDE 10 MG INJ IV PRN (20:00)
[2017-05-03] MEDS ORDERED: HYDROCODONE/APAP (5/325) TAB PO PRN (20:00)
[2017-05-03] MEDS ORDERED: NACL 0.9% 3 ML SYG IV SCH (20:00)
[2017-05-03] MEDS ORDERED: ALBUTEROL 0.083% (NEB) 2.5 MG/3 ML AMP NEB PRN (20:30)
[2017-05-03 21:15] VITALS: BP 166/97; RESP 20
[2017-05-03 22:00] VITALS: Ht 170.2 cm; Wt 58.2 kg
[2017-05-03] MEDS: DEXTROSE 5%-0.45% NACL 1,000 ML IV SCH (22:15)
[2017-05-03] MEDS: METOPROLOL 25 MG TAB PO SCH (22:15)
[2017-05-03] MEDS: morphine 2 MG INJ IV PRN (23:13)
[2017-05-03] MEDS: HEPARIN 5,000 UNIT/0.5 ML VIAL SC SCH (23:17)
[2017-05-03] MEDS: MAGNESIUM HYDROXIDE 30ML CUP PO PRN (23:21)
[2017-05-04] VITALS (12 sets, daily range): BP systolic 135–166; BP diastolic 72–91; PULSE 73–82; RESP 18–20
[2017-05-04] MEDS: morphine 2 MG INJ IV PRN ×6 (03:14→23:53)
[2017-05-04] MEDS ORDERED: PANTOPRAZOLE 40 MG INJ IV SCH (06:00)
[2017-05-04] MEDS: HEPARIN 5,000 UNIT/0.5 ML VIAL SC SCH ×4 (06:11→20:13)
[2017-05-04] MEDS: SUCRALFATE 1 GM TAB PO SCH ×3 (07:30→17:17)
[2017-05-04] MEDS: ONDANSETRON 4 MG INJ IV PRN (08:50)
[2017-05-04] MEDS: CALCIUM CARBONATE 1.25 GM TAB PO SCH ×2 (09:00→15:28)
--- NOTE | 2017-05-04 11:31 | HP ---
Date/Time of Note Date/Time of Note DATE: 05/04/17 TIME: 11:28 Assessment/Plan VTE Prophylaxis VTE Prophylaxis Intervention: ambulation Lines/Catheters IV [facility]from [facility] [place] [facility] Urinary Cath still in place: No Assessment/Plan Chief Complaint/Hosp Course 1. nausea with vomiting 2. Atelectasis at the lung bases posteriorly. 3. Cardiomegaly. 4. ESRD on HD 5. Possible gallstones in the gallbladder. No evidence of cholecystitis. 6. Atherosclerosis. 7. Diverticulosis of the colon without evidence of diverticulitis. 8. Hypertension, controlled 9. Anasarca, slightly improved. 10. Degenerative changes of the spine. 11.Moderate bilateral pleural effusions. Problems: Assessment/Plan 1. Continue HD per schedule 2. Dr Pato BROWNLEE 3. Keep NPO HPI/ROS Admit Date/Time Admit Date/Time May 03, 2017 at 19:07 Hx of Present Illness per Er MD this is a 56-year-old female presented to the emergency room from her shelter facility for evaluation of nausea, vomiting and abdominal pain. The patient states that she has abdominal pain which she describes as a crampy -like sensation located in the midportion of her abdomen 3/10, relieved after vomiting. The patient states that she has had multiple episodes of nonbilious vomiting and denies any diarrhea. She does state that she is a dialysis patient , her schedule is on dialysis Saturday, , Saturday. She states that she did complete dialysis on and came to the ER because she kept vomiting. The patient denies any aggravating or relieving factors for her symptoms and came to the ER for evaluation. She denies any chest pain, palpitations or diaphoresis associated with this ROS Eyes: no complaints ENT: no complaints Gastrointestinal: nausea, pain Musculoskeletal: no complaints Skin: no complaints PMH/Family/Social Past Medical History Medical History: congestive heart failure, hypertension, renal disease Past Surgical History Past Surgical Hx: other (6 month ago laparatomy with intestine recsection) Family History Significant Family History: no pertinent family hx Social History Alcohol Use: none Smoking Status: Never smoker Drug Use: none Exam/Review of Systems Vital Signs Vitals Vital Signs Date Time Temp Pulse Resp B/P Pulse Ox O2 Delivery O2 Flow Rate FiO2 05/04/17 08:00 98.8 78 18 152/76 96 10/27/17 22:30 Nasal Cannula 2.0 Intake and Output 05/03/17 05/03/17 05/04/17 15:00 23:00 07:00 Intake Total 330 ml Output Total 1 ml Balance 329 ml Exam Constitutional: alert, frail, oriented ENMT: nl external ears & nose Neck: supple Cardiovascular: regular rate and rhythm Gastrointestinal: bowel sounds (positive), soft, surgical scars Genitourinary - Female: nl external genitalia Neurological: SENSORY SCIENTIST II-XII intact Labs Result Diagram: 05/03/17 1600 05/04/17 0515 Medications Medications Current Medications Dextrose/Sodium Chloride (D5-1/2ns) 1,000 ml @ 40 mls/hr Q24H IV Last administered on 05/03/17 22:15; Admin Dose 40 MLS/HR; Start 05/03/17 at 20:00 Ondansetron HCl (Zofran Inj) 4 mg Q6H PRN IV NAUSEA AND/OR VOMITING Last administered on 05/04/17 08:50; Admin Dose 4 MG; Start 05/03/17 at 20:00 Metoclopramide HCl (Reglan) 10 mg Q6H PRN IV NAUSEA AND/OR VOMITING; Start at 20:00 Acetaminophen/ Hydrocodone Bitart ([place] (5/325)) 1 tab Q6H PRN PO MODERATE PAIN LEVEL 4-6; Start 05/03/17 at 20:00 Morphine Sulfate (morphine) 2 mg Q4H PRN IV SEVERE PAIN LEVEL 7-10 Last administered on 05/04/17 07:26; Admin Dose 2 MG; Start 05/03/17 at 20:00 Magnesium Hydroxide (Milk Of Mag) 30 ml DAILY PRN PO CONSTIPATION Last administered on 05/03/17 23:21; Admin Dose 30 ML; Start 05/03/17 at 20:00 Pantoprazole (Protonix Iv) 40 mg DAILY@06 IV Last administered on 05/04/17 06 :03; Admin Dose 40 MG; Start 05/04/17 at 06:00 Heparin Sodium (Porcine) (Heparin (5000 Units/0.5 ml)) 5,000 unit Q8 SC Last administered on 05/04/17 06:11; Admin Dose 5,000 UNIT; Start 05/03/17 at 22: 00 Albuterol (Proventil 0.083% (Neb)) 2.5 mg DAILY PRN NEB WHEEZING AND SOB; Start 05/03/17 at 20:30 Calcium Carbonate (Oyster Shell Calcium) 0.5 gm DAILY PO ; Start 05/04/17 at 09 :00 Clonidine (Catapres) 0.1 mg Q8 PO Last administered on 05/04/17 06:03; Admin Dose 0.1 MG; Start 05/03/17 at 22:00 Diphenhydramine HCl (Benadryl) 25 mg DAILY PRN PO ITCHING; Start 05/03/17 at 20:30 Hydralazine HCl (Apresoline) 50 mg Q8 PO Last administered on 05/04/17 06:03 ; Admin Dose 50 MG; Start 05/03/17 at 22:00 Lisinopril (Zestril) 40 mg DAILY PO ; Start 05/04/17 at 09:00 Metoprolol Tartrate (Lopressor) 75 mg BID PO Last administered on 05/03/17 22 :15; Admin Dose 75 MG; Start 05/03/17 at 21:00 LUIS LOPEZ May 04, 2017 11:31
[2017-05-04] MEDS: METOPROLOL 25 MG TAB PO SCH ×2 (15:28→21:00)
[2017-05-04] MEDS: LISINOPRIL 20 MG TAB PO SCH (15:29)
[2017-05-04] MEDS: PANTOPRAZOLE 40 MG INJ IV SCH (17:57)
[2017-05-04] MEDS: DEXTROSE 5%-0.45% NACL 1,000 ML IV SCH (19:52)
[2017-05-04] MEDS: DIPHENHYDRAMINE 25 MG CAP PO PRN (20:11)
[2017-05-05 02:00] VITALS: BP 140/76; RESP 20
--- NOTE | 2017-05-05 02:33 | CONS ---
DATE OF ADMISSION: 05/03/2017 DATE OF CONSULTATION: REFERRING PHYSICIAN: Anuj Arrington MD REASON FOR CONSULTATION: Nausea, vomiting and abdominal pain. HISTORY OF PRESENT ILLNESS: A 56-year-old female who presented to the ER with abdominal pain, nause a and vomiting. Patient had no GI bleeding, no chest pain, no shortness of breath. No diarrhea. N o or COUNTER FORMER problem. She has also been losing weight. She had endoscopy done a few weeks ago which showed extensive esophageal ulceration. MEDICATIONS: All reviewed. PAST MEDICAL HISTORY: Some kind of stomach surgery, left leg surgery, hypertension, hyperlipidemia, end-stage renal disease. PHYSICAL EXAMINATION VITALS: Stable. HEENT: Unremarkable. NECK: Supple, no thyromegaly, no lymphadenopathy. CARDIOVASCULAR: No murmur, gallop or click. LUNGS: Clear. ABDOMEN: Benign. EXTREMITIES: No edema. CENTRAL NERVOUS SYSTEM: Grossly within normal limits. IMPRESSION: 1. Nausea and vomiting. 2. Bilateral pleural effusion. 3. Cardiomegaly. 4. End-stage renal disease. 5. Gallstones, no evidence of cholecystitis. 6. Hypertension. 7. Anasarca. 8. Diverticulosis. PLAN: To continue hemodialysis. The patient will be placed on a PPI, Carafate, and also low dose o f Reglan. Dictated By: ARIANA FULLER/TAMMY Conf#: [id number] DID#: [id number] CC: ANUJ ARRINGTON MD;*EndCC*
--- NOTE | 2017-05-05 02:33 | CONS ---
DATE OF ADMISSION: 05/03/2017 DATE OF CONSULTATION: REFERRING PHYSICIAN: Anuj Arrington MD REASON FOR CONSULTATION: Nausea, vomiting and abdominal pain. HISTORY OF PRESENT ILLNESS: A 56-year-old female who presented to the ER with abdominal pain, nause a and vomiting. Patient had no GI bleeding, no chest pain, no shortness of breath. No diarrhea. N o or PHYSICAL THERAPY MANAGER problem. She has also been losing weight. She had endoscopy done a few weeks ago which showed extensive esophageal ulceration. MEDICATIONS: All reviewed. PAST MEDICAL HISTORY: Some kind of stomach surgery, left leg surgery, hypertension, hyperlipidemia, end-stage renal disease. PHYSICAL EXAMINATION VITALS: Stable. HEENT: Unremarkable. NECK: Supple, no thyromegaly, no lymphadenopathy. CARDIOVASCULAR: No murmur, gallop or click. LUNGS: Clear. ABDOMEN: Benign. EXTREMITIES: No edema. CENTRAL NERVOUS SYSTEM: Grossly within normal limits. IMPRESSION: 1. Nausea and vomiting. 2. Bilateral pleural effusion. 3. Cardiomegaly. 4. End-stage renal disease. 5. Gallstones, no evidence of cholecystitis. 6. Hypertension. 7. Anasarca. 8. Diverticulosis. PLAN: To continue hemodialysis. The patient will be placed on a PPI, Carafate, and also low dose o f Reglan. Dictated By: RAIANA FULLER/TAMMY Conf#: [id number] DID#: [id number] CC: ANUJ ARRINGTON MD;*EndCC*
--- NOTE | 2017-05-05 02:33 | CONS ---
DATE OF ADMISSION: 05/03/2017 DATE OF CONSULTATION: REFERRING PHYSICIAN: Anuj Arrington MD REASON FOR CONSULTATION: Nausea, vomiting and abdominal pain. HISTORY OF PRESENT ILLNESS: A 56-year-old female who presented to the ER with abdominal pain, nause a and vomiting. Patient had no GI bleeding, no chest pain, no shortness of breath. No diarrhea. 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 She has also been losing weight. She had endoscopy done a few weeks ago which showed extensive esophageal ulceration. MEDICATIONS: All reviewed. PAST MEDICAL HISTORY: Some kind of stomach surgery, left leg surgery, hypertension, hyperlipidemia, end-stage renal disease. PHYSICAL EXAMINATION VITALS: Stable. HEENT: Unremarkable. NECK: Supple, no thyromegaly, no lymphadenopathy. CARDIOVASCULAR: No murmur, gallop or click. LUNGS: Clear. ABDOMEN: Benign. EXTREMITIES: No edema. CENTRAL NERVOUS SYSTEM: Grossly within normal limits. IMPRESSION: 1. Nausea and vomiting. 2. Bilateral pleural effusion. 3. Cardiomegaly. 4. End-stage renal disease. 5. Gallstones, no evidence of cholecystitis. 6. Hypertension. 7. Anasarca. 8. Diverticulosis. PLAN: To continue hemodialysis. The patient will be placed on a PPI, Carafate, and also low dose o f Reglan. Dictated By: ARIANA FULLER/TAMMY Conf#: [id number] DID#: [id number] CC: ANUJ ARRINGTON MD;*EndCC*
[2017-05-05] MEDS: morphine 2 MG INJ IV PRN ×5 (03:49→20:10)
[2017-05-05] MEDS: HEPARIN 5,000 UNIT/0.5 ML VIAL SC SCH ×3 (05:46→21:20)
[2017-05-05] MEDS: PANTOPRAZOLE 40 MG INJ IV SCH ×2 (05:46→17:30)
[2017-05-05] MEDS: SUCRALFATE 1 GM TAB PO SCH ×3 (07:51→16:58)
[2017-05-05 08:00] VITALS: BP 174/90; RESP 18
[2017-05-05] MEDS: CALCIUM CARBONATE 1.25 GM TAB PO SCH (08:27)
[2017-05-05] MEDS: LISINOPRIL 20 MG TAB PO SCH (08:27)
[2017-05-05] MEDS: METOPROLOL 25 MG TAB PO SCH ×2 (08:28→19:49)
--- NOTE | 2017-05-05 11:34 | PN ---
Date/Time of Note Date/Time of Note DATE: 05/05/17 TIME: 11:31 Assessment/Plan VTE Prophylaxis VTE Prophylaxis Intervention: contraindicated Lines/Catheters IV [facility] Permacath Urinary Cath still in place: No Assessment/Plan Chief Complaint/Hosp Course 1. nausea with vomiting likely secondary to esphageal ulcers s/p EGD last visit 2. Atelectasis at the lung bases posteriorly. 3. Cardiomegaly. 4. ESRD on HD TTS 5. Possible gallstones in the gallbladder. No evidence of cholecystitis. 6. Atherosclerosis. 7. Diverticulosis of the colon without evidence of diverticulitis. 8. Hypertension, controlled 9. Anasarca, slightly improved. 10. Degenerative changes of the spine. 11.Moderate bilateral pleural effusions. Recs - c/w PPI - c/w Reglan and sucralfate - Advance diet - c/w home meds - Appreciate GI consult - HD TTS Problems: Subjective 24 Hr Interval Summary Free Text/Dictation Slight nausea this am Exam/Review of Systems Vital Signs Vitals Vital Signs Date Time Temp Pulse Resp B/P Pulse Ox O2 Delivery O2 Flow Rate FiO2 05/05/17 08:00 98.6 81 18 174/90 97 05/04/17 22:10 Nasal Cannula 2.0 Intake and Output 05/04/17 05/04/17 05/05/17 15:00 23:00 07:00 Intake Total 500 ml 1200 ml 600 ml Output Total 2500 ml 1 ml Balance -2000 ml 1200 ml 599 ml Exam Constitutional: alert, frail, oriented ENMT: nl external ears & nose Neck: supple Cardiovascular: regular rate and rhythm Gastrointestinal: bowel sounds (positive), soft, surgical scars Genitourinary - Female: nl external genitalia Neurological: INDEPENDENT BEAUTY CONSULTANT II-XII intact Results Result Diagram: 05/05/17 0430 05/05/17 0450 Results 24 hrs Laboratory Tests Test 05/05/17 04:30 05/05/17 04:50 White Blood Count 5.3 Red Blood Count 3.53 #L Hemoglobin 9.6 #L Hematocrit 30.8 #L Mean Corpuscular Volume 87.3 Mean Corpuscular Hemoglobin 27.2 L Mean Corpuscular Hemoglobin Concent 31.2 L Red Cell Distribution Width 19.0 H Platelet Count 169 # Mean Platelet Volume 9.9 Neutrophils % 68.6 Lymphocytes % 20.0 Monocytes % 9.1 Eosinophils % 1.5 Basophils % 0.6 Nucleated Red Blood Cells % 0.0 Neutrophils # 3.6 Lymphocytes # 1.1 Monocytes # 0.5 Eosinophils # 0.1 Basophils # 0.0 Nucleated Red Blood Cells # 0.0 Sodium Level 138 Potassium Level 3.2 L Chloride Level 104 Carbon Dioxide Level 31 Anion Gap 6 L Blood Urea Nitrogen 8 Creatinine 2.09 H Glucose Level 93 Calcium Level 7.1 L Medications Medications Current Medications Dextrose/Sodium Chloride (D5-1/2ns) 1,000 ml @ 40 mls/hr Q24H IV Last administered on 05/04/17 19:52; Admin Dose 40 MLS/HR; Start 05/03/17 at 20:00 Ondansetron HCl (Zofran Inj) 4 mg Q6H PRN IV NAUSEA AND/OR VOMITING Last administered on 05/04/17 08:50; Admin Dose 4 MG; Start 05/03/17 at 20:00 Metoclopramide HCl (Reglan) 10 mg Q6H PRN IV NAUSEA AND/OR VOMITING Last administered on 05/05/17 07:47; Admin Dose 10 MG; Start 05/03/17 at 20:00 Acetaminophen/ Hydrocodone Bitart ([place] (5/325)) 1 tab Q6H PRN PO MODERATE PAIN LEVEL 4-6; Start 05/03/17 at 20:00 Morphine Sulfate (morphine) 2 mg Q4H PRN IV SEVERE PAIN LEVEL 7-10 Last administered on 05/05/17 07:51; Admin Dose 2 MG; Start 05/03/17 at 20:00 Magnesium Hydroxide (Milk Of Mag) 30 ml DAILY PRN PO CONSTIPATION Last administered on 05/03/17 23:21; Admin Dose 30 ML; Start 05/03/17 at 20:00 Heparin Sodium (Porcine) (Heparin (5000 Units/0.5 ml)) 5,000 unit Q8 SC Last administered on 05/04/17 20:13; Admin Dose 5,000 UNIT; Start 05/03/17 at 22: 00 Albuterol (Proventil 0.083% (Neb)) 2.5 mg DAILY PRN NEB WHEEZING AND SOB; Start 05/03/17 at 20:30 Calcium Carbonate (Oyster Shell Calcium) 0.5 gm DAILY PO Last administered on 05/05/17 08:27; Admin Dose 0.5 GM; Start 05/04/17 at 09:00 Clonidine (Catapres) 0.1 mg Q8 PO Last administered on 05/04/17 21:38; Admin Dose 0.1 MG; Start 05/03/17 at 22:00 Diphenhydramine HCl (Benadryl) 25 mg DAILY PRN PO ITCHING Last administered on 05/04/17 20:11; Admin Dose 25 MG; Start 05/03/17 at 20:30 Hydralazine HCl (Apresoline) 50 mg Q8 PO Last administered on 05/04/17 21:38 ; Admin Dose 50 MG; Start 05/03/17 at 22:00 Lisinopril (Zestril) 40 mg DAILY PO Last administered on 05/05/17 08:27; Admin Dose 40 MG; Start 05/04/17 at 09:00 Metoprolol Tartrate (Lopressor) 75 mg BID PO Last administered on 05/05/17 08 :28; Admin Dose 75 MG; Start 05/03/17 at 21:00 Pantoprazole (Protonix Iv) 40 mg BID@06,18 IV Last administered on 05/05/17 05:46; Admin Dose 40 MG; Start 05/04/17 at 18:00 Eye Lubricant (Artificial Tears Oph) 2 drop Q6H PRN BOTH EYES DRY EYES; Start 05/05/17 at 07:00 MARCIA RICHARDS MD May 05, 2017 11:34
[2017-05-05] MEDS: DIPHENHYDRAMINE 25 MG CAP PO PRN (13:39)
[2017-05-05 14:20] VITALS: BP 175/92; PULSE 70; RESP 16
[2017-05-05] MEDS: ONDANSETRON 4 MG INJ IV PRN (17:59)
[2017-05-05] MEDS ORDERED: POTASSIUM CHLORIDE (SR) 20 MEQ TAB PO STA (19:11)
[2017-05-05 21:19] VITALS: BP 178/88; RESP 18
[2017-05-05] MEDS: DEXTROSE 5%-0.45% NACL 1,000 ML IV SCH (21:19)
[2017-05-05 21:24] VITALS: BP 177/94; PULSE 73
[2017-05-06] VITALS (7 sets, daily range): BP systolic 157–190; BP diastolic 80–99; PULSE 71–74; RESP 18
[2017-05-06] MEDS: morphine 2 MG INJ IV PRN ×6 (00:14→20:41)
[2017-05-06] MEDS: HEPARIN 5,000 UNIT/0.5 ML VIAL SC SCH ×3 (06:00→21:38)
[2017-05-06] MEDS: PANTOPRAZOLE 40 MG INJ IV SCH ×2 (06:06→17:10)
[2017-05-06] MEDS: SUCRALFATE 1 GM TAB PO SCH ×3 (07:55→17:10)
[2017-05-06] MEDS: CALCIUM CARBONATE 1.25 GM TAB PO SCH (09:00)
[2017-05-06] MEDS: DIPHENHYDRAMINE 25 MG CAP PO PRN (09:03)
[2017-05-06] MEDS: LISINOPRIL 20 MG TAB PO SCH (09:04)
[2017-05-06] MEDS: METOPROLOL 25 MG TAB PO SCH ×2 (09:04→20:47)
[2017-05-06] MEDS: ONDANSETRON 4 MG INJ IV PRN (11:55)
[2017-05-06] MEDS: LINEZOLID 600 MG/D5W (PMX) 300 ML IVPB SCH ×2 (12:42→19:51)
--- NOTE | 2017-05-06 17:25 | PN ---
Date/Time of Note Date/Time of Note DATE: 05/06/17 TIME: 17:22 Assessment/Plan VTE Prophylaxis VTE Prophylaxis Intervention: other Lines/Catheters IV Catheter Type (from Nrs): Peripheral IV Urinary Cath still in place: No Assessment/Plan Chief Complaint/Hosp Course 1. nausea with vomiting likely secondary to esphageal ulcers s/p EGD last visit 2. Atelectasis at the lung bases posteriorly. 3. Cardiomegaly. 4. ESRD on HD TTS 5. Possible gallstones in the gallbladder. No evidence of cholecystitis. 6. Atherosclerosis. 7. Diverticulosis of the colon without evidence of diverticulitis. 8. Hypertension, controlled 9. Anasarca, slightly improved. 10. Degenerative changes of the spine. PLAN HD PPI XR CHEST Problems: Subjective 24 Hr Interval Summary Respiratory: No shortness of breath Gastrointestinal: nausea (BETTER) Exam/Review of Systems Vital Signs Vitals Vital Signs Date Time Temp Pulse Resp B/P Pulse Ox O2 Delivery O2 Flow Rate FiO2 05/06/17 14:17 97.4 72 18 165/95 97 05/05/17 14:20 Room Air 05/04/17 22:10 2.0 Intake and Output 05/05/17 05/05/17 05/06/17 15:00 23:00 07:00 Intake Total 1720 ml 760 ml Balance 1720 ml 760 ml Exam Neck: supple Respiratory: clear to auscultation Cardiovascular: regular rate and rhythm Gastrointestinal: soft Musculoskeletal: nl extremities to inspection Extremities: normal pulses Neurological: CHIEF LENDING OFFICER II-XII intact Results Result Diagram: 05/05/17 0430 05/06/17 0526 Results 24 hrs Laboratory Tests Test 05/06/17 05:26 Sodium Level 138 Potassium Level 3.6 Chloride Level 108 Carbon Dioxide Level 28 Anion Gap 6 L Blood Urea Nitrogen 11 Creatinine 2.78 H Glucose Level 104 Calcium Level 7.6 L Total Bilirubin 0.0 L Direct Bilirubin 0.00 Indirect Bilirubin 0.0 Aspartate Amino Transf (AST/SGOT) 16 Alanine Aminotransferase (ALT/SGPT) 23 Alkaline Phosphatase 162 H Total Protein 5.4 L Albumin 1.9 L Globulin 3.50 H Albumin/Globulin Ratio 0.54 Medications Medications Current Medications Dextrose/Sodium Chloride (D5-1/2ns) 1,000 ml @ 40 mls/hr Q24H IV Last administered on 05/05/17t 21:19; Admin Dose 40 MLS/HR; Start 05/03/17 at 20:00 Ondansetron HCl (Zofran Inj) 4 mg Q6H PRN IV NAUSEA AND/OR VOMITING Last administered on 05/06/17 11:55; Admin Dose 4 MG; Start 05/03/17 at 20:00 Acetaminophen/ Hydrocodone Bitart ([place] (5/325)) 1 tab Q6H PRN PO MODERATE PAIN LEVEL 4-6; Start 05/03/17 at 20:00 Morphine Sulfate (morphine) 2 mg Q4H PRN IV SEVERE PAIN LEVEL 7-10 Last administered on 05/06/17 16:33; Admin Dose 2 MG; Start 05/03/17 at 20:00 Magnesium Hydroxide (Milk Of Mag) 30 ml DAILY PRN PO CONSTIPATION Last administered on 05/03/17 23:21; Admin Dose 30 ML; Start 05/03/17 at 20:00 Heparin Sodium (Porcine) (Heparin (5000 Units/0.5 ml)) 5,000 unit Q8 SC Last administered on 05/05/17 14:29; Admin Dose 5,000 UNIT; Start 05/03/17 at 22: 00 Albuterol (Proventil 0.083% (Neb)) 2.5 mg DAILY PRN NEB WHEEZING AND SOB; Start 05/03/17 at 20:30 Calcium Carbonate (Oyster Shell Calcium) 0.5 gm DAILY PO Last administered on 05/06/17 09:00; Admin Dose 0.5 GM; Start 05/04/17 at 09:00 Clonidine (Catapres) 0.1 mg Q8 PO Last administered on 05/06/17 15:10; Admin Dose 0.1 MG; Start 05/03/17 at 22:00 Diphenhydramine HCl (Benadryl) 25 mg DAILY PRN PO ITCHING Last administered on 05/06/17 09:03; Admin Dose 25 MG; Start 05/03/17 at 20:30 Hydralazine HCl (Apresoline) 50 mg Q8 PO Last administered on 05/06/17 15:09 ; Admin Dose 50 MG; Start 05/03/17 at 22:00 Lisinopril (Zestril) 40 mg DAILY PO Last administered on 05/06/17 09:04; Admin Dose 40 MG; Start 05/04/17 at 09:00 Metoprolol Tartrate (Lopressor) 75 mg BID PO Last administered on 05/06/17 09 :04; Admin Dose 75 MG; Start 05/03/17 at 21:00 Pantoprazole (Protonix Iv) 40 mg BID@06,18 IV Last administered on 05/06/17 17:10; Admin Dose 40 MG; Start 05/04/17 at 18:00 Eye Lubricant 2 drop 2 drop Q6H PRN BOTH EYES DRY EYES; Start 05/05/17 at 07: 00 Linezolid (Zyvox 600mg/D5W (Pmx)) 300 ml @ 300 mls/hr Q12 IVPB Last administered on 05/06/17 12:42; Admin Dose 300 MLS/HR; Start 05/06/17 at 12: 00; Stop 05/11/17 at 11:59 SHAN ARRINGTON MD May 06, 2017 17:25
--- NOTE | 2017-05-06 18:20 | CONS ---
Date/Time of Note Date/Time of Note DATE: 05/06/17 TIME: 18:20 Assessment/Plan Assessment/Plan Additional Assessment/Plan IMPRESSION: 1. Nausea and vomiting. 2. Bilateral pleural effusion. 3. Cardiomegaly. 4. End-stage renal disease. 5. Gallstones, no evidence of cholecystitis. 6. Hypertension. 7. Anasarca. 8. Diverticulosis. PLAN: To continue hemodialysis. The patient will be placed on a PPI, Carafate , and also low dose of Reglan. If p.o. intake is poor then will place patient on Marinol 2.5 mg Consultation Date/Type/Reason Admit Date/Time May 05, 2017 at 14:49 Initial Consult Date 24 HR Interval Summary Constitutional: improved Exam/Review of Systems Vital Signs Vitals Vital Signs Date Time Temp Pulse Resp B/P Pulse Ox O2 Delivery O2 Flow Rate FiO2 05/06/17 17:33 71 190/95 05/06/17 14:17 97.4 18 97 05/05/17 14:20 Room Air 05/04/17 22:10 2.0 Intake and Output 05/05/17 05/05/17 05/06/17 15:00 23:00 07:00 Intake Total 1720 ml 760 ml Balance 1720 ml 760 ml Exam Constitutional: alert, oriented, well developed Psych: nl mood/affect, no complaints Head: atraumatic, normocephalic Eyes: EOMI, PERRL, nl conjunctiva, nl lids, nl sclera ENMT: nl external ears & nose, nl lips & teeth, nl nasal mucosa & septum Neck: non-tender, supple Respiratory: clear to auscultation, normal air movement Cardiovascular: nl pulses, regular rate and rhythm Gastrointestinal: nl liver, spleen, non-tender, soft Musculoskeletal: nl extremities to inspection, nl gait and stance Extremities: normal pulses Neurological: MAJOR ACCOUNT REPRESENTATIVE II-XII intact, nl mental status, nl speech, nl strength Skin: nl turgor, No rash or lesions Lymph: nl lymph nodes Results Result Diagram: 05/05/17 0430 05/06/17 0526 Results 24 hrs Laboratory Tests Test 05/06/17 05:26 Sodium Level 138 Potassium Level 3.6 Chloride Level 108 Carbon Dioxide Level 28 Anion Gap 6 L Blood Urea Nitrogen 11 Creatinine 2.78 H Glucose Level 104 Calcium Level 7.6 L Total Bilirubin 0.0 L Direct Bilirubin 0.00 Indirect Bilirubin 0.0 Aspartate Amino Transf (AST/SGOT) 16 Alanine Aminotransferase (ALT/SGPT) 23 Alkaline Phosphatase 162 H Total Protein 5.4 L Albumin 1.9 L Globulin 3.50 H Albumin/Globulin Ratio 0.54 Medications Medications Current Medications Dextrose/Sodium Chloride (D5-1/2ns) 1,000 ml @ 40 mls/hr Q24H IV Last administered on 05/05/17 21:19; Admin Dose 40 MLS/HR; Start 05/03/17 at 20:00 Ondansetron HCl (Zofran Inj) 4 mg Q6H PRN IV NAUSEA AND/OR VOMITING Last administered on 05/06/17 11:55; Admin Dose 4 MG; Start 05/03/17 at 20:00 Acetaminophen/ Hydrocodone Bitart ([place] (5/325)) 1 tab Q6H PRN PO MODERATE PAIN LEVEL 4-6; Start 05/03/17 at 20:00 Morphine Sulfate (morphine) 2 mg Q4H PRN IV SEVERE PAIN LEVEL 7-10 Last administered on 05/06/17 16:33; Admin Dose 2 MG; Start 05/03/17 at 20:00 Magnesium Hydroxide (Milk Of Mag) 30 ml DAILY PRN PO CONSTIPATION Last administered on 05/03/17 23:21; Admin Dose 30 ML; Start 05/03/17 at 20:00 Heparin Sodium (Porcine) (Heparin (5000 Units/0.5 ml)) 5,000 unit Q8 SC Last administered on 05/05/17 14:29; Admin Dose 5,000 UNIT; Start 05/03/17 at 22: 00 Albuterol (Proventil 0.083% (Neb)) 2.5 mg DAILY PRN NEB WHEEZING AND SOB; Start 05/03/17 at 20:30 Calcium Carbonate (Oyster Shell Calcium) 0.5 gm DAILY PO Last administered on 05/06/17 09:00; Admin Dose 0.5 GM; Start 05/04/17 at 09:00 Hydralazine HCl (Apresoline) 50 mg Q8 PO Last administered on 05/06/17 15:09 ; Admin Dose 50 MG; Start 05/03/17 at 22:00 Lisinopril (Zestril) 40 mg DAILY PO Last administered on 05/06/17 09:04; Admin Dose 40 MG; Start 05/04/17 at 09:00 Metoprolol Tartrate (Lopressor) 75 mg BID PO Last administered on 05/06/17 09 :04; Admin Dose 75 MG; Start 05/03/17 at 21:00 Pantoprazole (Protonix Iv) 40 mg BID@06,18 IV Last administered on 05/06/17 17:10; Admin Dose 40 MG; Start 05/04/17 at 18:00 Eye Lubricant 2 drop 2 drop Q6H PRN BOTH EYES DRY EYES; Start 05/05/17 at 07: 00 Linezolid (Zyvox 600mg/D5W (Pmx)) 300 ml @ 300 mls/hr Q12 IVPB Last administered on 05/06/17 12:42; Admin Dose 300 MLS/HR; Start 05/06/17 at 12: 00; Stop 05/11/17 at 11:59 Clonidine (Catapres) 0.2 mg Q8 PO ; Start 05/06/17 at 22:00 Diphenhydramine HCl (Benadryl) 25 mg TID PRN PO ITCHING; Start 05/06/17 at 18: 00 ARIANA JAY MD May 06, 2017 18:20
[2017-05-06] MEDS: DEXTROSE 5%-0.45% NACL 1,000 ML IV SCH (20:00)
[2017-05-06] MEDS ORDERED: DIPHENHYDRAMINE 25 MG CAP PO PRN (21:00)
[2017-05-07] VITALS (17 sets, daily range): BP systolic 131–188; BP diastolic 68–99; PULSE 60–76; RESP 18–20
[2017-05-07] MEDS: morphine 2 MG INJ IV PRN ×4 (00:35→21:38)
[2017-05-07] MEDS: DEXTROSE 5%-0.45% NACL 1,000 ML IV SCH (05:52)
[2017-05-07] MEDS: PANTOPRAZOLE 40 MG INJ IV SCH ×2 (05:53→17:02)
[2017-05-07] MEDS: HEPARIN 5,000 UNIT/0.5 ML VIAL SC SCH ×3 (06:00→22:00)
[2017-05-07] MEDS: SUCRALFATE 1 GM TAB PO SCH ×3 (08:16→17:02)
[2017-05-07] MEDS: CALCIUM CARBONATE 1.25 GM TAB PO SCH ×2 (09:00→13:29)
[2017-05-07] MEDS: LISINOPRIL 20 MG TAB PO SCH ×2 (09:00→17:16)
[2017-05-07] MEDS: METOPROLOL 25 MG TAB PO SCH ×2 (09:00→21:30)
--- NOTE | 2017-05-07 09:05 | RADRPT ---
PROCEDURE: XR Chest. CLINICAL INDICATION: Shortness of breath. TECHNIQUE: Single frontal view. COMPARISON: 04/14/2017. FINDINGS: The tunneled right internal jugular vein dialysis catheter is in satisfactory position with the tip in the right atrium. There is bilateral air space and interstitial disease consistent with pulmonary edema, slightly worse than seen previously. The heart is mildly enlarged. There are small bilateral pleural effusions. There is no pneumothorax. IMPRESSION: 1. Slightly worse appearance of the lungs. 2. Small bilateral pleural effusions. 3. No other change from the 05/04/2017 chest radiograph. RPTAT: QQ .Mohamud Nam MD, MD Date Time Electronically viewed and signed by .Mohamud Nam MD, MD on 05/07/2017 09:05 .R/
[2017-05-07] MEDS: LINEZOLID 600 MG/D5W (PMX) 300 ML IVPB SCH ×2 (09:09→21:30)
[2017-05-07] MEDS: DIPHENHYDRAMINE 25 MG CAP PO PRN (14:39)
--- NOTE | 2017-05-07 17:24 | PN ---
Date/Time of Note Date/Time of Note DATE: 05/07/17 TIME: 17:22 Assessment/Plan VTE Prophylaxis VTE Prophylaxis Intervention: other Lines/Catheters IV Catheter Type (from Nrsg): Peripheral IV Urinary Cath still in place: No Assessment/Plan Chief Complaint/Hosp Course 1. nausea with vomiting likely secondary to esphageal ulcers s/p EGD last visit 2. Atelectasis at the lung bases posteriorly. 3. Cardiomegaly. 4. ESRD on HD TTS 5. Possible gallstones in the gallbladder. No evidence of cholecystitis. 6. Atherosclerosis. 7. Diverticulosis of the colon without evidence of diverticulitis. 8. Hypertension, controlled 9. Anasarca, slightly improved. 10. Degenerative changes of the spine. PLAN HD PPI Problems: Subjective 24 Hr Interval Summary Respiratory: shortness of breath (beter) Cardiovascular: no complaints Gastrointestinal: no complaints Exam/Review of Systems Vital Signs Vitals Vital Signs Date Time Temp Pulse Resp B/P Pulse Ox O2 Delivery O2 Flow Rate FiO2 05/07/17 17:17 68 173/93 05/07/17 07:57 97.4 20 96 05/05/17 14:20 Room Air 05/04/17 22:10 2.0 Intake and Output 05/06/17 05/06/17 05/07/17 15:00 23:00 07:00 Intake Total 430 ml 970 ml 600 ml Balance 430 ml 970 ml 600 ml Exam Neck: supple Respiratory: diminished breath sounds Cardiovascular: regular rate and rhythm Gastrointestinal: bowel sounds (+), soft Extremities: edema (neg) Results Result Diagram: 05/05/17 0430 05/06/17 0526 Medications Medications Current Medications Dextrose/Sodium Chloride (D5-1/2ns) 1,000 ml @ 20 mls/hr Q24H IV Last administered on 05/07/17 05:52; Admin Dose 40 MLS/HR; Start 05/03/17 at 20:00 Ondansetron HCl (Zofran Inj) 4 mg Q6H PRN IV NAUSEA AND/OR VOMITING Last administered on 05/06/17 11:55; Admin Dose 4 MG; Start 05/03/17 at 20:00 Acetaminophen/ Hydrocodone Bitart ([place] (5/325)) 1 tab Q6H PRN PO MODERATE PAIN LEVEL 4-6; Start 05/03/17 at 20:00 Morphine Sulfate (morphine) 2 mg Q4H PRN IV SEVERE PAIN LEVEL 7-10 Last administered on 05/07/17 17:02; Admin Dose 2 MG; Start 05/03/17 at 20:00 Magnesium Hydroxide (Milk Of Mag) 30 ml DAILY PRN PO CONSTIPATION Last administered on 05/03/17 23:21; Admin Dose 30 ML; Start 05/03/17 at 20:00 Heparin Sodium (Porcine) (Heparin (5000 Units/0.5 ml)) 5,000 unit Q8 SC Last administered on 05/05/17 14:29; Admin Dose 5,000 UNIT; Start 05/03/17 at 22: 00 Albuterol (Proventil 0.083% (Neb)) 2.5 mg DAILY PRN NEB WHEEZING AND SOB; Start 05/03/17 at 20:30 Calcium Carbonate (Oyster Shell Calcium) 0.5 gm DAILY PO Last administered on 05/07/17 13:29; Admin Dose 0.5 GM; Start 05/04/17 at 09:00 Hydralazine HCl (Apresoline) 50 mg Q8 PO Last administered on 05/07/17 14:31 ; Admin Dose 50 MG; Start 05/03/17 at 22:00 Lisinopril (Zestril) 40 mg DAILY PO Last administered on 05/07/17 17:16; Admin Dose 40 MG; Start 05/04/17 at 09:00 Metoprolol Tartrate (Lopressor) 75 mg BID PO Last administered on 05/06/17 20 :47; Admin Dose 25 MG; Start 05/03/17 at 21:00 Pantoprazole (Protonix Iv) 40 mg BID@06,18 IV Last administered on 05/07/17 17:02; Admin Dose 40 MG; Start 05/04/17 at 18:00 Eye Lubricant 2 drop 2 drop Q6H PRN BOTH EYES DRY EYES; Start 05/05/17 at 07: 00 Linezolid (Zyvox 600mg/D5W (Pmx)) 300 ml @ 300 mls/hr Q12 IVPB Last administered on 05/07/17 09:09; Admin Dose 300 MLS/HR; Start 05/06/17 at 12: 00; Stop 05/11/17 at 11:59 Diphenhydramine HCl (Benadryl) 25 mg TID PRN PO ITCHING Last administered on t 14:39; Admin Dose 25 MG; Start 05/06/17 at 18:00 Clonidine (Catapres) 0.2 mg Q6 PO ; Start 05/07/17 at 18:00 SHAN ARRINGTON MD May 07, 2017 17:24
--- NOTE | 2017-05-07 19:16 | CONS ---
Date/Time of Note Date/Time of Note DATE: 05/07/17 TIME: 19:15 Assessment/Plan Assessment/Plan Additional Assessment/Plan IMPRESSION: 1. Nausea and vomiting. 2. Bilateral pleural effusion. 3. Cardiomegaly. 4. End-stage renal disease. 5. Gallstones, no evidence of cholecystitis. 6. Hypertension. 7. Anasarca. 8. Diverticulosis. 9. Cardiomegaly PLAN: To continue hemodialysis. The patient will be placed on a PPI, Carafate , and also low dose of Reglan. If p.o. intake is poor then will place patient on Marinol 2.5 mg Consultation Date/Type/Reason Admit Date/Time May 05, 2017 at 14:49 24 HR Interval Summary Constitutional: improved Exam/Review of Systems Vital Signs Vitals Vital Signs Date Time Temp Pulse Resp B/P Pulse Ox O2 Delivery O2 Flow Rate FiO2 05/07/17 17:59 173/92 05/07/17 17:52 70 05/07/17 07:57 97.4 20 96 05/05/17 14:20 Room Air 05/04/17 22:10 2.0 Intake and Output 05/06/17 05/06/17 05/07/17 15:00 23:00 07:00 Intake Total 430 ml 970 ml 600 ml Balance 430 ml 970 ml 600 ml Exam Constitutional: alert, oriented, well developed Psych: nl mood/affect, no complaints Head: atraumatic, normocephalic Eyes: EOMI, PERRL, nl conjunctiva, nl lids, nl sclera ENMT: nl external ears & nose, nl lips & teeth, nl nasal mucosa & septum Neck: non-tender, supple Respiratory: clear to auscultation, normal air movement Cardiovascular: nl pulses, regular rate and rhythm Gastrointestinal: nl liver, spleen, non-tender, soft Musculoskeletal: nl extremities to inspection, nl gait and stance Extremities: normal pulses Neurological: OCCUPATIONAL THERAPY TEACHER II-XII intact, nl mental status, nl speech, nl strength Skin: nl turgor, No rash or lesions Lymph: nl lymph nodes Results Result Diagram: 05/05/17 0430 05/06/17 0526 Medications Medications Current Medications Dextrose/Sodium Chloride (D5-1/2ns) 1,000 ml @ 20 mls/hr Q24H IV Last administered on 05/07/17 05:52; Admin Dose 40 MLS/HR; Start 05/03/17 at 20:00 Ondansetron HCl (Zofran Inj) 4 mg Q6H PRN IV NAUSEA AND/OR VOMITING Last administered on 05/06/17 11:55; Admin Dose 4 MG; Start 05/03/17 at 20:00 Acetaminophen/ Hydrocodone Bitart ([place] (5/325)) 1 tab Q6H PRN PO MODERATE PAIN LEVEL 4-6; Start 05/03/17 at 20:00 Morphine Sulfate (morphine) 2 mg Q4H PRN IV SEVERE PAIN LEVEL 7-10 Last administered on 05/07/17 17:02; Admin Dose 2 MG; Start 05/03/17 at 20:00 Magnesium Hydroxide (Milk Of Mag) 30 ml DAILY PRN PO CONSTIPATION Last administered on 05/03/17 23:21; Admin Dose 30 ML; Start 05/03/17 at 20:00 Heparin Sodium (Porcine) (Heparin (5000 Units/0.5 ml)) 5,000 unit Q8 SC Last administered on 05/05/17 14:29; Admin Dose 5,000 UNIT; Start 05/03/17 at 22: 00 Albuterol (Proventil 0.083% (Neb)) 2.5 mg DAILY PRN NEB WHEEZING AND SOB; Start 05/03/17 at 20:30 Calcium Carbonate (Oyster Shell Calcium) 0.5 gm DAILY PO Last administered on 05/07/17 13:29; Admin Dose 0.5 GM; Start 05/04/17 at 09:00 Hydralazine HCl (Apresoline) 50 mg Q8 PO Last administered on 05/07/17 14:31 ; Admin Dose 50 MG; Start 05/03/17 at 22:00 Lisinopril (Zestril) 40 mg DAILY PO Last administered on 05/07/17 17:16; Admin Dose 40 MG; Start 05/04/17 at 09:00 Metoprolol Tartrate (Lopressor) 75 mg BID PO Last administered on 05/06/17 20 :47; Admin Dose 25 MG; Start 05/03/17 at 21:00 Pantoprazole (Protonix Iv) 40 mg BID@,18 IV Last administered on 05/07/17 17:02; Admin Dose 40 MG; Start 05/04/17 at 18:00 Eye Lubricant 2 drop 2 drop Q6H PRN BOTH EYES DRY EYES; Start 05/05/17 at 07: 00 Linezolid (Zyvox 600mg/D5W (Pmx)) 300 ml @ 300 mls/hr Q12 IVPB Last administered on 05/07/17 09:09; Admin Dose 300 MLS/HR; Start 05/06/17 at 12: 00; Stop 05/11/17 at 11:59 Diphenhydramine HCl (Benadryl) 25 mg TID PRN PO ITCHING Last administered on 14:39; Admin Dose 25 MG; Start 05/06/17 at 18:00 Clonidine (Catapres) 0.2 mg Q6 PO ; Start 05/07/17 at 18:00 ARIANA JAY MD May 07, 2017 19:16
[2017-05-08] VITALS (13 sets, daily range): BP systolic 112–184; BP diastolic 55–100; PULSE 64–70; RESP 18–20
[2017-05-08] MEDS: morphine 2 MG INJ IV PRN ×4 (01:47→21:48)
[2017-05-08] MEDS: DIPHENHYDRAMINE 25 MG CAP PO PRN (06:18)
[2017-05-08] MEDS: HEPARIN 5,000 UNIT/0.5 ML VIAL SC SCH ×3 (06:19→21:42)
[2017-05-08] MEDS: PANTOPRAZOLE 40 MG INJ IV SCH (06:25)
[2017-05-08] MEDS: CALCIUM CARBONATE 1.25 GM TAB PO SCH (08:14)
[2017-05-08] MEDS: METOPROLOL 25 MG TAB PO SCH ×2 (08:14→21:26)
[2017-05-08] MEDS: LISINOPRIL 20 MG TAB PO SCH (08:15)
[2017-05-08] MEDS: LINEZOLID 600 MG/D5W (PMX) 300 ML IVPB SCH ×2 (08:15→21:26)
[2017-05-08] MEDS: SUCRALFATE 1 GM TAB PO SCH ×3 (08:15→17:35)
[2017-05-08] MEDS: MAGNESIUM HYDROXIDE 30ML CUP PO PRN (10:17)
--- NOTE | 2017-05-08 17:22 | CONS ---
Date/Time of Note Date/Time of Note DATE: 05/08/17 TIME: 17:21 Assessment/Plan Assessment/Plan Additional Assessment/Plan IMPRESSION: 1. Nausea and vomiting. 2. Bilateral pleural effusion. 3. Cardiomegaly. 4. End-stage renal disease. 5. Gallstones, no evidence of cholecystitis. 6. Hypertension. 7. Anasarca. 8. Diverticulosis. 9. Cardiomegaly PLAN: To continue hemodialysis. The patient will be placed on a PPI, Carafate , and also low dose of Reglan. If p.o. intake is poor then will place patient on Marinol 2.5 mg Physical therapy Consultation Date/Type/Reason Admit Date/Time May 05, 2017 at 14:49 24 HR Interval Summary Constitutional: improved Exam/Review of Systems Vital Signs Vitals Vital Signs Date Time Temp Pulse Resp B/P Pulse Ox O2 Delivery O2 Flow Rate FiO2 05/08/17 14:59 98.7 65 20 178/91 96 05/05/17 14:20 Room Air 05/04/17 22:10 2.0 Intake and Output 05/07/17 05/07/17 05/08/17 15:00 23:00 07:00 Intake Total 600 ml 1260 ml 700 ml Output Total 3300 ml 2000 ml Balance -2700 ml -740 ml 700 ml Exam Constitutional: alert, oriented, well developed Psych: nl mood/affect, no complaints Head: atraumatic, normocephalic Eyes: EOMI, PERRL, nl conjunctiva, nl lids, nl sclera ENMT: nl external ears & nose, nl lips & teeth, nl nasal mucosa & septum Neck: non-tender, supple Respiratory: clear to auscultation, normal air movement Cardiovascular: nl pulses, regular rate and rhythm Gastrointestinal: nl liver, spleen, non-tender, soft Musculoskeletal: nl extremities to inspection, nl gait and stance Extremities: normal pulses Neurological: POTATO CHIP PROCESSING SUPERVISOR II-XII intact, nl mental status, nl speech, nl strength Skin: nl turgor, No rash or lesions Lymph: nl lymph nodes Results Result Diagram: 05/05/17 0430 05/06/17 0526 Medications Medications Current Medications Dextrose/Sodium Chloride (D5-1/2ns) 1,000 ml @ 20 mls/hr Q24H IV Last administered on 05/07/17 05:52; Admin Dose 40 MLS/HR; Start 05/03/17 at 20:00 Ondansetron HCl (Zofran Inj) 4 mg Q6H PRN IV NAUSEA AND/OR VOMITING Last administered on 05/06/17 11:55; Admin Dose 4 MG; Start 05/03/17 at 20:00 Acetaminophen/ Hydrocodone Bitart ([place] (5/325)) 1 tab Q6H PRN PO MODERATE PAIN LEVEL 4-6; Start 05/03/17 at 20:00 Morphine Sulfate (morphine) 2 mg Q4H PRN IV SEVERE PAIN LEVEL 7-10 Last administered on 05/08/17 15:27; Admin Dose 2 MG; Start 05/03/17 at 20:00 Magnesium Hydroxide (Milk Of Mag) 30 ml DAILY PRN PO CONSTIPATION Last administered on 05/08/17 10:17; Admin Dose 30 ML; Start 05/03/17 at 20:00 Heparin Sodium (Porcine) (Heparin (5000 Units/0.5 ml)) 5,000 unit Q8 SC Last administered on 05/08/17 06:19; Admin Dose 5,000 UNIT; Start 05/03/17 at 22:00 Albuterol (Proventil 0.083% (Neb)) 2.5 mg DAILY PRN NEB WHEEZING AND SOB; Start 05/03/17 at 20:30 Calcium Carbonate (Oyster Shell Calcium) 0.5 gm DAILY PO Last administered on 05/08/17 08:14; Admin Dose 0.5 GM; Start 05/04/17 at 09:00 Hydralazine HCl (Apresoline) 50 mg Q8 PO Last administered on 05/08/17 15:15; Admin Dose 50 MG; Start 05/03/17 at 22:00 Lisinopril (Zestril) 40 mg DAILY PO Last administered on 05/08/17 08:15; Admin Dose 40 MG; Start 05/04/17 at 09:00 Metoprolol Tartrate (Lopressor) 75 mg BID PO Last administered on 05/08/17 08: 14; Admin Dose 75 MG; Start 05/03/17 at 21:00 Eye Lubricant 2 drop 2 drop Q6H PRN BOTH EYES DRY EYES; Start 05/05/17 at 07: 00 Linezolid (Zyvox 600mg/D5W (Pmx)) 300 ml @ 300 mls/hr Q12 IVPB Last administered on 05/08/17 08:15; Admin Dose 300 MLS/HR; Start 05/06/17 at 12:00 ; Stop 05/11/17 at 11:59 Diphenhydramine HCl (Benadryl) 25 mg TID PRN PO ITCHING Last administered on 06:18; Admin Dose 25 MG; Start 05/06/17 at 18:00 Clonidine (Catapres) 0.2 mg Q6 PO Last administered on 05/08/17 15:15; Admin Dose 0.2 MG; Start 05/07/17 at 18:00 Pantoprazole (Protonix Tab) 40 mg BID@06,18 PO ; Start 05/08/17 at 18:00 ARIANA JAY MD May 08, 2017 17:22
[2017-05-08] MEDS: PANTOPRAZOLE (EC) 40 MG TAB PO SCH (18:00)
--- NOTE | 2017-05-08 18:39 | PN ---
Date/Time of Note Date/Time of Note DATE: 05/08/17 TIME: 18:38 Assessment/Plan VTE Prophylaxis VTE Prophylaxis Intervention: other Lines/Catheters IV [facility]ter Type (from [facility]): Peripheral IV Urinary Cath still in place: No Assessment/Plan Chief Complaint/Hosp Course 1. nausea with vomiting likely secondary to esphageal ulcers s/p EGD last visitbetter 2. Atelectasis at the lung bases posteriorly.better 3. Cardiomegaly. 4. ESRD on HD TTS 5. Possible gallstones in the gallbladder. No evidence of cholecystitis. 6. Atherosclerosis. 7. Diverticulosis of the colon without evidence of diverticulitis. 8. Hypertension, controlled 9. Anasarca, improved. 10. Degenerative changes of the spine 11 vre 12 severe malnutrition. PLAN HD PPI bp meds antibiotic Problems: Subjective 24 Hr Interval Summary Subjective hx not possible: other Exam/Review of Systems Vital Signs Vitals Vital Signs Date Time Temp Pulse Resp B/P Pulse Ox O2 Delivery O2 Flow Rate FiO2 05/08/17 14:59 98.7 65 20 178/91 96 05/05/17 14:20 Room Air 05/04/17 22:10 2.0 Intake and Output 05/07/17 05/07/17 05/08/17 15:00 23:00 07:00 Intake Total 600 ml 1260 ml 700 ml Output Total 3300 ml 2000 ml Balance -2700 ml -740 ml 700 ml Exam Respiratory: diminished breath sounds Cardiovascular: regular rate and rhythm Gastrointestinal: soft Genitourinary - Female: nl adnexae Musculoskeletal: nl extremities to inspection, nl gait and stance Extremities: normal pulses Neurological: AIRPORT OPERATIONS OFFICER II-XII intact Results Result Diagram: 05/08/17 1716 05/08/17 1716 Results 24 hrs Laboratory Tests Test 05/08/17 17:16 White Blood Count 3.8 #L Red Blood Count 4.12 L Hemoglobin 10.9 L Hematocrit 35.9 L Mean Corpuscular Volume 87.1 Mean Corpuscular Hemoglobin 26.5 L Mean Corpuscular Hemoglobin Concent 30.4 L Red Cell Distribution Width 19.3 H Platelet Count 176 Mean Platelet Volume 10.3 Neutrophils % 63.8 Lymphocytes % 19.4 Monocytes % 10.9 Eosinophils % 4.5 Basophils % 1.1 Nucleated Red Blood Cells % 0.0 Neutrophils # 2.4 Lymphocytes # 0.7 L Monocytes # 0.4 Eosinophils # 0.2 Basophils # 0.0 Nucleated Red Blood Cells # 0.0 Sodium Level 136 Potassium Level 3.5 Chloride Level 104 Carbon Dioxide Level 28 Anion Gap 8 Blood Urea Nitrogen 7 Creatinine 2.43 H Glucose Level 117 Calcium Level 7.6 L Total Bilirubin 0.1 L Direct Bilirubin 0.00 Indirect Bilirubin 0.1 Aspartate Amino Transf (AST/SGOT) 15 Alanine Aminotransferase (ALT/SGPT) 16 Alkaline Phosphatase 175 H Total Protein 5.5 L Albumin 1.9 L Globulin 3.60 H Albumin/Globulin Ratio 0.52 Medications Medications Current Medications Dextrose/Sodium Chloride (D5-1/2ns) 1,000 ml @ 20 mls/hr Q24H IV Last administered on 05/07/17 05:52; Admin Dose 40 MLS/HR; Start 05/03/17 at 20:00 Ondansetron HCl (Zofran Inj) 4 mg Q6H PRN IV NAUSEA AND/OR VOMITING Last administered on 05/06/17 11:55; Admin Dose 4 MG; Start 05/03/17 at 20:00 Acetaminophen/ Hydrocodone Bitart ([place] (5/325)) 1 tab Q6H PRN PO MODERATE PAIN LEVEL 4-6; Start 05/03/17 at 20:00 Morphine Sulfate (morphine) 2 mg Q4H PRN IV SEVERE PAIN LEVEL 7-10 Last administered on 05/08/17 15:27; Admin Dose 2 MG; Start 05/03/17 at 20:00 Magnesium Hydroxide (Milk Of Mag) 30 ml DAILY PRN PO CONSTIPATION Last administered on 05/08/17 10:17; Admin Dose 30 ML; Start 05/03/17 at 20:00 Heparin Sodium (Porcine) (Heparin (5000 Units/0.5 ml)) 5,000 unit Q8 SC Last administered on 05/08/17 06:19; Admin Dose 5,000 UNIT; Start 05/03/17 at 22:00 Albuterol (Proventil 0.083% (Neb)) 2.5 mg DAILY PRN NEB WHEEZING AND SOB; Start 05/03/17 at 20:30 Calcium Carbonate (Oyster Shell Calcium) 0.5 gm DAILY PO Last administered on 05/08/17 08:14; Admin Dose 0.5 GM; Start 05/04/17 at 09:00 Hydralazine HCl (Apresoline) 50 mg Q8 PO Last administered on 05/08/17 15:15; Admin Dose 50 MG; Start 05/03/17 at 22:00 Lisinopril (Zestril) 40 mg DAILY PO Last administered on 05/08/17 08:15; Admin Dose 40 MG; Start 05/04/17 at 09:00 Metoprolol Tartrate (Lopressor) 75 mg BID PO Last administered on 05/08/17 08: 14; Admin Dose 75 MG; Start 05/03/17 at 21:00 Eye Lubricant 2 drop 2 drop Q6H PRN BOTH EYES DRY EYES; Start 05/05/17 at 07: 00 Linezolid (Zyvox 600mg/D5W (Pmx)) 300 ml @ 300 mls/hr Q12 IVPB Last administered on 05/08/17 08:15; Admin Dose 300 MLS/HR; Start 05/06/17 at 12:00 ; Stop 05/11/17 at 11:59 Diphenhydramine HCl (Benadryl) 25 mg TID PRN PO ITCHING Last administered on 06:18; Admin Dose 25 MG; Start 05/06/17 at 18:00 Clonidine (Catapres) 0.2 mg Q6 PO Last administered on 05/08/17 15:15; Admin Dose 0.2 MG; Start 05/07/17 at 18:00 Pantoprazole (Protonix Tab) 40 mg BID@06,18 PO ; Start 05/08/17 at 18:00 Dronabinol (Marinol) 2.5 mg DAILY PO ; Start 05/09/17 at 09:00 SHAN ARRINGTON MD May 08, 2017 18:39
[2017-05-09] VITALS (7 sets, daily range): BP systolic 129–172; BP diastolic 69–96; PULSE 69–71; RESP 18
[2017-05-09] MEDS: hydrALAzine 20 MG INJ IV PRN (00:45)
[2017-05-09] MEDS: DEXTROSE 5%-0.45% NACL 1,000 ML IV SCH ×2 (00:48→20:00)
[2017-05-09] MEDS: morphine 2 MG INJ IV PRN ×6 (02:45→23:59)
[2017-05-09] MEDS: HEPARIN 5,000 UNIT/0.5 ML VIAL SC SCH ×3 (06:00→21:56)
[2017-05-09] MEDS: PANTOPRAZOLE (EC) 40 MG TAB PO SCH ×2 (06:20→17:37)
[2017-05-09] MEDS: SUCRALFATE 1 GM TAB PO SCH ×3 (08:35→17:36)
[2017-05-09] MEDS: DIPHENHYDRAMINE 25 MG CAP PO PRN ×2 (10:51→21:57)
[2017-05-09] MEDS: LINEZOLID 600 MG/D5W (PMX) 300 ML IVPB SCH ×2 (10:58→21:55)
[2017-05-09] MEDS: METOPROLOL 25 MG TAB PO SCH ×2 (10:59→21:57)
[2017-05-09] MEDS: LISINOPRIL 20 MG TAB PO SCH (10:59)
[2017-05-09] MEDS: DRONABINOL 2.5 MG CAP PO SCH (10:59)
[2017-05-09] MEDS: CALCIUM CARBONATE 1.25 GM TAB PO SCH (10:59)
--- NOTE | 2017-05-09 19:28 | PN ---
Date/Time of Note Date/Time of Note DATE: 05/09/17 TIME: 19:26 Assessment/Plan VTE Prophylaxis VTE Prophylaxis Intervention: other Lines/Catheters IV Catheter Type (from Nrs): Saline Lock Urinary Cath still in place: No Assessment/Plan Chief Complaint/Hosp Course 1. nausea with vomiting likely secondary to esphageal ulcers s/p EGD last visitbetter 2. Atelectasis at the lung bases posteriorly.better 3. Cardiomegaly. 4. ESRD on HD 5. Possible gallstones in the gallbladder. No evidence of cholecystitis. 6. Atherosclerosis. 7. Diverticulosis of the colon without evidence of diverticulitis. 8. Hypertension, NON COMPLIANCEW MEDS 9. Anasarca, improved. 10. Degenerative changes of the spine 11 VRE UTI 12 severe malnutrition. PLAN HD PPI bp meds antibiotic Problems: Subjective 24 Hr Interval Summary Subjective hx not possible: other (NO SOB,REFUSING BP MEDS) Exam/Review of Systems Vital Signs Vitals Vital Signs Date Time Temp Pulse Resp B/P Pulse Ox O2 Delivery O2 Flow Rate FiO2 05/09/17 18:18 71 158/86 05/09/17 14:00 97.5 18 96 05/05/17 14:20 Room Air Intake and Output 05/08/17 05/08/17 05/09/17 15:00 23:00 07:00 Intake Total 500 ml 780 ml 930 ml Output Total 3500 ml 3000 ml Balance -3000 ml -2220 ml 930 ml Exam Respiratory: clear to auscultation Cardiovascular: regular rate and rhythm Gastrointestinal: bowel sounds (+), soft Extremities: edema (+) Results Result Diagram: 05/08/17 1716 05/08/17 1716 Medications Medications Current Medications Dextrose/Sodium Chloride (D5-1/2ns) 1,000 ml @ 20 mls/hr Q24H IV Last administered on 05/09/17 00:48; Admin Dose 20 MLS/HR; Start 05/03/17 at 20:00 Ondansetron HCl (Zofran Inj) 4 mg Q6H PRN IV NAUSEA AND/OR VOMITING Last administered on 05/06/17 11:55; Admin Dose 4 MG; Start 05/03/17 at 20:00 Acetaminophen/ Hydrocodone Bitart ([place] (5/325)) 1 tab Q6H PRN PO MODERATE PAIN LEVEL 4-6; Start 05/03/17 at 20:00 Morphine Sulfate (morphine) 2 mg Q4H PRN IV SEVERE PAIN LEVEL 7-10 Last administered on 05/09/17 15:00; Admin Dose 2 MG; Start 05/03/17 at 20:00 Magnesium Hydroxide (Milk Of Mag) 30 ml DAILY PRN PO CONSTIPATION Last administered on 05/08/17 10:17; Admin Dose 30 ML; Start 05/03/17 at 20:00 Heparin Sodium (Porcine) (Heparin (5000 Units/0.5 ml)) 5,000 unit Q8 SC Last administered on 05/08/17 21:42; Admin Dose 5,000 UNIT; Start 05/03/17 at 22:00 Albuterol (Proventil 0.083% (Neb)) 2.5 mg DAILY PRN NEB WHEEZING AND SOB; Start 05/03/17 at 20:30 Calcium Carbonate (Oyster Shell Calcium) 0.5 gm DAILY PO Last administered on 05/08/17 08:14; Admin Dose 0.5 GM; Start 05/04/17 at 09:00 Hydralazine HCl (Apresoline) 50 mg Q8 PO Last administered on 05/09/17 13:25; Admin Dose 50 MG; Start 05/03/17 at 22:00 Lisinopril (Zestril) 40 mg DAILY PO Last administered on 05/08/17 08:15; Admin Dose 40 MG; Start 05/04/17 at 09:00 Metoprolol Tartrate (Lopressor) 75 mg BID PO Last administered on 05/08/17 21: 26; Admin Dose 75 MG; Start 05/03/17 at 21:00 Eye Lubricant 2 drop 2 drop Q6H PRN BOTH EYES DRY EYES; Start 05/05/17 at 07: 00 Linezolid (Zyvox 600mg/D5W (Pmx)) 300 ml @ 300 mls/hr Q12 IVPB Last administered on 05/08/17 21:26; Admin Dose 300 MLS/HR; Start 05/06/17 at 12:00 ; Stop 05/11/17 at 11:59 Diphenhydramine HCl (Benadryl) 25 mg TID PRN PO ITCHING Last administered on 10:51; Admin Dose 25 MG; Start 05/06/17 at 18:00 Clonidine (Catapres) 0.2 mg Q6 PO Last administered on 05/09/17 17:36; Admin Dose 0.2 MG; Start 05/07/17 at 18:00 Pantoprazole (Protonix Tab) 40 mg BID@06,18 PO Last administered on 05/09/17 17:37; Admin Dose 40 MG; Start 05/08/17 at 18:00 Dronabinol (Marinol) 2.5 mg DAILY PO ; Start 05/09/17 at 09:00 Hydralazine HCl (Apresoline) 20 mg Q6H PRN IV SBP > 160 Last administered on 00:45; Admin Dose 20 MG; Start 05/08/17 at 19:00 SHAN ARRINGTON MD May 09, 2017 19:28
[2017-05-10] VITALS (12 sets, daily range): BP systolic 118–199; BP diastolic 56–96; PULSE 69–74; RESP 18–20
[2017-05-10] MEDS: ARTIFICIAL TEARS 15 ML OPH BOTH EYES PRN ×2 (00:11→14:04)
[2017-05-10] MEDS: morphine 2 MG INJ IV PRN ×5 (04:59→22:26)
[2017-05-10] MEDS: HEPARIN 5,000 UNIT/0.5 ML VIAL SC SCH ×3 (05:00→21:30)
[2017-05-10] MEDS: PANTOPRAZOLE (EC) 40 MG TAB PO SCH ×3 (05:00→18:19)
[2017-05-10] MEDS: SUCRALFATE 1 GM TAB PO SCH ×3 (07:30→18:19)
[2017-05-10] MEDS: LISINOPRIL 20 MG TAB PO SCH (09:00)
[2017-05-10] MEDS: CALCIUM CARBONATE 1.25 GM TAB PO SCH (09:00)
[2017-05-10] MEDS: DRONABINOL 2.5 MG CAP PO SCH (09:00)
[2017-05-10] MEDS: METOPROLOL 25 MG TAB PO SCH ×2 (09:00→21:25)
[2017-05-10] MEDS: LINEZOLID 600 MG/D5W (PMX) 300 ML IVPB SCH ×2 (10:28→21:25)
--- NOTE | 2017-05-10 10:41 | CONS ---
Date/Time of Note Date/Time of Note DATE: 05/10/17 TIME: 10:40 Assessment/Plan Assessment/Plan Additional Assessment/Plan Additional Assessment/Plan IMPRESSION: 1. Nausea and vomiting. 2. Bilateral pleural effusion. 3. Cardiomegaly. 4. End-stage renal disease. 5. Gallstones, no evidence of cholecystitis. 6. Hypertension. 7. Anasarca. 8. Diverticulosis. 9. Cardiomegaly 10. Malnutrition with severe hypoalbuminemia PLAN: To continue hemodialysis. The patient will be placed on a PPI, Carafate , and also low dose of Reglan. If p.o. intake is poor then will place patient on Marinol 2.5 mg Physical therapy Patient is refusing all the medication Consultation Date/Type/Reason Admit Date/Time May 05, 2017 at 14:49 24 HR Interval Summary Free Text/Dictation Patient complains of weakness unable to ambulate or sit down in a chair. She feels nobody is helping her Exam/Review of Systems Vital Signs Vitals Vital Signs Date Time Temp Pulse Resp B/P Pulse Ox O2 Delivery O2 Flow Rate FiO2 05/10/17 04:00 98.0 69 20 170/94 05/09/17 21:20 96 Intake and Output 05/09/17 05/09/17 05/10/17 15:00 23:00 07:00 Intake Total 1380 ml 720 ml Balance 1380 ml 720 ml Exam Constitutional: alert, oriented, well developed Psych: nl mood/affect, no complaints Head: atraumatic, normocephalic Eyes: EOMI, PERRL, nl conjunctiva, nl lids, nl sclera ENMT: nl external ears & nose, nl lips & teeth, nl nasal mucosa & septum Neck: non-tender, supple Respiratory: clear to auscultation, normal air movement Cardiovascular: nl pulses, regular rate and rhythm Gastrointestinal: nl liver, spleen, non-tender, soft Musculoskeletal: nl extremities to inspection, nl gait and stance Extremities: normal pulses Neurological: CODING COORDINATOR II-XII intact, nl mental status, nl speech, nl strength Skin: nl turgor, No rash or lesions Lymph: nl lymph nodes Results Result Diagram: 05/08/17171505/08/171715 Medications Medications Current Medications Dextrose/Sodium Chloride (D5-1/2ns) 1,000 ml @ 20 mls/hr Q24H IV Last administered on 05/09/17 00:48; Admin Dose 20 MLS/HR; Start 05/03/17 at 20:00 Ondansetron HCl (Zofran Inj) 4 mg Q6H PRN IV NAUSEA AND/OR VOMITING Last administered on 05/06/17 11:55; Admin Dose 4 MG; Start 05/03/17 at 20:00 Acetaminophen/ Hydrocodone Bitart ([place] (5/325)) 1 tab Q6H PRN PO MODERATE PAIN LEVEL 4-6; Start 05/03/17 at 20:00 Morphine Sulfate (morphine) 2 mg Q4H PRN IV SEVERE PAIN LEVEL 7-10 Last administered on 05/10/17 10:27; Admin Dose 2 MG; Start 05/03/17 at 20:00 Magnesium Hydroxide (Milk Of Mag) 30 ml DAILY PRN PO CONSTIPATION Last administered on 05/08/17 10:17; Admin Dose 30 ML; Start 05/03/17 at 20:00 Heparin Sodium (Porcine) (Heparin (5000 Units/0.5 ml)) 5,000 unit Q8 SC Last administered on 05/09/17 21:56; Admin Dose 5,000 UNIT; Start 05/03/17 at 22:00 Albuterol (Proventil 0.083% (Neb)) 2.5 mg DAILY PRN NEB WHEEZING AND SOB; Start 05/03/17 at 20:30 Calcium Carbonate (Oyster Shell Calcium) 0.5 gm DAILY PO Last administered on 05/08/17 08:14; Admin Dose 0.5 GM; Start 05/04/17 at 09:00 Hydralazine HCl (Apresoline) 50 mg Q8 PO Last administered on 05/09/17 21:57; Admin Dose 50 MG; Start 05/03/17 at 22:00 Lisinopril (Zestril) 40 mg DAILY PO Last administered on 05/08/17 08:15; Admin Dose 40 MG; Start 05/04/17 at 09:00 Metoprolol Tartrate (Lopressor) 75 mg BID PO Last administered on 05/09/17 21: 57; Admin Dose 75 MG; Start 05/03/17 at 21:00 Eye Lubricant 2 drop 2 drop Q6H PRN BOTH EYES DRY EYES Last administered on 00:11; Admin Dose 2 DROP; Start 05/05/17 at 07:00 Linezolid (Zyvox 600mg/D5W (Pmx)) 300 ml @ 300 mls/hr Q12 IVPB Last administered on 05/10/17 10:28; Admin Dose 300 MLS/HR; Start 05/06/17 at 12:00 ; Stop 05/11/17 at 11:59 Diphenhydramine HCl (Benadryl) 25 mg TID PRN PO ITCHING Last administered on 21:57; Admin Dose 25 MG; Start 05/06/17 at 18:00 Clonidine (Catapres) 0.2 mg Q6 PO Last administered on 05/09/17 23:59; Admin Dose 0.2 MG; Start 05/07/17 at 18:00 Pantoprazole (Protonix Tab) 40 mg BID@06,18 PO Last administered on 05/09/17 17:37; Admin Dose 40 MG; Start 05/08/17 at 18:00 Dronabinol (Marinol) 2.5 mg DAILY PO ; Start 05/09/17 at 09:00 Hydralazine HCl (Apresoline) 20 mg Q6H PRN IV SBP > 160 Last administered on 00:45; Admin Dose 20 MG; Start 05/08/17 at 19:00 ARIANA JAY MD May 10, 2017 10:41
--- NOTE | 2017-05-10 12:30 | PN ---
Date/Time of Note Date/Time of Note DATE: 05/10/17 TIME: 12:28 Assessment/Plan VTE Prophylaxis VTE Prophylaxis Intervention: ambulation Lines/Catheters IV [facility] Type (from [facility] Saline Lock Urinary Cath still in place: No Assessment/Plan Chief Complaint/Hosp Course 1. nausea with vomiting 2. Atelectasis at the lung bases posteriorly. 3. Cardiomegaly. 4. ESRD on HD 5. Possible gallstones in the gallbladder. No evidence of cholecystitis. 6. Atherosclerosis. 7. Diverticulosis of the colon without evidence of diverticulitis. 8. Hypertension, controlled 9. Anasarca, slightly improved. 10. Degenerative changes of the spine. 11.Moderate bilateral pleural effusions. Problems: Assessment/Plan 1. Pt 2. Continue HD 3. D/c back to SNF tomorrow 4. resolve constipation Subjective 24 Hr Interval Summary Respiratory: no complaints Gastrointestinal: constipation (5 days), pain (4/10) Genitourinary: no complaints Exam/Review of Systems Vital Signs Vitals Vital Signs Date Time Temp Pulse Resp B/P Pulse Ox O2 Delivery O2 Flow Rate FiO2 05/10/17 10:30 74 18 05/10/17 04:00 98.0 170/94 05/09/17 21:20 96 Intake and Output 05/09/17 05/09/17 05/10/17 15:00 23:00 07:00 Intake Total 1380 ml 720 ml Balance 1380 ml 720 ml Exam Constitutional: alert Psych: no complaints Head: normocephalic Eyes: nl conjunctiva ENMT: nl external ears & nose Neck: supple Respiratory: diminished breath sounds Cardiovascular: regular rate and rhythm Gastrointestinal: soft, tender Results Result Diagram: 05/08/17 1716 05/08/17 1716 Medications Medications Current Medications Dextrose/Sodium Chloride (D5-1/2ns) 1,000 ml @ 20 mls/hr Q24H IV Last administered on 05/09/17 00:48; Admin Dose 20 MLS/HR; Start 05/03/17 at 20:00 Ondansetron HCl (Zofran Inj) 4 mg Q6H PRN IV NAUSEA AND/OR VOMITING Last administered on 05/06/17 11:55; Admin Dose 4 MG; Start 05/03/17 at 20:00 Acetaminophen/ Hydrocodone Bitart ([place] (5/325)) 1 tab Q6H PRN PO MODERATE PAIN LEVEL 4-6; Start 05/03/17 at 20:00 Morphine Sulfate (morphine) 2 mg Q4H PRN IV SEVERE PAIN LEVEL 7-10 Last administered on 05/10/17 10:27; Admin Dose 2 MG; Start 05/03/17 at 20:00 Magnesium Hydroxide (Milk Of Mag) 30 ml DAILY PRN PO CONSTIPATION Last administered on 05/08/17 10:17; Admin Dose 30 ML; Start 05/03/17 at 20:00 Heparin Sodium (Porcine) (Heparin (5000 Units/0.5 ml)) 5,000 unit Q8 SC Last administered on 05/09/17 21:56; Admin Dose 5,000 UNIT; Start 05/03/17 at 22:00 Albuterol (Proventil 0.083% (Neb)) 2.5 mg DAILY PRN NEB WHEEZING AND SOB; Start 05/03/17 at 20:30 Calcium Carbonate (Oyster Shell Calcium) 0.5 gm DAILY PO Last administered on 05/08/17 08:14; Admin Dose 0.5 GM; Start 05/04/17 at 09:00 Hydralazine HCl (Apresoline) 50 mg Q8 PO Last administered on 05/09/17 21:57; Admin Dose 50 MG; Start 05/03/17 at 22:00 Lisinopril (Zestril) 40 mg DAILY PO Last administered on 05/08/17 08:15; Admin Dose 40 MG; Start 05/04/17 at 09:00 Metoprolol Tartrate (Lopressor) 75 mg BID PO Last administered on 05/09/17 21: 57; Admin Dose 75 MG; Start 05/03/17 at 21:00 Eye Lubricant 2 drop 2 drop Q6H PRN BOTH EYES DRY EYES Last administered on 00:11; Admin Dose 2 DROP; Start 05/05/17 at 07:00 Linezolid (Zyvox 600mg/D5W (Pmx)) 300 ml @ 300 mls/hr Q12 IVPB Last administered on 05/10/17 10:28; Admin Dose 300 MLS/HR; Start 05/06/17 at 12:00 ; Stop 05/11/17 at 11:59 Diphenhydramine HCl (Benadryl) 25 mg TID PRN PO ITCHING Last administered on 21:57; Admin Dose 25 MG; Start 05/06/17 at 18:00 Clonidine (Catapres) 0.2 mg Q6 PO Last administered on 05/09/17 23:59; Admin Dose 0.2 MG; Start 05/07/17 at 18:00 Pantoprazole (Protonix Tab) 40 mg BID@06,18 PO Last administered on 05/09/17 17:37; Admin Dose 40 MG; Start 05/08/17 at 18:00 Dronabinol (Marinol) 2.5 mg DAILY PO ; Start 05/09/17 at 09:00 Hydralazine HCl (Apresoline) 20 mg Q6H PRN IV SBP > 160 Last administered on 00:45; Admin Dose 20 MG; Start 05/08/17 at 19:00 LUIS LOPEZ May 10, 2017 12:30
--- NOTE | 2017-05-10 17:10 | RADRPT ---
PROCEDURE: XR Chest. CLINICAL INDICATION: Shortness of breath TECHNIQUE: Single AP portable chest. COMPARISON: 01/22/2017 Chest x-ray FINDINGS: The cardiomediastinal silhouette is within normal limits of size. Bilateral pleural effusions and le ft base atelectasis or consolidation. Mild vascular congestion. Right dialysis catheter in place. A therosclerotic calcification of the aorta. No pneumothorax. The osseous structures and soft tissues are unremarkable. IMPRESSION: 1. Bilateral pleural effusions left greater than right with left base atelectasis and/or consolidati on. 2. Mild vascular congestion. 3. Stable right dialysis catheter placement . RPTAT:AAJJ Physician Nick Date Time Electronically viewed and signed by Physician Nick on 05/10/2017 17:10 ELAINE/
[2017-05-10] MEDS: LACTULOSE 30ML CUP PO PRN (18:18)
[2017-05-10] MEDS: hydrALAzine 20 MG INJ IV PRN (21:26)
[2017-05-11] VITALS (13 sets, daily range): BP systolic 110–153; BP diastolic 57–83; PULSE 68–80; RESP 16–20
[2017-05-11] MEDS: morphine 2 MG INJ IV PRN ×5 (03:04→21:36)
[2017-05-11] MEDS: PANTOPRAZOLE (EC) 40 MG TAB PO SCH ×2 (06:52→18:27)
[2017-05-11] MEDS: HEPARIN 5,000 UNIT/0.5 ML VIAL SC SCH ×3 (06:53→22:00)
[2017-05-11] MEDS: SUCRALFATE 1 GM TAB PO SCH ×3 (07:30→16:50)
[2017-05-11] MEDS: DRONABINOL 2.5 MG CAP PO SCH (09:00)
[2017-05-11] MEDS: LISINOPRIL 20 MG TAB PO SCH (09:00)
[2017-05-11] MEDS: CALCIUM CARBONATE 1.25 GM TAB PO SCH (09:00)
[2017-05-11] MEDS: METOPROLOL 25 MG TAB PO SCH ×2 (09:00→21:34)
[2017-05-11] MEDS: LINEZOLID 600 MG/D5W (PMX) 300 ML IVPB SCH (09:59)
--- NOTE | 2017-05-11 10:29 | CONS ---
Date/Time of Note Date/Time of Note DATE: 05/11/17 TIME: 10:29 Assessment/Plan Assessment/Plan Additional Assessment/Plan IMPRESSION: 1. Nausea and vomiting. 2. Bilateral pleural effusion. 3. Cardiomegaly. 4. End-stage renal disease. 5. Gallstones, no evidence of cholecystitis. 6. Hypertension. 7. Anasarca. 8. Diverticulosis. 9. Cardiomegaly 10. Malnutrition with severe hypoalbuminemia PLAN: To continue hemodialysis. The patient will be placed on a PPI, Carafate , and also low dose of Reglan. If p.o. intake is poor then will place patient on Marinol 2.5 mg, patient is eating better now Physical therapy Patient is refusing all the medication Consultation Date/Type/Reason Admit Date/Time May 05, 2017 at 14:49 24 HR Interval Summary Constitutional: improved Exam/Review of Systems Vital Signs Vitals Vital Signs Date Time Temp Pulse Resp B/P Pulse Ox O2 Delivery O2 Flow Rate FiO2 05/11/17 07:35 97.8 81 18 128/66 93 Intake and Output 05/10/17 05/10/17 05/11/17 15:00 23:00 07:00 Intake Total 800 ml 800 ml 250 ml Output Total 3500 ml 1 ml Balance -2700 ml 800 ml 249 ml Exam Constitutional: alert, oriented, well developed Psych: nl mood/affect, no complaints Head: atraumatic, normocephalic Eyes: EOMI, PERRL, nl conjunctiva, nl lids, nl sclera ENMT: nl external ears & nose, nl lips & teeth, nl nasal mucosa & septum Neck: non-tender, supple Respiratory: clear to auscultation, normal air movement Cardiovascular: nl pulses, regular rate and rhythm Gastrointestinal: nl liver, spleen, non-tender, soft Musculoskeletal: nl extremities to inspection, nl gait and stance Extremities: normal pulses Neurological: STATISTICS TUTOR II-XII intact, nl mental status, nl speech, nl strength Skin: nl turgor, No rash or lesions Lymph: nl lymph nodes Results Result Diagram: 05/08/17171505/08/171715 Medications Medications Current Medications Ondansetron HCl (Zofran Inj) 4 mg Q6H PRN IV NAUSEA AND/OR VOMITING Last administered on 10/30/17at 11:55; Admin Dose 4 MG; Start 05/03/17 at 20:00 Acetaminophen/ Hydrocodone Bitart ([place] (5/325)) 1 tab Q6H PRN PO MODERATE PAIN LEVEL 4-6; Start 05/03/17 at 20:00 Morphine Sulfate (morphine) 2 mg Q4H PRN IV SEVERE PAIN LEVEL 7-10 Last administered on 05/11/17 06:51; Admin Dose 2 MG; Start 05/03/17 at 20:00 Magnesium Hydroxide (Milk Of Mag) 30 ml DAILY PRN PO CONSTIPATION Last administered on 05/08/17 10:17; Admin Dose 30 ML; Start 05/03/17 at 20:00 Heparin Sodium (Porcine) (Heparin (5000 Units/0.5 ml)) 5,000 unit Q8 SC Last administered on 05/11/17 06:53; Admin Dose 5,000 UNIT; Start 05/03/17 at 22:00 Albuterol (Proventil 0.083% (Neb)) 2.5 mg DAILY PRN NEB WHEEZING AND SOB; Start 05/03/17 at 20:30 Calcium Carbonate (Oyster Shell Calcium) 0.5 gm DAILY PO Last administered on 05/08/17 08:14; Admin Dose 0.5 GM; Start 05/04/17 at 09:00 Hydralazine HCl (Apresoline) 50 mg Q8 PO Last administered on 05/11/17 06:52; Admin Dose 50 MG; Start 05/03/17 at 22:00 Lisinopril (Zestril) 40 mg DAILY PO Last administered on 05/08/17 08:15; Admin Dose 40 MG; Start 05/04/17 at 09:00 Metoprolol Tartrate (Lopressor) 75 mg BID PO Last administered on 05/10/17 21: 25; Admin Dose 75 MG; Start 05/03/17 at 21:00 Eye Lubricant 2 drop 2 drop Q6H PRN BOTH EYES DRY EYES Last administered on 14:04; Admin Dose 2 DROP; Start 05/05/17 at 07:00 Linezolid (Zyvox 600mg/D5W (Pmx)) 300 ml @ 300 mls/hr Q12 IVPB Last administered on 05/11/17 09:59; Admin Dose 300 MLS/HR; Start 05/06/17 at 12:00 ; Stop 05/11/17 at 11:59 Diphenhydramine HCl (Benadryl) 25 mg TID PRN PO ITCHING Last administered on 21:57; Admin Dose 25 MG; Start 05/06/17 at 18:00 Clonidine (Catapres) 0.2 mg Q6 PO Last administered on 05/11/17 06:52; Admin Dose 0.2 MG; Start 05/07/17 at 18:00 Pantoprazole (Protonix Tab) 40 mg BID@18 PO Last administered on 05/11/17 06:52; Admin Dose 40 MG; Start 05/08/17 at 18:00 Dronabinol (Marinol) 2.5 mg DAILY PO ; Start 05/09/17 at 09:00 Hydralazine HCl (Apresoline) 20 mg Q6H PRN IV SBP > 160 Last administered on 21:26; Admin Dose 20 MG; Start 05/08/17 at 19:00 Lactulose (Enulose) 10 gm DAILY PRN PO CONSTIPATION Last administered on 18:18; Admin Dose 10 GM; Start 05/10/17 at 12:30 ARIANA JAY MD May 11, 2017 10:29
--- NOTE | 2017-05-11 12:45 | PN ---
Date/Time of Note Date/Time of Note DATE: 05/11/17 TIME: 12:44 Assessment/Plan VTE Prophylaxis VTE Prophylaxis Intervention: SCD's Lines/Catheters IV Catheter Type (from [facility]): Saline Lock Urinary Cath still in place: No (HD tima sat tues) Assessment/Plan Chief Complaint/Hosp Course 1. nauseabetter 2. Atelectasis at the lung bases posteriorly. 3. Cardiomegaly. 4. ESRD on HD 5. Possible gallstones in the gallbladder. No evidence of cholecystitis. 6. Atherosclerosis. 7. Diverticulosis of the colon without evidence of diverticulitis. 8. Hypertension, controlled 9. Anasarca, slightly improved. 10. Degenerative changes of the spine. 11.Moderate bilateral pleural effusions. 12. Non-compliance Problems: Assessment/Plan 1. transfer to [facility] Subjective 24 Hr Interval Summary Gastrointestinal: constipation (resolved yesterday), nausea Exam/Review of Systems Vital Signs Vitals Vital Signs Date Time Temp Pulse Resp B/P Pulse Ox O2 Delivery O2 Flow Rate FiO2 05/11/17 07:35 97.8 81 18 128/66 93 Intake and Output 05/10/17 05/10/17 05/11/17 15:00 23:00 07:00 Intake Total 800 ml 800 ml 250 ml Output Total 3500 ml 1 ml Balance -2700 ml 800 ml 249 ml Exam Constitutional: alert, oriented Neck: supple Respiratory: diminished breath sounds Cardiovascular: regular rate and rhythm Results Result Diagram: 05/11/17 1111 05/11/17 1111 Results 24 hrs Laboratory Tests Test 05/11/17 11:11 White Blood Count 3.9 L Red Blood Count 3.85 L Hemoglobin 10.5 L Hematocrit 33.2 L Mean Corpuscular Volume 86.2 Mean Corpuscular Hemoglobin 27.3 L Mean Corpuscular Hemoglobin Concent 31.6 L Red Cell Distribution Width 18.8 H Platelet Count 181 Mean Platelet Volume 9.7 Neutrophils % 60.4 Lymphocytes % 24.2 Monocytes % 11.2 H Eosinophils % 3.1 Basophils % 0.8 Nucleated Red Blood Cells % 0.0 Neutrophils # 2.4 Lymphocytes # 1.0 Monocytes # 0.4 Eosinophils # 0.1 Basophils # 0.0 Nucleated Red Blood Cells # 0.0 Sodium Level 130 L Potassium Level 3.7 Chloride Level 99 Carbon Dioxide Level 29 Anion Gap 6 L Blood Urea Nitrogen 9 Creatinine 3.02 H Glucose Level 161 Calcium Level 7.1 L Medications Medications Current Medications Ondansetron HCl (Zofran Inj) 4 mg Q6H PRN IV NAUSEA AND/OR VOMITING Last administered on 05/06/17 11:55; Admin Dose 4 MG; Start 05/03/17 at 20:00 Acetaminophen/ Hydrocodone Bitart (Baker (5/325)) 1 tab Q6H PRN PO MODERATE PAIN LEVEL 4-6; Start 05/03/17 at 20:00 Morphine Sulfate (morphine) 2 mg Q4H PRN IV SEVERE PAIN LEVEL 7-10 Last administered on 05/11/17 11:16; Admin Dose 2 MG; Start 05/03/17 at 20:00 Magnesium Hydroxide (Milk Of Mag) 30 ml DAILY PRN PO CONSTIPATION Last administered on 05/08/17 10:17; Admin Dose 30 ML; Start 05/03/17 at 20:00 Heparin Sodium (Porcine) (Heparin (5000 Units/0.5 ml)) 5,000 unit Q8 SC Last administered on 05/11/17 06:53; Admin Dose 5,000 UNIT; Start 05/03/17 at 22:00 Albuterol (Proventil 0.083% (Neb)) 2.5 mg DAILY PRN NEB WHEEZING AND SOB; Start 05/03/17 at 20:30 Calcium Carbonate (Oyster Shell Calcium) 0.5 gm DAILY PO Last administered on 05/08/17 08:14; Admin Dose 0.5 GM; Start 05/04/17 at 09:00 Hydralazine HCl (Apresoline) 50 mg Q8 PO Last administered on 05/11/17 06:52; Admin Dose 50 MG; Start 05/03/17 at 22:00 Lisinopril (Zestril) 40 mg DAILY PO Last administered on 05/08/17 08:15; Admin Dose 40 MG; Start 05/04/17 at 09:00 Metoprolol Tartrate (Lopressor) 75 mg BID PO Last administered on 05/10/17 21: 25; Admin Dose 75 MG; Start 05/03/17 at 21:00 Eye Lubricant (Artificial Tears Oph) 2 drop Q6H PRN BOTH EYES DRY EYES Last administered on 05/10/17 14:04; Admin Dose 2 DROP; Start 05/05/17 at 07:00 Diphenhydramine HCl (Benadryl) 25 mg TID PRN PO ITCHING Last administered on 21:57; Admin Dose 25 MG; Start 05/06/17 at 18:00 Clonidine (Catapres) 0.2 mg Q6 PO Last administered on 05/11/17 06:52; Admin Dose 0.2 MG; Start 05/07/17 at 18:00 Pantoprazole (Protonix Tab) 40 mg BID@18 PO Last administered on 05/11/17 06:52; Admin Dose 40 MG; Start 05/08/17 at 18:00 Dronabinol (Marinol) 2.5 mg DAILY PO ; Start 05/09/17 at 09:00 Hydralazine HCl (Apresoline) 20 mg Q6H PRN IV SBP > 160 Last administered on 21:26; Admin Dose 20 MG; Start 05/08/17 at 19:00 Lactulose (Enulose) 10 gm DAILY PRN PO CONSTIPATION Last administered on 18:18; Admin Dose 10 GM; Start 05/10/17 at 12:30 LUIS LOPEZ May 11, 2017 12:45
--- NOTE | 2017-05-11 12:46 | PDOCDIS ---
Discharge Instructions DIAGNOSIS Discharge Diagnosis Abdominal pain and nausea CONDITION Patient Condition: Stable HOME CARE INSTRUCTIONS: Diet Instructions: Low Fat /Cholesterol ACTIVITY: Activity Restrictions: Slowly Increase Activity LUIS LOPEZ May 11, 2017 12:46
[2017-05-11] MEDS ORDERED: HEPARIN 1000 UNITS/ML 10 ML INJ CATHETER ONE (13:00)
[2017-05-11] MEDS: DIPHENHYDRAMINE 25 MG CAP PO PRN (18:27)
[2017-05-11] MEDS: LACTULOSE 30ML CUP PO PRN (21:51)
[2017-05-12] MEDS: HEPARIN 5,000 UNIT/0.5 ML VIAL SC SCH ×2 (00:32→06:00)
[2017-05-12] MEDS: morphine 2 MG INJ IV PRN ×3 (01:49→10:33)
[2017-05-12 02:00] VITALS: BP 162/82; RESP 20
[2017-05-12] MEDS: PANTOPRAZOLE (EC) 40 MG TAB PO SCH (05:37)
[2017-05-12 07:40] VITALS: BP 172/90; RESP 16
[2017-05-12] MEDS: LISINOPRIL 20 MG TAB PO SCH (08:45)
[2017-05-12] MEDS: SUCRALFATE 1 GM TAB PO SCH ×2 (08:45→11:30)
[2017-05-12] MEDS: METOPROLOL 25 MG TAB PO SCH (08:45)
[2017-05-12] MEDS: DRONABINOL 2.5 MG CAP PO SCH (08:46)
[2017-05-12] MEDS: CALCIUM CARBONATE 1.25 GM TAB PO SCH (08:46)
--- NOTE | 2017-05-12 15:57 | DS ---
Date/Time of Note Date/Time of Note DATE: 05/12/17 TIME: 15:57 Discharge Summary Admission/Discharge Info Admit Date/Time May 05, 2017 at 14:49 Discharge Date/Time May 12, 2017 at 13:10 Discharge Diagnosis Abdominal pain and nausea Patient Condition: Stable Consults Dr Whyte, GI Hospital Course Per ER MD record this is a 56-year-old female presented to the emergency room from her long term facility for evaluation of nausea, vomiting and abdominal pain. The patient states that she has abdominal pain which she describes as a crampy-like sensation located in the midportion of her abdomen , relieved after vomiting. The patient states that she has had multiple episodes of nonbilious vomiting and denies any diarrhea. She does state that she is a dialysis patient, her schedule is on dialysis Saturday, , Saturday. She states that she did complete dialysis on and came to the ER because she kept vomiting. The patient denies any aggravating or relieving factors for her symptoms and came to the ER for evaluation. She denies any chest pain, palpitations or diaphoresis associated with this. IMPRESSION 1. nausea, better 2. Atelectasis at the lung bases posteriorly. 3. Cardiomegaly. 4. ESRD on HD 5. Possible gallstones in the gallbladder. No evidence of cholecystitis. 6. Atherosclerosis. 7. Diverticulosis of the colon without evidence of diverticulitis. 8. Hypertension, controlled 9. Anasarca, slightly improved. 10. Degenerative changes of the spine. 11.Moderate bilateral pleural effusions. 12. Non-compliance During hospitalization pt had: continued hemodialysis. The patient was be placed on a PPI, Carafate, and also low dose of Reglan. P.o. intake was poor and pt was placed on Marinol 2.5 mg, patient is eating better now. Physical therapy was started. Patient is refusing all the medications. In stable condition pt was transferred to SNF. Home Meds Active Scripts Sucralfate (Carafate) 1 Gm Tablet, 1 GM PO AC MEALS for 30 Days, TAB Prov:MARCIA RICHARDS MD 04/23/17 Reported Medications Cranberry Conc/Ascorbic Acid (CRANBERRY CONCENTRATE SOFTGEL) 1 Each Capsule, 1 EACH PO DAILY, CAP 168MG 05/03/17 Metoprolol Tartrate* (Lopressor*) 25 Mg Tab, 75 MG PO BID, #180 TAB HOLD IF SBP<110,HR<60 05/03/17 Lisinopril* (Lisinopril*) 40 Mg Tablet, 40 MG PO DAILY, #30 TAB HOLD IF SBP<110,HR<60 05/03/17 Hydralazine Hcl* (Hydralazine Hcl*) 50 Mg Tab, 50 MG PO Q8, #90 TAB HOLD IDF SBP<110,HR<60 05/03/17 Fe Fumarate/John/FA/Bcomp,C (Nephron FA Tablet) 1 Each Tablet, 1 EACH PO DAILY, TAB 04/13/17 Calcium Carbonate ([id number]) 500 Mg Tablet, 500 MG PO DAILY, TAB 04/13/17 Albuterol Sulfate* (Albuterol Sulfate* Neb) 0.083%-3 Ml Neb, 2.5 MG NEB DAILY Y for WHEEZING AND SOB, #30 VIAL 04/13/17 Hydrocodone/Acetaminophen ([place] 5-325 Tablet) 1 Each Tablet, 1 EACH PO DAILY Y for SEVERE PAIN LEVEL 7-10, TAB 04/13/17 Pantoprazole* (Protonix*) 40 Mg Tablet.dr, 40 MG PO BID, TAB 04/13/17 Clonidine Hcl* (Clonidine Hcl*) 0.1 Mg Tab, 0.1 MG PO Q8, TAB 04/13/17 Diphenhydramine Hcl* (Benadryl*) 25 Mg Cap, 25 MG PO DAILY Y for ITCHING, CAP 04/13/17 Metoclopramide* (Reglan*) 5 Mg Tablet, 5 MG PO Q6H Y for NAUSEA AND OR VOMITING , TAB 04/13/17 Hydromorphone Hcl* (Hydromorphone Hcl*) 2 Mg Tablet, 2 MG PO Q6 Y for PAIN, TAB 04/13/17 Primary Care Provider LUIS Alvarez May 12, 2017 15:57
== END 2017-05-12 13:10 | DRG 380 ==
LOC: E/R 14:44 → PP2 19:07 → OBSVTOIN 05-05 14:49
PROVIDERS: ADMIT Internal Medicine; ATTEND Internal Medicine
PROC: 5A1D70Z Performance of Urinary Filtration, Intermittent, Less than 6 Hours Per Day (ICD-10-PCS; principal; 2017-05-04)
DX: K22.10 Ulcer of esophagus without bleeding (principal); N18.6 End stage renal disease; E43 Unspecified severe protein-calorie malnutrition; J90 Pleural effusion, not elsewhere classified; I12.0 Hypertensive chronic kidney disease with stage 5 chronic kidney disease or end stage renal disease; J98.11 Atelectasis; R11.2 Nausea with vomiting, unspecified; I10 Essential (primary) hypertension; Z68.20 Body mass index [BMI] 20.0-20.9, adult; K80.20 Calculus of gallbladder without cholecystitis without obstruction; K57.90 Diverticulosis of intestine, part unspecified, without perforation or abscess without bleeding
CPT/HCPCS: 36415; 71010; 74176; 80048; 80053; 81001; 83690; 83735; 84100; 85025; 87081; 87086; 90935; 93005; 96374; 96375; 96376; G0378; C9113; J0360; J0696; J1644; J2270; J2405; J2765; J7042

== ENCOUNTER 2017-09-14 17:24 | Emergency (ER) | END 2017-09-14 19:43 | disposition EXP ==